=== PATIENT | female | born 1950 | race Caucasian/White ===

== ENCOUNTER 2022-05-01 20:28 | Emergency (ER) | payer MEDICARE, OTHER, SELFPAY ==
[2022-05-01] VITALS (7 sets, daily range): BP systolic 86–117; BP diastolic 49–76; PULSE 66; RESP 16; TEMP 37.1; O2SAT 94–99; BMI 21.2
--- NOTE | 2022-05-01 20:36 | PC.NURSE ---
Contact Kaleigh Chery with any needs/issues [phone]
--- NOTE | 2022-05-01 20:41 | XRR_ITS ---
PROCEDURE INFORMATION: Exam: XR Chest Exam date and time: 05/01/2022 9:44 PM Age: 72 years old Clinical indication: Shortness of breath; Additional info: Lethargy, SOB TECHNIQUE: Imaging protocol: Radiologic exam of the chest. Views: 1 view. COMPARISON: No relevant prior studies available. FINDINGS: Lungs: Unremarkable. No consolidation. Pleural spaces: Unremarkable. No pleural effusion. No pneumothorax. Heart/Mediastinum: Unremarkable. No cardiomegaly. Bones/joints: Unremarkable. XR/XR chest 1V portable [id number] IMPRESSION: No acute findings.
--- NOTE | 2022-05-01 20:42 | ED_ITS ---
HPI - Weakness General: Chief complaint: Weakness Stated complaint: COVID Time Seen by Provider: 05/01/22 20:41 History of Present Illness: 72-year-old female comes in today for complaints of increasing weakness. Patient had a positive COVID test 3 weeks ago and then a repeat COVID today showed positive still. Patient had poor oral intake today. Patient is a poor historian. History was collected from medical records from senior care, [facility]. Primary care is Eduardo Diaz. Patient is a full code. Patient takes medications for hypothyroidism, hypertension, depression, pain, and bladder spasms. Diagnosis also includes MS. Patient responds to questioning and states that she feels like she has pneumonia. Associated symptoms: Denies chest pain, nausea or vomiting Review of Systems 2 Const: Reports: fatigue and daytime sleepiness ENMT: Denies: throat pain Card: Denies: chest pain Resp: Reports: non-productive cough and other (States I have pneumonia) GI: Denies: nausea or vomiting : Denies: flank pain Musc: Denies: back pain or extremity pain Skin/Breast: Denies: rash Physical Exam Const: COMMON NORMALS: alert HENMT: COMMON NORMALS: normocephalic, atraumatic and Normal external nose present HEAD & SCALP: normocephalic and atraumatic NOSE: Normal external nose present MOUTH: Normal oral and palatal mucosa present Neck/C-Spine: COMMON NORMALS: full ROM Lymph: LYMPHATIC: no lymphadenopathy noted Resp: COMMON NORMALS: normal respiratory effort AUSCULTATION: diminished lung sounds Cardio: COMMON NORMALS: regular rate and regular rhythm RATE: regular rate RHYTHM: regular rhythm GI: COMMON NORMALS: Soft to palpation and non-tender PALPATION: Yes Soft to palpation Extremity: COMMON NORMALS: no pedal edema Neuro: SENSORIUM/ORIENTATION: Yes alert SPEECH: abnormal speech (Speech is slightly slurred) OTHER: Decreased use of upper extremities bilaterally, worse on left Psych: COMMON NORMALS: cooperative Skin: COMMON NORMALS: turgor normal GENERAL SKIN EXAM: turgor normal Course Vital Signs: Vital signs: Vital Signs Temperature 98.8 F 05/01/22 20:37 Pulse Rate 66 05/01/22 20:37 Respiratory Rate 16 05/01/22 20:37 Blood Pressure 113/76 05/01/22 22:30 Pulse Oximetry 99 05/01/22 23:00 Oxygen Delivery Me thod 02/22/23 20:37 MDM - Weakness Medical Decision Making 72-year-old female that resides at a nursing center was referred to the ER due to increased sleepiness and poor oral intake. Patient appears nontoxic. Patien t states that she thinks she has pneumonia. Patient does have some difficulty of speech at times. Patient has limited use of upper extremities. Patient becomes easily confused when questioned. No reported dementia or other abnormalities was noted in the senior care paperwork. Review of medications no medications for hypothyroidism and hypertension. Patient did have a recent positive COVID-19 test, 3 weeks ago and then a repeat test today was also positive. Differential diagnosis includes pneumonia, urinary tract infection, ACS, stroke, dehydration. Chest x-ray noted no pneumonia. CBC was unremarkable. Urinalysis was unremarkable. CMP showed no electrolyte abnormality, renal dysfunction, or liver abnormalities. Troponin was 60 on first draw was repeated at 2 hours was 58 with declining delta. Believe patient probably has post covid viral syndrome. Encourage plenty of fluids and activity. Recommend follow-up with primary care return to the ED for new concerns. Lab Data 05/01/22 21:14 05/01/22 21:14 Radiology Impressions Chest X-Ray 05/01/22 20:41 IMPRESSION: No acute findings. Head CT 05/01/22 21:05 IMPRESSION: Negative for intracranial hemorrhage or mass effect. Laboratory Results WBC 4.6 10^3/uL (4.0-10.0) 05/01/22 21:14 RBC 3.70 10^6/uL (4.1-5.3) L 05/01/22 21:14 Hgb 11.2 g/dL (11.5-15.3) L 05/01/22 21:14 Hct 36.6 % (37.0-47.0) L 05/01/22 21:14 MCV 98.9 fl (81-99) 05/01/22 21:14 MCH 30.3 pg (28.0-34.0) 05/01/22 21:14 MCHC 30.6 g/dL (30.0-36.0) 05/01/22 21:14 RDW 14.2 % (12.1-15.1) 05/01/22 21:14 Plt Count 153 10^3/cmm (130-400) 05/01/22 21:14 MPV 11.8 fL (7.4-10.4) H 05/01/22 21:14 Neut % (Auto) 69.4 % 05/01/22 21:14 Lymph % (Auto) 19.3 % 05/01/22 21:14 [place] % (Auto) 7.4 % 05/01/22 21:14 Eos % (Auto) 3.5 % 05/01/22 21:14 Baso % (Auto) 0.2 % 05/01/22 21:14 Neut # (Auto) 3.21 10^3/uL (1.8-7.7) 05/01/22 21:14 Lymph # (Auto) 0.9 10^3/uL (0.8-4.8) 05/01/22 21:14 [place] # (Auto) 0.3 10^3/uL (0.2-0.9) 05/01/22 21:14 Eos # (Auto) 0.2 10^3/uL (0.0-0.8) 05/01/22 21:14 Baso # (Auto) 0.0 10^3/uL (0.0-0.1) 05/01/22 21:14 Nucleated RBC % (auto) 0 % 05/01/22 21:14 Nucleated RBCs # 0.0 /100WBC 05/01/22 21:14 Sodium 142 mmol/L (136-145) 05/01/22 21:14 Potassium 4.1 mmol/L (3.5-5.1) 05/01/22 21:14 Chloride 102 mmol/L (98-107) 05/01/22 21:14 Carbon Dioxide 30 mmol/L (22-29) H 05/01/22 21:14 Anion Gap 14.1 (5-19) 05/01/22 21:14 BUN 22 mg/dL (8-23) 05/01/22 21:14 Creatinine 0.9 mg/dL (0.5-0.9) 05/01/22 21:14 GFR Calculation 61.9 mL/min (90-130) L 05/01/22 21:14 Glucose 90 mg/dL (65-115) 05/01/22 21:14 Calculated Osmolality 297 mOsm/kg (285-295) H 05/01/22 21:14 Calcium 9.6 mg/dL (8.5-10.5) 05/01/22 21:14 Total Bilirubin 0.2 mg/dL (0.15-1.2) 05/01/22 21:14 AST 25 U/L (0-32) 05/01/22 21:14 ALT 16 U/L (0-33) 05/01/22 21:14 Alkaline Phosphatase 126 U/L (35-105) H 05/01/22 21:14 Troponin T Baseline 61 ng/L (0-10) H 05/01/22 21:14 Troponin T 120 Minute 54.64 ng/L (0-10) H 05/02/22 00:32 Delta Troponin T -6.36 ABS# (0-10) L 05/02/22 00:32 Total Protein 5.2 g/dL (6.6-8.7) L 05/01/22 21:14 Albumin 3.3 g/dL (3.5-5.2) L 05/01/22 21:14 Globulin 1.9 g/dL (1.3-4.6) 05/01/22 21:14 TSH 0.52 uIU/mL (0.27-4.20) 05/01/22 21:14 Urine Color Yellow (Yellow) 05/01/22 22:58 Urine Appearance Clear (CLEAR) 05/01/22 22:58 Urine pH 5 (5-7) 05/01/22 22:58 Ur Specific [place] 1.020 (1.005-1.030) 05/01/22 22:58 Urine Protein Neg (Negative) 05/01/22 22:58 Urine Glucose (UA) Norm (Normal) 05/01/22 22:58 Urine Ketones 1+ (Negative) H 05/01/22 22:58 Urine Blood Neg (Negative) 05/01/22 22:58 Urine Nitrate Negative (Negative) 05/01/22 22:58 Urine Bilirubin Neg (Negative) 05/01/22 22:58 Urine Urobilinogen Norm mg/dL (Negative) 05/01/22 22:58 Ur Leukocyte Esterase Negative (Negative) 05/01/22 22:58 EKG Data EKG 1: EKG interpretation date: 05/01/22 EKG interpretation time: 21:43 Prior EKG tracings: not available for review Interpretation: EKG shows a sinus rhythm with a regular rate at [address] elevation or ectopy is noted. No prior exam was available for comparison. Discharge Plan Discharge Patient Disposition: Home Clinical Impression: Post viral syndrome Condition: Stable Prescriptions: No Action gabapentin 600 mg Tablet 600 mg PO DAILY lisinopril 20 mg Tablet 20 mg PO DAILY nitrofurantoin 100 mg Capsule 100 mg PO DAILY Rx Instructions: must administer with a meal/food levothyroxine 112 mcg Tablet 112 mcg PO DAILY tizanidine 4 mg Tablet 8 mg PO DAILY acetaminophen 500 mg Tablet 500 mg PO Q6H PRN (Reason: Pain) baclofen 20 mg Tablet 20 mg PRN (Reason: as needed) nortriptyline 25 mg Capsule 30 mg PO DAILY oxybutynin chloride 5 mg Tablet 5 mg PO BID Discharge Orders: Discharge ED (Routine); Ordered 05/02/22 Ordered By: Mika Hinojosa Discharge Diet: Usual diet Discharge Activity: Increase activity as tolerated Patient Instructions: Viral Syndrome (ED) Activity Restrictions/Additional Instructions: Encourage plenty of fluids. Healthy diet and exercise. Follow-up with primary care as needed. Return to ER for new concerns or worsening symptoms. Coding Level of Care Code ED Sql Database Programmer for Augie eWeks
--- NOTE | 2022-05-01 20:51 | ECG_ITS ---
[facility] Test Date: 2022-05-01 Pat Name: Valery Triana Department: Room: Gender: Female Clinical Psychologist Licensed: : 1950 Requested By: Mika Singh Order Number: [id number] Selina MD: Rush Maciel M.D. Measurements Intervals [place] Rate: 62 P: 57 HI: 166 QRS: 49 QRSD: 103 T: 44 QT: 433 QTc: 443 Interpretive Statements SINUS RHYTHM LOW QRS VOLTAGE IN PRECORDIAL LEADS [QRS DEFLECTION < 1.0 mV IN CHEST LEADS] NONSPECIFIC T-WAVE ABNORMALITY No previous ECG available for comparison Electronically Signed On 05-01-2022 22:50:15 TITLE ATTORNEY by Rush Maciel M.D. [id number]
--- NOTE | 2022-05-01 21:05 | CTR_ITS ---
PROCEDURE INFORMATION: Exam: CT Head Without Contrast Exam date and time: 05/01/2022 10:20 PM Age: 72 years old Clinical indication: Altered mental status/memory loss; Additional info: Lethargy, patient with HX of ms and covid 3 weeks ago TECHNIQUE: Imaging protocol: Computed tomography of the head without contrast. Radiation optimization: All CT scans at this facility use at least one of these dose optimization techniques: automated exposure control; mA and/or kV adjustment per patient size (includes targeted exams where dose is matched to clinical indication); or iterative reconstruction. REPORTING DATA: Count of CT and Cardiac NM exams in prior 12 months: This patient has received 0 known CTs and 0 known cardiac nuclear medicine studies in the 12 months prior to the current study. COMPARISON: No relevant prior studies available. RADIATION DOSE METRICS: Total DLP (mGy-cm): 1139.08 FINDINGS: Brain: Moderate diffuse white matter disease likely reflecting chronic microvascular ischemic changes. Cerebral ventricles: No ventriculomegaly. Paranasal sinuses: Visualized sinuses are unremarkable. No fluid levels. Mastoid air cells: Visualized mastoid air cells are well aerated. Bones/joints: Unremarkable. No acute fracture. Soft tissues: Unremarkable. CT/CT head wo con* [id number] IMPRESSION: Negative for intracranial hemorrhage or mass effect.
[2022-05-01] MEDS: sodium chloride 0.9% 500 ML 999 ML IV (21:18)
[2022-05-01 21:22] LABS: Basophils % 0.2 %; Eosinophils # 0.2 10^3/uL (0.0-0.8); Eosinophils % 3.5 %; Hematocrit 36.6 % (37.0-47.0); Hemoglobin 11.2 g/dL (11.5-15.3); Lymphocytes # 0.9 10^3/uL (0.8-4.8); Lymphocytes % 19.3 %; Mean Corpuscular HGB Conc 30.6 g/dL (30.0-36.0); Mean Corpuscular Hemoglobin 30.3 pg (28.0-34.0); Mean Corpuscular Volume 98.9 fl (81-99); Mean Platelet Volume 11.8 fL (7.4-10.4); Monocytes # 0.3 10^3/uL (0.2-0.9); Monocytes % 7.4 %; Neutrophils # 3.21 10^3/uL (1.8-7.7); Neutrophils % 69.4 %; Nucleated Red Blood Cells % 0 %; Platelet Count 153 10^3/cmm (130-400); Red Cell Distribution Width 14.2 % (12.1-15.1); White Blood Count 4.6 10^3/uL (4.0-10.0)
[2022-05-01 21:45] LABS: Troponin(5th) Baseline 61 ng/L (0-10)
[2022-05-01 21:53] LABS: Alanine Aminotransferase 16 U/L (0-33); Albumin Level 3.3 g/dL (3.5-5.2); Alkaline Phosphatase 126 U/L (35-105); Anion Gap 14.1 (5-19); Aspartate Amino Transferase 25 U/L (0-32); Blood Urea Nitrogen 22 mg/dL (8-23); Calcium 9.6 mg/dL (8.5-10.5); Carbon Dioxide 30 mmol/L (22-29); Chloride 102 mmol/L (98-107); Globulin 1.9 g/dL (1.3-4.6); Glomerular Filtration Rate 61.9 mL/min (90-130); Glucose 90 mg/dL (65-115); Osmolality Calculated 297 mOsm/kg (285-295); Potassium 4.1 mmol/L (3.5-5.1); Sodium 142 mmol/L (136-145); Thyroid Stimulating Hormone 0.52 uIU/mL (0.27-4.20); Total Bilirubin 0.2 mg/dL (0.15-1.2); Total Protein 5.2 g/dL (6.6-8.7)
[2022-05-01 23:03] LABS: Add Urine Microscopic? NO; Charge for UA Resulting for Rev
[2022-05-01 23:07] LABS: Bilirubin Urine Neg (Negative); Blood Urine Neg (Negative); Glucose Urine UA Norm (Normal); Ketones Urine 1+ (Negative); Leukocyte Esterase Urine Negative (Negative); Nitrate Urine Negative (Negative); Protein Urine Neg (Negative); Urine Appearance Clear (CLEAR); Urine Color Yellow (Yellow); Urobilinogen Urine Norm (Negative); pH Urine 5 (5-7)
[2022-05-02 00:54] LABS: Troponin 5 2HR 54.64 ng/L (0-10)
[2022-05-02 01:18] LABS: Troponin 5 2HR Delta -6.36 ABS# (0-10)
== END 2022-05-02 03:15 | disposition home or self-care (01) ==
PROVIDERS: Emergency Provider Nurse Practitioner Family
DX: G93.31 Postviral fatigue syndrome (principal)
CPT/HCPCS: 36415; 70450; 71045; 80053; 81003; 84443; 84484; 85025; 93005; 96360; 99285; J7040

== ENCOUNTER → 2022-06-19 09:16 | Outpatient (BNVA) | payer MEDICARE, OTHER, SELFPAY | PROVIDERS: PCP Nurse Practitioner; Visit Provider Nurse Practitioner | DX: N39.0 Urinary tract infection, site not specified (principal) | CPT/HCPCS: 81000 ==

== ENCOUNTER 2022-06-24 16:21 | Emergency (ER) | payer MEDICARE, OTHER, SELFPAY ==
[2022-06-24] VITALS (8 sets, daily range): BP systolic 139–164; BP diastolic 61–87; PULSE 55–90; RESP 14–18; O2SAT 99–100; BMI 30.1
--- NOTE | 2022-06-24 16:41 | ED_ITS ---
HPI - SOB/Dyspnea General: Chief Complaint: Shortness of Breath/Dyspnea Stated Complaint: WEAKNESS/ SOB Time Seen by Provider: 06/24/22 16:40 Limitations: altered mental status History of Present Illness: HPI Narrative: Ms. Triana is a 72-year-old lady with per chart review MS, debility, chronic UTI, hypertension presenting to the emergency department for somewhat unclear reasons. Apparently she resides at [facility] and they noted possible change in mental status and shortness of breath. I am unsure of the patient's baseline. She is unsure of why she is here. She denies any other specific complaints or says I do not know. History otherwise limited by mental status. Review of Systems General: Reports: ROS unobtainable due to mental status PFSH ED PFSH: Medical History (Updated 06/24/22 @ 21:09 by Jesse Posey MD) Chronic UTI (urinary tract infection) Essential hypertension Hypothyroid Lives in assisted living facility Multiple sclerosis Dr. Jc Metz in [place], [place] Neuropathic pain Wears dentures Wheelchair dependent Surgical History History of bilateral tubal ligation History of cholecystectomy History of hysterectomy History of lumbar fusion Family History Mother Cancer Bladder Diabetes Sister Hypertension Congestive heart failure Social History Smoking and tobacco status: never smoked Second hand smoke exposure: No Smoking risk assessment/counseling performed?: No Desire information about alcohol rehabilitation?: No Counseling given: No Desire information about substance/drug rehabilitation?: No Counseling given: No Caregiver/support person: Yes Lives independently: No (SV) Household members: other Housing: Assisted Living Facility Current occupational status: retired and disabled Current occupational exposures/hazards: No Pets and animals: No Current gender identity: Female Physical Exam Const: COMMON NORMALS: alert GENERAL APPEARANCE: cooperative and well developed HENMT: COMMON NORMALS: normocephalic and atraumatic HEAD & SCALP: normocephalic and atraumatic THROAT: posterior oropharynx normal Eye: COMMON NORMALS: conjunctivae normal CONJUNCTIVA: Yes conjunctivae normal SCLERA: sclerae normal Neck/C-Spine: COMMON NORMALS: supple GENERAL: Yes trachea midline Resp: COMMON NORMALS: clear to auscultation bilaterally EFFORT & INSPECTION: Yes able to speak in complete sentences AUSCULTATION: clear to auscultation bilaterally Cardio: COMMON NORMALS: regular rate and regular rhythm RATE: regular rate RHYTHM: regular rhythm GI: COMMON NORMALS: Soft to palpation PALPATION: Yes Soft to palpation and No Tenderness to palpation present (GI) Extremity: GENERAL: Yes normal exam except as noted and No edema Neuro: COMMON NORMALS: moves all extremities SENSORIUM/ORIENTATION: Yes alert and No Orientation impaired Psych: MEMORY/COGNITION: Yes memory grossly impaired Course Vital Signs: Vital signs: Vital Signs Pulse Rate 74 06/24/22 21:26 Respiratory Rate 16 06/24/22 21:26 Blood Pressure 156/82 06/24/22 21:26 Pulse Oximetry 100 06/24/22 21:00 Oxygen Delivery Me thod Room Air 06/24/22 20:30 MDM - SOB/Dyspnea Medical Decision Making 72-year-old lady presenting with unclear concerns possibly mental status change and shortness of breath. No focal neurologic deficits, patient is nontoxic. EKG noted sinus rhythm with bradycardia, normal axis and intervals otherwise, no STEMI. Labs with no significant hematologic abnormality. Metabolic panel with mild h ypokalemia of uncertain etiology, minimal transaminitis the patient does not have tenderness in the right upper quadrant. Negative range 2-hour delta troponin. Low TSH with elevated free T4. Urinary tract infection present. Head CT negative for acute pathology, chest x-ray with no lobar consolidation or pneumothorax. Patient treated with IV fluids which should help with laboratory abnormalities as well as antibiotics. She is able to tolerate p.o. intake and does not show evidence of sepsis. The results of ED evaluation were discussed with the patient including prescriptions and/or symptomatic cares (if applicable) including appropriate and responsible use, followup plan, and return precautions. The patient verbalized understanding and felt safe for discharge. Medical Records I reviewed the patient's medical records. Lab Data I reviewed the patient's lab results. 06/24/22 17:09 06/24/22 17:09 Labs/Radiology: Radiology Impressions Chest X-Ray 06/24/22 16:52 IMPRESSION: 1. No acute cardiopulmonary process. 2. Incidental/nonacute findings are listed in the report. Head CT 06/24/22 16:53 IMPRESSION: 1. No acute abnormality of the brain. 2. Stable moderate chronic white matter microangiopathic change. 3. Stable small amount of fluid in the right and left mastoid air cells. Laboratory Results WBC 5.4 10^3/uL (4.0-10.0) 06/24/22 17:09 RBC 4.18 10^6/uL (4.1-5.3) 06/24/22 17:09 Hgb 12.6 g/dL (11.5-15.3) 06/24/22 17:09 Hct 41.1 % (37.0-47.0) 06/24/22 17: MCV 98.3 fl (81-99) 06/24/22 17:09 MCH 30.1 pg (28.0-34.0) 06/24/22 17: MCHC 30.7 g/dL (30.0-36.0) 06/24/22 17: RDW 15.0 % (12.1-15.1) 06/24/22 17: Plt Count 346 10^3/cmm (130-400) 06/24/22 17:09 MPV 10.8 fL (7.4-10.4) H 06/24/22 17:09 Neut % (Auto) 67.0 % 06/24/22 17:09 Lymph % (Auto) 22.8 % 06/24/22 17:09 [place] % (Auto) 7.4 % 06/24/22 17:09 Eos % (Auto) 2.0 % 06/24/22 17:09 Baso % (Auto) 0.4 % 06/24/22 17:09 Neut # (Auto) 3.61 10^3/uL (1.8-7.7) 06/24/22 17:09 Lymph # (Auto) 1.2 10^3/uL (0.8-4.8) 06/24/22 17:09 [place] # (Auto) 0.4 10^3/uL (0.2-0.9) 06/24/22 17:09 Eos # (Auto) 0.1 10^3/uL (0.0-0.8) 06/24/22 17:09 Baso # (Auto) 0.0 10^3/uL (0.0-0.1) 06/24/22 17:09 Nucleated RBC % (auto) 0 % 06/24/22 17:09 Nucleated RBCs # 0.0 /100WBC 06/24/22 17:09 Sodium 138 mmol/L (136-145) 06/24/22 17:09 Potassium 5.6 mmol/L (3.5-5.1) H 06/24/22 17:09 Chloride 100 mmol/L (98-107) 06/24/22 17:09 Carbon Dioxide 30 mmol/L (22-29) H 06/24/22 17:09 Anion Gap 13.6 (5-19) 06/24/22 17:09 BUN 38 mg/dL (8-23) H 06/24/22 17:09 Creatinine 0.6 mg/dL (0.5-0.9) 06/24/22 17:09 GFR Calculation 98.8 mL/min (90-130) 06/24/22 17:09 Glucose 75 mg/dL (65-115) 06/24/22 17:09 Calculated Osmolality 294 mOsm/kg (285-295) 06/24/22 17:09 Calcium 9.7 mg/dL (8.5-10.5) 06/24/22 17:09 Total Bilirubin 0.2 mg/dL (0.15-1.2) 06/24/22 17:09 AST 45 U/L (0-32) H 06/24/22 17:09 ALT 54 U/L (0-33) H 06/24/22 17:09 Alkaline Phosphatase 122 U/L (35-105) H 06/24/22 17:09 Troponin T Baseline 42 ng/L (0-10) H 06/24/22 17:09 Troponin T 120 Minute 31.15 ng/L (0-10) H 06/24/22 19:53 Delta Troponin T -10.85 ABS# (0-10) L 06/24/22 19:53 C-Reactive Protein 10.5 mg/L (0.0-4.9) H 06/24/22 17:09 NT-Pro-B Natriuret Pep 36 pg/mL (0-125) 06/24/22 17:09 Total Protein 7.0 g/dL (6.6-8.7) 06/24/22 17:09 Albumin 4.6 g/dL (3.5-5.2) 06/24/22 17:09 Globulin 2.4 g/dL (1.3-4.6) 06/24/22 17:09 Procalcitonin 0.10 ng/mL (0-0.5) 06/24/22 17:09 TSH 0.19 uIU/mL (0.27-4.20) L 06/24/22 17:09 Free T4 1.88 ng/dL (0.82-1.77) H 06/24/22 16:53 Urine Color Yellow (Yellow) 06/24/22 20:29 Urine Appearance Hazy (CLEAR) A 06/24/22 20:29 Urine pH 5 (5-7) 06/24/22 20:29 Ur Specific [place] 1.015 (1.005-1.030) 06/24/22 20:29 Urine Protein Neg (Negative) 06/24/22 20:29 Urine Glucose (UA) Norm (Normal) 06/24/22 20:29 Urine Ketones 1+ (Negative) H 06/24/22 20:29 Urine Blood Neg (Negative) 06/24/22 20:29 Urine Nitrate Negative (Negative) 06/24/22 20:29 Urine Bilirubin Neg (Negative) 06/24/22 20:29 Urine Urobilinogen Norm mg/dL (Negative) 06/24/22 20:29 Ur Leukocyte Esterase 2+ (Negative) H 06/24/22 20:29 Urine RBC 0-4 /hpf (0-2) H 06/24/22 20:29 Urine WBC >100 /hpf (0-5) H 06/24/22 20:29 Ur Squamous Epith Cells 5-10 /hpf (0-5) H 06/24/22 20:29 Amorphous Sediment Not Reportable 06/24/22 20: Urine Bacteria 3+ /hpf (NONE) H 06/24/22 20:29 Discharge Plan Discharge Patient Disposition: Home Clinical Impression: Acute UTI, Dehydration Condition: Stable Prescriptions: No Action baclofen 20 mg tablet 20 mg PO .COMPLEX Qty: 30 5RF Rx Instructions: 20 mg orally at 10AM; tizanidine 4 mg tablet 8 mg PO .in evening Qty: 60 0RF Rx Instructions: neurology writing oxybutynin chloride 5 mg tablet 5 mg PO BID Qty: 60 0RF Rx Instructions: neurology writing nortriptyline 25 mg capsule 30 mg PO .in evening Qty: 90 0RF Rx Instructions: Neurology writing gabapentin 600 mg tablet 600 mg PO .in evening Qty: 30 0RF Rx Instructions: Neurology writing tramadol 50 mg tablet 100 mg PO .COMPLEX Qty: 120 5RF Rx Instructions: 100 mg orally 10AM & 5PM; Natures Bounty C 250,D 500, Zinc 7.5 See Rx Instructions .ROUTE .COMPLEX Qty: 60 0RF Rx Instructions: 2 chew by mouth daily; please put on EMR tetracycline 500 mg capsule 500 mg PO Q6H Qty: 30 0RF lisinopril 20 mg Tablet 20 mg PO DAILY nitrofurantoin 100 mg Capsule 100 mg PO DAILY Rx Instructions: must administer with a meal/food levothyroxine 112 mcg Tablet 112 mcg PO DAILY acetaminophen 500 mg Tablet 500 mg PO Q6H PRN (Reason: Pain) Discharge Orders: Discharge ED (Routine); Ordered 06/24/22 Ordered By: Jesse Posey Referrals: Makayla Galvez, MOTHER REPAIRER-C [Primary Care Provider] - Discharge Diet: Usual diet Discharge Activity: Increase activity as tolerated Patient Instructions: Dehydration (ED), Urinary Tract Infection in Older Adults (ED) Activity Restrictions/Additional Instructions: Thank you for visiting the emergency department. You were seen and evaluated in the emergency department. The exact cause your symptoms is unclear though may be related to urinary tract infection and mild dehydration. Your potassium was elevated, I recommend repeat lab work within 1 week to reevaluate. I will prescribe antibiotics. Please follow-up with a primary care provider. Return to the emergency department for anything that you are concerned about and feel needs emergency department evaluation. Coding Level of Care Code ED Associate Dean Of Women for Augie Weeks
--- NOTE | 2022-06-24 16:52 | XRR_ITS ---
PROCEDURE INFORMATION: Exam: XR Chest Exam date and time: 06/24/2022 5:30 PM Age: 72 years old Clinical indication: Shortness of breath; Additional info: SOB TECHNIQUE: Imaging protocol: Radiologic exam of the chest. Views: 1 view. COMPARISON: CR XR chest 1V portable [id number] 05/01/2022 9:44 PM FINDINGS: Lungs: Lungs are clear bilaterally. Pleural spaces: No pleural effusion. No pneumothorax. Heart/Mediastinum: Stable mild enlargement of the cardiac silhouette. Mediastinal contours are unremarkable. Vasculature: Stable vascular calcifications in the aorta. Bones/joints: Unremarkable for age. XR/XR chest 1V portable [id number] IMPRESSION: 1. No acute cardiopulmonary process. 2. Incidental/nonacute findings are listed in the report.
--- NOTE | 2022-06-24 16:53 | CTR_ITS ---
PROCEDURE INFORMATION: Exam: CT Head Without Contrast Exam date and time: 06/24/2022 5:39 PM Age: 72 years old Clinical indication: Altered mental status/memory loss; Additional info: AMS TECHNIQUE: Imaging protocol: Computed tomography of the head without contrast. Sagittal and coronal reformatted images were created and reviewed. Radiation optimization: All CT scans at this facility use at least one of these dose optimization techniques: automated exposure control; mA and/or kV adjustment per patient size (includes targeted exams where dose is matched to clinical indication); or iterative reconstruction. REPORTING DATA: Count of CT and Cardiac NM exams in prior 12 months: This patient has received [address] and 0 known cardiac nuclear medicine studies in the 12 months prior to the current study. COMPARISON: CT head wo con* [id number] 05/01/2022 10:20 PM RADIATION DOSE METRICS: Total DLP (mGy-cm): 1130.98 FINDINGS: Brain: No acute intracranial hemorrhage. No acute infarct. No intra-axial or extra-axial masses. Koenig-white matter differentiation is preserved. No cerebral edema. No extra-axial fluid collections. No midline shift. No evidence for Chiari 1 malformation. Stable moderately decreased attenuation in the deep white matter, consistent with moderate chronic microangiopathic change. Cerebral ventricles: No hydrocephalus. Paranasal sinuses: Visualized paranasal sinuses are clear. Mastoid air cells: Stable small amount of fluid in the right and left mastoid air cells. Orbital cavities: Globes and lenses, extraocular muscles, and optic nerves are intact bilaterally. No acute intraorbital abnormality. Nasal cavity: Mild right nasal septal deviation. Bones/joints: No acute fracture. Soft tissues: No acute abnormality of the extracranial soft tissues. Vasculature: Atherosclerotic changes in the visualized arteries. CT/CT head wo con* [id number] IMPRESSION: 1. No acute abnormality of the brain. 2. Stable moderate chronic white matter microangiopathic change. 3. Stable small amount of fluid in the right and left mastoid air cells.
--- NOTE | 2022-06-24 16:53 | ECG_ITS ---
[facility] Test Date: 2022-06-24 Pat Name: Valery Triana Department: Room: Gender: Female [place] Operator: : 1950 Requested By: Jesse Posey Order Number: [id number] Selina MD: Rush Maciel M.D. Measurements Intervals [place] Rate: 56 P: 42 [place]: 200 QRS: 50 QRSD: 101 T: 61 QT: 451 QTc: 438 Interpretive Statements SINUS BRADYCARDIA Compared to ECG 05/01/2022 21:03:43 Sinus rhythm no longer present T-wave abnormality no longer present Electronically Signed On 06-25-2022 15:04:06 CDT by Rush Maciel M.D. [id number]
[2022-06-24 17:27] LABS: Basophils % 0.4 %; Eosinophils # 0.1 10^3/uL (0.0-0.8); Hematocrit 41.1 % (37.0-47.0); Hemoglobin 12.6 g/dL (11.5-15.3); Lymphocytes # 1.2 10^3/uL (0.8-4.8); Lymphocytes % 22.8 %; Mean Corpuscular HGB Conc 30.7 g/dL (30.0-36.0); Mean Corpuscular Hemoglobin 30.1 pg (28.0-34.0); Mean Corpuscular Volume 98.3 fl (81-99); Mean Platelet Volume 10.8 fL (7.4-10.4); Monocytes # 0.4 10^3/uL (0.2-0.9); Monocytes % 7.4 %; Neutrophils # 3.61 10^3/uL (1.8-7.7); Nucleated Red Blood Cells % 0 %; Platelet Count 346 10^3/cmm (130-400); Red Blood Count 4.18 10^6/uL (4.1-5.3); White Blood Count 5.4 10^3/uL (4.0-10.0)
[2022-06-24 17:51] LABS: Troponin(5th) Baseline 42 ng/L (0-10)
[2022-06-24 18:00] LABS: NT Pro B Type Natriuretic Pept 36 pg/mL (0-125); Thyroid Stimulating Hormone 0.19 uIU/mL (0.27-4.20)
[2022-06-24 18:22] LABS: Alanine Aminotransferase 54 U/L (0-33); Albumin Level 4.6 g/dL (3.5-5.2); Alkaline Phosphatase 122 U/L (35-105); Anion Gap 13.6 (5-19); Aspartate Amino Transferase 45 U/L (0-32); Blood Urea Nitrogen 38 mg/dL (8-23); C Reactive Protein 10.5 mg/L (0.0-4.9); Calcium 9.7 mg/dL (8.5-10.5); Carbon Dioxide 30 mmol/L (22-29); Chloride 100 mmol/L (98-107); Globulin 2.4 g/dL (1.3-4.6); Glomerular Filtration Rate 98.8 mL/min (90-130); Glucose 75 mg/dL (65-115); Osmolality Calculated 294 mOsm/kg (285-295); Potassium 5.6 mmol/L (3.5-5.1); Sodium 138 mmol/L (136-145); Total Bilirubin 0.2 mg/dL (0.15-1.2)
[2022-06-24] MEDS: sodium chloride 0.9% 1,000 ML 999 ML IV (19:54)
[2022-06-24 20:50] LABS: Troponin 5 2HR 31.15 ng/L (0-10)
[2022-06-24 20:51] LABS: Troponin 5 2HR Delta -10.85 ABS# (0-10)
[2022-06-24 20:59] LABS: Bilirubin Urine Neg (Negative); Blood Urine Neg (Negative); Glucose Urine UA Norm (Normal); Ketones Urine 1+ (Negative); Nitrate Urine Negative (Negative); Protein Urine Neg (Negative); Specific Gravity, Urine 1.015 (1.005-1.030); Urine Appearance Hazy (CLEAR); Urine Color Yellow (Yellow); Urobilinogen Urine Norm (Negative); pH Urine 5 (5-7)
[2022-06-24 21:00] LABS: Add Urine Culture? Yes; Add Urine Microscopic? YES; Bacteria Urine 3+ /hpf; Leukocyte Esterase Urine 2+ (Negative); RBC Urine 0-4 /hpf (0-2); WBC Urine >100 /hpf (0-5)
[2022-06-24 21:12] LABS: Free T4 Free Thyroxine 1.88 ng/dL (0.82-1.77)
[2022-06-24] MEDS: cefTRIAXone 1,000 MG in sodium chloride 0.9% (plus) 50 ML 100 MG IV (21:22)
== END 2022-06-24 22:56 | disposition home or self-care (01) ==
PROVIDERS: Emergency Provider Emergency Medicine; PCP Nurse Practitioner
DX: N39.0 Urinary tract infection, site not specified (principal); E86.0 Dehydration; I10 Essential (primary) hypertension; Z87.440 Personal history of urinary (tract) infections; G35 Multiple sclerosis
CPT/HCPCS: 36415; 70450; 71045; 80053; 81001; 83880; 84145; 84439; 84443; 84484; 85025; 86140; 87077; 87086; 87186; 93005; 96365; 99285; J0696; J7030

== ENCOUNTER 2022-07-03 09:02 | Inpatient (IN) | payer OTHER, MEDICARE, SELFPAY ==
[2022-07-03] VITALS (102 sets, daily range): BP systolic 84–140; BP diastolic 32–78; PULSE 44–105; RESP 1–29; TEMP 33.1–37.1; O2SAT 93–100; BMI 30.1
--- NOTE | 2022-07-03 09:14 | XR_ITS ---
WS: [id number] Exam: XR chest 1V portable [id number] Date/Time of Exam: 07/03/2022 9:19 AM Reason For Exam: hypotension Comparison 06/24/2022. The lungs are clear and fully expanded. Normal cardiomediastinal silhouette. Bony structures are inta ct. Spondylosis of the T-spine. No change. XR/XR chest 1V portable [id number] IMPRESSION: 1. No acute cardiopulmonary process.
--- NOTE | 2022-07-03 09:16 | ECG_ITS ---
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 Measurements Intervals [place] Rate: 48 P: 49 [place]: 208 QRS: 40 QRSD: 116 T: 58 QT: 526 QTc: 470 Interpretive Statements SINUS BRADYCARDIA LOW QRS VOLTAGE IN PRECORDIAL LEADS [QRS DEFLECTION < 1.0 mV IN CHEST LEADS] MODERATE INTRAVENTRICULAR CONDUCTION DELAY [110+ ms QRS DURATION] ST ELEVATION, CONSIDER INFERIOR INJURY [MARKED ST ELEVATION W/O NORMALLY INFLECTED T-WAVE IN II/aVF] ACUTE IL Compared to ECG 06/24/2022 17:20:02 Low QRS voltage now present Intraventricular conduction delay now present ST (T wave) deviation now present Myocardial infarct finding now present Electronically Signed On 07-03-2022 10:58:17 CDT by Rush Maciel M.D. [id number]
--- NOTE | 2022-07-03 09:19 | ED_ITS ---
HPI - General Adult General: Chief complaint: General Medical Stated complaint: SEPSIS/ FOUND ALMOST UNRESPONSIVE Time Seen by Provider: 07/03/22 09:09 History of Present Illness: Patient arrived to the ER by EMS from an assisted living facility patient was found cold with a temperature of 91.3 orally and responsive to sternal rub only. Patient has a history of EMS and also urosepsis. EMS administered 700 mils of normal saline. MD complaint: Altered mental status, urosepsis probable Onset (ago): unknown (Found this morning this way) Relieving factors: other (Patient is now alert oriented and answering questions.) Exacerbating factors: none Associated symptoms: Reports other; Deny chest pain, dyspnea, nausea, rash, palpitations or vomiting Treatments prior to arrival: other (700 mils NS IV by EMS) Review of Systems General: Reports: 10 or more systems reviewed and unremarkable except in HPI and below Const: Reports: chills; Denies: fever(s) Eyes: Denies: change in vision or photophobia ENMT: Denies: throat pain or odynophagia Card: Denies: chest pain, palpitations or irregular heart rhythm Resp: Denies: dyspnea, productive cough or non-productive cough GI: Denies: abdominal pain, nausea, vomiting or diarrhea : Denies: flank pain, difficulty voiding or dysuria Musc: Denies: neck pain, back pain or extremity pain Skin/Breast: Denies: rash or pruritus PFSH ED PFSH: Medical History (Updated 07/03/22 @ 13:16 by Thien Durand DO) Chronic UTI (urinary tract infection) Essential hypertension Hypothyroid Lives in assisted living facility Multiple sclerosis Dr. Jc Metz in [place], [place] Neuropathic pain Spinal stenosis Wears dentures Wheelchair dependent Surgical History History of bilateral tubal ligation History of cholecystectomy History of hysterectomy History of lumbar fusion Family History Mother Cancer Bladder Diabetes Sister Hypertension Congestive heart failure Social History (Updated 07/03/22 @ 13:10 by Corky Lopez MD) Smoking and tobacco status: former smoker Second hand smoke exposure: No Smoking risk assessment/counseling performed?: No Desire information about alcohol rehabilitation?: No Counseling given: No Desire information about substance/drug rehabilitation?: No Counseling given: No Caregiver/support person: Yes Lives independently: No (SV) Household members: other Housing: Assisted Living Facility Current occupational status: retired and disabled Current occupational exposures/hazards: No Pets and animals: No Do you think of yourself as: Straight/Heterosexual Current gender identity: Female Physical Exam Const: COMMON NORMALS: no acute distress, average body habitus, patient oriented x3, no limitations, healthy appearing, alert and well nourished HENMT: COMMON NORMALS: normocephalic, atraumatic, hearing grossly normal bilaterally, external ears normal, Normal external nose present and moist oral mucous membranes HEAD & SCALP: normocephalic and atraumatic NOSE: Normal external nose present EXTERNAL EAR: Yes external ears normal Eye: COMMON NORMALS: Equal, round and reactive pupils present, EOMs intact bilaterally, conjunctivae normal and no scleral icterus CONJUNCTIVA: Yes conjunctivae normal PUPIL: Yes Equal, round and reactive pupils present Neck/C-Spine: COMMON NORMALS: full ROM, no lymphadenopathy, supple, no meningeal signs, no JVD and Thyroid normal THYROID: Thyroid normal Lymph: LYMPHATIC: no lymphadenopathy noted Chest: COMMONS NORMALS: normal inspection of the chest and normal palpation of entire chest wall Resp: COMMON NORMALS: normal respiratory effort, No retractions, No use of accessory muscles and clear to auscultation bilaterally AUSCULTATION: clear to auscultation bilaterally Cardio: COMMON NORMALS: no JVD, regular rate, regular rhythm, S1 normal heart sound present and S2 normal heart sound present RATE: regular rate RHYTHM: regular rhythm HEART SOUNDS: S1 normal heart sound present and S2 normal heart sound present GI: COMMON NORMALS: Normal to inspection, nondistended, normoactive bowel sounds present, Soft to palpation, non-tender, No hepatosplenomegaly present and no masses PALPATION: Yes Soft to palpation and Yes No hepatosplenomegaly present : COMMON NORMALS: Yes no CVA tenderness BLADDER/KIDNEY EXAM: Yes no CVA tenderness Back/Pelvis: COMMON NORMALS: no CVA tenderness Neuro: COMMON NORMALS: patient oriented x3 SENSORIUM/ORIENTATION: Yes alert MENINGEAL SIGNS: Yes no meningeal signs Course Vital Signs: Vital signs: Vital Signs Temperature 97.5 F L 07/03/22 12:15 Pulse Rate 79 07/03/22 13:04 Respiratory Rate 1 L 07/03/22 12:35 Blood Pressure 131/49 07/03/22 13:04 Pulse Oximetry 98 07/03/22 13:04 Oxygen Delivery Me thod Room Air 07/03/22 10:42 Oxygen Flow Rate 3 07/03/22 09:03 MDM - General Adult Medical Decision Making Patient presents to the ER after being found unresponsive with an oral temperature 91.3 and was only responsive to sternal rub. EMS administered 700 mils of fluid normal saline patient started coming around patient is alert and oriented at the time of arrival however patient was bradycardic with her rate in the 40s and hypotensive with her pressure in the 80s. Patient was given another liter of fluid and her pressure did not respond nor did her heart rate patient was started on Levophed. Lab work was obtained which showed a hemoglobin of 10.2 hematocrit of 32.6, BUN/creatinine of 53 and 1.1, an ABG urinalysis and urine drug screen was essentially benign. Other than having trace leukocyte Estrace. Dr. Galindo was consulted he reviewed her previous records and found she is ESBL positive and did not receive the appropriate treatment for her last ER stay. Patient will be placed on vancomycin and meropenem and admitted to the ICU. Differential Diagnosis Urosepsis, altered mental status, bradycardia, hypothermia Medical Records I reviewed the patient's medical records. Lab Data I reviewed the patient's lab results. 07/03/22 09:52 07/03/22 09:52 Radiology Impressions Chest X-Ray 07/03/22 09:14 IMPRESSION: 1. No acute cardiopulmonary process. Laboratory Results WBC 5.9 10^3/uL (4.0-10.0) 07/03/22 09:52 RBC 3.33 10^6/uL (4.1-5.3) L 07/03/22 09:52 Hgb 10.2 g/dL (11.5-15.3) L 07/03/22 09:52 Hct 32.6 % (37.0-47.0) L 07/03/22 09:52 MCV 97.9 fl (81-99) 07/03/22 09:52 MCH 30.6 pg (28.0-34.0) 07/03/22 09:52 MCHC 31.3 g/dL (30.0-36.0) 07/03/22 09:52 RDW 15.3 % (12.1-15.1) H 07/03/22 09:52 Plt Count 210 10^3/cmm (130-400) 07/03/22 09:52 MPV 10.8 fL (7.4-10.4) H 07/03/22 09:52 Neut % (Auto) 62.5 % 07/03/22 09:52 Lymph % (Auto) 24.4 % 07/03/22 09:52 [place] % (Auto) 11.6 % 07/03/22 09:52 Eos % (Auto) 1.0 % 07/03/22 09:52 Baso % (Auto) 0.3 % 07/03/22 09:52 Neut # (Auto) 3.66 10^3/uL (1.8-7.7) 07/03/22 09:52 Lymph # (Auto) 1.4 10^3/uL (0.8-4.8) 07/03/22 09:52 [place] # (Auto) 0.7 10^3/uL (0.2-0.9) 07/03/22 09:52 Eos # (Auto) 0.1 10^3/uL (0.0-0.8) 07/03/22 09:52 Baso # (Auto) 0.0 10^3/uL (0.0-0.1) 07/03/22 09:52 Nucleated RBC % (auto) 0 % 07/03/22 09:52 Nucleated RBCs # 0.0 /100WBC 07/03/22 09:52 Specimen Type Arterial 07/03/22 09:37 Sample Site Radial, right 07/03/22 09:37 ABG pH 7.30 (7.35-7.45) L 07/03/22 09:37 ABG pCO2 53.6 mmHg (35-45) H 07/03/22 09:37 ABG pO2 177.0 mmHg (80.0-100.0) H 07/03/22 09:37 ABG HCO3 26.4 mmol/L (22-26) H 07/03/22 09:37 ABG Base Excess -0.5 mmol/L (-2.0-2.0) 07/03/22 09:37 Rudy Test Pos 07/03/22 09:37 Hematocrit 32.1 % (37-47) L 07/03/22 09:37 Hgb O2 Saturation 98.4 % (95-100) 07/03/22 09:37 Carboxyhemoglobin 1.0 %THgb (0.4-20.1) 07/03/22 09:37 Methemoglobin 0.4 % (0.4-1.5) 07/03/22 09:37 Total Hemoglobin 10.5 g/dL (12-16) L 07/03/22 09:37 O2 Delivery Device Nc 07/03/22 09:37 O2 Liters/Min 3.5 % 07/03/22 09:37 Machining Department Supervisor ID [email or web address] 07/03/22 09:37 Sodium 135 mmol/L (136-145) L 07/03/22 09:52 Potassium 4.8 mmol/L (3.5-5.1) 07/03/22 09:52 Chloride 99 mmol/L (98-107) 07/03/22 09:52 Carbon Dioxide 25 mmol/L (22-29) 07/03/22 09:52 Anion Gap 15.8 (5-19) 07/03/22 09:52 BUN 53 mg/dL (8-23) H 07/03/22 09:52 Creatinine 1.1 mg/dL (0.5-0.9) H 07/03/22 09:52 GFR Calculation 49.1 mL/min (90-130) L 07/03/22 09:52 Glucose 82 mg/dL (65-115) 07/03/22 09:52 Calculated Osmolality 293 mOsm/kg (285-295) 07/03/22 09:52 Lactate 0.8 mmol/L (0.5-2.2) 07/03/22 09:52 Calcium 9.0 mg/dL (8.5-10.5) 07/03/22 09:52 Phosphorus 5.8 mg/dL (2.5-4.5) H 07/03/22 09:52 Magnesium 2.3 mg/dL (1.7-2.3) 07/03/22 09:52 Total Bilirubin 0.3 mg/dL (0.15-1.2) 07/03/22 09:52 AST 24 U/L (0-32) 07/03/22 09:52 ALT 24 U/L (0-33) 07/03/22 09:52 Alkaline Phosphatase 107 U/L (35-105) H 07/03/22 09:52 Troponin T Gen 5 ng/L 75 ng/L (0-10) H 07/03/22 09:52 C-Reactive Protein 53.0 mg/L (0.0-4.9) H 07/03/22 09:52 NT-Pro-B Natriuret Pep 49 pg/mL (0-125) 07/03/22 09:52 Total Protein 5.2 g/dL (6.6-8.7) L 07/03/22 09:52 Albumin 3.0 g/dL (3.5-5.2) L 07/03/22 09:52 Globulin 2.2 g/dL (1.3-4.6) 07/03/22 09:52 Procalcitonin 0.28 ng/mL (0-0.5) 07/03/22 09:52 TSH 0.66 uIU/mL (0.27-4.20) 07/03/22 09:52 Urine Color Yellow (Yellow) 07/03/22 10:32 Urine Appearance Clear (CLEAR) 07/03/22 10:32 Urine pH 5 (5-7) 07/03/22 10:32 Ur Specific [place] 1.015 (1.005-1.030) 07/03/22 10:32 Urine Protein Neg (Negative) 07/03/22 10:32 Urine Glucose (UA) Norm (Normal) 07/03/22 10:32 Urine Ketones Negative (Negative) 07/03/22 10:32 Urine Blood Neg (Negative) 07/03/22 10:32 Urine Nitrate Negative (Negative) 07/03/22 10:32 Urine Bilirubin Neg (Negative) 07/03/22 10:32 Urine Urobilinogen Neg mg/dL (Negative) 07/03/22 10:32 Ur Leukocyte Esterase Trace (Negative) H 07/03/22 10:32 Urine RBC None /hpf (0-2) 07/03/22 10:32 Urine WBC Rare /hpf (0-5) 07/03/22 10:32 Ur Squamous Epith Cells Rare /hpf (0-5) 07/03/22 10:32 Amorphous Sediment Not Reportable 07/03/22 10:32 Urine Bacteria None /hpf (NONE) 07/03/22 10:32 Salicylates < 0.3 mg/dL (3-10) L 07/03/22 09:52 Urine Opiates Screen Negative ng/mL (Negative) 07/03/22 10:32 Acetaminophen 9.3 ug/mL (10-30) L 07/03/22 09:52 Ur Barbiturates Screen Negative ng/mL (Negative) 07/03/22 10:32 Ur Phencyclidine Scrn Negative ng/mL (Negative) 07/03/22 10:32 Ur Amphetamines Screen Negative ng/mL (Negative) 07/03/22 10:32 U Benzodiazepines Scrn Negative ng/mL (Negative) 07/03/22 10:32 Urine Cocaine Screen Negative ng/mL (Negative) 07/03/22 10:32 U Marijuana (THC) Screen Negative ng/mL (Negative) 07/03/22 10:32 Ethyl Alcohol < 10 mg/dL (0-10) 07/03/22 09:52 EKG Data EKG 1: I personally reviewed and interpreted this EKG as follows: EKG interpretation date: 07/03/22 EKG interpretation time: 09:19 Prior EKG tracings: not available for review Interpretation: EKG showed sinus bradycardia with a ventricular rate of 40 bpm, MI interval 208, QRS duration 116, QTc of 491, computer read off as ST elevation consider inferior injury with marked ST elevation without normally inflected T waves in 2 and aVF, acute AL, disagree with this EKG was sent to Dr. Maldonado who reviewed and disagrees with this interpretation also. Computer generated interpretation: Chest X-Ray 07/03/22 09:14 IMPRESSION: 1. No acute cardiopulmonary process. Discharge Plan Discharge Patient Disposition: Admitted As Inpatient Admit Provider: Corky Lopez Clinical Impression: Acute hypotension, Bradycardia, Hypothermia Condition: Stable Coding Level of Care Code ED Communications Professor for Chg Micky
[2022-07-03 09:49] LABS: ABG PCO2 53.6 mmHg (35-45); Arterial Blood Gas Hematocrit 32.1 % (37-47); Base Excess ABG -0.5 mmol/L (-2.0-2.0); Blood Gas Allen Test Pos; Blood Gas LPM 3.5 %; Blood Gas Sample Site Radial, right; Blood Gas Sample Type Arterial; HCO3 ABG 26.4 mmol/L (22-26); HGB O2 Sat 98.4 % (95-100); Methemoglobin 0.4 % (0.4-1.5); Oxygen Device NC; Total Hemoglobin 10.5 g/dL (12-16)
[2022-07-03 10:07] LABS: Basophils % 0.3 %; Eosinophils # 0.1 10^3/uL (0.0-0.8); Hematocrit 32.6 % (37.0-47.0); Hemoglobin 10.2 g/dL (11.5-15.3); Lymphocytes # 1.4 10^3/uL (0.8-4.8); Lymphocytes % 24.4 %; Mean Corpuscular HGB Conc 31.3 g/dL (30.0-36.0); Mean Corpuscular Hemoglobin 30.6 pg (28.0-34.0); Mean Corpuscular Volume 97.9 fl (81-99); Mean Platelet Volume 10.8 fL (7.4-10.4); Monocytes # 0.7 10^3/uL (0.2-0.9); Monocytes % 11.6 %; Neutrophils # 3.66 10^3/uL (1.8-7.7); Neutrophils % 62.5 %; Nucleated Red Blood Cells % 0 %; Platelet Count 210 10^3/cmm (130-400); Red Blood Count 3.33 10^6/uL (4.1-5.3); Red Cell Distribution Width 15.3 % (12.1-15.1); White Blood Count 5.9 10^3/uL (4.0-10.0)
[2022-07-03 10:22] LABS: Lactate (Lactic Acid level) 0.8 mmol/L (0.5-2.2)
[2022-07-03 10:34] LABS: NT Pro B Type Natriuretic Pept 49 pg/mL (0-125); Procalcitonin 0.28 ng/mL (0-0.5); Thyroid Stimulating Hormone 0.66 uIU/mL (0.27-4.20)
[2022-07-03 10:45] LABS: Alanine Aminotransferase 24 U/L (0-33); Alkaline Phosphatase 107 U/L (35-105); Anion Gap 15.8 (5-19); Aspartate Amino Transferase 24 U/L (0-32); Blood Urea Nitrogen 53 mg/dL (8-23); Carbon Dioxide 25 mmol/L (22-29); Chloride 99 mmol/L (98-107); Globulin 2.2 g/dL (1.3-4.6); Glomerular Filtration Rate 49.1 mL/min (90-130); Glucose 82 mg/dL (65-115); Magnesium 2.3 mg/dL (1.7-2.3); Osmolality Calculated 293 mOsm/kg (285-295); Phosphorus 5.8 mg/dL (2.5-4.5); Potassium 4.8 mmol/L (3.5-5.1); Sodium 135 mmol/L (136-145); Total Bilirubin 0.3 mg/dL (0.15-1.2); Total Protein 5.2 g/dL (6.6-8.7)
[2022-07-03 11:11] LABS: Troponin T (5th) Once 75 ng/L (0-10)
[2022-07-03 11:13] LABS: Add Urine Culture? No; Add Urine Microscopic? YES; Bilirubin Urine Neg (Negative); Blood Urine Neg (Negative); Glucose Urine UA Norm (Normal); Ketones Urine Negative (Negative); Leukocyte Esterase Urine Trace (Negative); Nitrate Urine Negative (Negative); Protein Urine Neg (Negative); Specific Gravity, Urine 1.015 (1.005-1.030); Squamous Epithelial Cell Urine RARE /hpf (0-5); Urine Appearance Clear (CLEAR); Urine Color Yellow (Yellow); Urobilinogen Urine Neg (Negative); WBC Urine RARE /hpf (0-5); pH Urine 5 (5-7)
[2022-07-03 11:14] LABS: Amphetamines Screen Urine Negative (Negative); Barbiturates Screen Urine Negative (Negative); Benzodiazepines Screen Urine Negative (Negative); Cocaine Screen Urine Negative (Negative); Opiate Screen Urine Negative (Negative); PCP Screen Urine Negative (Negative); THC Screen Urine Negative (Negative)
[2022-07-03] MEDS: sodium chloride 0.9% 1,000 ML 999 ML IV ×2 (11:17→12:13)
--- NOTE | 2022-07-03 11:49 | CT_ITS ---
WS: [id number] CT ABDOMEN PELVIS TECHNIQUE: Noncontrast CT of the abdomen and pelvis with coronal and sagittal reformatted images. CLINICAL INFORMATION: sepsis, recent UTI, MS COMPARISON: None. DLP: 953.[address] scans at [facility] use at least one of these dose optimization techniques: automated e xposure control; mA and/or kV adjustment per patient size (includes targeted exams where dose is matc hed to clinical indication); or iterative reconstruction. FINDINGS: Prior cholecystectomy. Normal GE junction. Splenic granulomas. Slight bibasilar atelectasis. Trace pl eural fluid. No hydronephrosis in either kidney. Adrenal glands are normal. Inflammatory stranding and edema about the pancreas suspicious for acute p ancreatitis. No drainable fluid collections. Mckeon catheter. Mild diffuse bladder wall thickening. Tortuous sigmoid colon. Mild sigmoid constipati on. Normal appendix in the RIGHT lower quadrant. Tiny fat-containing umbilical hernia. Pedicle screw fixation L4-L5. Disc osteophyte complex at L2-L3 with moderate central canal stenosis. CT/CT kidney stone [id number] IMPRESSION: 1. Inflammatory stranding and edema involving the pancreas more prominent at t he pancreatic tail suspicious for acute pancreatitis. No drainable fluid collec tions. Recommend correlation with pancreatic enzymes 2. Prior cholecystectomy. 3. Bibasilar atelectasis with trace pleural fluid. 4. Mild sigmoid constipation. 5. Mckeon catheter. 6. Normal appendix in the RIGHT lower quadrant. 7. No hydronephrosis in either kidney. Notified Corky Lopez MD at 07/03/2022 2:24 PM.
[2022-07-03 11:57] LABS: Acetaminophen 9.3 ug/mL (10-30); Alcohol Level < 10 mg/dL (0-10); Salicylate < 0.3 mg/dL (3-10)
[2022-07-03] MEDS: meropenem 1,000 MG in sodium chloride 0.9% (plus) 50 ML 100 MG IV ×2 (12:10→19:20)
--- NOTE | 2022-07-03 12:16 | PM.HP ---
Providers/Chief Complaint Admitting Physician: Corky Duke MD Primary Care Provider: APOORVA Jimenez-Estephania Chief Complaint: SEPSIS/ FOUND ALMOST UNRESPONSIVE History of Present Illness Valery Triana is a 72 year old female resident of [facility] who presented to the hospital with history of decreased responsiveness, low oxygen, low blood pressure, and feeling short of breath. From discussion with the patient, as well as correlating history with nurses at [place] [facility], she was feeling somewhat poorly last night, which escalated into today. She has not had a fever, in fact being hypothermic. She was recently in the emergency department on 24 June, where she was diagnosed with UTI. She received a shot of Rocephin, is on Macrobid chronically, and was undergoing treatment with tetracycline p.o. at the nursing facility. Urine culture from our facility did show ESBL, resistant to many antibiotics. Sensitivity was noted to tetracycline. She reports she has had some abdominal/back pain on the right. She denies any nausea or vomiting. She denies any chest discomfort or shortness of breath to me currently. She was recently evaluated in [place] for her MS and had an MRI of her brain, she is awaiting the report. She reports this was done rather routinely to see if her MS was active. Review of Systems General: Reports: 10 or more systems reviewed and unremarkable except in HPI and below Const: Reports: fatigue and malaise; Denies: fever(s) or chills Card: Denies: chest pain Resp: Reports: dyspnea; Denies: productive cough or non-productive cough GI: Reports: abdominal pain; Denies: nausea, vomiting, hematochezia or melena Neuro: Reports: weakness in extremities (Wheelchair-bound) and lack of coordination Medications/Allergies Home Medications Medication Instructions Recorded Confirmed Last Taken Type acetaminophen 500 mg tablet 500 - 1,000 mg PO Q6H PRN Pain 05/01/22 07/03/22 Unknown History levothyroxine 112 mcg tablet 112 mcg PO DAILY 05/01/22 07/03/22 Unknown History lisinopril 20 mg tablet 20 mg PO DAILY 05/01/22 07/03/22 Unknown History nitrofurantoin 100 mg capsule 100 mg PO DAILY 05/01/22 07/03/22 Unknown History oxybutynin chloride 5 mg tablet 5 mg PO BID #60 tabs 05/30/22 07/03/22 Unknown Rx tetracycline 500 mg capsule 500 mg PO Q6H #30 caps 06/27/22 07/03/22 Unknown Rx baclofen 20 mg tablet 20 mg PO BID PRN Pain 07/03/22 07/03/22 Unknown History gabapentin 600 mg tablet 600 mg PO QPM 07/03/22 07/03/22 Unknown History nortriptyline 10 mg capsule 30 mg PO QPM 07/03/22 07/03/22 Unknown History nystatin 100,000 unit/gram topical 1 applic topical BID 07/03/22 07/03/22 Unknown History powder (Nyamyc) tizanidine 4 mg tablet 8 mg PO QPM 07/03/22 07/03/22 Unknown History tramadol 50 mg tablet 100 mg PO BID 07/03/22 07/03/22 Unknown History Allergies Allergy/AdvReac Type Severity Reaction Status Date / Time naproxen [From Aleve] AdvReac Severe Kidney Verified 07/03/22 09:14 PFSH Acute PFSH: Medical History (Updated 07/03/22 @ 13:37 by Corky Lopez MD) Chronic UTI (urinary tract infection) Essential hypertension Hypothyroid Lives in assisted living facility Multiple sclerosis Dr. Jc Metz in [place], [place] Neuropathic pain Spinal stenosis Wears dentures Wheelchair dependent Surgical History History of bilateral tubal ligation History of cholecystectomy History of hysterectomy History of lumbar fusion Family History Mother Cancer Bladder Diabetes Sister Hypertension Congestive heart failure Social History (Updated 07/03/22 @ 13:10 by Corky Lopez MD) Smoking and tobacco status: former smoker Second hand smoke exposure: No Smoking risk assessment/counseling performed?: No Desire information about alcohol rehabilitation?: No Counseling given: No Desire information about substance/drug rehabilitation?: No Counseling given: No Caregiver/support person: Yes Lives independently: No (SV) Household members: other Housing: Assisted Living Facility Current occupational status: retired and disabled Current occupational exposures/hazards: No Pets and animals: No Do you think of yourself as: Straight/Heterosexual Current gender identity: Female Vitals/I&O/Wt Last Vital Signs Temp 97.5 F L 07/03/22 12:15 Pulse 64 07/03/22 12:10 Resp 11 L 07/03/22 12:10 BP 120/55 07/03/22 12:10 Pulse Ox 95 07/03/22 12:10 O2 Del Method Room Air 07/03/22 10:42 O2 Flow Rate 3 07/03/22 09:03 07/02/22 07/03/22 07/03/22 22:59 06:59 14:59 Intake Total 1001.27 / 1001.27 Balance 1001.27 / 1001.27 Weight last 48 hrs Weight 89.811 kg Physical Exam Narrative: General exam is a white female, conversive. Vital signs initially very abnormal with bradycardia in the 40s and temperature of 91.6 have improved with warming as well as norepinephrine. She had already received 2 L of IV fluids by the time I saw her. Secondary to her persistent need for pressors I have written for 1 more liter bolus. HEENT: Atraumatic and normocephalic. Conversive but sleepy. Oropharynx clear. A dentulous. Neck is supple no lymphadenopathy thyromegaly Cardiovascular regular rate and rhythm, no murmur Lungs clear but with diminished breath sounds bilaterally. No wheezes or crackles Abdomen is soft. Slight tenderness is noted on the right. No obvious organomegaly. Back demonstrates small decubitus, approximately 2.5 cm in diameter, stage II, right buttocks without any evidence of surrounding cellulitis or drainage Skin see findings above Extremities no cyanosis clubbing. Trace edema bilaterally. Cap refill slow around 2 seconds Neuro no obvious focal deficits with the exception of weakness in the extremities, mainly lower, she attributes to her MS. Sepsis: Focused sepsis exam performed: Yes Date exam was performed: 07/03/22 Time exam was performed: 11:32 Data 07/03/22 09:52 07/03/22 09:52 Other Labs: ABG demonstrates a pH of 7.3, PCO2 of 54, PO2 of 177 on 3.5 L LFTs are within normal limits with the exception of alk phos of 107. Lactate is 0.8. Calcium is 9.0 A troponin was 75. It does not appear another was drawn. CRP is 53 Albumin 3.0 TSH 0.66 Procalcitonin 0.28 Urinalysis negative, although the one done on the just 9 days ago demonstrated greater than 100 reds Acetaminophen level 9.3, salicylate level undetectable, UDS negative, alcohol level less than [address] June 24 which I reviewed no acute findings Chest x-ray done today which I reviewed demonstrates some arthritic disease but no obvious pneumonia Blood cultures have been drawn, I have ordered a repeat urine culture. I have ordered a CT renal protocol EKG demonstrates sinus bradycardia with a rate of 48, normal axis, intraventricular conduction delay. No significant ST elevation is noted. I do not see evidence for ST elevation. Patient at time of EKG was not having any chest discomfort. Micro: Microbiology 07/03/22 10:48 Blood Culture - Preliminary Blood SPECIMEN COLLECTED 07/03/22 10:36 Blood Culture - Preliminary Blood SPECIMEN COLLECTED A&P Assessment and plan (1) Sepsis: Patient has sepsis. She recently had an ESBL UTI, that I believe may be partially treated. She has evidence of encephalopathy, acute kidney injury, hypothermia. She was significantly hypotensive. She received 2 L, 1 L by ambulance and 1 L in the ER. I have ordered another liter as I believe this would achieve over 30 mils per kilo, and had been improving her blood pressure. She will also be warmed which will help her blood pressure as well as heart rate. She is not tachycardic, and is not on any rate limiting medicines, but I believe her bradycardia may be secondary to her hypothermia. Blood cultures have been obtained Repeat urine cultures have been obtained Secondary to abdominal pain, and reported back pain will obtain CT renal protocol. I feel uncomfortable giving her radiological dye given acute kidney injury with creatinine nearly doubling from previous ER visit. This is likely falsely low as she does not have significant muscle mass. IV antibiotics consisting of meropenem to cover for ESBL as well as vancomycin (2) Acute hypotension: Currently on norepinephrine. Was on as high as 4 mics. We will taper off as tolerated. Check cortisol level TSH was checked and normal (3) Hypothermia: Warm. Hopefully this will improve blood pressure and heart rate as well. Avoid any rate limiting medications. Qualifiers: Encounter type: initial encounter Qualified Code(s): T68.XXXA - Hypothermia, initial encounter (4) Bradycardia: Appears to be secondary to hypothermia. Troponin was elevated. Likely a type II elevation. We will repeat troponin now. No serial enzymes or EKGs were ordered on admission. Repeat EKG as well. Check echocardiogram (5) Multiple sclerosis: Patient with background history of lower extremity weakness, MS (6) Hypothyroid: Continue patient's home thyroid hormone dose (7) Encephalopathy acute: According to nursing facility patient is usually alert, oriented, and quick to respond. She awakens easily, can answer a few questions, then quickly goes back to sleep. Some of her responses are slower. I believe she has acute encephalopathy currently. I expected this to resolve with above treatment. (8) Acute kidney injury: Hydration provided. Reassess frequently to determine if continuous IV fluids are warranted. Plan Decub right buttocks, no evidence of infection. Keep pressure off area. Multiple other medical problems as outlined in past medical history Full code Lovenox for DVT prophylaxis Attestations Medical Necessity Statement*: Will need greater than 2 midnight stay for treatment of sepsis with IV antibiotics, treatment of hypotension and hypothermia. Critical Care Time: The high probability of a clinically significant, sudden or life threatening deterioration of the patient's [neurologic, renal, cardiovascular] system(s) required my full and direct attention, intervention and personal management. The critical care time is as shown. This time is in addition to time spent performing any reported procedures but includes the following: [x] Data and vital sign review and interpretation [x] Patient assessment, examination and intervention [x] Documentation [x] Medication orders and management Critical Care Time (min): 67 Coding Level of Care Code Critical Care >/= 30 minutes Critical care time (in minutes): 67 The high probability of a clinically significant, sudden or life threatening deterioration, as referenced in this documentation, required my full and direct attention, intervention and personal management. The critical care time shown is in addition to time spent performing any reported separately billable procedures and includes the following: [x] Data and vital sign review and interpretation [x] Patient assessment, examination and intervention [x] Medication orders and management [x] Patient/Family updates as able [x] Care Coordination and Documentation. Diagnoses Sepsis A41.9 Acute hypotension I95.9 Hypothermia T68.XXXA Encounter type: initial encounter Bradycardia R00.1 Multiple sclerosis G35 Hypothyroid E03.9 Encephalopathy acute G93.40 Acute kidney injury N17.9 Time Spent (min) 67
--- NOTE | 2022-07-03 13:17 | USCV_ITS ---
Valery Triana Age: 72 Gender: F : 1950 Exam Date: 07/03/2022 15:01 Ordering Phys: Corky Lopez MD Technologist: Carlos Bansal Exam Location: [facility] Indication: hypotension BP: 94 / 64 HR: 67 Rhythm: Sinus Technical Quality: Poor MEASUREMENTS (Male / Female) Normal Values 2D ECHO LV Diastolic Diameter PLAX 3.2 cm 4.2 - 5.9 / 3.9 - 5.3 cm LV Systolic Diameter PLAX 2.4 cm IVS Diastolic Thickness 1.2 cm 0.6 - 1.0 / 0.6 - 0.9 cm IVS Systolic Thickness 1.0 cm LVPW Diastolic Thickness 1.1 cm 0.6 - 1.0 / 0.6 - 0.9 cm LVPW Systolic Thickness 1.2 cm LVOT Diameter 2.1 cm LV Ejection Fraction 2D Teich 51.3 % LV Ejection Fraction MOD 2C 71.1 % LV Ejection Fraction 2C AL 71.6 % LA Diameter 3.4 cm Aorta at Sinotubular Diameter 3.4 cm M-MODE Aortic Annulus Diameter 3.7 cm LA Ao Ratio MM 0.9 MV E Point Septal Separation 0.7 cm DOPPLER AV Peak Velocity 142.0 cm/s LVOT Peak Velocity 91.0 cm/s AV Area Cont Eq vti 2.5 cm squared AV Area Cont Eq pk 2.1 cm squared MV Area PHT 5.0 cm squared Mitral E to A Ratio 1.3 MV E' Velocity 60.0 cm/s Mitral E to MV E' Ratio 7.7 Mitral E to LV E' Lateral Ratio 7.7 Mitral E to LV E' Septal Ratio 7.8 TR Peak Velocity 239.5 cm/s TR Peak Gradient 22.9 mmHg TV Peak E Velocity 73.0 cm/s Right Atrial Pressure 3.0 mmHg Pulmonary Artery Systolic Pressu 25.9 mmHg PV Peak Velocity 87.0 cm/s RV Acceleration Time 0.1 s FINDINGS Left Ventricle Left ventricular cavity not well visualized. Normal left ventricular size, systolic function and wall thickness, with no regional wall motion abnormalities. Left ventricular ejection fraction is estimated at 55 %. Grade I/IV diastolic dysfunction (abnormal relaxation filling pattern), normal to mildly elevated filling pressures. Right Ventricle Normal right ventricular size and systolic function. Normal right ventricular systolic pressure. Right Atrium The right atrium is normal in size. Left Atrium The left atrium is normal in size. Mitral Valve Mitral valve not well visualized. Trace mitral valve regurgitation. Aortic Valve Aortic valve not well visualized. Tricuspid Valve Tricuspid valve not well visualized. Pulmonic Valve Pulmonic valve not well visualized. Pericardium Normal pericardium without effusion. Aorta Normal ascending aorta dimension. IVC Inferior vena cava not visualized. CONCLUSIONS Left ventricular cavity not well visualized. Normal left ventricular size, systolic function and wall thickness, with no regional wall motion abnormalities. Left ventricular ejection fraction is estimated at 55 %. Grade I/IV diastolic dysfunction (abnormal relaxation filling pattern), normal to mildly elevated filling pressures. Mitral valve not well visualized. Trace mitral valve regurgitation. There are no prior echocardiogram studies to compare. Dr. Ludin Maldonado MD (Electronically Signed) Final Date: 04 July 2022 06:02 S
--- NOTE | 2022-07-03 13:34 | PC.PHAR ---
PHARMACY TO DOSE CONSULT - VANCOMYCIN With the patient's current vitals and lab results, her dose was calculated at 1250mg every 18 hours with a predicted peak of 32.2 mcg/ml and trough of 13.53 mcg/ml. Pharmacy will place the trough order prior to the 4th dose and continue to monitor the patient's renal function, making adjustments as necessary. Please let us know if there is anything else that we can help with. Thanks, Luca Todd, Pharm.D
--- NOTE | 2022-07-03 13:54 | ECG_ITS ---
[facility] Test Date: 2022-07-03 Pat Name: Valery Triana Department: Room: ICU11 Gender: Female [employer]: : [id number] Requested By: Corky Best Order Number: [id number] Selina MD: Rush Maciel M.D. Measurements Intervals [place] Rate: 66 P: 71 NH: 200 QRS: 63 QRSD: 117 T: 71 QT: 414 QTc: 436 Interpretive Statements SINUS RHYTHM WITH SINUS ARRHYTHMIA MODERATE INTRAVENTRICULAR CONDUCTION DELAY [110+ ms QRS DURATION] NONSPECIFIC T-WAVE ABNORMALITY Compared to ECG 07/03/2022 09:19:07 T-wave abnormality now present Sinus bradycardia no longer present ST (T wave) deviation no longer present Myocardial infarct finding no longer present Electronically Signed On 07-03-2022 16:27:47 CDT by Rush Maciel M.D. [id number]
[2022-07-03 14:00] LABS: Troponin T (5th) Once 53 ng/L (0-10)
[2022-07-03 14:30] LABS: Cortisol Random 4.94 ug/dL (2.47-19.5)
--- NOTE | 2022-07-03 14:59 | PC.NURSE ---
To Unit Pt brought to unit by ER staff via [facility]. Pt moved to ICU bed. Pt is on Levo at 4 with MAP in the 80's. Pt has IV to right FA and Left wrist. Pt's temp is 94.0 oral. Pt placed on bear hugger with rectal temp probe reading 93.9. Pt has redness to sacrum and barrier cream applied. Pt has redness to lower extremities and T'zone on face. Pt has jones draining to gravity. Pt is alert and oriented X 4.
[2022-07-03] MEDS: vancomycin 1,250 MG/250 ML PIGGYBACK 250 MG IV (15:51)
[2022-07-03] MEDS: enoxaparin 40 mg/0.4 mL Syringe SUBCUT (15:51)
[2022-07-03 16:03] LABS: Lipase 521 U/L (13-60)
[2022-07-03 17:12] LABS: Triglycerides 72 mg/dL (0-150)
[2022-07-03] MEDS: sennosides-docusate Tablet 2 TAB PO (19:11)
[2022-07-03] MEDS: morphine 4 mg/mL SDV 1 mL 1 MG IVP (20:32)
[2022-07-04] VITALS (34 sets, daily range): BP systolic 96–151; BP diastolic 54–94; PULSE 77–100; RESP 12–35; TEMP 36.7–37; O2SAT 92–99
[2022-07-04] MEDS: baclofen 10 mg Tablet 20 MG PO ×2 (00:03→18:23)
[2022-07-04] MEDS: tizanidine 4 mg Tablet 2 MG PO (00:28)
[2022-07-04] MEDS: morphine 4 mg/mL SDV 1 mL 1 MG IVP (02:50)
[2022-07-04] MEDS: meropenem 1,000 MG in sodium chloride 0.9% (plus) 50 ML 100 MG IV ×3 (03:44→20:02)
[2022-07-04 03:47] LABS: Basophils % 0.1 %; Eosinophils % 0.3 %; Hematocrit 35.2 % (37.0-47.0); Hemoglobin 11.2 g/dL (11.5-15.3); Lymphocytes # 1.1 10^3/uL (0.8-4.8); Lymphocytes % 13.7 %; Mean Corpuscular HGB Conc 31.8 g/dL (30.0-36.0); Mean Corpuscular Hemoglobin 30.8 pg (28.0-34.0); Mean Corpuscular Volume 96.7 fl (81-99); Monocytes # 0.8 10^3/uL (0.2-0.9); Monocytes % 10.5 %; Neutrophils # 5.92 10^3/uL (1.8-7.7); Neutrophils % 75.1 %; Nucleated Red Blood Cells % 0 %; Platelet Count 230 10^3/cmm (130-400); Red Blood Count 3.64 10^6/uL (4.1-5.3); Red Cell Distribution Width 15.5 % (12.1-15.1); White Blood Count 7.9 10^3/uL (4.0-10.0)
[2022-07-04 04:06] LABS: Alanine Aminotransferase 33 U/L (0-33); Albumin Level 2.8 g/dL (3.5-5.2); Alkaline Phosphatase 106 U/L (35-105); Blood Urea Nitrogen 47 mg/dL (8-23); Calcium 9.3 mg/dL (8.5-10.5); Carbon Dioxide 21 mmol/L (22-29); Chloride 103 mmol/L (98-107); Globulin 2.3 g/dL (1.3-4.6); Glomerular Filtration Rate 98.8 mL/min (90-130); Glucose 62 mg/dL (65-115); Magnesium 2.2 mg/dL (1.7-2.3); Osmolality Calculated 290 mOsm/kg (285-295); Sodium 135 mmol/L (136-145); Total Bilirubin 0.4 mg/dL (0.15-1.2); Total Protein 5.1 g/dL (6.6-8.7)
[2022-07-04 04:07] LABS: Anion Gap 15.9 (5-19); Aspartate Amino Transferase 37 U/L (0-32); Potassium 4.9 mmol/L (3.5-5.1)
[2022-07-04] MEDS: dextrose 5%-sod chloride 0.9% 1,000 ML 75 ML IV ×2 (04:32→18:26)
[2022-07-04 04:37] LABS: Glucose Point of Care 60 mg/dL (70-110)
--- NOTE | 2022-07-04 05:24 | PC.NURSE ---
07/03/[address] Baldwin notified of patient's c/o pain in her arms. Patient was repositioned for comfort. Morphine was ordered and administered. Patient rested comfortably. [address] Baldwin to report patient's muscle spasms in her extremities. Home medications were reviewed and baclofen was ordered and administered. Patient was repositioned for comfort. 07/04/[address] Baldwin on unit to round on patients and it was reported to her at this time that Ms. Triana's pain and muscle spasms had not resolved. Tizanidine was ordered and administered. 104 Dr. Baldwin was notified of patient's continued pain. Patient was repositioned for comfort. Morphine was ordered and administered. Patient rested comfortably. 0420 Dr. Lopez was notified of patient's low blood sugar. D5NS was ordered and administered.
--- NOTE | 2022-07-04 07:07 | PM.PN ---
Subjective Subjective: Patient alert and oriented this morning. Reports she does have abdominal pain. She denies any nausea. No hunger. Denies having pancreatitis before. Reports she has some spasms in her arms and needs her muscle relaxant back. Medications: Reviewed: Yes Vitals/I&O/Wt Last Vital Signs Temp 98.4 F 07/04/22 04:00 Pulse 90 07/04/22 06:00 Resp 20 H 07/04/22 06:00 BP 111/56 07/04/22 06:00 Pulse Ox 98 07/04/22 06:00 O2 Del Method Room Air 07/03/22 23:19 O2 Flow Rate 3 07/03/22 09:03 07/03/22 07/04/22 07/04/22 22:59 06:59 14:59 Intake Total 1450 / 2451.27 50 / 2501.27 Output Total 975 / 975 650 / 1625 Balance 475 / 1476.27 -600 / 876.27 Weight last 48 hrs Weight 86.863 kg Weight 89.811 kg Weight 89.811 kg Physical Exam Narrative: General exam no distress, conversant, temperature improved. No significant bradycardia currently. Off pressors. Neck is supple no lymphadenopathy thyromegaly Cardiovascular regular rate and rhythm, no murmur Lungs clear but with diminished breath sounds bilaterally. No wheezes or crackles Abdomen is soft. Some mild global tenderness Extremities no cyanosis clubbing. Trace edema bilaterally. Cap refill less than 2 seconds Urinary Catheter Management: Mckeon: Cath Placed During This Visit: no Reason for Continuing Indwelling Catheter: Accurate Measurement of Urinary Output in Critically Ill Patients Data 07/04/22 03:33 07/04/22 03:33 Other Labs: Echocardiogram demonstrates preserved ejection fraction 1/4 blood cultures gram-positive cocci Triglyceride level was normal Micro: Microbiology 07/03/22 10:36 Blood Culture - Preliminary Blood 07/03/22 10:48 Blood Culture - Preliminary Blood SPECIMEN COLLECTED A&P Assessment and plan (1) Sepsis: Patient has sepsis. She recently had an ESBL UTI, that I believe may be partially treated. She has evidence of encephalopathy, acute kidney injury, hypothermia. She was significantly hypotensive. She received 30 mils per kilo She is significantly improved Blood cultures are showing 1/4 gram-positive cocci. Currently on vancomycin and meropenem. Repeat cultures have been ordered. Await urine cultures Will require PICC line for treatment of ESBL, which I believe is likely partially treated (2) Acute hypotension: Has now weaned off norepinephrine Cortisol level, TSH all checked and normal (3) Hypothermia: Resolved with treatment of underlying condition Qualifiers: Encounter type: initial encounter Qualified Code(s): T68.XXXA - Hypothermia, initial encounter (4) Bradycardia: Appears to be secondary to hypothermia. Troponin was elevated. Likely a type II elevation. No significant delta. Bradycardia has resolved. Echocardiogram grossly normal (5) Multiple sclerosis: Patient with background history of lower extremity weakness, MS Restart her medications for spasm (6) Hypothyroid: Continue patient's home thyroid hormone dose (7) Encephalopathy acute: According to nursing facility patient is usually alert, oriented, and quick to respond. She awakens easily, can answer a few questions, then quickly goes back to sleep. Some of her responses are slower. I believe she has acute encephalopathy . This has now resolved (8) Acute kidney injury: Hydration provided. Reassess frequently to determine if continuous IV fluids are warranted. (9) Acute pancreatitis: Continue IV fluids Triglyceride level has been checked and normal Clear liquids as tolerated Morphine for breakthrough pain May transfer out of ICU Plan Decub right buttocks, no evidence of infection. Keep pressure off area. Constipation. Bowel regimen initiated. Multiple other medical problems as outlined in past medical history Full code Lovenox for DVT prophylaxis May transfer out of ICU Attestations Medical Necessity Statement*: Needs continued hospitalization for IV antibiotics for partially treated ESBL, pancreatitis Coding Level of Care Code Acute Code for [facility] Fwd Diagnoses Sepsis A41.9 Acute hypotension I95.9 Hypothermia T68.XXXA Encounter type: initial encounter Bradycardia R00.1 Multiple sclerosis G35 Hypothyroid E03.9 Encephalopathy acute G93.40 Acute kidney injury N17.9 Acute pancreatitis K85.90
[2022-07-04 07:10] LABS: Glucose Point of Care 71 mg/dL (70-110)
[2022-07-04] MEDS: glycerin adult supp 1 EACH PR (08:43)
[2022-07-04] MEDS: vancomycin 1,250 MG/250 ML PIGGYBACK 250 MG IV ×2 (08:43→20:43)
[2022-07-04 09:57] LABS: Glucose Point of Care 88 mg/dL (70-110)
--- NOTE | 2022-07-04 10:00 | PC.NURSE ---
Midline to right brachial vein placed with minimal difficulty. Pt with history of MS. Pt states she is unable to extend left arm and has limited ability to extend right arm. Pt states she is unable to sign consent due to pain at this time. Verbal consent obtained after explaining risks and benefits of midline catheter. Debra RN, witness. Mid-arm circumference measured 10 cm from right AC and noted at 30 cm. Trimmed cath length 10 cm with 0 cm external length noted. Midline flushes and aspirates blood well. Less than 5 mL EBL. Dressing due to be changed tomorrow, 07/05/22. Report given to bedside nurseOsiris.
[2022-07-04] MEDS: morphine 4 mg/mL SDV 1 mL 2 MG IVP ×3 (10:30→20:33)
[2022-07-04] MEDS: enoxaparin 40 mg/0.4 mL Syringe SUBCUT (13:34)
--- NOTE | 2022-07-04 15:00 | PC.NURSE ---
Patient refused swallow study and stated that she could not sit up in a chair. Dr. Lopez made aware.
[2022-07-04] MEDS: sennosides-docusate Tablet 2 TAB PO (17:14)
[2022-07-04] MEDS: TRAMadol 50 mg Tablet PO (17:14)
--- NOTE | 2022-07-04 17:36 | PC.NURSE ---
Pt was taken to [facility] via bed at 1730 on room air. All belongings taken and placed at bedside including clothing, phone, top dentures, ring, and handbag.
[2022-07-04] MEDS: gabapentin 300 mg Capsule PO (20:42)
[2022-07-05] VITALS (11 sets, daily range): BP systolic 126–149; BP diastolic 68–79; PULSE 77–94; RESP 16–18; TEMP 36.6–37.2; O2SAT 94–96
[2022-07-05] MEDS: morphine 4 mg/mL SDV 1 mL 2 MG IVP (04:11)
[2022-07-05] MEDS: meropenem 1,000 MG in sodium chloride 0.9% (plus) 50 ML 100 MG IV ×3 (04:17→20:55)
[2022-07-05 05:41] LABS: Basophils % 0.1 %; Eosinophils # 0.1 10^3/uL (0.0-0.8); Eosinophils % 0.8 %; Hematocrit 32.6 % (37.0-47.0); Hemoglobin 10.3 g/dL (11.5-15.3); Lymphocytes # 1.3 10^3/uL (0.8-4.8); Lymphocytes % 14.2 %; Mean Corpuscular HGB Conc 31.6 g/dL (30.0-36.0); Mean Platelet Volume 10.8 fL (7.4-10.4); Monocytes # 1.2 10^3/uL (0.2-0.9); Monocytes % 12.8 %; Neutrophils % 71.8 %; Nucleated Red Blood Cells % 0 %; Platelet Count 219 10^3/cmm (130-400); Red Blood Count 3.43 10^6/uL (4.1-5.3); Red Cell Distribution Width 15.3 % (12.1-15.1); White Blood Count 9.2 10^3/uL (4.0-10.0)
[2022-07-05 05:57] LABS: Alanine Aminotransferase 45 U/L (0-33); Albumin Level 2.7 g/dL (3.5-5.2); Alkaline Phosphatase 114 U/L (35-105); Aspartate Amino Transferase 50 U/L (0-32); Blood Urea Nitrogen 26 mg/dL (8-23); Calcium 8.8 mg/dL (8.5-10.5); Carbon Dioxide 23 mmol/L (22-29); Chloride 110 mmol/L (98-107); Globulin 2.2 g/dL (1.3-4.6); Glomerular Filtration Rate 219.9 mL/min (90-130); Glucose 63 mg/dL (65-115); Magnesium 1.8 mg/dL (1.7-2.3); Osmolality Calculated 295 mOsm/kg (285-295); Sodium 141 mmol/L (136-145); Total Bilirubin 0.5 mg/dL (0.15-1.2); Total Protein 4.9 g/dL (6.6-8.7)
[2022-07-05 06:11] LABS: Lipase 1112 U/L (13-60)
--- NOTE | 2022-07-05 08:32 | P.PN_ITS ---
Subjective Subjective: Awakens easily. More interactive. Tries to tell me she was faking pain yesterday. Reports that a nurse is going to tell me this and that I will be mad at her. Despite my reassurance that I will not, she seems focused on this. Medications: Reviewed: Yes Vitals/I&O/Wt Last Vital Signs Temp 98.0 F 07/05/22 04:00 Pulse 86 07/05/22 07:29 Resp 16 07/05/22 04:11 BP 126/68 07/05/22 04:00 Pulse Ox 94 07/05/22 07:29 O2 Del Method Room Air 07/05/22 07:29 O2 Flow Rate 3 07/03/22 09:03 07/04/22 07/05/22 07/05/22 22:59 06:59 14:59 Intake Total 1662.73 / 1662.73 300 / 1962.73 Output Total 1000 / 1000 Balance 1662.73 / 1662.73 -700 / 962.73 Weight last 48 hrs Weight 88.252 kg Weight 86.863 kg Weight 89.811 kg Weight 89.811 kg Physical Exam Narrative: General exam more conversant, but still somewhat confused. Neck is supple no lymphadenopathy thyromegaly Cardiovascular regular rate and rhythm, no murmur Lungs clear but with diminished breath sounds bilaterally. No wheezes or crackles Abdomen is soft. I cannot elicit any tenderness currently. Positive bowel sounds. Had bowel movement yesterday. Extremities no cyanosis clubbing. Trace edema bilaterally. Cap refill less than 2 seconds Urinary Catheter Management: Mckeon: Cath Placed During This Visit: no Reason for Continuing Indwelling Catheter: Assist Healing of Perineal & Sacral Wounds- Incontinent Patients Data 07/05/22 05:22 07/05/22 05:22 Micro: Microbiology 07/04/22 08:00 Blood Culture - Preliminary Blood NEGATIVE TO DATE 07/03/22 10:32 Urine Culture - Preliminary Urine Catheterized 07/03/22 10:48 Blood Culture - Preliminary Blood NEGATIVE TO DATE 07/04/22 10:13 Blood Culture - Preliminary Blood SPECIMEN COLLECTED 07/03/22 10:36 Blood Culture - Preliminary Blood A&P Assessment and plan (1) Sepsis: Patient had sepsis. She recently had an ESBL UTI, that I believe may be partially treated. She has evidence of encephalopathy, acute kidney injury, hypothermia. She was significantly hypotensive. She received 30 mils per kilo of isotonic saline Sepsis appears to be resolved Blood cultures are showing 1/4 gram-positive cocci. Currently on vancomycin and meropenem. Repeat cultures have been ordered and negative to date. If this grows out likely contaminant can stop vancomycin. Urine culture negative but very recent ESBL UTI which may not have been effectively treated with tetracycline. I believe she has a partially treated UTI and have placed her on meropenem with the plan to discharge her to long term facility on ertapenem. Midline placed yesterday to facilitate this (2) Acute hypotension: Now off norepinephrine Cortisol level, TSH all checked and normal (3) Hypothermia: Resolved with treatment of underlying condition Qualifiers: Encounter type: initial encounter Qualified Code(s): T68.XXXA - Hypothermia, initial encounter (4) Bradycardia: Appears to be secondary to hypothermia. Troponin was elevated. Likely a type II elevation. No significant delta. Bradycardia has resolved. Echocardiogram grossly normal (5) Multiple sclerosis: Patient with background history of lower extremity weakness, MS Her chronic medications have been restarted (6) Hypothyroid: Continue patient's home thyroid hormone dose (7) Encephalopathy acute: She is improving but still slightly confused. Reevaluate tomorrow (8) Acute kidney injury: Hydration provided. Now resolved. Reduce IV fluids (9) Acute pancreatitis: Abdominal pain is resolving and the lipase is higher Advance to full liquids Reduce fluids Triglyceride level has been checked and normal Morphine for breakthrough pain Plan Decub right buttocks, no evidence of infection. Keep pressure off area. Constipation. Bowel regimen initiated. She has had a bowel movement Dysphagia. Involve speech therapy. She had previously indicated food sticking in the middle of her chest. She now states this is not true and is refusing care and swallow. Multiple other medical problems as outlined in past medical history Full code Lovenox for DVT prophylaxis If she continues to improve as far as being able to tolerate a diet, and improvement in her mental status she could possibly transition to skilled care as early as tomorrow. Attestations Medical Necessity Statement*: Needs continued hospital stay for IV antibiotics related to partially treated ESBL UTI, encephalopathy Diagnoses Sepsis A41.9 Acute hypotension I95.9 Hypothermia T68.XXXA Encounter type: initial encounter Bradycardia R00.1 Multiple sclerosis G35 Hypothyroid E03.9 Encephalopathy acute G93.40 Acute kidney injury N17.9 Acute pancreatitis K85.90 Time Spent (min) 29
[2022-07-05] MEDS: sennosides-docusate Tablet 2 TAB PO ×2 (09:37→17:19)
[2022-07-05] MEDS: TRAMadol 50 mg Tablet PO ×2 (09:37→17:20)
[2022-07-05] MEDS: levothyroxine 112 mcg Tablet PO (09:37)
[2022-07-05] MEDS: pantoprazole DR 40 mg Tablet PO (09:37)
[2022-07-05] MEDS: vancomycin 1,250 MG/250 ML PIGGYBACK 250 MG IV ×2 (09:37→22:09)
[2022-07-05] MEDS: dextrose 5%-sod chloride 0.9% 1,000 ML 50 ML IV (12:25)
[2022-07-05] MEDS: enoxaparin 40 mg/0.4 mL Syringe SUBCUT (14:52)
[2022-07-05] MEDS: gabapentin 300 mg Capsule PO (20:55)
--- NOTE | 2022-07-05 21:47 | PC.NURSE ---
1999 Vancomycin will be administered late due to vancomycin through still pending.
[2022-07-05 21:52] LABS: Vancomycin Trough 19.2 ug/mL (10-15)
[2022-07-06] VITALS (11 sets, daily range): BP systolic 132–153; BP diastolic 72–85; PULSE 74–98; RESP 17–19; TEMP 36.4–36.8; O2SAT 94–97
[2022-07-06] MEDS: meropenem 1,000 MG in sodium chloride 0.9% (plus) 50 ML 100 MG IV ×3 (03:48→20:00)
[2022-07-06 05:14] LABS: Basophils % 0.4 %; Eosinophils # 0.1 10^3/uL (0.0-0.8); Eosinophils % 0.9 %; Hematocrit 31.7 % (37.0-47.0); Hemoglobin 10.1 g/dL (11.5-15.3); Lymphocytes # 1.4 10^3/uL (0.8-4.8); Lymphocytes % 12.8 %; Mean Corpuscular HGB Conc 31.9 g/dL (30.0-36.0); Mean Corpuscular Volume 94.1 fl (81-99); Mean Platelet Volume 10.7 fL (7.4-10.4); Monocytes # 1.2 10^3/uL (0.2-0.9); Monocytes % 11.1 %; Neutrophils # 8.21 10^3/uL (1.8-7.7); Neutrophils % 74.3 %; Nucleated Red Blood Cells % 0 %; Platelet Count 207 10^3/cmm (130-400); Red Blood Count 3.37 10^6/uL (4.1-5.3); Red Cell Distribution Width 15.1 % (12.1-15.1)
[2022-07-06 05:33] LABS: Alanine Aminotransferase 48 U/L (0-33); Albumin Level 2.8 g/dL (3.5-5.2); Alkaline Phosphatase 126 U/L (35-105); Anion Gap 13.7 (5-19); Aspartate Amino Transferase 46 U/L (0-32); Blood Urea Nitrogen 18 mg/dL (8-23); Calcium 8.7 mg/dL (8.5-10.5); Carbon Dioxide 23 mmol/L (22-29); Chloride 110 mmol/L (98-107); Globulin 2.2 g/dL (1.3-4.6); Glomerular Filtration Rate 219.9 mL/min (90-130); Glucose 68 mg/dL (65-115); Osmolality Calculated 296 mOsm/kg (285-295); Potassium 3.7 mmol/L (3.5-5.1); Sodium 143 mmol/L (136-145); Total Bilirubin 0.5 mg/dL (0.15-1.2)
[2022-07-06] MEDS: vancomycin 1,250 MG/250 ML PIGGYBACK 250 MG IV ×2 (08:46→21:11)
[2022-07-06] MEDS: TRAMadol 50 mg Tablet PO (08:49)
[2022-07-06] MEDS: levothyroxine 112 mcg Tablet PO (08:49)
[2022-07-06] MEDS: pantoprazole DR 40 mg Tablet PO (08:49)
[2022-07-06] MEDS: dextrose 5%-sod chloride 0.9% 1,000 ML 50 ML IV (08:50)
[2022-07-06] MEDS: enoxaparin 40 mg/0.4 mL Syringe SUBCUT (14:00)
--- NOTE | 2022-07-06 14:03 | PC.SOCIAL ---
IMM update IMM updated with patient. Verbalized an understanding. Copy PG 2 provided. Initialled, dated, timed, and placed in chart.
--- NOTE | 2022-07-06 15:01 | PC.NURSE ---
This nurse rounded on patient at 1300 and went to give antibiotic and lovenox injection, however, patient refused. I educated patient on diagnosis and explained to her the importance of both and she still insisted not to have them. Patient was A&O to self and where she was out, however, when asked the reason for her being here and the year, patient stated, It's 1833 and I'm here because I took a trip to the [place] and couldn't find my way back. Patient also went on to say things like My pillows are floating, I think I'll bite your ear off and If those two girls come in here again, I'm going to cut their heads off and feed them to the cows referring to the student and I and she chuckled. Patient also stated, I like records that play backwards. When asked what that meant, patient stated, I don't know. Dr. Jackson notified.
--- NOTE | 2022-07-06 15:11 | PC.NURSE ---
At 0900, patient was found to have right hand edema. This nurse turned off patients IV fluids and elevated arm. Dr. Jackson notified. Care ongoing.
--- NOTE | 2022-07-06 15:36 | P.PN_ITS ---
Subjective Subjective: Denies any problems at this time. Has a friend in the room with her. She denies any problems this morning with dysuria. Nursing reports that she has been having some hallucinations, visual. Reports that her vitals have otherwise been stable. She has remained afebrile. Vitals/I&O/Wt Last Vital Signs Temp 98.3 F 07/06/22 12:00 Pulse 74 07/06/22 12:00 Resp 17 07/06/22 12:00 BP 147/78 07/06/22 12:00 Pulse Ox 94 07/06/22 12:00 O2 Del Method Room Air 07/06/22 12:00 O2 Flow Rate 3 07/06/22 08:00 07/06/22 07/06/22 07/06/22 06:59 14:59 22:59 Intake Total 300 / 2540 1780.833 / 1780.833 Output Total 750 / 1450 Balance -450 / 1090 1780.833 / 1780.833 Weight last 48 hrs Weight 197 lb 8 oz Weight 194 lb 9 oz Physical Exam Narrative: General: Cooperative patient in no apparent distress. Well developed. HEENT: Normocephalic, Atraumatic. External ears normal. Nasal passages patent without drainage. MMM. Heart: RRR. Resp: LCTA. No respiratory distress, no use of accessory muscles. Abd: Soft, non-tender. Non-distended. Extremities: No edema. Skin: No rash or lesions on exposed areas. Urinary Catheter Management: Mckeon: Cath Placed During This Visit: no Reason for Continuing Indwelling Catheter: Assist Healing of Perineal & Sacral Wounds- Incontinent Patients Data 07/06/22 04:55 07/06/22 04:55 A&P Assessment and plan (1) Sepsis: Patient had sepsis. She recently had an ESBL UTI, that I believe may be partially treated. She has evidence of encephalopathy, acute kidney injury, hypothermia. She was significantly hypotensive. She received 30 mils per kilo of isotonic saline Sepsis appears to be resolved Blood cultures are showing 1/4 gram-positive cocci. Currently on vancomycin and meropenem. Repeat cultures have been ordered and negative to date. If this grows out likely contaminant can stop vancomycin. Urine culture negative but very recent ESBL UTI which may not have been effectively treated with tetracycline. I believe she has a partially treated UTI and have placed her on meropenem with the plan to discharge her to halfway facility on ertapenem. Midline placed yesterday to facilitate this (2) Acute hypotension: (3) Hypothermia: Resolved with treatment of underlying condition Qualifiers: Encounter type: initial encounter Qualified Code(s): T68.XXXA - Hypothermia, initial encounter (4) Bradycardia: Appears to be secondary to hypothermia. Troponin was elevated. Likely a type II elevation. No significant delta. Bradycardia has resolved. Echocardiogram grossly normal (5) Multiple sclerosis: (6) Hypothyroid: (7) Encephalopathy acute: (8) Acute kidney injury: (9) Acute pancreatitis: Plan 72-year-old female with a past medical history of multiple sclerosis, admitted for sepsis and UTI. Continue close inpatient monitoring. Urine cultures recently obtained showing ESBL. Blood cultures are showing 1/4 gram-positive cocci with repeat currently neg to date. Currently on vancomycin and meropenem and will continue. Decub right buttocks, no evidence of infection. Keep pressure off area. Constipation. Bowel regimen initiated. She has had a bowel movement Continue speech therapy. Having some visual hallucinations. Vitals are currently stable. May be medication induced. Will monitor this closely for now. Multiple other medical problems as outlined in past medical history. Continue home meds to address these issues. Abdominal pain is resolving. Lipase did increase from discharge. Will recheck in am. Continue morphine for breakthrough pain related to pancreatitis. Recheck am labs. Code Status: Full IVF: D5 NS at 50 DVT PPx: Lovenox GI PPx: Protonix ABx: Vancomycin and meropenem Diet: Soft mechanical Discharge plan: SNF Attestations 2 Medical Necessity Statement*: Needs continued hospital stay for IV antibiotics related to partially treated ESBL UTI, encephalopathy Coding Level of Care Code Acute Code for Chg Fwd Moderate MDM includes number and complexity of problems actively addressed during encounter, amount and/or complexity of data reviewed/ordered and described risk of complication, morbidity or mortality of management as documented Diagnoses Sepsis A41.9 Acute hypotension I95.9 Hypothermia T68.XXXA Encounter type: initial encounter Bradycardia R00.1 Multiple sclerosis G35 Hypothyroid E03.9 Encephalopathy acute G93.40 Acute kidney injury N17.9 Acute pancreatitis K85.90
--- NOTE | 2022-07-06 18:08 | PC.NURSE ---
This nurse rounded on patient at 1800 and attempted to give 1800 meds which included tramadol and senna. Patient stated Get the fuck out of my room you ass licking, juan sucking bitch. This nurse explained to patient that she had a roommate and it was inappropriate for her to be talking this way as I was just trying to provide her care. Patient shouted get out! Patient said, Rom, we need to find a new apartment. There's prostitutes across the [place]. Patient also refused her dinner. This nurse notified Dr. Jackson and charge nurse, Jasen Randolph. This nurse is trying to get patient moved to another room as to not disturb her roommate or their family which is at bedside. Ordering labs per Dr. Jackson and verifying home meds.
[2022-07-06 19:02] LABS: Ammonia 27 umol/L (11-51)
[2022-07-06 19:04] LABS: Alanine Aminotransferase 43 U/L (0-33); Alkaline Phosphatase 149 U/L (35-105); Anion Gap 16.1 (5-19); Aspartate Amino Transferase 41 U/L (0-32); Blood Urea Nitrogen 17 mg/dL (8-23); C Reactive Protein 64.4 mg/L (0.0-4.9); Calcium 8.7 mg/dL (8.5-10.5); Carbon Dioxide 22 mmol/L (22-29); Chloride 109 mmol/L (98-107); Globulin 2.3 g/dL (1.3-4.6); Glomerular Filtration Rate 219.9 mL/min (90-130); Glucose 60 mg/dL (65-115); Osmolality Calculated 295 mOsm/kg (285-295); Potassium 4.1 mmol/L (3.5-5.1); Sodium 143 mmol/L (136-145); Total Bilirubin 0.5 mg/dL (0.15-1.2); Total Protein 5.3 g/dL (6.6-8.7)
[2022-07-06 19:07] LABS: Lactate (Lactic Acid level) 0.8 mmol/L (0.5-2.2)
[2022-07-06 19:08] LABS: Basophils % 0.2 %; Eosinophils # 0.2 10^3/uL (0.0-0.8); Eosinophils % 1.2 %; Hematocrit 32.8 % (37.0-47.0); Hemoglobin 10.7 g/dL (11.5-15.3); Lymphocytes # 1.8 10^3/uL (0.8-4.8); Lymphocytes % 14.1 %; Mean Corpuscular HGB Conc 32.6 g/dL (30.0-36.0); Mean Corpuscular Hemoglobin 30.7 pg (28.0-34.0); Mean Platelet Volume 10.8 fL (7.4-10.4); Monocytes # 1.3 10^3/uL (0.2-0.9); Monocytes % 10.2 %; Neutrophils # 9.46 10^3/uL (1.8-7.7); Nucleated Red Blood Cells % 0 %; Platelet Count 217 10^3/cmm (130-400); Red Blood Count 3.49 10^6/uL (4.1-5.3); Red Cell Distribution Width 15.3 % (12.1-15.1); White Blood Count 12.8 10^3/uL (4.0-10.0)
[2022-07-06 19:27] LABS: Lipase 639 U/L (13-60)
[2022-07-06] MEDS: acetaminophen 325 mg Tablet 650 MG PO (20:10)
[2022-07-06] MEDS: gabapentin 300 mg Capsule PO (21:18)
[2022-07-07] VITALS (9 sets, daily range): BP systolic 127–158; BP diastolic 73–84; PULSE 81–111; RESP 16–19; TEMP 36.4–37; O2SAT 94–98
[2022-07-07] MEDS: meropenem 1,000 MG in sodium chloride 0.9% (plus) 50 ML 100 MG IV ×3 (03:30→19:44)
[2022-07-07 06:32] LABS: Basophils % 0.3 %; Eosinophils # 0.2 10^3/uL (0.0-0.8); Hematocrit 30.9 % (37.0-47.0); Hemoglobin 9.8 g/dL (11.5-15.3); Lymphocytes # 1.5 10^3/uL (0.8-4.8); Mean Corpuscular HGB Conc 31.7 g/dL (30.0-36.0); Mean Corpuscular Hemoglobin 30.3 pg (28.0-34.0); Mean Corpuscular Volume 95.7 fl (81-99); Mean Platelet Volume 10.9 fL (7.4-10.4); Monocytes # 1.1 10^3/uL (0.2-0.9); Monocytes % 9.9 %; Neutrophils # 7.91 10^3/uL (1.8-7.7); Neutrophils % 73.4 %; Nucleated Red Blood Cells % 0 %; Platelet Count 183 10^3/cmm (130-400); Red Blood Count 3.23 10^6/uL (4.1-5.3); Red Cell Distribution Width 15.1 % (12.1-15.1); White Blood Count 10.8 10^3/uL (4.0-10.0)
[2022-07-07 07:08] LABS: Alanine Aminotransferase 37 U/L (0-33); Albumin Level 2.7 g/dL (3.5-5.2); Alkaline Phosphatase 128 U/L (35-105); Anion Gap 17.6 (5-19); Aspartate Amino Transferase 30 U/L (0-32); Blood Urea Nitrogen 17 mg/dL (8-23); C Reactive Protein 77.9 mg/L (0.0-4.9); Carbon Dioxide 19 mmol/L (22-29); Chloride 106 mmol/L (98-107); Globulin 2.4 g/dL (1.3-4.6); Glomerular Filtration Rate 219.9 mL/min (90-130); Glucose 41 mg/dL (65-115); Osmolality Calculated 286 mOsm/kg (285-295); Potassium 3.6 mmol/L (3.5-5.1); Sodium 139 mmol/L (136-145); Total Bilirubin 0.5 mg/dL (0.15-1.2); Total Protein 5.1 g/dL (6.6-8.7)
[2022-07-07 07:17] LABS: Lipase 712 U/L (13-60)
[2022-07-07] MEDS: pantoprazole DR 40 mg Tablet PO (08:05)
[2022-07-07] MEDS: sennosides-docusate Tablet 2 TAB PO ×2 (08:05→16:58)
[2022-07-07] MEDS: levothyroxine 112 mcg Tablet PO (08:05)
[2022-07-07] MEDS: vancomycin 1,250 MG/250 ML PIGGYBACK 250 MG IV ×2 (08:05→20:44)
[2022-07-07] MEDS: TRAMadol 50 mg Tablet PO ×2 (08:05→16:59)
--- NOTE | 2022-07-07 11:29 | P.PN_ITS ---
Subjective Subjective: Patient will be able to go to [facility] tomorrow Tolerating diet No recurrence of nausea or vomiting Disorganized thinking tangential thoughts However she is able to answer my questions She also mentioned that I have seen her in the past when she got sick Vitals/I&O/Wt Last Vital Signs Temp 98.2 F 07/07/22 08:00 Pulse 84 07/07/22 08:00 Resp 17 07/07/22 08:00 BP 146/73 07/07/22 08:00 Pulse Ox 96 07/07/22 08:00 O2 Del Method Room Air 07/07/22 08:00 O2 Flow Rate 3 07/06/22 08:00 07/06/22 07/07/22 07/07/22 22:59 06:59 14:59 Intake Total 170 / 1950.833 420 / 2370.833 490 / 490 Output Total 950 / 950 Balance 170 / 1950.833 -530 / 1420.833 490 / 490 Weight last 48 hrs Weight 86.545 kg Weight 89.584 kg Physical Exam Narrative: Patient is awake and alert Disorganized thinking Tangential thoughts Swelling of lower extremities noted Multiple sclerosis related quadriparesis Abdomen slightly distended Nontender Currently on room air Patient using chin for call light Urinary Catheter Management: Mckeon: Cath Placed During This Visit: no Reason for Continuing Indwelling Catheter: Assist Healing of Perineal & Sacral Wounds- Incontinent Patients Data 07/07/22 05:45 07/07/22 05:45 A&P Assessment and plan (1) Acute pancreatitis: (2) Acute kidney injury: (3) Encephalopathy acute: (4) Chronic UTI (urinary tract infection): (5) Multiple sclerosis: (6) Neuropathic pain: (7) Sepsis: (8) Bradycardia: (9) Hypothermia: Qualifiers: Encounter type: initial encounter Qualified Code(s): T68.XXXA - Hypothermia, initial encounter (10) Lives in assisted living facility: Plan Hepatic encephalopathy related to UTI: Resolving Sepsis: Resolved MAX: Resolved Bradycardia related to hypothermia: Improved ESBL UTI patient will need 14 days of IV antibiotics Decubitus ulcer right buttocks no active signs of infection Patient gets morphine for breakthrough pain Pancreatitis: No recurrence of nausea or vomiting Currently on mechanical soft diet ESBL Klebsiella Blood culture showing gram-positive cocci found from07/03, 07/04 cultures remain negative to date, I will give her 1 more day of IV vancomycin along carbapenem Patient is a Mckeon catheter, she has a chronic decubitus ulcer, continue Mckeon catheter Attestations Medical Necessity Statement*: Discharge tomorrow Diagnoses Acute pancreatitis K85.90 Acute kidney injury N17.9 Encephalopathy acute G93.40 Chronic UTI (urinary tract infection) N39.0 Multiple sclerosis G35 Neuropathic pain M79.2 Sepsis A41.9 Bradycardia R00.1 Hypothermia T68.XXXA Encounter type: initial encounter Lives in assisted living facility Z59.3
[2022-07-07] MEDS: enoxaparin 40 mg/0.4 mL Syringe SUBCUT (12:46)
[2022-07-07] MEDS: gabapentin 300 mg Capsule PO (20:44)
--- NOTE | 2022-07-07 23:37 | PC.NURSE ---
HALLUCINATIONS/HR Pts heart rate noted to be up to 130-140. When checked on her she was hallucinating and seeing big snakelike creatures and stated they were going to get the babies. Looking up to the ceiling and asked nurse to look up to see them. Then proceeded to talk about there being a lemur and 3 monkeys. Calmed some with talking to her and reassurance. HR did come down to 116
[2022-07-08] VITALS (11 sets, daily range): BP systolic 135–168; BP diastolic 67–91; PULSE 96–116; RESP 16–18; TEMP 37–38.1; O2SAT 93–95
[2022-07-08] MEDS: meropenem 1,000 MG in sodium chloride 0.9% (plus) 50 ML 100 MG IV ×3 (03:54→19:35)
[2022-07-08 04:36] LABS: SARS Covid-2 Antigen negative (Negative)
[2022-07-08 07:16] LABS: Vancomycin Trough 21.5 ug/mL (10-15)
--- NOTE | 2022-07-08 07:24 | PC.PHAR ---
TROUGH OF 21.5 SLIGHTLY HIGH. TROUGH SCHEDULED FOR PREVIOUS DOSE MISSED BY LAB HOLDING DOSE FOR 4 HOURS, REDUCING FROM 1250 MG Q12H TO 1000 MG Q12H NEXT TROUGH PRIOR TO 4TH DOSE OF NEW REGIMEN
--- NOTE | 2022-07-08 10:29 | PM.DCS ---
Discharge Providers Date of Admission: 07/03/22 13:17 Date of Discharge: July 08, 2022 Attending Provider at Admission: Corky Lopez MD Attending Provider at Discharge: Alfonso Rg MD Primary Care Provider: CAMMY Jimenez Diagnoses at Discharge Discharge Diagnosis (1) Acute pancreatitis: Status: Acute (2) Acute kidney injury: Status: Acute (3) Encephalopathy acute: Status: Acute (4) Chronic UTI (urinary tract infection): Status: Chronic (5) Multiple sclerosis: Status: Chronic Permanent problem details: Dr. 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, came from senior living with partially treated ESBL UTI, she was diagnosed with sepsis related to UTI, she required norepinephrine for about a day in ICU which was gradually weaned off, she was bradycardic related to hypothermia which improved as well, her metabolic encephalopathy related to UTI improved as well, at baseline she is able to communicate with the nurses at the facility however here she has been experiencing hallucination on and off, she has remained afebrile White count 10.8, urine culture showing Klebsiella ESBL, blood culture most likely contaminant, she received broad-spectrum antibiotics including carbapenem and vancomycin during hospitalization, blood culture showing 1 out of 4 positive for gram-positive cocci which is Staphylococcus hemolyticus(skin microbiome) my concern is related to contamination, she does have right decubitus ulcer which does not seem infected, Her mentation is fluctuant I do believe she will get better with better p.o. intake and continuation of her antibiotics. Patient is not experiencing any recurrent nausea or vomiting, there was concern for pancreatitis, she is tolerating her diet she is on soft mechanical, she does have sigmoid constipation which may require enema treatment Patient will continue indwelling Mckeon catheter because of right buttocks ulcer Her midline was leaking on 07/10, and new midline has been requested, patient will be discharged on ertapenem 1 week course because she has received 7 to 8 days of antibiotics in the hospital Potassium repleted before discharge Physical Exam Narrative: Patient is awake and alert Tangential thoughts Swelling of lower extremities noted, 1+ Multiple sclerosis related quadriparesis Abdomen slightly distended, tolerating diet Nontender Currently on room air Patient using chin for call light Answers my questions appropriately Urinary Catheter Management: Mckeon: Cath Placed During This Visit: no Reason for Continuing Indwelling Catheter: Chronic Indwelling Urinary Catheter on Admission Discharge Data Studies Completed and Pending Completed Studies During Hospitalization Category Date Time Status CT abdomen renal stone [CT kidney stone [id number]] Stat Cat Scan 07/03/22 11:49 Completed XR chest 1V portable [id number] Stat Exams 07/03/22 09:14 Completed CV. echo complete* [id number] Routine Ultrasound 07/03/22 13:17 Completed Pending at discharge Category Date Time Status Blood Culture Stat Lab 07/03/22 10:36 Results Blood Culture Stat Lab 07/04/22 10:13 Results Vancomycin Trough Timed Lab 07/09/22 23:00 Ordered Radiology Impressions Chest X-Ray 07/03/22 09:14 IMPRESSION: 1. No acute cardiopulmonary process. Abdomen/Pelvis CT 07/03/22 11:49 IMPRESSION: 1. Inflammatory stranding and edema involving the pancreas more prominent at the pancreatic tail suspicious for acute pancreatitis. No drainable fluid collections. Recommend correlation with pancreatic enzymes 2. Prior cholecystectomy. 3. Bibasilar atelectasis with trace pleural fluid. 4. Mild sigmoid constipation. 5. Mckeon catheter. 6. Normal appendix in the RIGHT lower quadrant. 7. No hydronephrosis in either kidney. Notified Corky Lopez MD at 07/03/2022 2:24 PM. Laboratory Results WBC 10.8 10^3/uL (4.0-10.0) H 07/07/22 05:45 RBC 3.23 10^6/uL (4.1-5.3) L 07/07/22 05:45 Hgb 9.8 g/dL (11.5-15.3) L 07/07/22 05:45 Hct 30.9 % (37.0-47.0) L 07/07/22 05:45 MCV 95.7 fl (81-99) 07/07/22 05:45 MCH 30.3 pg (28.0-34.0) 07/07/22 05:45 MCHC 31.7 g/dL (30.0-36.0) 07/07/22 05:45 RDW 15.1 % (12.1-15.1) 07/07/22 05:45 Plt Count 183 10^3/cmm (130-400) 07/07/22 05:45 MPV 10.9 fL (7.4-10.4) H 07/07/22 05:45 Neut % (Auto) 73.4 % 07/07/22 05:45 Lymph % (Auto) 14.0 % 07/07/22 05:45 [place] % (Auto) 9.9 % 07/07/22 05:45 Eos % (Auto) 2.0 % 07/07/22 05:45 Baso % (Auto) 0.3 % 07/07/22 05:45 Neut # (Auto) 7.91 10^3/uL (1.8-7.7) H 07/07/22 05:45 Lymph # (Auto) 1.5 10^3/uL (0.8-4.8) 07/07/22 05:45 [place] # (Auto) 1.1 10^3/uL (0.2-0.9) H 07/07/22 05:45 Eos # (Auto) 0.2 10^3/uL (0.0-0.8) 07/07/22 05:45 Baso # (Auto) 0.0 10^3/uL (0.0-0.1) 07/07/22 05:45 Nucleated RBC % (auto) 0 % 07/07/22 05:45 Nucleated RBCs # 0.0 /100WBC 07/07/22 05:45 Specimen Type Arterial 07/03/22 09:37 Sample Site Radial, right 07/03/22 09:37 ABG pH 7.30 (7.35-7.45) L 07/03/22 09:37 ABG pCO2 53.6 mmHg (35-45) H 07/03/22 09:37 ABG pO2 177.0 mmHg (80.0-100.0) H 07/03/22 09:37 ABG HCO3 26.4 mmol/L (22-26) H 07/03/22 09:37 ABG Base Excess -0.5 mmol/L (-2.0-2.0) 07/03/22 09:37 Rudy Test Pos 07/03/22 09:37 Hematocrit 32.1 % (37-47) L 07/03/22 09:37 Hgb O2 Saturation 98.4 % (95-100) 07/03/22 09:37 Carboxyhemoglobin 1.0 %THgb (0.4-20.1) 07/03/22 09:37 Methemoglobin 0.4 % (0.4-1.5) 07/03/22 09:37 Total Hemoglobin 10.5 g/dL (12-16) L 07/03/22 09:37 O2 Delivery Device Nc 07/03/22 09:37 O2 Liters/Min 3.5 % 07/03/22 09:37 Senior Software Tester ID [email or web address] 07/03/22 09:37 Sodium 139 mmol/L (136-145) 07/07/22 05:45 Potassium 3.6 mmol/L (3.5-5.1) 07/07/22 05:45 Chloride 106 mmol/L (98-107) 07/07/22 05:45 Carbon Dioxide 19 mmol/L (22-29) L 07/07/22 05:45 Anion Gap 17.6 (5-19) 07/07/22 05:45 BUN 17 mg/dL (8-23) 07/07/22 05:45 Creatinine 0.3 mg/dL (0.5-0.9) L 07/07/22 05:45 GFR Calculation 219.9 mL/min (90-130) H 07/07/22 05:45 Glucose 41 mg/dL (65-115) L 07/07/22 05:45 POC Glucose 71 mg/dL (70-110) 07/04/22 07:06 Calculated Osmolality 286 mOsm/kg (285-295) 07/07/22 05:45 Lactate 0.8 mmol/L (0.5-2.2) 07/06/22 18:35 Calcium 9.0 mg/dL (8.5-10.5) 07/07/22 05:45 Phosphorus 5.8 mg/dL (2.5-4.5) H 07/03/22 09:52 Magnesium 1.8 mg/dL (1.7-2.3) 07/05/22 05:22 Total Bilirubin 0.5 mg/dL (0.15-1.2) 07/07/22 05:45 AST 30 U/L (0-32) 07/07/22 05:45 ALT 37 U/L (0-33) H 07/07/22 05:45 Alkaline Phosphatase 128 U/L (35-105) H 07/07/22 05:45 Ammonia 27 umol/L (11-51) 07/06/22 18:35 Troponin T Gen 5 ng/L 53 ng/L (0-10) H 07/03/22 13:30 C-Reactive Protein 77.9 mg/L (0.0-4.9) H 07/07/22 05:45 NT-Pro-B Natriuret Pep 49 pg/mL (0-125) 07/03/22 09:52 Total Protein 5.1 g/dL (6.6-8.7) L 07/07/22 05:45 Albumin 2.7 g/dL (3.5-5.2) L 07/07/22 05:45 Globulin 2.4 g/dL (1.3-4.6) 07/07/22 05:45 Triglycerides 72 mg/dL (0-150) 07/03/22 09:52 Lipase 712 U/L (13-60) H 07/07/22 05:45 Procalcitonin 0.28 ng/mL (0-0.5) 07/03/22 09:52 TSH 0.66 uIU/mL (0.27-4.20) 07/03/22 09:52 Random Cortisol 4.94 ug/dL (2.47-19.5) 07/03/22 13:30 Urine Color Yellow (Yellow) 07/03/22 10:32 Urine Appearance Clear (CLEAR) 07/03/22 10:32 Urine pH 5 (5-7) 07/03/22 10:32 Ur Specific [place] 1.015 (1.005-1.030) 07/03/22 10:32 Urine Protein Neg (Negative) 07/03/22 10:32 Urine Glucose (UA) Norm (Normal) 07/03/22 10:32 Urine Ketones Negative (Negative) 07/03/22 10:32 Urine Blood Neg (Negative) 07/03/22 10:32 Urine Nitrate Negative (Negative) 07/03/22 10:32 Urine Bilirubin Neg (Negative) 07/03/22 10:32 Urine Urobilinogen Neg mg/dL (Negative) 07/03/22 10:32 Ur Leukocyte Esterase Trace (Negative) H 07/03/22 10:32 Urine RBC None /hpf (0-2) 07/03/22 10:32 Urine WBC Rare /hpf (0-5) 07/03/22 10:32 Ur Squamous Epith Cells Rare /hpf (0-5) 07/03/22 10:32 Amorphous Sediment Not Reportable 07/03/22 10:32 Urine Bacteria None /hpf (NONE) 07/03/22 10:32 Vancomycin Trough 21.5 ug/mL (10-15) H 07/08/22 06:43 Salicylates < 0.3 mg/dL (3-10) L 07/03/22 09:52 Urine Opiates Screen Negative ng/mL (Negative) 07/03/22 10:32 Acetaminophen 9.3 ug/mL (10-30) L 07/03/22 09:52 Ur Barbiturates Screen Negative ng/mL (Negative) 07/03/22 10:32 Ur Phencyclidine Scrn Negative ng/mL (Negative) 07/03/22 10:32 Ur Amphetamines Screen Negative ng/mL (Negative) 07/03/22 10:32 U Benzodiazepines Scrn Negative ng/mL (Negative) 07/03/22 10:32 Urine Cocaine Screen Negative ng/mL (Negative) 07/03/22 10:32 U Marijuana (THC) Screen Negative ng/mL (Negative) 07/03/22 10:32 Ethyl Alcohol < 10 mg/dL (0-10) 07/03/22 09:52 SARS-CoV-2 Ag (Rapid) negative (Negative) 07/08/22 04:00 Vitals Last Vital Signs Temp 99.4 F 07/08/22 07:42 Pulse 110 H 07/08/22 07:42 Resp 16 07/08/22 07:42 BP 140/67 07/08/22 07:42 Pulse Ox 94 07/08/22 07:42 O2 Del Method Room Air 07/07/22 16:00 O2 Flow Rate 3 07/06/22 08:00 Discharge Plan Discharge Patient Disposition: Xfer SNF Condition: Stable Prescriptions: New ertapenem 1 gram recon soln 1 g IM Q24H 7 Days Qty: 10 0RF Continued oxybutynin chloride 5 mg tablet 5 mg PO BID Qty: 60 0RF Rx Instructions: neurology writing tetracycline 500 mg capsule 500 mg PO Q6H Qty: 30 0RF lisinopril 20 mg Tablet 20 mg PO DAILY nitrofurantoin 100 mg Capsule 100 mg PO DAILY Rx Instructions: must administer with a meal/food levothyroxine 112 mcg Tablet 112 mcg PO DAILY acetaminophen 500 mg Tablet 500 - 1,000 mg PO Q6H PRN (Reason: Pain) nortriptyline 10 mg Capsule 30 mg PO QPM Nyamyc 100,000 unit/gram Powder 1 applic TOPICAL BID gabapentin 600 mg tablet 600 mg PO QPM Rx Instructions: Neurology writing tizanidine 4 mg tablet 8 mg PO QPM Rx Instructions: neurology writing tramadol 50 mg tablet 100 mg PO BID baclofen 20 mg tablet 20 mg PO BID PRN (Reason: Pain) Discharge Orders: Discharge Order (Routine); Ordered 07/11/22 Ordered By: Alfonso Rg Referrals: [facility] [Outside] Makayla Galvez, OCCUPATIONAL THERAPY PROGRAM DIRECTOREva[employer] [Primary Care Provider] - Patient Instructions: Opioid Safety Discharge Attestations Time Spent in Discharge Care*: greater than 30 min Quality Metrics Clinical Quality Measures [ No reported AMI, CVA or VTE this stay] Coding Level of Care Code Acute Code for g Fwd Diagnoses Acute pancreatitis K85.90 Acute kidney injury N17.9 Encephalopathy acute G93.40 Chronic UTI (urinary tract infection) N39.0 Multiple sclerosis G35 Neuropathic pain M79.2 Sepsis A41.9 Bradycardia R00.1 Hypothermia T68.XXXA Encounter type: initial encounter Lives in assisted living facility Z59.3
--- NOTE | 2022-07-08 10:40 | PM.PN ---
Subjective Subjective: Currently patient is very lethargic and fatigued, not opening her eyes to take her meds She asked me to leave the room When I rechecked on her around 10, she was still very lethargic I requested stat ABG and BMP We will cancel my discharge planning for today Vitals/I&O/Wt Last Vital Signs Temp 99.4 F 07/08/22 07:42 Pulse 110 H 07/08/22 07:42 Resp 16 07/08/22 07:42 BP 140/67 07/08/22 07:42 Pulse Ox 94 07/08/22 07:42 O2 Del Method Room Air 07/07/22 16:00 O2 Flow Rate 3 07/06/22 08:00 07/07/22 07/08/22 07/08/22 22:59 06:59 14:59 Intake Total 660 / 1440 170 / 1610 Output Total 450 / 450 400 / 850 Balance 210 / 990 -230 / 760 Weight last 48 hrs Weight 89.176 kg Weight 86.545 kg Physical Exam Narrative: Patient very lethargic obtunded Midline right arm Patient asked me to leave the room Answer few questions and goes back to sleep Abdomen soft, lower extremity swelling noted Dry mucous membranes S1, S2 tachycardia Currently on room air Urinary Catheter Management: Mckeon: Cath Placed During This Visit: no Reason for Continuing Indwelling Catheter: Chronic Indwelling Urinary Catheter on Admission Data 07/07/22 05:45 07/07/22 05:45 Micro: Microbiology 07/03/22 10:36 Blood Culture - Final Blood Staphylococcus haemolyticus A&P Assessment and plan (1) Acute pancreatitis: (2) Acute kidney injury: (3) Encephalopathy acute: (4) Sepsis: (5) Acute hypotension: (6) Bradycardia: (7) Hypothermia: Qualifiers: Encounter type: initial encounter Qualified Code(s): T68.XXXA - Hypothermia, initial encounter (8) Lives in assisted living facility: (9) Chronic UTI (urinary tract infection): (10) Multiple sclerosis: Plan Metabolic encephalopathy related to UTI: Change in mentation today as compared to yesterday, she is more fatigued lethargic along her hallucinations, Continue meropenem I will discontinue vancomycin Skin contamination noted on blood culture Patient is very lethargic and fatigued We will request ABG stat along BMP counseled discharge plan for today we will update rehabilitation caseworker ESBL UTI with Klebsiella 14-day of ertapenem 1 g daily Midline has been placed Pancreatitis: Resolved No active emesis tolerating mechanical soft diet Chronic indwelling catheter right buttocks decubitus ulcer Afebrile no leukocytosis worsening noted Multiple sclerosis with quadriparesis Full code We will give her 1 more day, patient has been experiencing hallucination on and off Updated rehabilitation caseworker and patient's nurse Attestations Medical Necessity Statement*: Most likely patient will be able to go to her facility within 24 to 48 hours Diagnoses Acute pancreatitis K85.90 Acute kidney injury N17.9 Encephalopathy acute G93.40 Sepsis A41.9 Acute hypotension I95.9 Bradycardia R00.1 Hypothermia T68.XXXA Encounter type: initial encounter Lives in assisted living facility Z59.3 Chronic UTI (urinary tract infection) N39.0 Multiple sclerosis G35
[2022-07-08 10:59] LABS: ABG PH Result 7.49 (7.35-7.45); Arterial Blood Gas Hematocrit 31.4 % (37-47); Base Excess ABG -1.3 mmol/L (-2.0-2.0); Blood Gas Allen Test Pos; Blood Gas Sample Type Arterial; HCO3 ABG 21.3 mmol/L (22-26); PO2 ABG 93.2 mmHg (80.0-100.0)
[2022-07-08 11:00] LABS: Blood Gas Operator Identificat glc; Blood Gas Sample Site Radial, right; Oxygen Device ROOM AIR
[2022-07-08 11:01] LABS: Blood Gas CCRB Time 1100
[2022-07-08 11:08] LABS: Blood Urea Nitrogen 16 mg/dL (8-23); Calcium 9.4 mg/dL (8.5-10.5); Carbon Dioxide 18 mmol/L (22-29); Chloride 106 mmol/L (98-107); Glomerular Filtration Rate 219.9 mL/min (90-130); Glucose 42 mg/dL (65-115); Osmolality Calculated 286 mOsm/kg (285-295); Sodium 139 mmol/L (136-145)
[2022-07-08 11:09] LABS: Anion Gap 18.8 (5-19); Creatinine Clr Calc Pharmacy 76.4517; Potassium 3.8 mmol/L (3.5-5.1)
[2022-07-08 12:09] LABS: Glucose Point of Care 52 mg/dL (70-110)
--- NOTE | 2022-07-08 12:13 | XRR_ITS ---
PROCEDURE INFORMATION: Exam: XR Chest Exam date and time: 07/08/2022 11:40 AM Age: 72 years old Clinical indication: Fever TECHNIQUE: Imaging protocol: Radiologic exam of the chest. Views: 1 view. COMPARISON: CR XR chest 1V portable [id number] 07/03/2022 9:23 AM FINDINGS: Limitations: Evaluation is limited due to patient rotation. Lungs: Patchy left lower lobe infiltrate not evident previously suspicious for pneumonia. Remaining lung vences are clear. Pleural spaces: Unremarkable. No pleural effusion. No pneumothorax. Heart/Mediastinum: Unremarkable. No cardiomegaly. Bones/joints: Unremarkable for age. XR/XR chest 1V portable [id number] IMPRESSION: Left lower lobe pneumonia.
[2022-07-08 12:44] LABS: Glucose Point of Care 94 mg/dL (70-110)
[2022-07-08] MEDS: dextrose 10% 1,000 ML 30 ML IV (12:56)
[2022-07-08] MEDS: enoxaparin 40 mg/0.4 mL Syringe SUBCUT (12:57)
[2022-07-08] MEDS: ketorolac 30 mg/mL INJ 15 MG IVP (13:13)
[2022-07-08 15:46] LABS: Glucose Point of Care 70 mg/dL (70-110)
[2022-07-08 16:49] LABS: Glucose Point of Care 90 mg/dL (70-110)
--- NOTE | 2022-07-08 17:14 | PC.NURSE ---
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 When rounding on patient at 900, patient would not verbally respond to me to take her medications, she was whimpering/groaning and biting bottom lip. I could not arouse patient to take oral meds. Labs were drawn and blood glucose was 52. Dr. Rg notified. Jeanette VERDIN was able to get patient to take 2 sips of orange juice, however, she pressed her lips together and refused anymore. Patient had a temp of 100.3, HR of 115 and BP of 156/68. Dr. Rg notifed. D70 AMP, Administered by CHRISTINA Haynes and D10 at 30 mL/hr was ordered per Dr. Rg as well as Ketorolac IVP for pain. 10 mins after administration of D70 BG was up to 94.
--- NOTE | 2022-07-08 17:28 | PC.NURSE ---
This nurse obtained another BG on patient at 1530 and it had dropped to 70. Patient had tears running down her face and whimpering/groaning more at this time. D10 was changed from 30 mL/hr to 100 mL/hr and an order for Solu Cortef and Dilaudid IVP was put in by Dr. Rg. 30mins after patient being on D10 at 100 mL/hr, her BG was up to 90.
[2022-07-08] MEDS: HYDROmorphone 1 mg/mL INJ 1 mL 0.2 MG IVP ×2 (17:36→22:38)
[2022-07-08] MEDS: hydrocortisone 100 mg/2 mL SDV IVP (17:37)
--- NOTE | 2022-07-08 18:36 | CTR_ITS ---
PROCEDURE INFORMATION: Exam: CT Head Without Contrast Exam date and time: 07/08/2022 6:57 PM Age: 72 years old Clinical indication: Altered mental status/memory loss; Additional info: Change in loc TECHNIQUE: Imaging protocol: Computed tomography of the head without contrast. Radiation optimization: All CT scans at this facility use at least one of these dose optimization techniques: automated exposure control; mA and/or kV adjustment per patient size (includes targeted exams where dose is matched to clinical indication); or iterative reconstruction. REPORTING DATA: Count of CT and Cardiac NM exams in prior 12 months: This patient has received 3 known CTs and 0 known cardiac nuclear medicine studies in the 12 months prior to the current study. COMPARISON: CT head wo con* [id number] 06/24/2022 5:39 PM RADIATION DOSE METRICS: Total DLP (mGy-cm): 1143.18 FINDINGS: Brain: There are ill-defined hypodensities within the left caudate nucleus, left lentiform nucleus and right periventricular white matter relatively unchanged. Findings are relatively stable in and nonspecific. Although they may be due to chronic microvascular changes and old lacunar infarcts the findings should be confirmed by means of MRI examination to exclude underlying mass. No evidence of intracerebral hemorrhage. Cortical sulci are unremarkable for patient's age. Cerebral ventricles: Unremarkable for age. Paranasal sinuses: Visualized sinuses are unremarkable. No fluid levels. Mastoid air cells: Visualized mastoid air cells are well aerated. Bones/joints: Unremarkable. No acute fracture. Soft tissues: Unremarkable. CT/CT head wo con* [id number] IMPRESSION: Stable ill-defined hypodensities involving the periventricular white matter and basal ganglia, nonspecific as discussed above. Recommend follow-up MRI of the brain with contrast for further assessment.
[2022-07-08] MEDS: LORazepam 2 mg/mL INJ 1 mL 0.5 MG IVP (20:54)
[2022-07-08 22:47] LABS: Glucose Point of Care 189 mg/dL (70-110)
[2022-07-08 23:51] LABS: Glucose Point of Care 142 mg/dL (70-110)
[2022-07-09] VITALS (8 sets, daily range): BP systolic 132–163; BP diastolic 75–83; PULSE 78–95; RESP 16–17; TEMP 36.5–37.1; O2SAT 93–96
[2022-07-09 01:58] LABS: Glucose Point of Care 132 mg/dL (70-110)
[2022-07-09] MEDS: meropenem 1,000 MG in sodium chloride 0.9% (plus) 50 ML 100 MG IV ×3 (03:35→19:39)
[2022-07-09] MEDS: hydrocortisone 100 mg/2 mL SDV IVP (04:27)
[2022-07-09 04:32] LABS: Glucose Point of Care 112 mg/dL (70-110)
[2022-07-09 05:56] LABS: Glucose Point of Care 116 mg/dL (70-110)
[2022-07-09 06:01] LABS: Basophils % 0.2 %; Eosinophils # 0.1 10^3/uL (0.0-0.8); Eosinophils % 0.6 %; Hematocrit 27.4 % (37.0-47.0); Hemoglobin 8.9 g/dL (11.5-15.3); Lymphocytes # 1.1 10^3/uL (0.8-4.8); Lymphocytes % 11.4 %; Mean Corpuscular HGB Conc 32.5 g/dL (30.0-36.0); Mean Corpuscular Hemoglobin 30.3 pg (28.0-34.0); Mean Corpuscular Volume 93.2 fl (81-99); Mean Platelet Volume 10.3 fL (7.4-10.4); Monocytes # 1.3 10^3/uL (0.2-0.9); Monocytes % 13.5 %; Neutrophils # 7.22 10^3/uL (1.8-7.7); Neutrophils % 73.7 %; Nucleated Red Blood Cells % 0 %; Platelet Count 223 10^3/cmm (130-400); Red Blood Count 2.94 10^6/uL (4.1-5.3); Red Cell Distribution Width 15.2 % (12.1-15.1); White Blood Count 9.8 10^3/uL (4.0-10.0)
[2022-07-09 06:22] LABS: Blood Urea Nitrogen 14 mg/dL (8-23); Calcium 8.5 mg/dL (8.5-10.5); Carbon Dioxide 22 mmol/L (22-29); Chloride 106 mmol/L (98-107); Glomerular Filtration Rate 219.9 mL/min (90-130); Glucose 109 mg/dL (65-115); Osmolality Calculated 291 mOsm/kg (285-295); Sodium 140 mmol/L (136-145)
[2022-07-09 06:28] LABS: Anion Gap 15.6 (5-19); Creatinine Clr Calc Pharmacy 75.8894; Potassium 3.6 mmol/L (3.5-5.1)
[2022-07-09 08:26] LABS: Glucose Point of Care 142 mg/dL (70-110)
[2022-07-09] MEDS: pantoprazole DR 40 mg Tablet PO (10:58)
[2022-07-09] MEDS: levothyroxine 112 mcg Tablet PO (10:59)
[2022-07-09] MEDS: sennosides-docusate Tablet 2 TAB PO ×2 (11:00→17:53)
[2022-07-09 11:26] LABS: Glucose Point of Care 135 mg/dL (70-110)
--- NOTE | 2022-07-09 12:09 | PM.PN ---
Subjective Subjective: Patient is hallucinating She is experiencing hallucination/visual seeing Lion wooden creatures Patient asked me to leave the room and stated: Dr. Monreal don't want to be rude but there is a lion coming& you need to get out of the room Spoke with her son who is expecting her to return to [place] soon instead of [facility] he is stating that he was willing to pay an RN for administration of IV antibiotics Vitals/I&O/Wt Last Vital Signs Temp 98.2 F 07/09/22 11:34 Pulse 90 07/09/22 11:34 Resp 16 07/09/22 07:54 BP 146/78 07/09/22 11:34 Pulse Ox 93 07/09/22 11:34 O2 Del Method Room Air 07/07/22 16:00 O2 Flow Rate 3 07/08/22 08:00 07/08/22 07/09/22 07/09/22 22:59 06:59 14:59 Intake Total 50 / 205 50 / 255 1000 / 1000 Output Total 700 / 700 Balance 50 / 205 -650 / -445 1000 / 1000 Weight last 48 hrs Weight 87.815 kg Weight 89.176 kg Physical Exam Narrative: Patient experiencing visual hallucination She is able to talk today Some improvement as compared to yesterday Catatonic state improved Currently on room air Hemodynamically stable Abdomen soft No active emesis Breakfast tray at the bedside Quadriparesis Urinary Catheter Management: Mckeon: Cath Placed During This Visit: no Reason for Continuing Indwelling Catheter: Chronic Indwelling Urinary Catheter on Admission Data 07/09/22 05:50 07/09/22 05:50 Micro: Microbiology 07/04/22 10:13 Blood Culture - Final Blood NO GROWTH AFTER 5 DAYS 07/04/22 08:00 Blood Culture - Final Blood NO GROWTH AFTER 5 DAYS 07/03/22 10:48 Blood Culture - Final Blood NO GROWTH AFTER 5 DAYS A&P Assessment and plan (1) Acute pancreatitis: (2) Acute kidney injury: (3) Encephalopathy acute: (4) Sepsis: (5) Acute hypotension: (6) Bradycardia: (7) Hypothermia: Qualifiers: Encounter type: initial encounter Qualified Code(s): T68.XXXA - Hypothermia, initial encounter (8) Lives in assisted living facility: (9) Chronic UTI (urinary tract infection): (10) Multiple sclerosis: Plan Multiple sclerosis with remitting relapsing pattern Visual hallucination could be part of multiple sclerosis CT head unremarkable ABG did not show acute events Patient is doing well on room air Hypoglycemia improved: Discontinue dextrose IV fluids Continue carbapenem for her ESBL Spoke with her son today He is expecting her to return to [place] instead of [facility] because they do not feel comfortable with other places he is willing to pay extra for an RN for administration of IV antibiotics We will like to monitor her 1 more day For catatonia she improved with Ativan which supports a diagnosis of catatonia Leukocytosis improved Afebrile I do not see any other reversible cause of hallucination most likely this is due to underlying multiple sclerosis Full code Soft mechanical diet No active emesis Pancreatitis: Resolved Attestations Medical Necessity Statement*: Discharge in next 24 to 48 hours Diagnoses Acute pancreatitis K85.90 Acute kidney injury N17.9 Encephalopathy acute G93.40 Sepsis A41.9 Acute hypotension I95.9 Bradycardia R00.1 Hypothermia T68.XXXA Encounter type: initial encounter Lives in assisted living facility Z59.3 Chronic UTI (urinary tract infection) N39.0 Multiple sclerosis G35
[2022-07-09] MEDS: enoxaparin 40 mg/0.4 mL Syringe SUBCUT (14:23)
[2022-07-09 17:07] LABS: Glucose Point of Care 116 mg/dL (70-110)
[2022-07-09] MEDS: gabapentin 300 mg Capsule PO (19:38)
[2022-07-09 20:57] LABS: Glucose Point of Care 102 mg/dL (70-110)
[2022-07-10] VITALS (9 sets, daily range): BP systolic 118–159; BP diastolic 62–94; PULSE 58–79; RESP 12–16; TEMP 36.6–37.1; O2SAT 94–96
[2022-07-10] MEDS: meropenem 1,000 MG in sodium chloride 0.9% (plus) 50 ML 100 MG IV ×3 (03:57→19:32)
[2022-07-10 05:56] LABS: Anion Gap 14.1 (5-19); Blood Urea Nitrogen 17 mg/dL (8-23); Calcium 8.7 mg/dL (8.5-10.5); Carbon Dioxide 22 mmol/L (22-29); Chloride 108 mmol/L (98-107); Glomerular Filtration Rate 351.2 mL/min (90-130); Glucose 84 mg/dL (65-115); Osmolality Calculated 293 mOsm/kg (285-295); Potassium 3.1 mmol/L (3.5-5.1); Sodium 141 mmol/L (136-145)
[2022-07-10 08:57] LABS: Glucose Point of Care 80 mg/dL (70-110)
[2022-07-10] MEDS: pantoprazole DR 40 mg Tablet PO (10:20)
[2022-07-10] MEDS: levothyroxine 112 mcg Tablet PO (10:20)
[2022-07-10] MEDS: sennosides-docusate Tablet 2 TAB PO ×2 (10:20→17:23)
[2022-07-10 12:28] LABS: Glucose Point of Care 94 mg/dL (70-110)
[2022-07-10 12:28] LABS: Glucose Point of Care 108 mg/dL (70-110)
[2022-07-10 12:28] LABS: Glucose Point of Care 81 mg/dL (70-110)
[2022-07-10] MEDS: enoxaparin 40 mg/0.4 mL Syringe SUBCUT (13:23)
--- NOTE | 2022-07-10 13:38 | PM.PN ---
Subjective Subjective: Potassium repleted Patient is able to communicate Patient keeps sitting at the wall while answering my questions appropriately When asked her if she is excited to return to her facility she said we need to figure out a few things, She is talkative today, she told me the name of her son Vitals/I&O/Wt Last Vital Signs Temp 98.2 F 07/10/22 12:35 Pulse 69 07/10/22 12:35 Resp 12 07/10/22 12:35 BP 148/77 07/10/22 12:35 Pulse Ox 96 07/10/22 12:35 O2 Del Method Room Air 07/10/22 12:35 O2 Flow Rate 3 07/08/22 08:00 07/09/22 07/10/22 07/10/22 22:59 06:59 14:59 Intake Total 170 / 1440 50 / 1490 120 / 120 Output Total 200 / 200 200 / 400 100 / 100 Balance -30 / 1240 -150 / 1090 20 / 20 Weight last 48 hrs Weight 86.324 kg Weight 87.815 kg Physical Exam Narrative: Patient is answer my question appropriately Quadriparesis Mckeon catheter in place Abdomen soft No new focal deficit Patient keeps biting her lips Urinary Catheter Management: Mckeon: Cath Placed During This Visit: no Reason for Continuing Indwelling Catheter: Chronic Indwelling Urinary Catheter on Admission Data 07/09/22 05:50 07/10/22 05:20 Micro: Microbiology 07/04/22 10:13 Blood Culture - Final Blood NO GROWTH AFTER 5 DAYS A&P Assessment and plan (1) Acute pancreatitis: (2) Acute kidney injury: (3) Encephalopathy acute: (4) Sepsis: (5) Acute hypotension: (6) Bradycardia: (7) Hypothermia: Qualifiers: Encounter type: initial encounter Qualified Code(s): T68.XXXA - Hypothermia, initial encounter (8) Lives in assisted living facility: (9) Chronic UTI (urinary tract infection): Plan Metabolic encephalopathy related to UTI: Improving: Delirium with hallucination: Gradually resolving Plan to discharge her tomorrow She will need 1 more week of IV antibiotics manager medicare marketing is aware Son was updated yesterday This morning patient was able to answer few questions appropriately Hallucination still present however she is able to answer my questions Hypokalemia: Repleted Continue with thyroxine Attestations Medical Necessity Statement*: Plan to discharge tomorrow She will consider high risk for readmission Diagnoses Acute pancreatitis K85.90 Acute kidney injury N17.9 Encephalopathy acute G93.40 Sepsis A41.9 Acute hypotension I95.9 Bradycardia R00.1 Hypothermia T68.XXXA Encounter type: initial encounter Lives in assisted living facility Z59.3 Chronic UTI (urinary tract infection) N39.0
[2022-07-10] MEDS: lidocaine 1% 5 ML in potassium chloride premix 100 ML 25 ML IV (13:59)
[2022-07-10] MEDS: gabapentin 300 mg Capsule PO (19:32)
[2022-07-10] MEDS: baclofen 10 mg Tablet 20 MG PO (19:32)
[2022-07-10 20:58] LABS: Glucose Point of Care 95 mg/dL (70-110)
[2022-07-11] MEDS: meropenem 1,000 MG in sodium chloride 0.9% (plus) 50 ML 100 MG IV (03:10)
[2022-07-11 03:36] VITALS: BP 128/75; PULSE 69; RESP 16; TEMP 36.6; O2SAT 95
--- NOTE | 2022-07-11 04:03 | PC.NURSE ---
Patient's midline appears to be leaking. Will attempt IV access.
[2022-07-11 05:59] VITALS: PULSE 75
[2022-07-11 06:05] LABS: Anion Gap 14.6 (5-19); Blood Urea Nitrogen 13 mg/dL (8-23); Calcium 8.7 mg/dL (8.5-10.5); Carbon Dioxide 23 mmol/L (22-29); Chloride 108 mmol/L (98-107); Glomerular Filtration Rate 219.9 mL/min (90-130); Glucose 67 mg/dL (65-115); Osmolality Calculated 292 mOsm/kg (285-295); Potassium 3.6 mmol/L (3.5-5.1); Sodium 142 mmol/L (136-145)
[2022-07-11 08:00] VITALS: BP 162/78; PULSE 76; RESP 16; TEMP 36.8; O2SAT 96
--- NOTE | 2022-07-11 08:58 | PM.MISC ---
Miscellaneous Note Note: 07/11 discharge summary has been signed and added
[2022-07-11] MEDS: pantoprazole DR 40 mg Tablet PO (09:56)
[2022-07-11] MEDS: levothyroxine 112 mcg Tablet PO (09:56)
[2022-07-11] MEDS: sennosides-docusate Tablet 2 TAB PO (09:57)
[2022-07-11] MEDS: potassium chloride oral liq 20 mEq/15 mL UDC 40 MEQ PO (09:57)
[2022-07-11 12:00] VITALS: BP 153/74; PULSE 73; RESP 16; TEMP 36.8; O2SAT 94
--- NOTE | 2022-07-11 12:30 | PC.NURSE ---
Midline placed to left brachial vein with difficulty. Pt with limited mobility to left upper arm. Very difficult to place line. Three attempts made. Upon initial placement, blood return noted. Following securement of device, no blood return noted. Catheter flushes without difficulty. No swelling or pain noted. Trimmed length 8 cm with 1 cm external length. Mid-arm circumference of left arm measured 10 cm from AC and noted at 31 cm. EBL less than 5 mL. Report given to charge nurseFang.
[2022-07-11 14:00] VITALS: PULSE 75
[2022-07-11] MEDS: enoxaparin 40 mg/0.4 mL Syringe SUBCUT (14:06)
[2022-07-11] MEDS: ertapenem 1,000 MG in sodium chloride 0.9% (plus) 100 ML 200 MG IV (14:07)
[2022-07-11 16:31] VITALS: PULSE 75
== END 2022-07-11 16:33 | disposition home health service (06) | DRG 871 ==
LOC: ER 10:06 → ICU 12:35 → MEDSURG 07-04 17:23
PROVIDERS: Family Medicine; Admitting Provider Internal Medicine; Emergency Provider Emergency Medicine; PCP Nurse Practitioner; Visit Provider Internal Medicine
DX: A41.9 Sepsis, unspecified organism (principal); G82.50 Quadriplegia, unspecified; G93.41 Metabolic encephalopathy; K85.90 Acute pancreatitis without necrosis or infection, unspecified; N17.9 Acute kidney failure, unspecified; N39.0 Urinary tract infection, site not specified; Z16.30 Resistance to unspecified antimicrobial drugs; Z16.12 Extended spectrum beta lactamase (ESBL) resistance; I95.9 Hypotension, unspecified; R68.0 Hypothermia, not associated with low environmental temperature; E87.6 Hypokalemia; G35 Multiple sclerosis; E16.2 Hypoglycemia, unspecified; B96.1 Klebsiella pneumoniae [K. pneumoniae] as the cause of diseases classified elsewhere; Z99.3 Dependence on wheelchair; E03.9 Hypothyroidism, unspecified; G62.9 Polyneuropathy, unspecified; M48.00 Spinal stenosis, site unspecified; Z98.1 Arthrodesis status; F06.1 Catatonic disorder due to known physiological condition; Z79.891 Long term (current) use of opiate analgesic; R13.10 Dysphagia, unspecified; Z87.891 Personal history of nicotine dependence; L89.159 Pressure ulcer of sacral region, unspecified stage; L89.152 Pressure ulcer of sacral region, stage 2
CPT/HCPCS: 36415; 36416; 36569; 36600; 70450; 71045; 74176; 80048; 80053; 80202; 80306; 80307; 81001; 82140; 82533; 82803; 82805; 82962; 83605; 83690; 83735; 83880; 84100; 84145; 84443; 84478; 84484; 85025; 86140; 87040; 87077; 87086; 87186; 87205; 87426; 92523; 92610; 93005; 93306; 96365; 96366; 96367; 96372; 96376; 99285; C1751; J1170; J1335; J1650; J1720; J1885; J2060; J2185; J2270; J3370; J3480; J7030; J7042; J7060; Q3014

== ENCOUNTER 2022-07-15 14:49 | Outpatient (CLI) | payer OTHER, MEDICARE, SELFPAY ==
[2022-07-15 15:18] LABS: Basophils % 0.4 %; Eosinophils # 0.2 10^3/uL (0.0-0.8); Eosinophils % 3.4 %; Hematocrit 30.1 % (37.0-47.0); Hemoglobin 9.2 g/dL (11.5-15.3); Lymphocytes # 1.4 10^3/uL (0.8-4.8); Lymphocytes % 19.4 %; Mean Corpuscular HGB Conc 30.6 g/dL (30.0-36.0); Mean Corpuscular Hemoglobin 30.1 pg (28.0-34.0); Mean Corpuscular Volume 98.4 fl (81-99); Mean Platelet Volume 10.2 fL (7.4-10.4); Monocytes # 0.7 10^3/uL (0.2-0.9); Monocytes % 10.4 %; Neutrophils # 4.69 10^3/uL (1.8-7.7); Neutrophils % 66.1 %; Nucleated Red Blood Cells % 0 %; Platelet Count 589 10^3/cmm (130-400); Red Blood Count 3.06 10^6/uL (4.1-5.3); Red Cell Distribution Width 15.4 % (12.1-15.1); White Blood Count 7.1 10^3/uL (4.0-10.0)
[2022-07-15 15:38] LABS: Alanine Aminotransferase 18 U/L (0-33); Alkaline Phosphatase 132 U/L (35-105); Aspartate Amino Transferase 19 U/L (0-32); Globulin 2.3 g/dL (1.3-4.6); Glomerular Filtration Rate 157.8 mL/min (90-130); Total Bilirubin 0.2 mg/dL (0.15-1.2); Total Protein 5.3 g/dL (6.6-8.7)
== END 2022-07-15 14:50 | disposition home or self-care (01) ==
PROVIDERS: PCP Nurse Practitioner; Visit Provider Family Medicine
DX: A41.9 Sepsis, unspecified organism (principal)
CPT/HCPCS: 80076; 82565; 85025

== ENCOUNTER → 2022-10-25 11:15 | Outpatient (BNVA) | payer MEDICARE, SELFPAY | PROVIDERS: PCP Nurse Practitioner; Visit Provider Nurse Practitioner | DX: N39.0 Urinary tract infection, site not specified (principal) | CPT/HCPCS: 81000; 87077; 87086; 87184 ==

== ENCOUNTER → 2022-12-13 08:47 | Outpatient (BNVA) | payer MEDICARE, SELFPAY | PROVIDERS: PCP Nurse Practitioner; Visit Provider Nurse Practitioner | DX: E03.9 Hypothyroidism, unspecified (principal); E55.9 Vitamin D deficiency, unspecified; I10 Essential (primary) hypertension; Z23 Encounter for immunization | CPT/HCPCS: 80053; 80061; 82306; 82607; 84443 ==

== ENCOUNTER 2023-02-28 16:04 | Emergency (ER) | payer MEDICARE, OTHER, SELFPAY ==
[2023-02-28 16:22] VITALS: BP 116/76; PULSE 65; RESP 18; O2SAT 98
--- NOTE | 2023-02-28 16:22 | W.ED.FEMALGU ---
Documented by User: KELSEA Mg 02/28/23 16:48 HPI - Female Genitourinary General: Chief complaint: Urogenital-Female Stated complaint: possible uti Time Seen by Provider: 02/28/23 16:05 Source: patient Mode of arrival: EMS Limitations: no limitations History of Present Illness: Patient is a 72-year-old female who presents to the ED today from [facility] after she was instructed to come to the emergency department for IV antibiotics for UTI. Patient states last week she began having some burning with urination. She states the [facility] collected a urine analysis sample. She states culture and sensitivity report came back recently and she was instructed to come to the ED as it indicated she required IV antibiotics for treatment. She does arrive with her culture and sensitivity report. Patient complains of some very mild suprapubic discomfort. She is not having any flank pain. No vomiting. No fevers. She reports chronic back pain. MD elicited complaint: dysuria Onset (ago): day(s) Severity: mild Vaginal discharge: none Vaginal bleeding: none Urinary symptoms: Dysuria and Urgency Exacerbating factors: urination Relieving factors: none Associated symptoms: Deny headache(s) Treatment prior to arrival: none Sexual activity: No Patient : No Review of Systems Card: Denies: chest pain Resp: Denies: dyspnea : Reports: dysuria and urinary urgency; Denies: flank pain, hematuria or pelvic pain Musc: Reports: back pain (chronic) Neuro: Denies: headache(s) PFS ED PFSH: Medical History Acute pancreatitis Acute kidney injury Encephalopathy acute Sepsis Hypothermia Bradycardia Acute hypotension Spinal stenosis Lives in assisted living facility Chronic UTI (urinary tract infection) Hypothyroid Essential hypertension Neuropathic pain Multiple sclerosis Dr. Jc Metz in [place], [place] Wheelchair dependent Wears dentures Surgical History History of lumbar fusion History of bilateral tubal ligation History of hysterectomy History of cholecystectomy Family History Mother Cancer Bladder Diabetes Sister Hypertension Congestive heart failure Social History Smoking and tobacco/nicotine status: former use of tobacco/nicotine Second hand smoke exposure: No Caregiver/support person: Yes Lives independently: No (SV) Household members: other Housing: Assisted Living Facility Current occupational status: retired and disabled Current occupational exposures/hazards: No Pets and animals: No Do you think of yourself as: Straight/Heterosexual Current gender identity: Female Physical Exam Const: COMMON NORMALS: no acute distress, patient oriented x3, no limitations, alert and well nourished GENERAL APPEARANCE: cooperative ORIENTATION/CONSCIOUSNESS: Yes awake, Yes oriented to person, Yes oriented to place and Yes oriented to time Resp: COMMON NORMALS: normal respiratory effort Cardio: COMMON NORMALS: regular rate and regular rhythm RATE: regular rate RHYTHM: regular rhythm GI: COMMON NORMALS: Normal to inspection, nondistended, normoactive bowel sounds present, Soft to palpation, No hepatosplenomegaly present and no masses INSPECTION: Yes normal to inspection PALPATION: Yes Soft to palpation, Yes Tenderness to palpation present (GI) (very mild suprapubic discomfort), No Guarding due to palpation present (GI), No Rigid due to palpation and Yes No hepatosplenomegaly present : COMMON NORMALS: Yes no CVA tenderness BLADDER/KIDNEY EXAM: Yes no CVA tenderness Back/Pelvis: COMMON NORMALS: no CVA tenderness Neuro: COMMON NORMALS: patient oriented x3 SENSORIUM/ORIENTATION: Yes alert, Yes oriented to person, Yes oriented to place and Yes oriented to time Course Vital Signs: Vital signs: Vital Signs Pulse Rate 65 02/28/23 16:22 Respiratory Rate 18 02/28/23 16:22 Blood Pressure 116/76 02/28/23 16:22 Pulse Oximetry 98 02/28/23 16:22 Oxygen Delivery Me thod Room Air 02/28/23 16:22 MDM - Female Lab Data 02/28/23 16:38 02/28/23 16:38 Laboratory Results WBC 7.00 10^3/uL (3.29-11.43) 02/28/23 16:38 RBC 3.71 10^6/uL (3.85-5.65) L 02/28/23 16:38 Hgb 11.40 g/dL (11.27-16.99) 02/28/23 16:38 Hct 36.5 % (36-47) 02/28/23 16:38 MCV 98.4 fl (85-98) H 02/28/23 16:38 MCH 30.7 pg (27-33) 02/28/23 16:38 MCHC 31.2 g/dL (30-55) 02/28/23 16:38 RDW 13.0 % (12.1-15.1) 02/28/23 16:38 Plt Count 262 10^3/cmm (157-399) 02/28/23 16:38 MPV 10.3 fL (7.4-10.4) 02/28/23 16:38 Neut % (Auto) 54.7 % 02/28/23 16:38 Lymph % (Auto) 29.6 % 02/28/23 16:38 Boundary % (Auto) 13.0 % 02/28/23 16:38 Eos % (Auto) 2.1 % 02/28/23 16:38 Baso % (Auto) 0.3 % 02/28/23 16:38 Neut # (Auto) 3.83 10^3/uL (1.8-7.7) 02/28/23 16:38 Lymph # (Auto) 2.1 10^3/uL (0.8-4.8) 02/28/23 16:38 Boundary # (Auto) 0.9 10^3/uL (0.2-0.9) 02/28/23 16:38 Eos # (Auto) 0.2 10^3/uL (0.0-0.8) 02/28/23 16:38 Baso # (Auto) 0.0 10^3/uL (0.0-0.1) 02/28/23 16:38 Nucleated RBC % (auto) 0 % 02/28/23 16:38 Nucleated RBCs # 0.0 /100WBC 02/28/23 16:38 Sodium 141 mmol/L (136-145) 02/28/23 16:38 Potassium 3.8 mmol/L (3.5-5.1) 02/28/23 16:38 Chloride 102 mmol/L (98-107) 02/28/23 16:38 Carbon Dioxide 30 mmol/L (22-29) H 02/28/23 16:38 Anion Gap 12.8 (5-19) 02/28/23 16:38 BUN 18 mg/dL (8-23) 02/28/23 16:38 Creatinine 0.5 mg/dL (0.5-0.9) 02/28/23 16:38 GFR Calculation 122.0 mL/min (90-130) 02/28/23 16:38 Glucose 79 mg/dL (65-115) 02/28/23 16:38 Calculated Osmolality 293 mOsm/kg (285-295) 02/28/23 16:38 Calcium 9.7 mg/dL (8.5-10.5) 02/28/23 16:38 Total Bilirubin 0.2 mg/dL (0.15-1.2) 02/28/23 16:38 AST 17 U/L (0-32) 02/28/23 16:38 ALT 16 U/L (0-33) 02/28/23 16:38 Alkaline Phosphatase 139 U/L (35-105) H 02/28/23 16:38 Total Protein 7.0 g/dL (6.6-8.7) 02/28/23 16:38 Albumin 4.1 g/dL (3.5-5.2) 02/28/23 16:38 Globulin 2.9 g/dL (1.3-4.6) 02/28/23 16:38 Urine Color Yellow (Yellow) 02/28/23 18:32 Urine Appearance Clear (CLEAR) 02/28/23 18:32 Urine pH 6 (5-7) 02/28/23 18:32 Ur Specific Capulin 1.015 (1.005-1.030) 02/28/23 18:32 Urine Protein Neg (Negative) 02/28/23 18:32 Urine Glucose (UA) Norm (Normal) 02/28/23 18:32 Urine Ketones Negative (Negative) 02/28/23 18:32 Urine Blood Trace (Negative) H 02/28/23 18:32 Urine Nitrate Negative (Negative) 02/28/23 18:32 Urine Bilirubin Neg (Negative) 02/28/23 18:32 Urine Urobilinogen Norm mg/dL (Negative) 02/28/23 18:32 Ur Leukocyte Esterase 2+ (Negative) H 02/28/23 18:32 Urine RBC 0-4 /hpf (0-2) H 02/28/23 18:32 Urine WBC >100 /hpf (0-5) H 02/28/23 18:32 Ur Squamous Epith Cells 0-4 /hpf (0-5) H 02/28/23 18:32 Amorphous Sediment Not Reportable 02/28/23 18:32 Urine Bacteria 1+ /hpf (NONE) H 02/28/23 18:32 Discharge Plan Discharge Patient Disposition: Home Clinical Impression: Urinary tract infection Qualifiers: Urinary tract infection type: acute cystitis Hematuria presence: with hematuria Qualified Code(s): N30.01 - Acute cystitis with hematuria Condition: Stable Prescriptions: New cefpodoxime 100 mg tablet 100 mg PO BID 7 Days Qty: 14 0RF Rx Instructions: must administer with a meal/food No Action MediHoney (honey) 100 % paste 1 applic topical DAILY Qty: 103 0RF zinc oxide 5 % cream 1 applic topical .2 times day Qty: 177.4 0RF (DME) [id number] is a patient lift, electric, with seat or sling. See Rx Instructions .Route .MEDSUPPLY Qty: 1 0RF Rx Instructions: As directed silver 200 mcg/gram gel 1 applic topical DAILY Qty: 90 0RF oxybutynin chloride 5 mg tablet 5 mg PO BID Qty: 60 0RF Rx Instructions: neurology writing Saccharomyces boulardii [Florastor] 250 mg capsule 250 mg PO BID Qty: 60 0RF methenamine hippurate 1 gram tablet 1 g PO Q12H Qty: 180 1RF Rx Instructions: take with vitamin C ascorbate calcium (vitamin C) 500 mg tablet 500 mg PO BID Qty: 180 1RF Rx Instructions: take with methenamine docusate sodium [Colace] 100 mg capsule 100 mg PO BID Qty: 180 1RF tramadol 50 mg tablet 100 mg PO BID Qty: 360 1RF lisinopril 10 mg tablet 5 mg PO .at 2pm Qty: 1 0RF Rx Instructions: please change on EMR do not send medication Vitamin C 1,500mg, D 5,000IU, Zinc 40mg See Rx Instructions .ROUTE .COMPLEX Qty: 60 0RF Rx Instructions: 2 tab daily; Please put on EMR levothyroxine 100 mcg tablet See Rx Instructions PO .COMPLEX Qty: 1 0RF Rx Instructions: 150mcg 1 day week 100mcg 6 days orally; Please change on EMR no medication needed (DME) hydrocolloid dressing [DuoDERM CGF Border Dressing] 4 X 4 bandage See Rx Instructions .Route Qty: 5 2RF Rx Instructions: apply daily cefepime 1 gram recon soln 1 g IM Q12H Qty: 10 0RF acetaminophen 500 mg Tablet 500 - 1,000 mg PO Q6H PRN (Reason: Pain) nortriptyline 10 mg Capsule 30 mg PO QPM Nyamyc 100,000 unit/gram Powder 1 applic TOPICAL BID gabapentin 600 mg tablet 600 mg PO QPM Rx Instructions: Neurology writing tizanidine 4 mg tablet 8 mg PO QPM Rx Instructions: neurology writing baclofen 20 mg tablet 20 mg PO BID PRN (Reason: Pain) Discharge Orders: Discharge ED (Routine); Ordered 02/28/23 Ordered By: Linsey Bedoya Referrals: Makayla Galvez, [employer] [Primary Care Provider] - Discharge Diet: Advance as tolerated Discharge Activity: Increase activity as tolerated Patient Instructions: Urinary Tract Infection in Older Adults (ED) Activity Restrictions/Additional Instructions: Lab work today is generally unremarkable. Urinalysis does show findings of urinary tract infection but, as you have not started on antibiotic check, this is to be expected. We did receive the culture and sensitivity from your original urine specimen and after reviewing the sensitivities, there are still oral options for treatment of your infection. The advanced practitioner in the emergency department actually spoke to Rubén (APOORVA) regarding the options still available for oral treatment based on the sensitivities and agreed to continue monitoring you after your discharge. You received a first round of antibiotics through your IV here in the emergency department but we have also prescribed continued antibiotic therapy for the next week to treat your infection. Continue to monitor for any new onset fevers or vomiting. Please have your medical provider recheck your urine after the course of antibiotics is complete to assure full resolution of infection. For any change or worsening, please seek reevaluation through the ER. Sign Out Sign Out Data: Patient Sign Out occurred on 02/28/23 at 17:09. Patient's care was discussed, and care was transferred from KELSEA Mg to KELSEA Benitez. 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 Jc Metz in [place], [place] Wheelchair dependent Wears dentures Surgical History History of lumbar fusion History of bilateral tubal ligation History of hysterectomy History of cholecystectomy Family History Mother Cancer Bladder Diabetes Sister Hypertension Congestive heart failure Social History Smoking and tobacco/nicotine status: former use of tobacco/nicotine Second hand smoke exposure: No Caregiver/support person: Yes Lives independently: No (SV) Household members: other Housing: Assisted Living Facility Current occupational status: retired and disabled Current occupational exposures/hazards: No Pets and animals: No Do you think of yourself as: Straight/Heterosexual Current gender identity: Female Course Vital Signs: Vital signs: Vital Signs Pulse Rate 65 02/28/23 16:22 Respiratory Rate 18 02/28/23 16:22 Blood Pressure 116/76 02/28/23 16:22 Pulse Oximetry 98 02/28/23 16:22 Oxygen Delivery Me thod Room Air 02/28/23 16:22 MDM - Female Medical Decision Making Linsey WADEC: Transfer of care from KELSEA Mg at 1700. I was notified of the patient's culture and sensitivity and was able to review these results as they had been sent/faxed over from the nursing facility. Prior to shift change, Leanne was able to speak with Rubén GUERIN who had ordered the culture and sensitivity. During their discussion, it was decided patient would receive cefepime 1 g IV. They also discussed cefpodoxime orally at home for 1 week. There was mutual agreement on this treatment course and patient would be able to discharge back to the facility if lab work was unremarkable. Lab work is generally unremarkable today as she has no signs of an elevated white blood cell count. Patient still has findings of a mild urinary tract infection but, as patient has not really had any treatment, is not unexpected. Discussed the treatment plan as well as the phone conversation with the [employer] with the patient. She seems glad to be able to discharge back and not have to be admitted. She was given return precautions for fever, vomiting, or worsening of symptoms-especially with the holiday coming up. Patient verbalizes understanding and agreement to treatment plan. Differential Diagnosis Unlikely abdominal pain, acute appendicitis, calculus of kidney, constipation, diverticulitis, gastroenteritis, pancreatitis or small bowel obstruction Lab Data 02/28/23 16:38 02/28/23 16:38 Laboratory Results WBC 7.00 10^3/uL (3.29-11.43) 02/28/23 16:38 RBC 3.71 10^6/uL (3.85-5.65) L 02/28/23 16:38 Hgb 11.40 g/dL (11.27-16.99) 02/28/23 16:38 Hct 36.5 % (36-47) 02/28/23 16:38 MCV 98.4 fl (85-98) H 02/28/23 16:38 MCH 30.7 pg (27-33) 02/28/23 16:38 MCHC 31.2 g/dL (30-55) 02/28/23 16:38 RDW 13.0 % (12.1-15.1) 02/28/23 16:38 Plt Count 262 10^3/cmm (157-399) 02/28/23 16:38 MPV 10.3 fL (7.4-10.4) 02/28/23 16:38 Neut % (Auto) 54.7 % 02/28/23 16:38 Lymph % (Auto) 29.6 % 02/28/23 16:38 Boundary % (Auto) 13.0 % 02/28/23 16:38 Eos % (Auto) 2.1 % 02/28/23 16:38 Baso % (Auto) 0.3 % 02/28/23 16:38 Neut # (Auto) 3.83 10^3/uL (1.8-7.7) 02/28/23 16:38 Lymph # (Auto) 2.1 10^3/uL (0.8-4.8) 02/28/23 16:38 Boundary # (Auto) 0.9 10^3/uL (0.2-0.9) 02/28/23 16:38 Eos # (Auto) 0.2 10^3/uL (0.0-0.8) 02/28/23 16:38 Baso # (Auto) 0.0 10^3/uL (0.0-0.1) 02/28/23 16:38 Nucleated RBC % (auto) 0 % 02/28/23 16:38 Nucleated RBCs # 0.0 /100WBC 02/28/23 16:38 Sodium 141 mmol/L (136-145) 02/28/23 16:38 Potassium 3.8 mmol/L (3.5-5.1) 02/28/23 16:38 Chloride 102 mmol/L (98-107) 02/28/23 16:38 Carbon Dioxide 30 mmol/L (22-29) H 02/28/23 16:38 Anion Gap 12.8 (5-19) 02/28/23 16:38 BUN 18 mg/dL (8-23) 02/28/23 16:38 Creatinine 0.5 mg/dL (0.5-0.9) 02/28/23 16:38 GFR Calculation 122.0 mL/min (90-130) 02/28/23 16:38 Glucose 79 mg/dL (65-115) 02/28/23 16:38 Calculated Osmolality 293 mOsm/kg (285-295) 02/28/23 16:38 Calcium 9.7 mg/dL (8.5-10.5) 02/28/23 16:38 Total Bilirubin 0.2 mg/dL (0.15-1.2) 02/28/23 16:38 AST 17 U/L (0-32) 02/28/23 16:38 ALT 16 U/L (0-33) 02/28/23 16:38 Alkaline Phosphatase 139 U/L (35-105) H 02/28/23 16:38 Total Protein 7.0 g/dL (6.6-8.7) 02/28/23 16:38 Albumin 4.1 g/dL (3.5-5.2) 02/28/23 16:38 Globulin 2.9 g/dL (1.3-4.6) 02/28/23 16:38 Urine Color Yellow (Yellow) 02/28/23 18:32 Urine Appearance Clear (CLEAR) 02/28/23 18:32 Urine pH 6 (5-7) 02/28/23 18:32 Ur Specific Capulin 1.015 (1.005-1.030) 02/28/23 18:32 Urine Protein Neg (Negative) 02/28/23 18:32 Urine Glucose (UA) Norm (Normal) 02/28/23 18:32 Urine Ketones Negative (Negative) 02/28/23 18:32 Urine Blood Trace (Negative) H 02/28/23 18:32 Urine Nitrate Negative (Negative) 02/28/23 18:32 Urine Bilirubin Neg (Negative) 02/28/23 18:32 Urine Urobilinogen Norm mg/dL (Negative) 02/28/23 18:32 Ur Leukocyte Esterase 2+ (Negative) H 02/28/23 18:32 Urine RBC 0-4 /hpf (0-2) H 02/28/23 18:32 Urine WBC >100 /hpf (0-5) H 02/28/23 18:32 Ur Squamous Epith Cells 0-4 /hpf (0-5) H 02/28/23 18:32 Amorphous Sediment Not Reportable 02/28/23 18:32 Urine Bacteria 1+ /hpf (NONE) H 02/28/23 18:32 No radiology studies performed this visit Discharge Plan Discharge Patient Disposition: Home Clinical Impression: Urinary tract infection Qualifiers: Urinary tract infection type: acute cystitis Hematuria presence: with hematuria Qualified Code(s): N30.01 - Acute cystitis with hematuria Condition: Stable Prescriptions: New cefpodoxime 100 mg tablet 100 mg PO BID 7 Days Qty: 14 0RF Rx Instructions: must administer with a meal/food No Action MediHoney (honey) 100 % paste 1 applic topical DAILY Qty: 103 0RF zinc oxide 5 % cream 1 applic topical .2 times day Qty: 177.4 0RF (DME) [id number] is a patient lift, electric, with seat or sling. See Rx Instructions .Route .MEDSUPPLY Qty: 1 0RF Rx Instructions: As directed silver 200 mcg/gram gel 1 applic topical DAILY Qty: 90 0RF oxybutynin chloride 5 mg tablet 5 mg PO BID Qty: 60 0RF Rx Instructions: neurology writing Saccharomyces boulardii [Florastor] 250 mg capsule 250 mg PO BID Qty: 60 0RF methenamine hippurate 1 gram tablet 1 g PO Q12H Qty: 180 1RF Rx Instructions: take with vitamin C ascorbate calcium (vitamin C) 500 mg tablet 500 mg PO BID Qty: 180 1RF Rx Instructions: take with methenamine docusate sodium [Colace] 100 mg capsule 100 mg PO BID Qty: 180 1RF tramadol 50 mg tablet 100 mg PO BID Qty: 360 1RF lisinopril 10 mg tablet 5 mg PO .at 2pm Qty: 1 0RF Rx Instructions: please change on EMR do not send medication Vitamin C 1,500mg, D 5,000IU, Zinc 40mg See Rx Instructions .ROUTE .COMPLEX Qty: 60 0RF Rx Instructions: 2 tab daily; Please put on EMR levothyroxine 100 mcg tablet See Rx Instructions PO .COMPLEX Qty: 1 0RF Rx Instructions: 150mcg 1 day week 100mcg 6 days orally; Please change on EMR no medication needed (DME) hydrocolloid dressing [DuoDERM CGF Border Dressing] 4 X 4 bandage See Rx Instructions .Route Qty: 5 2RF Rx Instructions: apply daily cefepime 1 gram recon soln 1 g IM Q12H Qty: 10 0RF acetaminophen 500 mg Tablet 500 - 1,000 mg PO Q6H PRN (Reason: Pain) nortriptyline 10 mg Capsule 30 mg PO QPM Nyamyc 100,000 unit/gram Powder 1 applic TOPICAL BID gabapentin 600 mg tablet 600 mg PO QPM Rx Instructions: Neurology writing tizanidine 4 mg tablet 8 mg PO QPM Rx Instructions: neurology writing baclofen 20 mg tablet 20 mg PO BID PRN (Reason: Pain) Discharge Orders: Discharge ED (Routine); Ordered 02/28/23 Ordered By: Linsey Bedoya Referrals: Makayla Galvez, [employer] [Primary Care Provider] - Discharge Diet: Advance as tolerated Discharge Activity: Increase activity as tolerated Patient Instructions: Urinary Tract Infection in Older Adults (ED) Activity Restrictions/Additional Instructions: Lab work today is generally unremarkable. Urinalysis does show findings of urinary tract infection but, as you have not started on antibiotic check, this is to be expected. We did receive the culture and sensitivity from your original urine specimen and after reviewing the sensitivities, there are still oral options for treatment of your infection. The advanced practitioner in the emergency department actually spoke to Rubén MILLAN) regarding the options still available for oral treatment based on the sensitivities and agreed to continue monitoring you after your discharge. You received a first round of antibiotics through your IV here in the emergency department but we have also prescribed continued antibiotic therapy for the next week to treat your infection. Continue to monitor for any new onset fevers or vomiting. Please have your medical provider recheck your urine after the course of antibiotics is complete to assure full resolution of infection. For any change or worsening, please seek reevaluation through the ER. Sign Out Sign Out Data: Patient Sign Out occurred on 02/28/23 at 17:09. Patient's care was discussed, and care was transferred from KELSEA Mg to KELSEA Benitez. 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
[2023-02-28] MEDS: cefepime 1,000 MG in sodium chloride 0.9% (plus) 50 ML 100 MG IV (16:57)
[2023-02-28 17:15] LABS: Basophils % 0.3 %; Eosinophils # 0.2 10^3/uL (0.0-0.8); Eosinophils % 2.1 %; Hematocrit 36.5 % (36-47); Lymphocytes # 2.1 10^3/uL (0.8-4.8); Lymphocytes % 29.6 %; Mean Corpuscular HGB Conc 31.2 g/dL (30-55); Mean Corpuscular Hemoglobin 30.7 pg (27-33); Mean Corpuscular Volume 98.4 fl (85-98); Mean Platelet Volume 10.3 fL (7.4-10.4); Monocytes # 0.9 10^3/uL (0.2-0.9); Neutrophils # 3.83 10^3/uL (1.8-7.7); Neutrophils % 54.7 %; Nucleated Red Blood Cells % 0 %; Platelet Count 262 10^3/cmm (157-399); Red Blood Count 3.71 10^6/uL (3.85-5.65)
[2023-02-28 17:38] LABS: Alanine Aminotransferase 16 U/L (0-33); Albumin Level 4.1 g/dL (3.5-5.2); Alkaline Phosphatase 139 U/L (35-105); Anion Gap 12.8 (5-19); Aspartate Amino Transferase 17 U/L (0-32); Blood Urea Nitrogen 18 mg/dL (8-23); Calcium 9.7 mg/dL (8.5-10.5); Carbon Dioxide 30 mmol/L (22-29); Chloride 102 mmol/L (98-107); Globulin 2.9 g/dL (1.3-4.6); Glucose 79 mg/dL (65-115); Osmolality Calculated 293 mOsm/kg (285-295); Potassium 3.8 mmol/L (3.5-5.1); Sodium 141 mmol/L (136-145); Total Bilirubin 0.2 mg/dL (0.15-1.2)
[2023-02-28 18:46] LABS: Add Urine Culture? Yes; Add Urine Microscopic? YES; Bacteria Urine 1+ /hpf; Bilirubin Urine Neg (Negative); Blood Urine Trace (Negative); Glucose Urine UA Norm (Normal); Ketones Urine Negative (Negative); Leukocyte Esterase Urine 2+ (Negative); Nitrate Urine Negative (Negative); Protein Urine Neg (Negative); RBC Urine 0-4 /hpf (0-2); Specific Gravity, Urine 1.015 (1.005-1.030); Squamous Epithelial Cell Urine 0-4 /hpf (0-5); Urine Appearance Clear (CLEAR); Urine Color Yellow (Yellow); Urobilinogen Urine Norm (Negative); WBC Urine >100 /hpf (0-5); pH Urine 6 (5-7)
== END 2023-02-28 21:00 | disposition home or self-care (01) ==
PROVIDERS: Physician Assistant; Emergency Provider Physician Assistant; PCP Nurse Practitioner
DX: N30.01 Acute cystitis with hematuria (principal); Z87.891 Personal history of nicotine dependence; I10 Essential (primary) hypertension; G35 Multiple sclerosis
CPT/HCPCS: 36415; 80053; 81001; 85025; 87040; 87077; 87086; 87186; 96374; 99284; J0692

== ENCOUNTER → 2023-08-15 15:30 | Outpatient (BNVA) | payer MEDICARE, OTHER, SELFPAY | PROVIDERS: PCP Nurse Practitioner; Visit Provider Nurse Practitioner | DX: R30.0 Dysuria (principal) | CPT/HCPCS: 81003; 87086 ==

== ENCOUNTER → 2023-08-19 10:50 | Outpatient (BNVA) | payer MEDICARE, OTHER, SELFPAY | PROVIDERS: PCP Nurse Practitioner; Visit Provider Nurse Practitioner | DX: N39.0 Urinary tract infection, site not specified (principal) | CPT/HCPCS: 87086 ==

== ENCOUNTER 2023-11-15 06:08 | Inpatient (IN) | payer MEDICARE, OTHER, SELFPAY ==
[2023-11-15] VITALS (13 sets, daily range): BP systolic 84–163; BP diastolic 52–85; PULSE 58–91; RESP 12–18; TEMP 36.3–37; O2SAT 97–100; BMI 22.8
--- NOTE | 2023-11-15 06:21 | XRR_ITS ---
PROCEDURE INFORMATION: Exam: XR Chest Exam date and time: 11/15/2023 6:26 AM Age: 73 years old Clinical indication: Shortness of breath; Patient HX: [facility]. ; Additional info: Dyspnea/cough TECHNIQUE: Imaging protocol: Radiologic exam of the chest. Views: 1 view. COMPARISON: CR XR chest 1V portable [id number] 07/08/2022 11:40 AM FINDINGS: Lungs: Stable appearance of the bilateral lung spaces. Pleural spaces: Unremarkable. No pleural effusion. No pneumothorax. Heart/Mediastinum: Stable appearance of the cardiomediastinal silhouette. Diaphragm: Slight right diaphragm eventration. Bones/joints: Diffuse degenerative change of the visualized osseous structures. XR/XR chest 1V portable [id number] IMPRESSION: No acute findings.
--- NOTE | 2023-11-15 06:28 | ECG_ITS ---
[facility] Test Date: 2023-11-15 Pat Name: Valery Triana Department: Room: Gender: Female [employer]: : 1950 Requested By: Antonio Smith Order Number: [id number] Reading MD: EMRE VALADEZ Measurements Intervals [place] Rate: 71 P: 71 DE: 153 QRS: 70 QRSD: 120 T: 72 QT: 425 QTc: 462 Interpretive Statements SINUS RHYTHM ANTEROLATERAL MYOCARDIAL INFARCTION , OF INDETERMINATE AGE [40+ ms Q WAVE IN I/aVL/V3-V6] Compared to ECG 07/03/2022 13:54:44 Myocardial infarct finding now present Sinus arrhythmia no longer present Intraventricular conduction delay no longer present T-wave abnormality no longer present Electronically Signed On 11-16-2023 18:52:32 CDT by EMRE VALADEZ [email or web address]
[2023-11-15 06:33] LABS: Basophils % 0.5 %; Eosinophils # 0.2 10^3/uL (0.0-0.8); Eosinophils % 2.5 %; Hematocrit 37.3 % (36-47); Lymphocytes # 1.4 10^3/uL (0.8-4.8); Lymphocytes % 19.1 %; Mean Corpuscular HGB Conc 30.6 g/dL (30-55); Mean Corpuscular Hemoglobin 29.9 pg (27-33); Mean Corpuscular Volume 97.9 fl (85-98); Mean Platelet Volume 9.8 fL (7.4-10.4); Monocytes % 13.1 %; Neutrophils # 4.85 10^3/uL (1.8-7.7); Neutrophils % 64.4 %; Nucleated Red Blood Cells % 0 %; Platelet Count 371 10^3/cmm (157-399); Red Blood Count 3.81 10^6/uL (3.85-5.65); Red Cell Distribution Width 12.8 % (12.1-15.1); White Blood Count 7.54 10^3/uL (3.29-11.43)
[2023-11-15 06:50] LABS: Alanine Aminotransferase 18 U/L (0-33); Albumin Level 3.8 g/dL (3.5-5.2); Alkaline Phosphatase 133 U/L (35-105); Blood Urea Nitrogen 31 mg/dL (8-23); Calcium 9.5 mg/dL (8.5-10.5); Carbon Dioxide 26 mmol/L (22-29); Chloride 99 mmol/L (98-107); Creatinine Clr Calc Pharmacy 66.7506; Globulin 2.3 g/dL (1.3-4.6); Glucose 103 mg/dL (65-115); Osmolality Calculated 299 mOsm/kg (285-295); Sodium 141 mmol/L (136-145); Total Bilirubin 0.2 mg/dL (0.15-1.2); Total Protein 6.1 g/dL (6.6-8.7)
[2023-11-15 06:51] LABS: Aspartate Amino Transferase 24 U/L (0-32); Troponin(5th) Baseline 60 ng/L (0-10)
[2023-11-15 07:00] LABS: Charge for UA Resulting for Rev
[2023-11-15 07:14] LABS: Bilirubin Urine Negative (Negative); Blood Urine Non-haemolysed trace (Negative); Glucose Urine UA Negative (Normal); Ketones Urine 1+ (Negative); Leukocyte Esterase Urine 3+ (Negative); Nitrate Urine Negative (Negative); Protein Urine 2+ (Negative); Specific Gravity, Urine 1.014 (1.005-1.030); Urine Appearance Turbid (CLEAR); Urine Color Yellow (Yellow); Urobilinogen Urine 0.2 mg/dL (Negative); pH Urine 5.5 (5-7)
[2023-11-15 07:42] LABS: Bacteria Urine 2+ /hpf; RBC Urine 15-25 /hpf (0-2); Squamous Epithelial Cell Urine 0-4 /hpf (0-5); UA Manual Slide Review YES; UA Slide Review UA Slide Review Perf; WBC Urine TOO NUMEROUS TO CNT /hpf (0-5)
[2023-11-15 07:43] LABS: Add Urine Culture? Yes
[2023-11-15] MEDS: sodium chloride 0.9% 500 ML 999 ML IV (07:50)
--- NOTE | 2023-11-15 07:52 | ED_ITS ---
HPI - Anxiety 2 General: Chief Complaint: Anxiety Stated Complaint: SOB Time Seen by Provider: 11/15/23 06:16 History of Present Illness: 73-year-old female presents emergency ro om complaining of anxiety. She came in by EMS from longterm. She was given Ativan prior to arrival when I went to see the patient she was significantly sedated moans to noxious stimuli but otherwise has no other reaction. No report of fever nausea or vomiting. There was reported shortness of breath she is on room air satting 98% at this time vital signs are stable. Related Data Home Medications Medication Instructions Recorded Confirmed acetaminophen 500 mg tablet 500 - 1,000 mg PO Q6H PRN Pain 05/01/22 11/16/23 baclofen 20 mg tablet 20 mg PO TID PRN Pain 07/03/22 11/16/23 gabapentin 600 mg tablet 600 mg PO QPM 07/03/22 11/16/23 nortriptyline 10 mg capsule 30 mg PO QPM 07/03/22 11/16/23 nystatin 100,000 unit/gram topical 1 applic topical BID 07/03/22 11/16/23 powder (Nyamyc) tizanidine 4 mg tablet 8 mg PO QPM 07/03/22 11/16/23 docusate sodium 100 mg capsule 100 mg PO DAILY 11/16/23 11/16/23 (Colace) multivitamin 2 tab PO DAILY 11/16/23 11/16/23 Previous Rx's Medication Instructions Recorded oxybutynin chloride 5 mg tablet 5 mg PO BID #60 tabs 05/30/22 honey 100 % topical paste 1 applic topical DAILY #103 mL 07/17/22 (MediHoney (honey)) zinc oxide 5 % topical cream 1 applic topical .2 times day 07/17/22 #177.4 mL [id number] is a patient lift, #1 ea 07/19/22 electric, with seat or sling. Saccharomyces boulardii 250 mg 250 mg PO BID #60 caps 10/27/22 capsule (Florastor) ascorbate calcium (vitamin C) 500 500 mg PO BID #180 tabs 10/27/22 mg tablet Vitamin C 1,500mg, D 5,000IU, Zinc See Rx Instructions .Route 11/27/22 40mg .COMPLEX #60 tabs levothyroxine 100 mcg tablet See Rx Instructions PO .COMPLEX 09/26/23 #100 tabs lisinopril 2.5 mg tablet 2.5 mg PO .at 2pm #90 tabs 09/26/23 methenamine hippurate 1 gram tablet 1 g PO Q12H #180 tabs 09/26/23 tramadol 50 mg tablet 100 mg (2 x 50 mg) PO BID #360 tabs 09/26/23 Allergies Allergy/AdvReac Type Severity Reaction Status Date / Time naproxen [From Aleve] AdvReac Severe Kidney Verified 10/24/23 09:45 Review of Systems 2 General: Reports: ROS unobtainable due to mental status PFSH ED 2 PFSH: Medical History Encephalopathy acute Acute pancreatitis Acute kidney injury Sepsis Hypothermia Bradycardia Acute hypotension Spinal stenosis Lives in assisted living facility Chronic UTI (urinary tract infection) Hypothyroid Essential hypertension Neuropathic pain Multiple sclerosis Dr. Jc Metz in [place], [place] Wheelchair dependent Wears dentures Surgical History History of lumbar fusion History of bilateral tubal ligation History of hysterectomy History of cholecystectomy Family History Mother Cancer Bladder Diabetes Sister Hypertension Congestive heart failure (CHF) Social History Smoking and tobacco/nicotine status: former use of tobacco/nicotine Second hand smoke exposure: No Caregiver/support person: Yes Lives independently: No (SV) Household members: other Housing: Assisted Living Facility Current occupational status: retired and disabled Current occupational exposures/hazards: No Pets and animals: No Do you think of yourself as: Straight/Heterosexual Current gender identity: Female Physical Exam 2 HENMT: COMMON NORMALS: normocephalic, atraumatic and hearing grossly normal bilaterally HEAD & SCALP: normocephalic and atraumatic Resp: COMMON NORMALS: normal respiratory effort, No retractions, No use of accessory muscles and clear to auscultation bilaterally AUSCULTATION: clear to auscultation bilaterally Cardio: COMMON NORMALS: regular rate, regular rhythm and No murmurs present (Cardio) RATE: regular rate RHYTHM: regular rhythm GI: COMMON NORMALS: Soft to palpation and No hepatosplenomegaly present A USCULTATION: Yes normoactive bowel sounds PALPATION: Yes Soft to palpation, No Tenderness to palpation present (GI), No Guarding due to palpation present (GI) and Yes No hepatosplenomegaly present Extremity: COMMON NORMALS: normal to inspection, capillary refill normal, no clubbing, cyanosis or edema, no calf tenderness and no pedal edema Skin: COMMON NORMALS: no rashes or lesions noted GENERAL SKIN EXAM: no rashes or lesions noted Course 2 Vital Signs: Vital signs: Vital Signs Temperature 98.0 F 11/18/23 04:00 Pulse Rate 102 H 11/18/23 04:00 Respiratory Rate 18 11/18/23 04:00 Blood Pressure 155/96 11/18/23 04:00 Pulse Oximetry 100 11/18/23 04:00 Oxygen Delivery Me thod Room Air 11/18/23 04:00 MDM - Anxiety Medical Decision Making Initially patient unresponsive likely due to Ativan she did become more arousable towards the end of ER stay. White count is normal UA shows significant leukocytes. Will start on IV antibiotics treat for cystitis. Vital signs otherwise stable. Suspect encephalopathy is due to combination of UTI as well as benzodiazepines acutely. Discussed with hospitalist. Troponins and EKG reviewed as found in the chart no acute changes no sign of acute coronary syndrome Lab Data 11/18/23 03:59 11/18/23 03:59 Radiology Impressions Chest X-Ray 11/15/23 06:21 IMPRESSION: No acute findings. Laboratory Results WBC 7.54 10^3/uL (3.29-11.43) 11/15/23 06:20 RBC 3.81 10^6/uL (3.85-5.65) L 11/15/23 06:20 Hgb 11.40 g/dL (11.27-16.99) 11/15/23 06:20 Hct 37.3 % (36-47) 11/15/23 06:20 MCV 97.9 fl (85-98) 11/15/23 06:20 MCH 29.9 pg (27-33) 11/15/23 06:20 MCHC 30.6 g/dL (30-55) 11/15/23 06:20 RDW 12.8 % (12.1-15.1) 11/15/23 06:20 Plt Count 371 10^3/cmm (157-399) 11/15/23 06:20 MPV 9.8 fL (7.4-10.4) 11/15/23 06:20 Neut % (Auto) 64.4 % 11/15/23 06:20 Lymph % (Auto) 19.1 % 11/15/23 06:20 [place] % (Auto) 13.1 % 11/15/23 06:20 Eos % (Auto) 2.5 % 11/15/23 06:20 Baso % (Auto) 0.5 % 11/15/23 06:20 Neut # (Auto) 4.85 10^3/uL (1.8-7.7) 11/15/23 06:20 Lymph # (Auto) 1.4 10^3/uL (0.8-4.8) 11/15/23 06:20 [place] # (Auto) 1.0 10^3/uL (0.2-0.9) H 11/15/23 06:20 Eos # (Auto) 0.2 10^3/uL (0.0-0.8) 11/15/23 06:20 Baso # (Auto) 0.0 10^3/uL (0.0-0.1) 11/15/23 06:20 Nucleated RBC % (auto) 0 % 11/15/23 06:20 Nucleated RBCs # 0.0 /100WBC 11/15/23 06:20 Sodium 141 mmol/L (136-145) 11/15/23 06:20 Potassium 4.0 mmol/L (3.5-5.1) 11/15/23 06:20 Chloride 99 mmol/L (98-107) 11/15/23 06:20 Carbon Dioxide 26 mmol/L (22-29) 11/15/23 06:20 Anion Gap 20.0 (5-19) H 11/15/23 06:20 BUN 31 mg/dL (8-23) H 11/15/23 06:20 Creatinine 0.5 mg/dL (0.5-0.9) 11/15/23 06:20 GFR Calculation Not Reportable 11/15/23 06:20 Glucose 103 mg/dL (65-115) 11/15/23 06:20 Calculated Osmolality 299 mOsm/kg (285-295) H 11/15/23 06:20 Lactic Acid 1.0 mmol/L (0.5-2.2) 11/15/23 09:25 Calcium 9.5 mg/dL (8.5-10.5) 11/15/23 06:20 Total Bilirubin 0.2 mg/dL (0.15-1.2) 11/15/23 06:20 AST 24 U/L (0-32) 11/15/23 06:20 ALT 18 U/L (0-33) 11/15/23 06:20 Alkaline Phosphatase 133 U/L (35-105) H 11/15/23 06:20 Troponin T Baseline 60 ng/L (0-10) H 11/15/23 06:20 Troponin T 120 Minute 59.29 ng/L (0-10) H 11/15/23 08:23 Delta Troponin T -0.71 ABS# (0-10) L 11/15/23 08:23 Troponin T Hi Sens 6Hr 52.01 ng/L (0-10) H 11/15/23 12:55 Troponin T Hi Sens 6Hr Delta -7.99 ng/L (0-12) L 11/15/23 12:55 Total Protein 6.1 g/dL (6.6-8.7) L 11/15/23 06:20 Albumin 3.8 g/dL (3.5-5.2) 11/15/23 06:20 Globulin 2.3 g/dL (1.3-4.6) 11/15/23 06:20 Urine Color Yellow (Yellow) 11/15/23 06:35 Urine Appearance Turbid (CLEAR) A 11/15/23 06:35 Urine pH 5.5 (5-7) 11/15/23 06:35 Ur Specific [place] 1.014 (1.005-1.030) 11/15/23 06:35 Urine Protein 2+ (Negative) A 11/15/23 06:35 Urine Glucose (UA) Negative (Normal) 11/15/23 06:35 Urine Ketones 1+ (Negative) H 11/15/23 06:35 Urine Blood Non-haemolysed trace (Negative) 11/15/23 06:35 Urine Nitrate Negative (Negative) 11/15/23 06:35 Urine Bilirubin Negative (Negative) 11/15/23 06:35 Urine Urobilinogen 0.2 mg/dL (Negative) 11/15/23 06:35 Ur Leukocyte Esterase 3+ (Negative) A 11/15/23 06:35 Urine RBC 15-25 /hpf (0-2) H 11/15/23 06:35 Urine WBC Too numerous to cnt /hpf (0-5) H 11/15/23 06:35 Ur Squamous Epith Cells 0-4 /hpf (0-5) H 11/15/23 06:35 Amorphous Sediment Not Reportable 11/15/23 06:35 Urine Bacteria 2+ /hpf (NONE) H 11/15/23 06:35 Urine Yeast 1+ /hpf H 11/15/23 06:35 All radiology interpretation(s) finalized by discharge Discharge Plan Discharge Patient Disposition: Placed in Observation Admit Provider: Papito Castillo Clinical Impression: Encephalopathy acute, Urinary tract infection, Medication side effect Coding Level of Care Code ED [employer] for Augie Weeks
[2023-11-15 08:49] LABS: Troponin 5 2HR 59.29 ng/L (0-10)
[2023-11-15 09:03] LABS: Troponin 5 2HR Delta -0.71 ABS# (0-10)
[2023-11-15 09:13] LABS: Lactic Sepsis W/Reflex 0.9 mmol/L (0.5-2.2)
[2023-11-15] MEDS: piperacillin-tazobactam 3.375 GM in sodium chloride 0.9% (plus) 50 ML IV ×2 (09:43→16:55)
[2023-11-15] MEDS: sodium chloride 0.9% 1,000 ML 999 ML IV (09:43)
--- NOTE | 2023-11-15 09:52 | PC.NURSE ---
pt has redness, warmth noted to L foot with capillary refill of <3 seconds; pt has pallor/cyanotic in color noted to R foot with capillary refill of >5 seconds. bilateral dorsalis pedis pulses noted. Dr. Curry notified and at bedside.
--- NOTE | 2023-11-15 10:49 | P.HP_ITS ---
Providers/Chief Complaint 2 Primary Care Provider: CAMMY Jimenez Chief Complaint: SOB History of Present Illness Valery Triana is a 73 year old female with a past medical history significant for recurrent urinary tract infections, hypothyroidism, and multiple other comorbidities who presented with anxiety and shortness of breath. She was reportedly given Ativan prior to her presentation to the ER by EMS. She was found to be significantly altered upon presentation. She was treated with IV fluids. Further workup revealed a urinary tract infection. Patient seen and evaluated on medical floor. She is now awake and alert. She reports some shortness of breath and anxiety earlier this morning at the nursing facility. Reports some mild abdominal discomfort. Exertion worsens symptoms. Rest improves. Review of Systems 2 Narrative: A complete review of systems was obtained and is negative except as stated in HPI. Medications/Allergies Home Medications Medication Instructions Recorded Confirmed Last Taken Type acetaminophen 500 mg tablet 500 - 1,000 mg PO Q6H PRN Pain 05/01/22 10/24/23 Unknown History oxybutynin chloride 5 mg tablet 5 mg PO BID #60 tabs 05/30/22 10/24/23 Unknown Rx baclofen 20 mg tablet 20 mg PO BID PRN Pain 07/03/22 10/24/23 Unknown History gabapentin 600 mg tablet 600 mg PO QPM 07/03/22 10/24/23 Unknown History nortriptyline 10 mg capsule 30 mg PO QPM 07/03/22 10/24/23 Unknown History nystatin 100,000 unit/gram topical 1 applic topical BID 07/03/22 10/24/23 Unknown History powder (Nyamyc) tizanidine 4 mg tablet 8 mg PO QPM 07/03/22 10/24/23 Unknown History honey 100 % topical paste 1 applic topical DAILY #103 mL 07/17/22 10/24/23 Unknown Rx (MediHoney (honey)) zinc oxide 5 % topical cream 1 applic topical .2 times day 07/17/22 10/24/23 Unknown Rx #177.4 mL E0635 is a patient lift, #1 ea 07/19/22 10/24/23 Unknown Rx electric, with seat or sling. Saccharomyces boulardii 250 mg 250 mg PO BID #60 caps 10/27/22 10/24/23 Unknown Rx capsule (Florastor) ascorbate calcium (vitamin C) 500 500 mg PO BID #180 tabs 10/27/22 10/24/23 Unknown Rx mg tablet Vitamin C 1,500mg, D 5,000IU, Zinc See Rx Instructions .Route 11/27/22 10/24/23 Unknown Rx 40mg .COMPLEX #60 tabs docusate sodium 100 mg capsule 100 mg PO BID #180 caps 09/26/23 10/24/23 Unknown Rx (Colace) levothyroxine 100 mcg tablet See Rx Instructions PO .COMPLEX 09/26/23 10/24/23 Unknown Rx #100 tabs lisinopril 2.5 mg tablet 2.5 mg PO .at 2pm #90 tabs 09/26/23 10/24/23 Unknown Rx methenamine hippurate 1 gram tablet 1 g PO Q12H #180 tabs 09/26/23 10/24/23 Unknown Rx tramadol 50 mg tablet 100 mg (2 x 50 mg) PO BID #360 tabs 09/26/23 10/24/23 Unknown Rx Allergies Allergy/AdvReac Type Severity Reaction Status Date / Time naproxen [From Aleve] AdvReac Severe Kidney Verified 10/24/23 09:45 PFSH Acute 2 PFSH: Medical History (Updated 11/15/23 @ 19:00 by Papito Castillo MD) Encephalopathy acute Acute pancreatitis Acute kidney injury Sepsis Hypothermia Bradycardia Acute hypotension Spinal stenosis Lives in assisted living facility Chronic UTI (urinary tract infection) Hypothyroid Essential hypertension Neuropathic pain Multiple sclerosis Dr. Jc Metz in [place], [place] Wheelchair dependent Wears dentures Surgical History History of lumbar fusion History of bilateral tubal ligation History of hysterectomy History of cholecystectomy Family History Mother Cancer Bladder Diabetes Sister Hypertension Congestive heart failure (CHF) Social History Smoking and tobacco/nicotine status: former use of tobacco/nicotine Second hand smoke exposure: No Caregiver/support person: Yes Lives independently: No (SV) Household members: other Housing: Assisted Living Facility Current occupational status: retired and disabled Current occupational exposures/hazards: No Pets and animals: No Do you think of yourself as: Straight/Heterosexual Current gender identity: Female Vitals/I&O/Wt Last Vital Signs Temp 98.2 F 11/15/23 06:10 Pulse 83 11/15/23 09:05 Resp 12 11/15/23 09:05 BP 146/82 11/15/23 09:05 Pulse Ox 99 11/15/23 09:05 11/14/23 11/15/23 11/15/23 22:59 06:59 14:59 Intake Total 500 / 500 Balance 500 / 500 Weight last 48 hrs Weight 68.039 kg Physical Exam 2 Narrative: General: Patient is awake and alert. Head: Normocephalic. Atraumatic. EOM intact. Neck: No JVD. Cardiovascular: RRR. No gallops. No murmurs. No peripheral edema. Lungs: Clear to auscultation, no use of accessory muscles, no crackles or wheezes. Skin: No jaundice. No rashes. Abdomen: Normal bowel sounds, abdomen soft and nontender. Genito Urinary: Genital exam not performed since complaints not related. Rectal: Rectal exam not performed since no symptoms indicated blood loss. Extremities: No cyanosis or clubbing. Musculoskeletal: No swollen or erythematous joints. Neurological: Moves all 4 extremities. No myoclonus. Data 11/15/23 06:20 11/15/23 06:20 Micro: Microbiology 11/15/23 09:26 Blood Culture - Preliminary Blood SPECIMEN COLLECTED 11/15/23 09:25 Blood Culture - Preliminary Blood SPECIMEN COLLECTED A&P Assessment and plan (1) Encephalopathy acute: Mentation is improving Suspect acute metabolic and toxic encephalopathy given UTI and benzodiazepine exposure Treat underlying infection Avoid further sedating medications Supportive care (2) Pseudomonas urinary tract infection: Follow urine culture Start Zosyn (3) Neuropathic pain: Continue home TCA Continue home gabapentin Continue home muscle relaxers (4) Hypothyroid: Continue home Synthroid Qualifiers: Hypothyroidism type: other Qualified Code(s): E03.8 - Other specified hypothyroidism (5) Essential hypertension: Continue home EMILIE inhibitor Hydralazine if needed Plan DVT prophylaxis: Lovenox Attestations 2 Medical Necessity Statement*: Patient presents with altered mental status, found to have urinary tract infection with history of Pseudomonas UTIs with expected hospitalization not to cross 2 midnights for monitoring of mental status, IV antibiotics, and supportive care. Coding Level of Care Code Acute Code for [facility] Fwd Diagnoses Encephalopathy acute G93.40 Pseudomonas urinary tract infection N39.0; B96.5 Neuropathic pain M79.2 Other specified hypothyroidism E03.8 Hypothyroidism type: other Essential hypertension I10
--- NOTE | 2023-11-15 12:22 | ECG_ITS ---
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
[2023-11-15] MEDS: D5-NS 0.45% + KCL 20 mEq 20 MEQ/1,000 ML BAG 100 MEQ IV (12:45)
[2023-11-15 13:35] LABS: Troponin 5 6HR 52.01 ng/L (0-10)
[2023-11-15 13:42] LABS: Troponin 5 6HR Delta -7.99 ng/L (0-12)
[2023-11-15] MEDS: nystatin powder 15 gm Btl 1 APPLIC TOPICAL (18:08)
--- NOTE | 2023-11-15 18:32 | PC.NURSE ---
Patient has bilateral bruising lower extremities. Patient stated the bruisng is from wheel chair.
[2023-11-15] MEDS: lisinopril 2.5 mg Tablet PO (19:53)
[2023-11-15] MEDS: tizanidine 4 mg Tablet 8 MG PO (20:03)
[2023-11-15] MEDS: gabapentin 300 mg Capsule 600 MG PO (20:03)
[2023-11-15] MEDS: nortriptyline 10 mg Capsule 30 MG PO (20:03)
[2023-11-15] MEDS: enoxaparin 40 mg/0.4 mL Syringe SUBCUT (20:03)
[2023-11-16] VITALS (8 sets, daily range): BP systolic 136–163; BP diastolic 71–83; PULSE 91–106; RESP 15–17; TEMP 36.4–36.9; O2SAT 94–96
[2023-11-16] MEDS: piperacillin-tazobactam 3.375 GM in sodium chloride 0.9% (plus) 50 ML IV ×4 (00:02→23:50)
[2023-11-16] MEDS: lisinopril 2.5 mg Tablet PO (08:41)
[2023-11-16] MEDS: oxybutynin 5 mg Tablet PO ×2 (08:44→18:54)
[2023-11-16] MEDS: nystatin powder 15 gm Btl 1 APPLIC TOPICAL ×2 (08:45→18:54)
[2023-11-16] MEDS: TRAMadol 50 mg Tablet 100 MG PO ×2 (13:51→21:26)
--- NOTE | 2023-11-16 13:58 | PC.NURSE ---
Pt refused pain medication in am 11/15 approved giving medication at 1350
--- NOTE | 2023-11-16 15:26 | P.PN_ITS ---
Subjective 2 Subjective: Patient is awake. She denies any acute complaints. Discussed with patient's primary nurse. Patient has very poor oral intake. She currently does not have her dentures or glasses here which may be contributing. She has a history of MS and is wheelchair-bound at baseline. She has severe debility at baseline. She does require assistance feeding as her upper extremities have minimal function. I discussed her prior urine culture results showing fluoroquinolone resistant Pseudomonas aeruginosa in multiple cultures this year. She seems unsure how they were treated. It is unclear whether or not she received IV antibiotics for these prior infections. I did discuss her current urine culture showing multiple organisms in the setting of 2 prior cultures earlier this year showing Pseudomonas aeruginosa's resistant to all oral antibiotics. Medications: Reviewed: Yes Vitals/I&O/Wt Last Vital Signs Temp 98.3 F 11/16/23 15:21 Pulse 100 11/16/23 15:21 Resp 17 11/16/23 15:21 BP 163/83 11/16/23 15:21 Pulse Ox 95 11/16/23 15:21 O2 Del Method Room Air 11/16/23 15:21 11/16/23 11/16/23 11/16/23 06:59 14:59 22:59 Intake Total 50 / 2900 420 / 420 Balance 50 / 2900 420 / 420 Weight last 48 hrs Weight 70.398 kg Weight 68.039 kg Weight 68.039 kg Physical Exam 2 Narrative: General: Patient is awake and alert. Head: Normocephalic. Atraumatic. EOM intact. Masked facies. Neck: No JVD. Cardiovascular: RRR. No gallops. No murmurs. No peripheral edema. Lungs: Clear to auscultation, no use of accessory muscles, no crackles or wheezes. Skin: No jaundice. Fungal appearing rash underlying pannus and in groin folds. Abdomen: Normal bowel sounds, abdomen soft and nontender. Extremities: No cyanosis or clubbing. Musculoskeletal: No swollen or erythematous joints. Neurological: No myoclonus. Limited movement in all extremities. RUE extremities able to tap call button when positioned correctly. Data 11/15/23 06:20 11/15/23 06:20 Micro: Microbiology 11/15/23 06:35 Urine Culture - Final Urine,Clean Catch 11/15/23 09:26 Blood Culture - Preliminary Blood NEGATIVE TO DATE 11/15/23 09:25 Blood Culture - Preliminary Blood NEGATIVE TO DATE A&P Assessment and plan (1) Encephalopathy acute: Mentation has improved, suspect it is at baseline Continue treating underlying infection Start gentle IV fluids due to very poor oral intake Supportive care (2) Pseudomonas urinary tract infection: Current urinalysis consistent with UTI Urine culture showing multiple organisms 2 prior urine cultures this year showing fluoroquinolone resistant Pseudomonas, unclear if she received appropriate treatment with these UTIs She has a history of chronic bladder pain Continue Zosyn Consider continued IV outpatient antibiotics versus infectious disease consultation if available (3) Neuropathic pain: Continue home TCA Continue home gabapentin Continue home muscle relaxers (4) Hypothyroid: Continue home Synthroid Qualifiers: Hypothyroidism type: other Qualified Code(s): E03.8 - Other specified hypothyroidism (5) Essential hypertension: Continue home EMILIE inhibitor Hydralazine if needed (6) Wheelchair dependent: Multiple sclerosis, wheelchair-bound at baseline (7) Rosemarie infection of flexural skin: Continue nystatin powder Plan DVT prophylaxis: Lovenox Attestations 2 Medical Necessity Statement*: Patient requires ongoing hospitalization for IV antibiotics due to history of fluoroquinolone resistant Pseudomonas aeruginosis, IV fluids, and supportive care. Coding Level of Care Code Acute Code for [facility] Fwd Diagnoses Encephalopathy acute G93.40 Pseudomonas urinary tract infection N39.0; B96.5 Neuropathic pain M79.2 Other specified hypothyroidism E03.8 Hypothyroidism type: other Essential hypertension I10 Wheelchair dependent Z99.3 Rosemarie infection of flexural skin B37.2
--- NOTE | 2023-11-16 19:19 | PC.NURSE ---
Tramadol given late today. Dr. Castillo approved to give late due to patient refusing this am. Will give tramadol at 900 pm instead of 1800. Night nurse will give.
[2023-11-16] MEDS: tizanidine 4 mg Tablet 8 MG PO (21:26)
[2023-11-16] MEDS: nortriptyline 10 mg Capsule 30 MG PO (21:26)
[2023-11-16] MEDS: enoxaparin 40 mg/0.4 mL Syringe SUBCUT (21:27)
[2023-11-16] MEDS: gabapentin 300 mg Capsule 600 MG PO (21:27)
[2023-11-16] MEDS: D5-NS 0.45% + KCL 20 mEq 20 MEQ/1,000 ML BAG 50 MEQ IV (21:42)
[2023-11-17 00:21] LABS: Glucose Point of Care 129 mg/dL (70-110)
--- OUTSIDE RECORDS SUMMARY | 2023-11-17 03:04 | XMS_ITS | Patient Health Record ---
Author Name Unknown Organization [facility] Address [address] [place] [address] Care Team Providers Care Catalogue Compiler Name Role Phone Makayla Galvez APRN Primary Care Provider Unav Tino Benavidez Unavailable [phone] Reason For Referral No Information Problems Problem Type SNOMED Code ICD Code Onset Dates Problem Status W/U Status Risk Notes Problem [id number] UTI (urinary tra ct infection), uncomplicated (N39.0) Active confirmed Plan Of Treatment No Information Insurance Providers Payer Name Payer Address Payer Phone Subscriber Number Group Number Insured Name Patient Relationship to Insured Coverage Start Date Coverage End Date [place] [address] [address] [place] [phone] [id number] Valery Triana Self - patient is the insured
--- OUTSIDE RECORDS SUMMARY | 2023-11-17 03:04 | XMS_ITS ---
Author Name Unknown Organization [facility] Address [address] [place] [address] Care Team Providers Care Piggyback Clerk Name Role Phone Makayla Galvez APRN Primary Care Provider Unav Tino Benavidez Unavailable [phone] REASON FOR VISIT UTI Encounters Encounter Location Date Provider Diagnosis [facility] [address] [place] [address] 08/02/2022 Tino Almaguer Plan Of Treatment No Information Progress Notes * Valery TRIANA LDOB:1950 ( 72 yo F)Acc No.[id number]:08/02/2022 Patient:?Valery Triana :1950???Age:72 Y???Sex:Female Address:[place] [address] * true * Date:? Generated for Reinaldo phillips/Sole/eTransmitting on:?11/17/2023 03:04 AM CDT
[2023-11-17 04:00] VITALS: BP 135/65; PULSE 106; RESP 18; TEMP 37; O2SAT 93
[2023-11-17 07:45] VITALS: BP 155/81; PULSE 116; RESP 18; TEMP 37.6; O2SAT 92
[2023-11-17] MEDS: piperacillin-tazobactam 3.375 GM in sodium chloride 0.9% (plus) 50 ML IV ×2 (08:10→16:35)
--- NOTE | 2023-11-17 10:03 | PC.CHAP ---
Pastoral Care Encounter/Spiritual Assessment Type of Contact [] Declined battery plate assembler visit [] Patient/Family/Request visit [] Outpatient visit [] Follow-up visit [] Physician referral [] Code/Alert [x] Routine visit [] Staff referral [] Actively dying [] Patient sleeping [] Family support [] [] Out of room [] Palliative care [] [] Receiving care in room [] Pre-surgical visit [] Trauma [] Long length of stay [] ICU visit [] Other: Relational/Emotional Strength [] Patient feels connected with others/family/visitors/staff [] Distress [] Loneliness/isolation [] Abandonment Spirituality of Patient [] Person of Geno [] Attends Shinto of their Geno [] Believes in Prayer [] Reads Bible or Spiritism materials [] There are Spiritual issues to be addressed Home Demonstration Agent Interventions [x] Prayer [] Active listening [] Non-anxious presence [] Spiritual/emotional support [] Crisis/trauma care [] Spiritual counseling [] Bereavement support [] Provided bereavement packet [] Provided Bible/devotional materials [] Provided toy/stuffed animal, coloring book to patient or family member [] Provided Communion [] Anointing/Groom [] Salvation [] Completed spiritual assessment [] Other: Impact on Illness or Injury [] Angry [] Fearful [] Anxious [] Often cries [] Exhaustion [] Unable to work [] Unable to attend anabaptist [] Unable to walk/stand [] Unable to read [] Unable to drive [] Unable to eat/drink [] Unable to sleep [] Unable to be with family [] Patient intubated [] Other: Summary Time spent with patient
[2023-11-17 10:40] LABS: Basophils # 0.1 10^3/uL (0.0-0.1); Basophils % 0.5 %; Eosinophils % 0.1 %; Hematocrit 34.4 % (36-47); Lymphocytes # 1.2 10^3/uL (0.8-4.8); Lymphocytes % 11.2 %; Mean Corpuscular HGB Conc 32.3 g/dL (30-55); Mean Corpuscular Hemoglobin 30.1 pg (27-33); Mean Corpuscular Volume 93.2 fl (85-98); Mean Platelet Volume 9.5 fL (7.4-10.4); Monocytes # 1.1 10^3/uL (0.2-0.9); Monocytes % 10.2 %; Neutrophils # 8.57 10^3/uL (1.8-7.7); Neutrophils % 77.7 %; Nucleated Red Blood Cells % 0 %; Platelet Count 400 10^3/cmm (157-399); Red Blood Count 3.69 10^6/uL (3.85-5.65); Red Cell Distribution Width 12.8 % (12.1-15.1); White Blood Count 11.01 10^3/uL (3.29-11.43)
[2023-11-17 11:00] LABS: Anion Gap 12.9 (5-19); Blood Urea Nitrogen 12 mg/dL (8-23); Carbon Dioxide 28 mmol/L (22-29); Chloride 106 mmol/L (98-107); Creatinine Clr Calc Pharmacy 68.4503; Glucose 145 mg/dL (65-115); Osmolality Calculated 298 mOsm/kg (285-295); Potassium 3.9 mmol/L (3.5-5.1); Sodium 143 mmol/L (136-145)
--- NOTE | 2023-11-17 11:02 | PC.NURSE ---
The pt has been experiencing hallucinations this morning. When this nurse attempted to administer AM meds, she stated she could not take them because they would hurt and let the people take her. When asked who she was referring to she stated the people that are watching her. Medications returned to pyis and hospitalist notified.
--- NOTE | 2023-11-17 11:51 | PM.PN ---
Subjective Subjective: Seen this morning. Patient is confused. She states that there is 1979 and thinks she is at [facility]. She appears quite paranoid at this time. She states they are coming to get her. She also states you are not supposed to be here and you need to hide. Patient is having active hallucinations. Vitals/I&O/Wt Last Vital Signs Temp 99.6 F 11/17/23 07:45 Pulse 116 H 11/17/23 07:45 Resp 18 11/17/23 07:45 BP 155/81 11/17/23 07:45 Pulse Ox 92 11/17/23 07:45 O2 Del Method Room Air 11/17/23 07:45 11/16/23 11/17/23 11/17/23 22:59 06:59 14:59 Intake Total 530 / 1000 110 / 1110 240 / 240 Balance 530 / 1000 110 / 1110 240 / 240 Weight last 48 hrs Weight 72.212 kg Weight 70.398 kg Physical Exam Narrative: General: Patient is awake and alert. Head: Normocephalic. Atraumatic. EOM intact. Masked facies. Cardiovascular: RRR. No gallops. No murmurs. No peripheral edema. Lungs: Clear to auscultation, no use of accessory muscles, no crackles or wheezes. Skin: No jaundice. Fungal appearing rash underlying pannus and in groin folds. Abdomen: Normal bowel sounds, abdomen soft and nontender. Extremities: No cyanosis or clubbing. Musculoskeletal: No swollen or erythematous joints. Neurological: No myoclonus. Limited movement in all extremities. Data 11/17/23 10:29 11/17/23 10:29 Micro: Microbiology 11/15/23 06:35 Urine Culture - Final Urine,Clean Catch 11/15/23 09:26 Blood Culture - Preliminary Blood NEGATIVE TO DATE 11/15/23 09:25 Blood Culture - Preliminary Blood NEGATIVE TO DATE A&P Assessment and plan (1) Encephalopathy acute: Mentation has improved, suspect it is at baseline Continue treating underlying infection Start gentle IV fluids due to very poor oral intake Supportive care (2) Pseudomonas urinary tract infection: Current urinalysis consistent with UTI Urine culture showing multiple organisms 2 prior urine cultures this year showing fluoroquinolone resistant Pseudomonas, unclear if she received appropriate treatment with these UTIs She has a history of chronic bladder pain Continue Zosyn Consider continued IV outpatient antibiotics versus infectious disease consultation if available (3) Neuropathic pain: Continue home TCA Continue home gabapentin Continue home muscle relaxers (4) Hypothyroid: Continue home Synthroid Qualifiers: Hypothyroidism type: other Qualified Code(s): E03.8 - Other specified hypothyroidism (5) Essential hypertension: Continue home EMILIE inhibitor Hydralazine if needed (6) Wheelchair dependent: Multiple sclerosis, wheelchair-bound at baseline (7) Rosemarie infection of flexural skin: Continue nystatin powder Plan DVT prophylaxis: Lovenox 11/16 Continue to continue to treat for UTI. Continue Zosyn Await urine cultures Continue IV fluids Nystatin powder for skin folds and pannus area Patient currently confused and hallucinating. Most likely metabolic encephalopathy secondary to above. Will continue to monitor for now. I will hold off on adding any antipsychotics. Await blood cultures Attestations Medical Necessity Statement*: Requires continued hospitalization for metabolic encephalopathy and UTI. Diagnoses Encephalopathy acute G93.40 Pseudomonas urinary tract infection N39.0; B96.5 Neuropathic pain M79.2 Other specified hypothyroidism E03.8 Hypothyroidism type: other Essential hypertension I10 Wheelchair dependent Z99.3 Rosemarie infection of flexural skin B37.2
[2023-11-17 12:38] VITALS: BP 145/72; PULSE 121; RESP 20; TEMP 38.1; O2SAT 93
--- NOTE | 2023-11-17 15:09 | PC.SOCIAL ---
IMM UPDATED IMM dated and initialed, Copy given to patient and copy placed in chart.
[2023-11-17 16:29] VITALS: BP 142/83; PULSE 108; RESP 19; TEMP 36.9; O2SAT 94
[2023-11-17] MEDS: nystatin powder 15 gm Btl 1 APPLIC TOPICAL (17:59)
[2023-11-17] MEDS: D5-NS 0.45% + KCL 20 mEq 20 MEQ/1,000 ML BAG 50 MEQ IV (17:59)
[2023-11-17] MEDS: TRAMadol 50 mg Tablet 100 MG PO (18:00)
[2023-11-17] MEDS: oxybutynin 5 mg Tablet PO (18:00)
[2023-11-17 19:53] VITALS: BP 164/78; PULSE 92; RESP 18; TEMP 36.6; O2SAT 95
[2023-11-17] MEDS: tizanidine 4 mg Tablet 8 MG PO (21:13)
[2023-11-17] MEDS: enoxaparin 40 mg/0.4 mL Syringe SUBCUT (21:13)
[2023-11-17] MEDS: gabapentin 300 mg Capsule 600 MG PO (21:13)
[2023-11-17] MEDS: nortriptyline 10 mg Capsule 30 MG PO (21:14)
[2023-11-18] VITALS: BP 165/88; PULSE 91; RESP 17; TEMP 37; O2SAT 100
[2023-11-18 04:00] VITALS: BP 155/96; PULSE 102; RESP 18; TEMP 36.7; O2SAT 100
[2023-11-18 04:34] LABS: Basophils % 0.4 %; Eosinophils % 0.4 %; Lymphocytes % 18.3 %; Mean Corpuscular HGB Conc 32.2 g/dL (30-55); Mean Corpuscular Hemoglobin 30.5 pg (27-33); Mean Corpuscular Volume 94.9 fl (85-98); Mean Platelet Volume 9.7 fL (7.4-10.4); Monocytes # 1.4 10^3/uL (0.2-0.9); Monocytes % 13.2 %; Neutrophils # 7.21 10^3/uL (1.8-7.7); Neutrophils % 67.2 %; Nucleated Red Blood Cells % 0 %; Platelet Count 397 10^3/cmm (157-399); Red Cell Distribution Width 12.9 % (12.1-15.1); White Blood Count 10.72 10^3/uL (3.29-11.43)
[2023-11-18 04:53] LABS: Anion Gap 14.6 (5-19); Blood Urea Nitrogen 10 mg/dL (8-23); Calcium 8.8 mg/dL (8.5-10.5); Carbon Dioxide 27 mmol/L (22-29); Chloride 105 mmol/L (98-107); Creatinine Clr Calc Pharmacy 68.4503; Glucose 129 mg/dL (65-115); Magnesium 1.8 mg/dL (1.7-2.3); Osmolality Calculated 297 mOsm/kg (285-295); Potassium 3.6 mmol/L (3.5-5.1); Sodium 143 mmol/L (136-145)
[2023-11-18 07:04] VITALS: BP 129/86; PULSE 105; RESP 16; TEMP 36.6; O2SAT 95
[2023-11-18] MEDS: TRAMadol 50 mg Tablet 100 MG PO ×2 (08:17→18:46)
[2023-11-18] MEDS: lisinopril 2.5 mg Tablet PO (08:18)
[2023-11-18] MEDS: piperacillin-tazobactam 3.375 GM in sodium chloride 0.9% (plus) 50 ML IV ×4 (08:18→23:00)
[2023-11-18] MEDS: oxybutynin 5 mg Tablet PO ×2 (08:18→18:46)
[2023-11-18] MEDS: nystatin powder 15 gm Btl 1 APPLIC TOPICAL ×2 (08:19→18:47)
[2023-11-18 11:09] VITALS: BP 116/80; PULSE 109; RESP 16; TEMP 37.1; O2SAT 94
--- NOTE | 2023-11-18 13:11 | P.PN_ITS ---
Subjective 2 Subjective: seen today knows it 2023 knows her name and date of Vitals/I&O/Wt Last Vital Signs Temp 98.8 F 11/18/23 11:09 Pulse 109 H 11/18/23 11:09 Resp 16 11/18/23 11:09 BP 116/80 11/18/23 11:09 Pulse Ox 94 11/18/23 11:09 O2 Del Method Room Air 11/18/23 11:09 11/17/23 11/18/23 11/18/23 22:59 06:59 14:59 Intake Total 1130 / 1420 110 / 1530 Balance 1130 / 1420 110 / 1530 Weight last 48 hrs Weight 70.987 kg Weight 72.212 kg Physical Exam 2 Narrative: General: Patient is awake and alert. Head: Normocephalic. Atraumatic. EOM intact. Masked facies. Cardiovascular: RRR. No gallops. No murmurs. No peripheral edema. Lungs: Clear to auscultation, no use of accessory muscles, no crackles or wheezes. Skin: No jaundice. Fungal appearing rash underlying pannus and in groin folds. Abdomen: Normal bowel sounds, abdomen soft and nontender. Extremities: No cyanosis or clubbing. Musculoskeletal: No swollen or erythematous joints. Neurological: No myoclonus. Limited movement in all extremities. Data 11/18/23 03:59 11/18/23 03:59 Micro: Microbiology 11/17/23 14:51 Urine Culture - Preliminary Urine Catheterized Yeast A&P Assessment and plan (1) Encephalopathy acute: Mentation has improved, suspect it is at baseline Continue treating underlying infection Start gentle IV fluids due to very poor oral intake Supportive care (2) Pseudomonas urinary tract infection: Current urinalysis consistent with UTI Urine culture showing multiple organisms 2 prior urine cultures this year showing fluoroquinolone resistant Pseudomonas, unclear if she received appropriate treatment with these UTIs She has a history of chronic bladder pain Continue Zosyn Consider continued IV outpatient antibiotics versus infectious disease consultation if available (3) Neuropathic pain: Continue home TCA Continue home gabapentin Continue home muscle relaxers (4) Hypothyroid: Continue home Synthroid Qualifiers: Hypothyroidism type: other Qualified Code(s): E03.8 - Other specified hypothyroidism (5) Essential hypertension: Continue home EMILIE inhibitor Hydralazine if needed (6) Wheelchair dependent: Multiple sclerosis, wheelchair-bound at baseline (7) Rosemarie infection of flexural skin: Continue nystatin powder Plan DVT prophylaxis: Lovenox 11/17 Continue to continue to treat for UTI. Continue Zosyn Await urine cultures Continue IV fluids Nystatin powder for skin folds and pannus area Patient currently confused and hallucinating. Most likely metabolic encephalopathy secondary to above. Will continue to monitor for now. I will hold off on adding any antipsychotics. Await blood cultures mental status improved Attestations 2 Medical Necessity Statement*: Requires continued hospitalization for metabolic encephalopathy and UTI. Diagnoses Encephalopathy acute G93.40 Pseudomonas urinary tract infection N39.0; B96.5 Neuropathic pain M79.2 Other specified hypothyroidism E03.8 Hypothyroidism type: other Essential hypertension I10 Wheelchair dependent Z99.3 Rosemarie infection of flexural skin B37.2
[2023-11-18 15:16] VITALS: BP 110/74; PULSE 112; RESP 17; TEMP 37.1; O2SAT 94
--- NOTE | 2023-11-18 18:52 | PC.NURSE ---
Patient has been seeing people in her room all day. She has appeared anxious a few times. Patient is usually able to be calmed by talking. Patient also stated there was water all over the floor.
[2023-11-18 19:51] VITALS: BP 117/78; PULSE 109; RESP 17; TEMP 37.1; O2SAT 94
[2023-11-18] MEDS: nortriptyline 10 mg Capsule 30 MG PO (20:09)
[2023-11-18] MEDS: gabapentin 300 mg Capsule 600 MG PO (20:09)
[2023-11-18] MEDS: enoxaparin 40 mg/0.4 mL Syringe SUBCUT (20:09)
[2023-11-18] MEDS: tizanidine 4 mg Tablet 8 MG PO (20:09)
[2023-11-19] VITALS: BP 115/74; PULSE 105; RESP 18; TEMP 37.8; O2SAT 94
[2023-11-19] MEDS: lanolin oint 7 gm 1 APPLIC TOPICAL (02:19)
[2023-11-19 04:00] VITALS: BP 105/68; PULSE 98; RESP 18; TEMP 37.2; O2SAT 93
[2023-11-19 05:11] LABS: Basophils % 0.3 %; Eosinophils % 0.4 %; Hematocrit 34.7 % (36-47); Lymphocytes # 2.3 10^3/uL (0.8-4.8); Lymphocytes % 23.6 %; Mean Corpuscular HGB Conc 31.4 g/dL (30-55); Mean Corpuscular Hemoglobin 29.9 pg (27-33); Mean Corpuscular Volume 95.1 fl (85-98); Mean Platelet Volume 9.4 fL (7.4-10.4); Monocytes # 1.2 10^3/uL (0.2-0.9); Monocytes % 12.7 %; Neutrophils # 6.08 10^3/uL (1.8-7.7); Neutrophils % 62.6 %; Nucleated Red Blood Cells % 0 %; Platelet Count 358 10^3/cmm (157-399); Red Blood Count 3.65 10^6/uL (3.85-5.65); Red Cell Distribution Width 13.1 % (12.1-15.1); White Blood Count 9.71 10^3/uL (3.29-11.43)
[2023-11-19 05:35] LABS: Anion Gap 14.7 (5-19); Blood Urea Nitrogen 15 mg/dL (8-23); Calcium 8.8 mg/dL (8.5-10.5); Carbon Dioxide 27 mmol/L (22-29); Chloride 108 mmol/L (98-107); Creatinine Clr Calc Pharmacy 67.9513; Glucose 117 mg/dL (65-115); Osmolality Calculated 304 mOsm/kg (285-295); Potassium 3.7 mmol/L (3.5-5.1); Sodium 146 mmol/L (136-145)
[2023-11-19 07:43] VITALS: BP 98/61; PULSE 93; RESP 17; TEMP 36.6; O2SAT 94
[2023-11-19] MEDS: TRAMadol 50 mg Tablet 100 MG PO ×2 (08:12→17:13)
[2023-11-19] MEDS: nystatin powder 15 gm Btl 1 APPLIC TOPICAL (08:13)
[2023-11-19] MEDS: oxybutynin 5 mg Tablet PO ×2 (08:13→17:13)
[2023-11-19] MEDS: piperacillin-tazobactam 3.375 GM in sodium chloride 0.9% (plus) 50 ML IV ×2 (08:13→17:13)
[2023-11-19] MEDS: lisinopril 2.5 mg Tablet PO (08:13)
--- NOTE | 2023-11-19 09:48 | PC.SOCIAL ---
IMM Updated IMM dated and initialed, copy placed in chart and given to patient.
[2023-11-19] MEDS: fluconazole 100 mg Tablet PO (10:31)
[2023-11-19 11:18] VITALS: BP 99/61; PULSE 93; RESP 16; TEMP 37.1; O2SAT 93
--- NOTE | 2023-11-19 11:34 | P.PN_ITS ---
Subjective 2 Subjective: Seen this morning. Patient believes she is at [place]. She is otherwise feeling better. Alert oriented to time knows this year 2023. She is feeling better. Urine culture positive for yeast. Vitals/I&O/Wt Last Vital Signs Temp 98.7 F 11/19/23 11:18 Pulse 93 11/19/23 11:18 Resp 16 11/19/23 11:18 BP 99/61 11/19/23 11:18 Pulse Ox 93 11/19/23 11:18 O2 Del Method Room Air 11/19/23 11:18 11/18/23 11/19/23 11/19/23 22:59 06:59 14:59 Intake Total 1280 / 1320 110 / 1430 120 / 120 Balance 1280 / 1320 110 / 1430 120 / 120 Weight last 48 hrs Weight 69.037 kg Weight 70.987 kg Physical Exam 2 Narrative: General: Patient is awake and alert. Head: Normocephalic. Atraumatic. EOM intact. Masked facies. Cardiovascular: RRR. No gallops. No murmurs. No peripheral edema. Lungs: Clear to auscultation, no use of accessory muscles, no crackles or wheezes. Abdomen: Normal bowel sounds, abdomen soft and nontender. Extremities: No cyanosis or clubbing. Musculoskeletal: No swollen or erythematous joints. Neurological: No myoclonus. Limited movement in all extremities. Data 11/19/23 05:04 11/19/23 05:04 Micro: Microbiology 11/17/23 14:51 Urine Culture - Preliminary Urine Catheterized Yeast A&P Assessment and plan (1) Encephalopathy acute: Mentation has improved, suspect it is at baseline Continue treating underlying infection Start gentle IV fluids due to very poor oral intake Supportive care (2) Pseudomonas urinary tract infection: Current urinalysis consistent with UTI Urine culture showing multiple organisms 2 prior urine cultures this year showing fluoroquinolone resistant Pseudomonas, unclear if she received appropriate treatment with these UTIs She has a history of chronic bladder pain Continue Zosyn Consider continued IV outpatient antibiotics versus infectious disease consultation if available (3) Neuropathic pain: Continue home TCA Continue home gabapentin Continue home muscle relaxers (4) Hypothyroid: Continue home Synthroid Qualifiers: Hypothyroidism type: other Qualified Code(s): E03.8 - Other specified hypothyroidism (5) Essential hypertension: Continue home EMILIE inhibitor Hydralazine if needed (6) Wheelchair dependent: Multiple sclerosis, wheelchair-bound at baseline (7) Rosemarie infection of flexural skin: Continue nystatin powder Plan DVT prophylaxis: Lovenox 11/18 Continue to continue to treat for UTI. Continue Zosyn to complete 5 days total. Await urine cultures Continue IV fluids Nystatin powder for skin folds and pannus area Feeling better today. I believe mental status is back to her baseline. Await blood cultures?negative to date mental status improved Urine culture positive for yeast. Will await final speciation. Will start on fluconazole 100 mg oral daily. Will empirically complete 7-day course total. Once urine culture is finalized patient may go back to her assisted living facility. Attestations 2 Medical Necessity Statement*: Requires continued hospitalization for metabolic encephalopathy and UTI. Diagnoses Encephalopathy acute G93.40 Pseudomonas urinary tract infection N39.0; B96.5 Neuropathic pain M79.2 Other specified hypothyroidism E03.8 Hypothyroidism type: other Essential hypertension I10 Wheelchair dependent Z99.3 Rosemarie infection of flexural skin B37.2
[2023-11-19 15:30] VITALS: BP 103/66; PULSE 87; RESP 16; TEMP 37.2; O2SAT 95
[2023-11-19 20:00] VITALS: BP 104/64; PULSE 97; RESP 17; TEMP 37.4; O2SAT 94
[2023-11-19] MEDS: gabapentin 300 mg Capsule 600 MG PO (20:27)
[2023-11-19] MEDS: nortriptyline 10 mg Capsule 30 MG PO (20:27)
[2023-11-19] MEDS: tizanidine 4 mg Tablet 8 MG PO (20:28)
[2023-11-19] MEDS: enoxaparin 40 mg/0.4 mL Syringe SUBCUT (20:29)
[2023-11-20] VITALS: BP 92/58; PULSE 83; RESP 17; TEMP 37.3; O2SAT 95
[2023-11-20] MEDS: piperacillin-tazobactam 3.375 GM in sodium chloride 0.9% (plus) 50 ML IV ×2 (00:16→09:41)
[2023-11-20 04:00] VITALS: BP 100/59; PULSE 89; RESP 16; TEMP 37.2; O2SAT 93
[2023-11-20 05:25] LABS: Anion Gap 12.5 (5-19); Blood Urea Nitrogen 18 mg/dL (8-23); Calcium 8.7 mg/dL (8.5-10.5); Carbon Dioxide 29 mmol/L (22-29); Chloride 109 mmol/L (98-107); Creatinine Clr Calc Pharmacy 67.5241; Glucose 97 mg/dL (65-115); Osmolality Calculated 306 mOsm/kg (285-295); Potassium 3.5 mmol/L (3.5-5.1); Sodium 147 mmol/L (136-145)
[2023-11-20 08:00] VITALS: BP 103/67; PULSE 83; RESP 18; TEMP 36.8; O2SAT 93
[2023-11-20] MEDS: oxybutynin 5 mg Tablet PO ×2 (09:42→17:34)
[2023-11-20] MEDS: fluconazole 100 mg Tablet PO (09:42)
[2023-11-20] MEDS: nystatin powder 15 gm Btl 1 APPLIC TOPICAL ×2 (09:42→17:34)
[2023-11-20] MEDS: lisinopril 2.5 mg Tablet PO (09:42)
[2023-11-20 12:00] VITALS: BP 107/65; PULSE 88; RESP 17; TEMP 36.6; O2SAT 93
--- NOTE | 2023-11-20 13:37 | PC.NURSE ---
This RN speaks with [facility] who states that pt is able to feed self, alert and oriented x4 and sharp as a tack . They also state that she uses a w/c to get around, and transfers with a 1-[address] Baldwin.
--- NOTE | 2023-11-20 14:06 | PM.PN ---
Subjective Subjective: Seen this morning. Patient laying in bed appears somewhat confused. She states everyone keeps telling me I am in the hospital so I guess I am. She also says it is 1924 and then corrected herself by saying no its 024. She has been hallucinating intermittently. Called assisted living facility and we have been told she is very sharp and requires assistance from moving from bed to wheelchair. She interacts with people and talks. She has a good memory as well. She is able to feed herself. How patient is doing today is definitely not her baseline. Call patient's son over the phone. He states he lives in [place] and has not seen her since last Easter however does talk to her a couple times a week on the phone. He states that she has been paranoid lately. She over the last month has thought that someone has been out to get her and she is going to get arrested. She has been paranoid. She has also been under a lot of stress by her younger son mentally and monetarily. Her son believes that she has been very stressed out in the last few weeks. She has even got to the point where she called her doctor in [place] and canceled her appointments that were coming up. He says she gets an infusion possibly every month for her multiple sclerosis and lately has skipped that as well. He is unsure of particular details. She tells me her neurologist is Dr. Diaz in [facility]. Nursing staff reports patient is completely flaccid at this time. Unable to feed herself and is requiring assistance. She is able to swallow. However for the last 4 days that I have examined this patient she has been in the same state. As per progress note by Dr. Castillo it seems that upper extremities have minimal movement at baseline however halfway and patient's son state otherwise. Vitals/I&O/Wt Last Vital Signs Temp 98.2 F 11/20/23 08:00 Pulse 83 11/20/23 08:00 Resp 18 11/20/23 08:00 BP 103/67 11/20/23 08:00 Pulse Ox 93 11/20/23 08:00 O2 Del Method Room Air 11/20/23 04:00 11/19/23 11/20/23 11/20/23 22:59 06:59 14:59 Intake Total 170 / 460 50 / 510 250 / 250 Balance 170 / 460 50 / 510 250 / 250 Weight last 48 hrs Weight 69.938 kg Weight 69.037 kg Physical Exam Narrative: General: Patient is awake and alert. Head: Normocephalic. Atraumatic. EOM intact. Masked facies. Cardiovascular: RRR. No gallops. No murmurs. No peripheral edema. Lungs: Clear to auscultation, no use of accessory muscles, no crackles or wheezes. Abdomen: Normal bowel sounds, abdomen soft and nontender. Extremities: No cyanosis or clubbing. Musculoskeletal: No swollen or erythematous joints. Neurological: No myoclonus. Limited movement in all extremities. Data 11/19/23 05:04 11/20/23 04:16 Micro: Microbiology 11/17/23 14:51 Urine Culture - Final Urine Catheterized Rosemarie kefyr 11/15/23 09:26 Blood Culture - Final Blood NO GROWTH AFTER 5 DAYS 11/15/23 09:25 Blood Culture - Final Blood NO GROWTH AFTER 5 DAYS A&P Assessment and plan (1) Encephalopathy acute: Mentation has improved, suspect it is at baseline Continue treating underlying infection Start gentle IV fluids due to very poor oral intake Supportive care (2) Pseudomonas urinary tract infection: Current urinalysis consistent with UTI Urine culture showing multiple organisms 2 prior urine cultures this year showing fluoroquinolone resistant Pseudomonas, unclear if she received appropriate treatment with these UTIs She has a history of chronic bladder pain Continue Zosyn Consider continued IV outpatient antibiotics versus infectious disease consultation if available (3) Neuropathic pain: Continue home TCA Continue home gabapentin Continue home muscle relaxers (4) Hypothyroid: Continue home Synthroid Qualifiers: Hypothyroidism type: other Qualified Code(s): E03.8 - Other specified hypothyroidism (5) Essential hypertension: Continue home EMILIE inhibitor Hydralazine if needed (6) Wheelchair dependent: Multiple sclerosis, wheelchair-bound at baseline (7) Rosemarie infection of flexural skin: Continue nystatin powder (8) Multiple sclerosis exacerbation: (9) Multiple sclerosis: (10) Lives in assisted living facility: (11) Acute flaccid paralysis: (12) Hallucination: Plan DVT prophylaxis: Lovenox 11/19 ?Will order CT head without contrast stat to rule out acute pathology. May even consider MRI of the brain after reviewing the CT. ? Consult neurology. -This is possibly multiple sclerosis flare. Urine culture has been negative for bacteria. However we will treat with Zosyn x 5 days total. ? Second urine culture obtained from urinary catheter has been positive for yeast. Rosemarie Fear. Will await sensitivities however will start on fluconazole 100 daily. Will treat for total 7 days. ? Will order Solu-Medrol 1 g daily x 3 days total. Await neurology evaluation. ? Call patient's primary care doctor to obtain medical records. ? Continue on D5 water 70 cc/h today for total of 500 cc. Sodium is 147. ? Continue to assist with feeding. ? Continue nystatin powder for skin peeled and pannus area. ? We did believe that this was her baseline mental status but it is not. ? Patient's hallucinations, recent paranoia and possible new onset depression may be contributing to her current state. ? Will consider antipsychotic medication. May try 12.5 mg Seroquel at nighttime. With high-dose steroids she may develop psychosis. ? Blood cultures negative to date ? Patient will most likely require continued hospitalization for another 72 hours to complete Solu-Medrol course. -Called patient's RN several times and discussed with son over the phone in detail. Discussed with neurology at length as well. Full code Attestations Medical Necessity Statement*: Requires continued hospitalization for management of possible multiple sclerosis exacerbation. Patient will need IV steroids. Diagnoses Encephalopathy acute G93.40 Pseudomonas urinary tract infection N39.0; B96.5 Neuropathic pain M79.2 Other specified hypothyroidism E03.8 Hypothyroidism type: other Essential hypertension I10 Wheelchair dependent Z99.3 Rosemarie infection of flexural skin B37.2 Multiple sclerosis exacerbation G35 Multiple sclerosis G35 Lives in assisted living facility Z59.3 Acute flaccid paralysis G83.89 Hallucination R44.3
--- NOTE | 2023-11-20 14:15 | CTR_ITS ---
PROCEDURE INFORMATION: Exam: CT Head Without Contrast Exam date and time: 11/20/2023 3:17 PM Age: 73 years old Clinical indication: Altered mental status/memory loss TECHNIQUE: Imaging protocol: Computed tomography of the head without contrast. Radiation optimization: All CT scans at this facility use at least one of these dose optimization techniques: automated exposure control; mA and/or kV adjustment per patient size (includes targeted exams where dose is matched to clinical indication); or iterative reconstruction. COMPARISON: CT head wo con* [id number] 07/08/2022 6:57 PM RADIATION DOSE METRICS: Total DLP (mGy-cm): 730 FINDINGS: Brain: Mild nonspecific white matter low attenuation which may be related to microvascular ischemic changes. Stable areas of deep white matter focal low attenuation in the bilateral frontal lobes. No acute confluent lobar ischemic infarct. No acute intracranial hemorrhage. No intracranial mass effect. Cerebral ventricles: The ventricles and sulci are normal in size and shape for the patient's stated age. Pituitary gland and sella: Empty versus partially empty sella. Paranasal sinuses: Visualized sinuses are unremarkable. No fluid levels. Mastoid air cells: Visualized mastoid air cells are well aerated. Bones: No acute calvarial fracture. Soft tissues: Visualized soft tissues are unremarkable. CT/CT head wo con* [id number] IMPRESSION: No acute intracranial abnormality. If symptoms persist, consider further evaluation with MRI, if MRI is clinically safe to obtain.
[2023-11-20] MEDS: methylPREDNISolone sod succ 1,000 MG in sodium chloride 0.9% 250 ML 258 MG IV (14:53)
[2023-11-20] MEDS: dextrose 5% 1,000 ML 75 ML IV (15:02)
[2023-11-20 16:00] VITALS: BP 101/57; PULSE 77; RESP 17; TEMP 36.9; O2SAT 93
--- NOTE | 2023-11-20 16:44 | P.CONIM_ITS ---
Providers/Reason For Consult 2 Consulting Physician/Specialty*: Dr. Wanda Baldwin Reason for Consult*: Altered mental status Attending Physician: Wanda Baldwin MD Primary Care Provider: CAMMY Jimenez History of Present Illness History of Present Illness 73 year old woman who resides at [facility]. Her son Constantin says that she calls every few weeks. She was making sense most of the time, although when he visited her in June 2022 she called him rony. I am unable to reach anyone at [facility]. Constantin indicates that as far as he knows, Valery has been going steadily downhill with her multiple sclerosis but she was not hallucinating and confused up until very recently. She was brought to the emergency room by EMS 11/16/2023 with anxiety. On arrival she was sedated after Ativan that she received and route and she was moaning in response to noxious stimuli but otherwise unresponsive. Over her course of stay in the emergency room she became a little more responsive. She had a dirty urine showing significant number of leukocytes. Dr. Castillo said that she was awake and alert when he examined her late in the evening of 11/14. The following day she required help to feed herself because her arms were weak. She was able to press the call button and she was awake and alert. When she was seen by Dr. Baldwin 11/16 she was confused, did not know the year and thought that she was at home. She was actively hallucinating. 11/17 she knew the year and was awake and alert but she was a little more confused today. Dr. Baldwin requested a stat neurologic consult and discussed the case earlier with me today. I have never seen this patient. There are notes on the chart that would indicate that she received neurologic care through Dr. Jc Metz in [place]. She has reportedly began getting monthly infusions, presumably natulizamab. Dr. Nicolasa Muñoz talk to someone at the halfway who said that she has been under a lot of stress from a financial situation. Normally she is able to feed herself but she has been requiring a Emmanuel lift for transfers for several years. Dr. Baldwin started her on 5-day course of steroids today. She is on Zosyn for her urinary tract infection. Review of Systems 2 Narrative: I tried multiple times to call [facility]. Earlier there was no answer and now there is a busy signal. She was complaining of shortness of breath when she arrived. Medications/Allergies Home Medications Medication Instructions Recorded Confirmed Last Taken Type acetaminophen 500 mg tablet 500 - 1,000 mg PO Q6H PRN Pain 05/01/22 11/16/23 Unknown History oxybutynin chloride 5 mg tablet 5 mg PO BID #60 tabs 05/30/22 11/16/23 11/14/23 22:00 Rx baclofen 20 mg tablet 20 mg PO TID PRN Pain 07/03/22 11/16/23 11/14/23 History gabapentin 600 mg tablet 600 mg PO QPM 07/03/22 11/16/23 11/14/23 22:00 History nortriptyline 10 mg capsule 30 mg PO QPM 07/03/22 11/16/23 11/14/23 22:00 History nystatin 100,000 unit/gram topical 1 applic topical BID 07/03/22 11/16/23 Unknown [place] [place] tizanidine 4 mg tablet 8 mg PO QPM 07/03/22 11/16/23 11/14/23 20:00 History honey 100 % topical paste 1 applic topical DAILY #103 mL 07/17/22 11/16/23 Unknown Rx (MediHoney (honey)) zinc oxide 5 % topical cream 1 applic topical .2 times day 07/17/22 11/16/23 Unknown Rx #177.4 mL [id number] is a patient lift, #1 ea 07/19/22 11/16/23 Unknown Rx electric, with seat or sling. Saccharomyces boulardii 250 mg 250 mg PO BID #60 caps 10/27/22 11/16/23 11/14/23 20:00 Rx capsule (Florastor) ascorbate calcium (vitamin C) 500 500 mg PO BID #180 tabs 10/27/22 11/16/23 11/14/23 20:00 Rx mg tablet Vitamin C 1,500mg, D 5,000IU, Zinc See Rx Instructions .Route 11/27/22 11/16/23 11/14/23 20:00 Rx 40mg .COMPLEX #60 tabs levothyroxine 100 mcg tablet See Rx Instructions PO .COMPLEX 09/26/23 11/16/23 11/14/23 06:00 Rx #100 tabs lisinopril 2.5 mg tablet 2.5 mg PO .at 2pm #90 tabs 09/26/23 11/16/23 11/14/23 14:00 Rx methenamine hippurate 1 gram tablet 1 g PO Q12H #180 tabs 09/26/23 11/16/23 11/14/23 20:00 Rx tramadol 50 mg tablet 100 mg (2 x 50 mg) PO BID #360 tabs 09/26/23 11/16/23 11/14/23 17:00 Rx docusate sodium 100 mg capsule 100 mg PO DAILY 11/16/23 11/16/23 11/14/23 08:00 History (Colace) multivitamin 2 tab PO DAILY 11/16/23 11/16/23 11/14/23 08:00 History Allergies Allergy/AdvReac Type Severity Reaction Status Date / Time naproxen [From Aleve] AdvReac Severe Kidney Verified 10/24/23 09:45 Current Medications Generic Name Dose Route Start Last Admin Trade Name Freq PRN Reason Stop Dose Admin Enoxaparin Sodium 40 mg 11/15/23 21:00 11/19/23 20:29 Enoxaparin 40 Mg/0.4 Ml Syringe SUBCUT 40 mg Q24H CHRIS Administration Fluconazole 100 mg 11/19/23 09:45 11/20/23 09:42 Fluconazole 100 Mg Tablet PO 100 mg DAILY CHRIS Administration Gabapentin 600 mg 11/15/23 21:00 11/19/23 20:27 Gabapentin 300 Mg Capsule PO 600 mg BEDTIME CHRIS Administration Methylprednisolone Sodium 258 mls @ 258 mls/hr 11/20/23 14:30 11/20/23 16:32 Succinate 1,000 mg/ Sodium IV 11/24/23 09:59 Infused Chloride DAILY CHRIS Infusion Dextrose 500 mls @ 70 mls/hr 11/20/23 15:15 11/20/23 15:31 D5w IV 11/20/23 22:23 70 mls/hr .Q7H9M ONE Administration Lanolin 1 applic 11/19/23 01:40 11/19/23 02:19 Lanolin Oint 7 Gm TOPICAL 1 applic PRN PRN Administration DRYNESS Lisinopril 2.5 mg 11/15/23 19:00 11/20/23 09:42 Lisinopril 2.5 Mg Tablet PO 2.5 mg DAILY CHRIS Administration Nortriptyline HCl 30 mg 11/15/23 21:00 11/19/23 20:27 Nortriptyline 10 Mg Capsule PO 30 mg BEDTIME CHRIS Administration Nystatin 1 applic 11/15/23 16:00 11/20/23 09:42 Nystatin Powder 15 Gm Btl TOPICAL 1 applic BID CHRIS Administration Oxybutynin Chloride 5 mg 11/16/23 09:00 11/20/23 09:42 Oxybutynin 5 Mg Tablet PO 5 mg BID CHRIS Administration Tizanidine HCl 8 mg 11/15/23 21:00 11/19/23 20:28 Tizanidine 4 Mg Tablet PO 8 mg BEDTIME CHRIS Administration PFSH Acute 2 PFSH: Medical History Encephalopathy acute Acute pancreatitis Acute kidney injury Sepsis Hypothermia Bradycardia Acute hypotension Spinal stenosis Lives in assisted living facility Chronic UTI (urinary tract infection) Hypothyroid Essential hypertension Neuropathic pain Multiple sclerosis Dr. Jc Metz in [place], [place] Wheelchair dependent Wears dentures Surgical History History of lumbar fusion History of bilateral tubal ligation History of hysterectomy History of cholecystectomy Family History Mother Cancer Bladder Diabetes Sister Hypertension Congestive heart failure (CHF) Social History Smoking and tobacco/nicotine status: former use of tobacco/nicotine Second hand smoke exposure: No Caregiver/support person: Yes Lives independently: No ([facility]) Household members: other Housing: Assisted Living Facility Current occupational status: retired and disabled Current occupational exposures/hazards: No Pets and animals: No Do you think of yourself as: Straight/Heterosexual Current gender identity: Female Vitals/I&O/Wt Last Vital Signs Temp 97.8 F 11/20/23 12:00 Pulse 88 11/20/23 12:00 Resp 17 11/20/23 12:00 BP 107/65 11/20/23 12:00 Pulse Ox 93 11/20/23 12:00 O2 Del Method Room Air 11/20/23 04:00 11/20/23 11/20/23 11/20/23 06:59 14:59 22:59 Intake Total 50 / 510 250 / 250 258 / 508 Balance 50 / 510 250 / 250 258 / 508 Weight last 48 hrs Weight 154 lb 3 oz Weight 152 lb 3.2 oz Physical Exam 2 Narrative: General: She has spastic quadriplegia with Juliana scale 3 tone in both upper extremities including the hands and arms. She has little bit of food around her mouth. Mental status exam: She made eye contact. When I asked who Constantin is she said my baby boy. I ask where he lives ([place]) and she said he lives down the road in [place]. She was able to tell me that she lives in [place]. She could not tell me the month or the year. She told me her birthday. She is babbling incoherently much of the time but she speaks very clearly to someone over to the left and wished her happy birthday. She wanted to know whether they were going to share some cake. There was another hallucination over my shoulder to the right that she communicated with more readily than she did with me. Cranial nerves: She responds to threat in both temporal vences. Eye movements spontaneously full. Facial movements symmetric. She is managing her tongue movements well. She is a dentulous with the dysarthria from being a dentulous. Motor: Spastic quadriplegia. Increased tone in both arms especially in the hands. She has wasting of the interossei. Sensory: She responds to being pinched by explaining ow. She did not respond to pin. Toes upgoing bilaterally. HEENT: She has a little bit of fluid around her mouth. She appears well- hydrated. Chest: Clear to auscultation. Cardiovascular: S1 and S2 normal without murmur or gallop. Data 11/19/23 05:04 11/20/23 04:16 Micro: Microbiology 11/17/23 14:51 Urine Culture - Final Urine Catheterized Rosemarie kefyr 11/15/23 09:26 Blood Culture - Final Blood NO GROWTH AFTER 5 DAYS 11/15/23 09:25 Blood Culture - Final Blood NO GROWTH AFTER 5 DAYS A&P Assessment and plan (1) Multiple sclerosis: (2) Multiple sclerosis exacerbation: Her CT scan head is negative. I would presume that this is a pseudo exacerbation triggered by antibiotic treatment and her urinary tract infection. I agree with current 3-day course of IV Solu-Medrol. I am not sure that they will be able to handle her at [facility]. I could not reach anyone there this evening to discuss her history or her care. I talked with her son Constantin and is sure to him I would let him know if I find anything that needs to be changed immediately. It would be a good idea to address her depression. Nortriptyline is not particularly effective so I would recommend starting her on citalopram 20 mg daily, and acutely on Zyprexa 5 mg at at bedtime to help with her psychosis. (3) Toxic metabolic encephalopathy: (4) Bilateral arm weakness: She has not been able to feed herself since she got here. The best indication I have of her baseline is that when she saw Makayla Galvez on 10/24/2023 Rubén said that the patient was using bar and rangel to move self in wheelchair indicating that she had some arm movements. Rubén indicated that she was weak in her arms and legs on exam. At this time the patient has increased tone that would indicate chronic spastic quadriplegia. It might be worth getting a CAT scan of the cervical spine to rule out acute pathology. She currently has profound toxic encephalopathy. That may be from antibiotics. This may be agitated depression as she has been upset over a family matter. I would advocate minimizing sedative medications, go ahead with a 5-day course of Solu-Medrol and treat her psychosis symptomatically with olanzapine and an antidepressant for now. I hope they will be able to take her back to the [facility] and it sounds like they probably will. Coding Level of Care Code Acute Code for Chg Fwd Diagnoses Multiple sclerosis G35 Multiple sclerosis exacerbation G35 Toxic metabolic encephalopathy G92.8 Bilateral arm weakness R29.898
[2023-11-20 20:00] VITALS: BP 117/75; PULSE 93; RESP 18; TEMP 37.4; O2SAT 91
[2023-11-20] MEDS: tizanidine 4 mg Tablet 8 MG PO (21:32)
[2023-11-20] MEDS: enoxaparin 40 mg/0.4 mL Syringe SUBCUT (21:32)
[2023-11-20] MEDS: gabapentin 300 mg Capsule 600 MG PO (21:32)
[2023-11-20] MEDS: OLANZapine 5 mg TABLET PO (21:32)
[2023-11-21] VITALS (7 sets, daily range): BP systolic 102–120; BP diastolic 66–75; PULSE 59–91; RESP 16–18; TEMP 36.3–38.5; O2SAT 93–96
[2023-11-21 04:43] LABS: Hematocrit 33.3 % (36-47); Lymphocytes % 15.8 %; Mean Corpuscular HGB Conc 31.2 g/dL (30-55); Mean Corpuscular Hemoglobin 30.1 pg (27-33); Mean Corpuscular Volume 96.2 fl (85-98); Mean Platelet Volume 10.3 fL (7.4-10.4); Monocytes # 0.1 10^3/uL (0.2-0.9); Monocytes % 1.5 %; Neutrophils # 4.97 10^3/uL (1.8-7.7); Nucleated Red Blood Cells % 0 %; Platelet Count 300 10^3/cmm (157-399); Red Blood Count 3.46 10^6/uL (3.85-5.65); Red Cell Distribution Width 13.3 % (12.1-15.1); White Blood Count 6.06 10^3/uL (3.29-11.43)
[2023-11-21 04:50] LABS: Glucose Point of Care 184 mg/dL (70-110)
--- NOTE | 2023-11-21 04:52 | ECG_ITS ---
[facility] Test Date: 2023-11-21 Pat Name: Valery Triana Department: Room: 254 Gender: Female Credit Advisor: : 1950 Requested By: Lars Mclaughlin Order Number: [id number] Selina MD: Sherri Cueto M.D. Measurements Intervals [place] Rate: 67 P: 59 CT: 130 QRS: 50 QRSD: 114 T: 125 QT: 491 QTc: 521 Interpretive Statements SINUS RHYTHM POSSIBLE LATERAL MYOCARDIAL INFARCTION , OF INDETERMINATE AGE [30 ms Q WAVE IN I/aVL/V5/V6] MARKED T-WAVE ABNORMALITY, CONSIDER ANTERIOR ISCHEMIA [-0.5+ mV T-WAVE IN V3/V4] Compared to ECG 11/15/2023 16:01:53 Myocardial infarct finding now present T-wave abnormality now present Possible ischemia now present Electronically Signed On 11-21-2023 16:49:17 CDT by Sherri Cueto M.D. [id number]
[2023-11-21 05:05] LABS: Anion Gap 13.9 (5-19); Blood Urea Nitrogen 23 mg/dL (8-23); Calcium 8.7 mg/dL (8.5-10.5); Carbon Dioxide 27 mmol/L (22-29); Chloride 110 mmol/L (98-107); Creatinine Clr Calc Pharmacy 67.5241; Glucose 200 mg/dL (65-115); Magnesium 2.2 mg/dL (1.7-2.3); Osmolality Calculated 313 mOsm/kg (285-295); Potassium 3.9 mmol/L (3.5-5.1); Sodium 147 mmol/L (136-145)
[2023-11-21 05:05] LABS: ABG PCO2 38.7 mmHg (35-45); ABG PH Result 7.47 (7.35-7.45); Arterial Blood Gas Hematocrit 33.9 % (37-47); Base Excess ABG 4.2 mmol/L (-2.0-2.0); Blood Gas Allen Test Pos; Blood Gas Operator Identificat jlb; Blood Gas Sample Site Radial, right; Blood Gas Sample Type Arterial; HCO3 ABG 28.2 mmol/L (22-26); Oxygen Device ROOM AIR; PO2 ABG 65.3 mmHg (80.0-100.0); PO2 FiO2 Ratio Arterial Blood 310
--- NOTE | 2023-11-21 05:18 | PM.CCNAC ---
Critical Care Event Note The high probability of a clinically significant, sudden or life threatening deterioration of the patient's [] system(s) required my full and direct attention, intervention and personal management. The critical care time is as shown. This time is in addition to time spent performing any reported procedures but includes the following: [x] Data and vital sign review and interpretation [x] Patient assessment, examination and intervention [x] Documentation [x] Medication orders and management Critical Care Time Code activated: No Critical Care Time (min): 35 Additional information about critical care time: - I received a call from nursing staff at about at 5am Valery has become unresponsive, having spastic/rigid complexion -According to nursing staff daughter was able to answer questions throughout the night, could follow commands, now she is unresponsive, she is rigid, not answering questions, blood pressure was 84/60, she saturating well on room air, no significant tachycardia, no fevers -Upon evaluation, patient was placed in Trendelenburg, order was given for 1 L normal saline, without fluids, patient's blood pressures have significant improved to 120/70, she is saturating 96% on room air, respiratory rate is 15 -Blood sugars 180 -She responds to sternal rubs opens her eyes and withdraws from pain, she says a few nonsensical words, -No mottling of lower extremities -She tends to look upwards, withdraws from light, but pupils are equal round reactive to light -She does not have any known history of seizures, possible seizure-like episode, now postictal, order was given for 1 g of IV Keppra -She has received Zyprexa, gabapentin, Celexa ? CT head ordered ? Keep n.p.o. # Neurochecks, seizure precautions, nih stroke scale # Ordered CBC, BMP, ammonia level, TSH, troponin series, EKG series, prolactin, MRI brain, EEG -Patient was seen after giving a liter of fluid, loading dose of Keppra -Her mentation has significantly improved, she is alert and awake, follows commands, still encephalopathic at times but has movement of upper and lower extremities bilaterally but does have generalized weakness, she complains of a headache -Still waiting on CT head results -Her troponin was 200, EKG showing ST depressions inverted T waves which is new in anterior leads, denies any chest pain, cardiovascular S1, S2, regular rate and rhythm, lungs clear to auscultation bilaterally ? Once head CT is read within normal limits, no intracranial bleed will start patient on a heparin drip for NSTEMI Coding Level of Care Code Acute Code for Chg Fwd
[2023-11-21 05:21] LABS: Troponin(5th) Baseline 200 ng/L (0-10)
--- NOTE | 2023-11-21 05:22 | CTR_ITS ---
PROCEDURE INFORMATION: Exam: CT Head Without Contrast Exam date and time: 11/21/2023 5:08 AM Age: 73 years old Clinical indication: Altered mental status/memory loss; Additional info: AMS TECHNIQUE: Imaging protocol: Computed tomography of the head without contrast. Radiation optimization: All CT scans at this facility use at least one of these dose optimization techniques: automated exposure control; mA and/or kV adjustment per patient size (includes targeted exams where dose is matched to clinical indication); or iterative reconstruction. COMPARISON: CT head wo con* [id number] 11/20/2023 3:17 PM RADIATION DOSE METRICS: Total DLP (mGy-cm): 1201.65 FINDINGS: Brain: Stable areas of low attenuation are identified in the frontal lobes. There is no evidence of acute hemorrhage. Cerebral ventricles: No ventriculomegaly. Paranasal sinuses: Visualized sinuses are unremarkable. No fluid levels. Mastoid air cells: Visualized mastoid air cells are well aerated. Bones: Unremarkable. No acute fracture. Soft tissues: Unremarkable. CT/CT head wo con* [id number] IMPRESSION: Stable areas of low attenuation in the frontal lobes likely due to chronic microvascular ischemic change. Otherwise no evidence of acute intracranial process.
--- NOTE | 2023-11-21 05:25 | USCV_ITS ---
Valery Triana Age: 73 Gender: F : 1950 Exam Date: 11/21/2023 16:46 Ordering Phys: Lars Mclaughlin MD Technologist: AURA [place] [facility] [place]: nstemi BP: 108 / 66 HR: 79 Rhythm: Sinus Technical Quality: Adequate MEASUREMENTS (Male / Female) Normal Values 2D ECHO LV Diastolic Diameter PLAX 5.9 cm 4.2 - 5.9 / 3.9 - 5.3 cm IVS Diastolic Thickness 0.8 cm 0.6 - 1.0 / 0.6 - 0.9 cm IVS Systolic Thickness 0.8 cm LVPW Diastolic Thickness 1.5 cm 0.6 - 1.0 / 0.6 - 0.9 cm LVPW Systolic Thickness 1.6 cm LVOT Diameter 2.0 cm LV Ejection Fraction 2D Teich 36.7 % LV Ejection Fraction MOD 4C 38.4 % LV Ejection Fraction MOD 2C 42.3 % LV Ejection Fraction 2C AL 46.0 % LA Diameter 3.3 cm RA Systolic Volume 4C AL 31.4 ml RA Systolic Volume 4C MOD 31.5 ml LA Sys Volume AL 43.5 cm cubed LA Sys Volume Index AL 23.6 cm cubed/m squared Aorta at Sinotubular Diameter 2.7 cm IVC Diameter 1.7 cm M-MODE LA Ao Ratio MM 1.2 AV Cusp Separation MM 2.3 cm DOPPLER AV Peak Velocity 106.0 cm/s LVOT Peak Velocity 104.0 cm/s AV Area Cont Eq vti 2.8 cm squared AV Area Cont Eq pk 3.2 cm squared MV Peak Velocity 127.0 cm/s MV Area PHT 5.0 cm squared Mitral E to A Ratio 0.9 TV Peak Velocity 228.0 cm/s TR Peak Velocity 302.0 cm/s TR Peak Gradient 36.5 mmHg TR Mean Velocity 228.0 cm/s TR Mean Gradient 22.5 mmHg TR Velocity Time Integral 82.5 cm PV Peak Velocity 101.0 cm/s FINDINGS Left Ventricle Left ventricle is normal in size. LV systolic function is severely reduced with EF of 30-35%. Severe hypokinesis to akinesis of apical wall. Severe hypokinesis of basal mid to apical inferolateral, inferoseptal. anteroseptal and anterolateral shearer. Grade 1 diastolic dysfunction. Right Ventricle Normal in size and function. Right Atrium Normal in size Left Atrium Normal in size Mitral Valve Structurally normal mitral valve. Mild mitral regurgitation. Aortic Valve Aortic valve is thickened. No significant stenosis. Tricuspid Valve Mild tricuspid regurgitation. Pulmonic Valve Not well-visualized Pericardium Normal Aorta Normal in size IVC Appears to be normal CONCLUSIONS LV systolic function is severely reduced with EF of 30-35%. Above mentioned regional wall motion abnormalities. Grade 1 diastolic dysfunction Mild mitral regurgitation Mild tricuspid regurgitation Compared to prior echocardiogram from 2022, patient now has significant decrease in LV systolic function. Rush Maciel MD (Electronically Signed) Final Date: 22 November 2023 10:19 S
[2023-11-21] MEDS: levETIRAcetam 1,000 MG/100 ML PREMIX 400 MG IV (05:27)
--- NOTE | 2023-11-21 05:29 | XRR_ITS ---
PROCEDURE INFORMATION: Exam: XR Chest Exam date and time: 11/21/2023 7:38 AM Age: 73 years old Clinical indication: Fever TECHNIQUE: Imaging protocol: Radiologic exam of the chest. Views: 1 view. COMPARISON: CR (CHEST, ) 11/15/2023 6:26 AM FINDINGS: Lungs: Unremarkable. No consolidation. Pleural spaces: Unremarkable. No pleural effusion. No pneumothorax. Heart/Mediastinum: The heart is slightly enlarged. There is calcified plaque involving the aorta. Bones/joints: Unremarkable. XR/XR chest 1V portable [id number] IMPRESSION: 1. Mild cardiomegaly.
[2023-11-21 05:39] LABS: Erythrocyte Sedimentation Rate 46 mm/hr (0-15)
[2023-11-21 05:47] LABS: Alanine Aminotransferase 22 U/L (0-33); Albumin Level 3.3 g/dL (3.5-5.2); Alkaline Phosphatase 96 U/L (35-105); Anion Gap 14.9 (5-19); Aspartate Amino Transferase 22 U/L (0-32); Blood Urea Nitrogen 23 mg/dL (8-23); C Reactive Protein 14.1 mg/L (0.0-4.9); Calcium 8.7 mg/dL (8.5-10.5); Carbon Dioxide 27 mmol/L (22-29); Chloride 111 mmol/L (98-107); Creatine Phosphokinase 46 U/L (26-192); Creatinine Clr Calc Pharmacy 67.8935; Globulin 2.7 g/dL (1.3-4.6); Glucose 183 mg/dL (65-115); Osmolality Calculated 316 mOsm/kg (285-295); Potassium 3.9 mmol/L (3.5-5.1); Sodium 149 mmol/L (136-145); Total Bilirubin 0.3 mg/dL (0.15-1.2)
[2023-11-21] MEDS: sodium chloride 0.9% 500 ML 999 ML IV (05:47)
[2023-11-21 05:50] LABS: Ammonia 37 umol/L (11-51)
[2023-11-21 05:53] LABS: Procalcitonin 0.18 ng/mL (0-0.5)
[2023-11-21 05:58] LABS: Prolactin 13.53 ng/mL (4.8-23.3); Thyroid Stimulating Hormone 0.28 uIU/mL (0.27-4.20)
[2023-11-21 06:48] LABS: Add Urine Microscopic? YES; Bacteria Urine 2+ /hpf; Bilirubin Urine Negative (Negative); Blood Urine 2+ (Negative); Glucose Urine UA Negative (Normal); Hyaline Casts Urine 5.22 /lpf; Ketones Urine Negative (Negative); Leukocyte Esterase Urine 3+ (Negative); Nitrate Urine Negative (Negative); Protein Urine 2+ (Negative); RBC Urine 21-50 /hpf (0-2); Specific Gravity, Urine 1.018 (1.005-1.030); Urine Appearance Error (CLEAR); Urine Color Yellow (Yellow); WBC Urine >100 /hpf (0-5); pH Urine 5.5 (5-7)
--- NOTE | 2023-11-21 06:52 | ECG_ITS ---
[facility] Test Date: 2023-11-21 Pat Name: Valery Triana Department: Room: 254 Gender: Female Neuroscience Specialist: : 1950 Requested By: Lars Mclaughlin Order Number: [id number] Selina MD: Sherri Cueto M.D. Measurements Intervals [place] Rate: 65 P: 66 NE: 135 QRS: 52 QRSD: 113 T: 187 QT: 484 QTc: 504 Interpretive Statements SINUS RHYTHM MODERATE INTRAVENTRICULAR CONDUCTION DELAY [110+ ms QRS DURATION] MARKED T-WAVE ABNORMALITY, CONSIDER ANTEROLATERAL ISCHEMIA [-0.5+ mV T-WAVE IN I/aVL/V3-V6] Generalized ST elevation, consider pericarditis Compared to ECG 11/21/2023 05:26:21 Intraventricular conduction delay now present Myocardial infarct finding no longer present T-wave abnormality still present Possible ischemia still present Electronically Signed On 11-21-2023 16:53:44 CDT by Sherri Cueto M.D. [id number]
[2023-11-21 06:59] LABS: Covid PCR NEGATIVE (Negative); Influenza A NEGATIVE (Negative); Influenza B NEGATIVE (Negative); Respiratory Syncytial Virus Ce NEGATIVE (Negative)
[2023-11-21 07:21] LABS: Add Urine Culture? Yes; UA Slide Review UA Slide Review Perf
--- NOTE | 2023-11-21 07:25 | PC.NURSE ---
at approximately 0500 this nurse was coming out of a neighboring patients room when another nurse stopped me and asked me to come take a look at the patient. She asked me if the pts appearance was normal for her. When I walked into the room the patient had a fixed gaze with her eyes wide open, completely rigid/stuff posture, and would not respond to sternal stimulation. I went out to the nurses station and called Dr Mclaughlin who was the hospitalist business banking relationship manager for sanitary landfill supervisor. Explained the situation and what I was observing with the patient and asked if he would come and take a look at the patient. After he got up here he advised to get a head ct, labs with trops, keppra and a bolus.
[2023-11-21 07:27] LABS: Troponin 5 2HR Delta -21.6 ABS# (0-10)
[2023-11-21 07:29] LABS: Troponin 5 2HR 178.4 ng/L (0-10)
[2023-11-21 07:48] LABS: Partial Thromboplastin Time 29.3 SECONDS (23.9-36.7)
--- NOTE | 2023-11-21 07:58 | CT_ITS ---
WS: [id number] CT NECK TECHNIQUE: Contrast-enhanced CT of the neck with coronal and sagittal reformatted images. CLINICAL INFORMATION: rule out cervical pathology COMPARISON: None. DLP: 140.[address] scans at [facility] use at least one of these dose optimization techniques: automated e xposure control; mA and/or kV adjustment per patient size (includes targeted exams where dose is matc hed to clinical indication); or iterative reconstruction. FINDINGS: Fibrosis in the lung apices. Mild carotid bulb atheromatous disease. Parotid glands are normal. Subm andibular glands are normal. No evidence of supraglottic or glottic mass. Normal subglottic airway. N o cervical lymphadenopathy. Partially visualized paranasal sinuses are well aerated. Moderate spondyl itic changes. Straightening the normal cervical lordosis. CT/CT neck w con* [id number] IMPRESSION: 1. Moderate spondylitic changes cervical spine with mild central canal stenosi s C3-C4 C4-C5 and C5-C6 due to disc osteophyte complexes. 2. No cervical lymphadenopathy. 3. Normal salivary glands.
[2023-11-21] MEDS: fluconazole 100 mg Tablet PO (08:26)
[2023-11-21] MEDS: aspirin 81 mg EC Tablet PO (08:26)
[2023-11-21] MEDS: citalopram 20 mg Tablet PO (08:26)
[2023-11-21] MEDS: nystatin powder 15 gm Btl 1 APPLIC TOPICAL ×2 (08:26→17:34)
[2023-11-21] MEDS: oxybutynin 5 mg Tablet PO ×2 (08:26→17:34)
[2023-11-21] MEDS: heparin 5,000 unit/mL INJ 1 mL IVP (08:27)
[2023-11-21] MEDS: heparin drip 25,000 UNIT/500 ML PREMIX 20 UNIT IV (08:33)
[2023-11-21] MEDS: iohexol 350 mg/mL 500 mL Btl (per mL) IV (09:26)
--- NOTE | 2023-11-21 10:07 | PC.SOCIAL ---
IMM Update Pg 2. of IMM updated and provided at bedside.
[2023-11-21 10:39] LABS: Troponin 5 6HR Delta -27.3 ng/L (0-12)
[2023-11-21 10:40] LABS: Troponin 5 6HR 172.7 ng/L (0-10)
--- NOTE | 2023-11-21 11:31 | XR_ITS ---
WS: [id number] XR chest 1V portable [id number] REASON FOR EXAM: Post PICC insertion FINDINGS: Right arm PICC line placement with the tip in the distal superior vena cava in proper position for us e. The remainder of the chest is stable compared to 0746a.m. this same day. Position of the PICC line was discussed with the manufacturing technologist over the phone who relayed th e information to the PICC line nurse. 12:18 p.m. XR/XR chest 1V portable [id number] IMPRESSION: PICC line placement as above.
--- NOTE | 2023-11-21 11:46 | P.PN_ITS ---
Subjective 2 Subjective: Overnight events noted. Patient had an episode of unresponsiveness. Possibly a seizure? She was given loading dose of Keppra. Troponin was also ordered baseline 200, 172 at 6 hours with a delta of -21. C-reactive protein 14.1, procalcitonin normal. TSH 0.28. UA obtained positive for greater than 100 WBCs, bacteria 2+. EKG did show gross T wave inversions in anterior leads. Patient was started on a heparin drip. Given one-time aspirin dose as well. Seen this morning. She apparently looks a little better than yesterday. She was able to move her right arm for me and bring it close to her shoulder. Mental status vidal she was also better. Not confused like the last 2 days. She was able to have meaningful conversation today. Patient also underwent MRI this morning however due to a lot of motion artifact will need to go back down for another 7 minutes to complete the study. She states that she is normally able to feed herself however lately has not been. Records have arrived I will be referring them today. Patient has difficult IV access and only has 1 IV at this time. PICC line will be placed today. Neurology consultation appreciated. Vitals/I&O/Wt Last Vital Signs Temp 98.3 F 11/21/23 08:00 Pulse 69 11/21/23 08:00 Resp 18 11/21/23 08:00 BP 108/66 11/21/23 08:00 Pulse Ox 94 11/21/23 08:00 O2 Del Method Room Air 11/21/23 04:00 11/20/23 11/21/23 11/21/23 22:59 06:59 14:59 Intake Total 998 / 1248 1600 / 2848 Balance 998 / 1248 1600 / 2848 Weight last 48 hrs Weight 70.845 kg Weight 69.938 kg Physical Exam 2 Narrative: General: Patient is awake and alert. Head: Normocephalic. Atraumatic. EOM intact. Masked facies. Cardiovascular: RRR. No gallops. No murmurs. No peripheral edema. Lungs: Clear to auscultation, no use of accessory muscles, no crackles or wheezes. Abdomen: Normal bowel sounds, abdomen soft and nontender. Extremities: No cyanosis or clubbing. Musculoskeletal: No swollen or erythematous joints. Neurological: No myoclonus. Limited movement in all extremities. Spastic quadriplegia. Data 11/21/23 04:29 11/21/23 04:57 Micro: Microbiology 11/21/23 06:46 Blood Culture - Preliminary Blood SPECIMEN COLLECTED 11/21/23 06:54 Blood Culture - Preliminary Blood SPECIMEN COLLECTED 11/17/23 14:51 Urine Culture - Final Urine Catheterized Rosemarie kefyr 11/15/23 09:26 Blood Culture - Final Blood NO GROWTH AFTER 5 DAYS 11/15/23 09:25 Blood Culture - Final Blood NO GROWTH AFTER 5 DAYS A&P Assessment and plan (1) Encephalopathy acute: Mentation has improved, suspect it is at baseline Continue treating underlying infection Start gentle IV fluids due to very poor oral intake Supportive care (2) Pseudomonas urinary tract infection: Current urinalysis consistent with UTI Urine culture showing multiple organisms 2 prior urine cultures this year showing fluoroquinolone resistant Pseudomonas, unclear if she received appropriate treatment with these UTIs She has a history of chronic bladder pain Continue Zosyn Consider continued IV outpatient antibiotics versus infectious disease consultation if available (3) Neuropathic pain: Continue home TCA Continue home gabapentin Continue home muscle relaxers (4) Hypothyroid: Continue home Synthroid Qualifiers: Hypothyroidism type: other Qualified Code(s): E03.8 - Other specified hypothyroidism (5) Essential hypertension: Continue home EMILIE inhibitor Hydralazine if needed (6) Wheelchair dependent: Multiple sclerosis, wheelchair-bound at baseline (7) Rosemarie infection of flexural skin: Continue nystatin powder (8) Multiple sclerosis exacerbation: (9) Multiple sclerosis: (10) Lives in assisted living facility: (11) Acute flaccid paralysis: (12) Hallucination: Plan DVT prophylaxis: Lovenox 11/20 ?CT head without contrast negative for acute pathology or bleed. CT neck has been ordered Multiple sclerosis pseudoexacerbation?continue Solu-Medrol 1 g daily x 5 days total. Today is day 2. Neurology consultation appreciated Continue on Zyprexa and citalopram as per neurorecommendations Amitriptyline has been stopped Continue nystatin powder for pannus and skin folds. Continue fluconazole 100 daily x 7 days total. Will review patient's records. Patient was possibly natalizumab but has missed few doses lately as per son. Will verify this. There may be possibility of PML? Discussed with neurology. Unsure if able to successfully complete an MRI. However based on today's assessment it seems that possibly patient is having a multiple sclerosis flare and hopefully will improve back to her baseline? Will assess her daily. UA positive for greater than [address] on meropenem at this time. Cardiology consulted. Currently patient is on heparin drip. Did have T wave inversions in anterior leads. She did have a hypotensive episode last night and was dehydrated. Was given a bolus of fluids. Her troponin elevation and EKG changes may be possibly secondary to demand ischemia. Will await recommendations from cardiology for further workup regarding this. Patient denies any chest pain or shortness of breath as of this morning. Full code Attestations 2 Medical Necessity Statement*: Continue to hospitalist at this time for IV steroids to treat for multiple sclerosis with exacerbation and UTI treatment. Diagnoses Encephalopathy acute G93.40 Pseudomonas urinary tract infection N39.0; B96.5 Neuropathic pain M79.2 Other specified hypothyroidism E03.8 Hypothyroidism type: other Essential hypertension I10 Wheelchair dependent Z99.3 Rosemarie infection of flexural skin B37.2 Multiple sclerosis exacerbation G35 Multiple sclerosis G35 Lives in assisted living facility Z59.3 Acute flaccid paralysis G83.89 Hallucination R44.3
[2023-11-21] MEDS: dextrose 5%-sod chloride 0.45% 1,000 ML 125 ML IV (12:24)
[2023-11-21] MEDS: MEROPENEM 2,000 MG in sodium chloride 0.9% (plus) 50 ML 100 MG IV ×2 (12:24→20:30)
--- NOTE | 2023-11-21 12:39 | PICC.NOTE ---
Double lumen PICC placed to right basilic vein. Referred to vascular access nurse for PICC placement due to poor access and heparin gtt. Risks and benefits discussed and informed consent obtained from pt son, Constantin, via phone. Right arm assessed with basilic vein measuring 3.3 mm, straight, and apparent best choice for placement. Using sterile technique and MST, right basilic vein accessed x 1 stick. Mid-arm circumference measured 10 cm from right AC 29 cm. Trimmed cath 45 cm with 1 cm external length noted. CXR shows tip in distal SVC, in good position for use per radiologist. Line secured with stat-lock. Insertion site covered with Biopatch and TSM. Report given to bedside nurse, CHRISTINA Mcqueen.
[2023-11-21] MEDS: methylPREDNISolone sod succ 1,000 MG in sodium chloride 0.9% 250 ML 258 MG IV (13:10)
[2023-11-21] MEDS: LORazepam 2 mg/mL INJ 1 mL 1 MG IVP (13:12)
[2023-11-21 15:43] LABS: Partial Thromboplastin Time 75.7 SECONDS (23.9-36.7)
--- NOTE | 2023-11-21 16:11 | P.CONIM_ITS ---
Providers/Reason For Consult 2 Consulting Physician/Specialty*: Rush Maciel MD/ Cardiology Reason for Consult*: Troponin elevation Requesting Physician: Dr Baldwin Attending Physician: Wanda Baldwin MD Primary Care Provider: CAMMY Jimenez History of Present Illness History of Present Illness Valery Triana is a 73 year old female with past medical history of multiple sclerosis who was admitted to hospital with shortness of breath, altered mental status and was found to have UTI. Earlier today she had unresponsive episode. Blood pressure dropped. Troponin was checked which was 200 and then has trended down. EKG is showing ST-T wave changes concerning for ischemia in anterior leads. Echocardiogram is pending. Patient has altered mental status at this time and not giving any meaningful history. Review of Systems 2 General: Reports: ROS unobtainable due to mental status Medications/Allergies Home Medications Medication Instructions Recorded Confirmed Last Taken Type acetaminophen 500 mg tablet 500 - 1,000 mg PO Q6H PRN Pain 05/01/22 11/16/23 Unknown History oxybutynin chloride 5 mg tablet 5 mg PO BID #60 tabs 05/30/22 11/16/23 11/14/23 22:00 Rx baclofen 20 mg tablet 20 mg PO TID PRN Pain 07/03/22 11/16/23 11/14/23 History gabapentin 600 mg tablet 600 mg PO QPM 07/03/22 11/16/23 11/14/23 22:00 History nortriptyline 10 mg capsule 30 mg PO QPM 07/03/22 11/16/23 11/14/23 22:00 History nystatin 100,000 unit/gram topical 1 applic topical BID 07/03/22 11/16/23 Unknown History powder (Nyamyc) tizanidine 4 mg tablet 8 mg PO QPM 07/03/22 11/16/23 11/14/23 20:00 History honey 100 % topical paste 1 applic topical DAILY #103 mL 07/17/22 11/16/23 Unknown Rx ([facility] (honey)) zinc oxide 5 % topical cream 1 applic topical .2 times day 07/17/22 11/16/23 Unknown Rx #177.4 mL [id number] is a patient lift, #1 ea 07/19/22 11/16/23 Unknown Rx electric, with seat or sling. Saccharomyces boulardii 250 mg 250 mg PO BID #60 caps 10/27/22 11/16/23 11/14/23 20:00 Rx capsule (Florastor) ascorbate calcium (vitamin C) 500 500 mg PO BID #180 tabs 10/27/22 11/16/23 11/14/23 20:00 Rx mg tablet Vitamin C 1,500mg, D 5,000IU, Zinc See Rx Instructions .Route 11/27/22 11/16/23 11/14/23 20:00 Rx 40mg .COMPLEX #60 tabs levothyroxine 100 mcg tablet See Rx Instructions PO .COMPLEX 09/26/23 11/16/23 11/14/23 06:00 Rx #100 tabs lisinopril 2.5 mg tablet 2.5 mg PO .at 2pm #90 tabs 09/26/23 11/16/23 11/14/23 14:00 Rx methenamine hippurate 1 gram tablet 1 g PO Q12H #180 tabs 09/26/23 11/16/23 11/14/23 20:00 Rx tramadol 50 mg tablet 100 mg (2 x 50 mg) PO BID #360 tabs 09/26/23 11/16/23 11/14/23 17:00 Rx docusate sodium 100 mg capsule 100 mg PO DAILY 11/16/23 11/16/23 11/14/23 08:00 History (Colace) multivitamin 2 tab PO DAILY 11/16/23 11/16/23 11/14/23 08:00 History Allergies Allergy/AdvReac Type Severity Reaction Status Date / Time naproxen [From Aleve] AdvReac Severe Kidney Verified 10/24/23 09:45 Current Medications Generic Name Dose Route Start Last Admin Trade Name Freq PRN Reason Stop Dose Admin Citalopram Hydrobromide 20 mg 11/21/23 09:00 11/21/23 08:26 Citalopram 20 Mg Tablet PO 20 mg DAILY CHRIS Administration Fluconazole 100 mg 11/19/23 09:45 11/21/23 08:26 Fluconazole 100 Mg Tablet PO 100 mg DAILY CHRIS Administration Gabapentin 600 mg 11/15/23 21:00 11/20/23 21:32 Gabapentin 300 Mg Capsule PO 600 mg BEDTIME CHRIS Administration Methylprednisolone Sodium 258 mls @ 258 mls/hr 11/20/23 14:30 11/21/23 14:36 Succinate 1,000 mg/ Sodium IV 11/24/23 09:59 Infused Chloride DAILY CHRIS Infusion Heparin Sodium/Sodium Chloride 25,000 unit in 500 mls @ 0 mls/hr 11/21/23 06:45 11/21/23 08:33 Heparin Drip IV 14.12 unit/kg/hr CONT CHRIS 20 mls/hr Administration Protocol Per Protocol Dextrose/Sodium Chloride 1,000 mls @ 125 mls/hr 11/21/23 08:30 11/21/23 12:24 Dextrose 5%-Sod Chloride 0.45% IV 125 mls/hr .Q8H CHRIS Administration Meropenem 2,000 mg/ Sodium 50 mls @ 100 mls/hr 11/21/23 08:30 11/21/23 12:55 Chloride IV Infused Q8H CHRIS Infusion Protocol Lanolin 1 applic 11/19/23 01:40 11/19/23 02:19 Lanolin Oint 7 Gm TOPICAL 1 applic PRN PRN Administration DRYNESS Lisinopril 2.5 mg 11/15/23 19:00 11/20/23 09:42 Lisinopril 2.5 Mg Tablet PO 2.5 mg DAILY CHRIS Administration Lorazepam 1 mg 11/21/23 05:10 11/21/23 13:12 Lorazepam 2 Mg/Ml Inj 1 Ml IVP 1 mg Q4H PRN Administration ANXIETY Nystatin 1 applic 11/15/23 16:00 11/21/23 08:26 Nystatin Powder 15 Gm Btl TOPICAL 1 applic BID CHRIS Administration Olanzapine 5 mg 11/20/23 21:00 11/20/23 21:32 Olanzapine 5 Mg Tablet PO 5 mg BEDTIME CHRIS Administration Oxybutynin Chloride 5 mg 11/16/23 09:00 11/21/23 08:26 Oxybutynin 5 Mg Tablet PO 5 mg BID CHRIS Administration Tizanidine HCl 8 mg 11/15/23 21:00 11/20/23 21:32 Tizanidine 4 Mg Tablet PO 8 mg BEDTIME CHRIS Administration PFSH Acute 2 PFSH: Medical History Encephalopathy acute Acute pancreatitis Acute kidney injury Sepsis Hypothermia Bradycardia Acute hypotension Spinal stenosis Lives in assisted living facility Chronic UTI (urinary tract infection) Hypothyroid Essential hypertension Neuropathic pain Multiple sclerosis Dr. Jc Metz in [place], [place] Wheelchair dependent Wears dentures Surgical History History of lumbar fusion History of bilateral tubal ligation History of hysterectomy History of cholecystectomy Family History Mother Cancer Bladder Diabetes Sister Hypertension Congestive heart failure (CHF) Social History Smoking and tobacco/nicotine status: former use of tobacco/nicotine Second hand smoke exposure: No Caregiver/support person: Yes Lives independently: No (SV) Household members: other Housing: Assisted Living Facility Current occupational status: retired and disabled Current occupational exposures/hazards: No Pets and animals: No Do you think of yourself as: Straight/Heterosexual Current gender identity: Female Vitals/I&O/Wt Last Vital Signs Temp 98.3 F 11/21/23 08:00 Pulse 76 11/21/23 15:31 Resp 18 11/21/23 08:00 BP 108/66 11/21/23 08:00 Pulse Ox 94 11/21/23 08:00 O2 Del Method Room Air 11/21/23 04:00 11/21/23 11/21/23 11/21/23 06:59 14:59 22:59 Intake Total 1600 / 2848 308 / 308 Balance 1600 / 2848 308 / 308 Weight last 48 hrs Weight 156 lb 3 oz Weight 154 lb 3 oz Physical Exam 2 Narrative: GENERAL: Patient is confused NECK: No jugular vein distension. [] HEENT: No cyanosis. No icterus. No pallor. [] HEART: Regular S1 and S2. Grade 2/6 systolic murmur[] LUNGS: Diminished air entry CENTRAL NERVOUS SYSTEM: Grossly nonfocal. [] EXTREMITIES: Lower extremities with 1+ edema bilaterally. Data 11/22/23 04:38 11/22/23 04:38 Micro: Microbiology 11/21/23 06:46 Blood Culture - Preliminary Blood SPECIMEN COLLECTED 11/21/23 06:54 Blood Culture - Preliminary Blood SPECIMEN COLLECTED 11/17/23 14:51 Urine Culture - Final Urine Catheterized Rosemarie [facility] A&P Assessment and plan (1) Multiple sclerosis: (2) Troponin level elevated: (3) Essential hypertension: Plan Patient has significant troponin elevation however has not trended up. Continue anticoagulation. Echocardiogram is pending. EKG is concerning for ischemia in anterior leads. Patient does not give any meaningful history. At this time continue medical therapy. Further recommendations based on echocardiogram Thank you for involving us with care of this patient. We will continue to follow. Please call with questions. Consult Attestations 2 Medical Necessity Statement: Care expected to cross 2 midnights. Coding Level of Care Code Acute Code for [facility] Diagnoses Multiple sclerosis G35 Troponin level elevated R79.89 Essential hypertension I10
[2023-11-21] MEDS: levETIRAcetam 500 MG/100 ML PREMIX 400 MG IV (17:33)
[2023-11-21] MEDS: tizanidine 4 mg Tablet 8 MG PO (20:31)
[2023-11-21] MEDS: OLANZapine 5 mg TABLET PO (20:31)
[2023-11-21] MEDS: gabapentin 300 mg Capsule 600 MG PO (20:31)
[2023-11-21 22:57] LABS: Partial Thromboplastin Time 75.6 SECONDS (23.9-36.7)
[2023-11-22] VITALS (8 sets, daily range): BP systolic 98–116; BP diastolic 62–72; PULSE 52–65; RESP 16–19; TEMP 36.3–37.6; O2SAT 90–97
[2023-11-22] MEDS: dextrose 5%-sod chloride 0.45% 1,000 ML 125 ML IV ×3 (01:34→19:25)
[2023-11-22] MEDS: MEROPENEM 2,000 MG in sodium chloride 0.9% (plus) 50 ML 100 MG IV ×3 (04:36→20:35)
[2023-11-22 04:49] LABS: Basophils % 0.1 %; Hematocrit 28.7 % (36-47); Lymphocytes # 1.5 10^3/uL (0.8-4.8); Lymphocytes % 17.3 %; Mean Corpuscular HGB Conc 30.3 g/dL (30-55); Mean Corpuscular Hemoglobin 29.6 pg (27-33); Mean Corpuscular Volume 97.6 fl (85-98); Mean Platelet Volume 10.8 fL (7.4-10.4); Monocytes # 0.4 10^3/uL (0.2-0.9); Monocytes % 4.5 %; Neutrophils # 6.54 10^3/uL (1.8-7.7); Neutrophils % 76.8 %; Nucleated Red Blood Cells % 0 %; Platelet Count 282 10^3/cmm (157-399); Red Blood Count 2.94 10^6/uL (3.85-5.65); Red Cell Distribution Width 13.5 % (12.1-15.1); White Blood Count 8.51 10^3/uL (3.29-11.43)
[2023-11-22 05:12] LABS: Partial Thromboplastin Time 81.6 SECONDS (23.9-36.7)
[2023-11-22 05:13] LABS: Anion Gap 14.3 (5-19); Blood Urea Nitrogen 29 mg/dL (8-23); Calcium 8.1 mg/dL (8.5-10.5); Carbon Dioxide 24 mmol/L (22-29); Chloride 108 mmol/L (98-107); Creatinine Clr Calc Pharmacy 68.5427; Glucose 254 mg/dL (65-115); Magnesium 2.2 mg/dL (1.7-2.3); Osmolality Calculated 310 mOsm/kg (285-295); Potassium 3.3 mmol/L (3.5-5.1); Sodium 143 mmol/L (136-145)
[2023-11-22] MEDS: levETIRAcetam 500 MG/100 ML PREMIX 400 MG IV ×2 (05:23→17:09)
[2023-11-22] MEDS: fluconazole 100 mg Tablet PO (08:16)
[2023-11-22] MEDS: oxybutynin 5 mg Tablet PO ×2 (08:16→17:09)
[2023-11-22] MEDS: citalopram 20 mg Tablet PO (08:16)
[2023-11-22] MEDS: acetaminophen 325 mg Tablet 650 MG PO (08:18)
[2023-11-22] MEDS: nystatin powder 15 gm Btl 1 APPLIC TOPICAL ×2 (09:37→17:09)
[2023-11-22] MEDS: methylPREDNISolone sod succ 1,000 MG in sodium chloride 0.9% 250 ML 258 MG IV (09:44)
--- NOTE | 2023-11-22 13:01 | P.PN_ITS ---
Subjective 2 Subjective: Seen this morning. She is somewhat confused. Did have Ativan yesterday in attempt for sedation for MRI. However despite taking down for MRI 2 times she could not tolerated. Study had to be aborted. Will try again. Echo shows regional wall motion abnormalities. Patient is currently on heparin drip. Awaiting cardiology consult. Hemoglobin 8.7. Vitals/I&O/Wt Last Vital Signs Temp 97.3 F L 11/22/23 12:00 Pulse 60 11/22/23 12:00 Resp 17 11/22/23 07:45 BP 104/63 11/22/23 12:00 Pulse Ox 96 11/22/23 12:00 O2 Del Method Room Air 11/22/23 12:00 11/21/23 11/22/23 11/22/23 22:59 06:59 14:59 Intake Total 1470 / 1898 263.4 / 2161.4 1668 / 1668 Balance 1470 / 1898 263.4 / 2161.4 1668 / 1668 Weight last 48 hrs Weight 72.439 kg Weight 70.845 kg Physical Exam 2 Narrative: General: Patient is awake and alert. Head: Normocephalic. Atraumatic. EOM intact. Masked facies. Cardiovascular: RRR. No gallops. No murmurs. No peripheral edema. Lungs: Clear to auscultation, no use of accessory muscles, no crackles or wheezes. Abdomen: Normal bowel sounds, abdomen soft and nontender. Extremities: No cyanosis or clubbing. Musculoskeletal: No swollen or erythematous joints. Neurological: No myoclonus. Limited movement in all extremities. Spastic quadriplegia. Data 11/22/23 04:38 11/22/23 04:38 Micro: Microbiology 11/21/23 06:46 Blood Culture - Preliminary Blood NEGATIVE TO DATE 11/21/23 06:54 Blood Culture - Preliminary Blood NEGATIVE TO DATE A&P Assessment and plan (1) Encephalopathy acute: Mentation has improved, suspect it is at baseline Continue treating underlying infection Start gentle IV fluids due to very poor oral intake Supportive care (2) Pseudomonas urinary tract infection: Current urinalysis consistent with UTI Urine culture showing multiple organisms 2 prior urine cultures this year showing fluoroquinolone resistant Pseudomonas, unclear if she received appropriate treatment with these UTIs She has a history of chronic bladder pain Continue Zosyn Consider continued IV outpatient antibiotics versus infectious disease consultation if available (3) Neuropathic pain: Continue home TCA Continue home gabapentin Continue home muscle relaxers (4) Hypothyroid: Continue home Synthroid Qualifiers: Hypothyroidism type: other Qualified Code(s): E03.8 - Other specified hypothyroidism (5) Essential hypertension: Continue home EMILIE inhibitor Hydralazine if needed (6) Wheelchair dependent: Multiple sclerosis, wheelchair-bound at baseline (7) Rosemarie infection of flexural skin: Continue nystatin powder (8) Multiple sclerosis exacerbation: (9) Multiple sclerosis: (10) Lives in assisted living facility: (11) Acute flaccid paralysis: (12) Hallucination: Plan DVT prophylaxis: Lovenox 11/20 ?CT head without contrast negative for acute pathology or bleed. CT neck has been ordered Multiple sclerosis pseudoexacerbation?continue Solu-Medrol 1 g daily x 5 days total. Today is day 2. Neurology consultation appreciated Continue on Zyprexa and citalopram as per neurorecommendations Amitriptyline has been stopped Continue nystatin powder for pannus and skin folds. Continue fluconazole 100 daily x 7 days total. Will review patient's records. Patient was possibly natalizumab but has missed few doses lately as per son. Will verify this. There may be possibility of PML? Discussed with neurology. Unsure if able to successfully complete an MRI. However based on today's assessment it seems that possibly patient is having a multiple sclerosis flare and hopefully will improve back to her baseline? Will assess her daily. UA positive for greater than [address] on meropenem at this time. Cardiology consulted. Currently patient is on heparin drip. Did have T wave inversions in anterior leads. She did have a hypotensive episode last night and was dehydrated. Was given a bolus of fluids. Her troponin elevation and EKG changes may be possibly secondary to demand ischemia. Will await recommendations from cardiology for further workup regarding this. Patient denies any chest pain or shortness of breath as of this morning. 11/21 NSTEMI: Elevated troponin. Currently on heparin drip. Echo shows regional wall motion abnormalities Cardiology consult pending Urine culture positive for Rosemarie cefdinir. Continue fluconazole total 7 days. Continue Zyprexa, citalopram Continue Solu-Medrol x 5 days total. Today is day 3. CT neck shows moderate spondylitic changes cervical spine with central canal stenosis. No cervical lymphadenopathy. MRI head could not be completed. Possible suspicion of PML?. Will review patient's previous medical records today. Will call son to update. Full code Attestations 2 Medical Necessity Statement*: Continue to hospitalist at this time for IV steroids to treat for multiple sclerosis with exacerbation and UTI treatment. Diagnoses Encephalopathy acute G93.40 Pseudomonas urinary tract infection N39.0; B96.5 Neuropathic pain M79.2 Other specified hypothyroidism E03.8 Hypothyroidism type: other Essential hypertension I10 Wheelchair dependent Z99.3 Rosemarie infection of flexural skin B37.2 Multiple sclerosis exacerbation G35 Multiple sclerosis G35 Lives in assisted living facility Z59.3 Acute flaccid paralysis G83.89 Hallucination R44.3
[2023-11-22] MEDS: heparin drip 25,000 UNIT/500 ML PREMIX 17 UNIT IV (13:46)
--- NOTE | 2023-11-22 13:59 | P.PN_ITS ---
Subjective 2 Subjective: The patient is more awake and alert today. Denies chest pain. Echo showed severely reduced LV systolic function with wall motion abnormalities consistent with stress cardiomyopathy versus LAD disease. Vitals/I&O/Wt Last Vital Signs Temp 97.3 F L 11/22/23 12:00 Pulse 60 11/22/23 12:00 Resp 17 11/22/23 07:45 BP 104/63 11/22/23 12:00 Pulse Ox 96 11/22/23 12:00 O2 Del Method Room Air 11/22/23 12:00 11/21/23 11/22/23 11/22/23 22:59 06:59 14:59 Intake Total 1470 / 1898 263.4 / 2161.4 1812.217 / 1812.217 Balance 1470 / 1898 263.4 / 2161.4 1812.217 / 1812.217 Weight last 48 hrs Weight 159 lb 11.2 oz Weight 156 lb 3 oz Physical Exam 2 Narrative: GENERAL: Patient is awake and alert NECK: No jugular vein distension. [] HEENT: No cyanosis. No icterus. No pallor. [] HEART: Regular S1 and S2. Grade 2/6 systolic murmur[] LUNGS: Diminished air entry CENTRAL NERVOUS SYSTEM: Grossly nonfocal. [] EXTREMITIES: Lower extremities with 1+ edema bilaterally. Data 11/23/23 06:34 11/23/23 06:34 Micro: Microbiology 11/21/23 06:46 Blood Culture - Preliminary Blood NEGATIVE TO DATE 11/21/23 06:54 Blood Culture - Preliminary Blood NEGATIVE TO DATE A&P Assessment and plan (1) Multiple sclerosis: (2) Troponin level elevated: (3) Essential hypertension: (4) LV dysfunction: Plan Patient has regional wall motion abnormalities consistent with Takotsubo cardiomyopathy versus possible LAD disease. Patient is chest pain free. Today she is more awake and alert. Wants to continue medical therapy at this time. Will start aspirin. Will continue heparin gtt for 48 hours. Thank you for involving us with care of this patient. We will continue to follow. Please call with questions. Attestations 2 Medical Necessity Statement*: Care expected to cross 2 midnights. Coding Level of Care Code Acute Code for [facility] Diagnoses Multiple sclerosis G35 Troponin level elevated R79.89 Essential hypertension I10 LV dysfunction I51.9
[2023-11-22] MEDS: aspirin 81 mg Chew Tablet PO (14:35)
--- NOTE | 2023-11-22 16:00 | P.MISC_ITS ---
Miscellaneous Note Note: Records reviewed from neurology. She follows up with Dr. Metz at [facility] neurology clinic. Patient was last seen by neurology in July 2023 at that time she was not due for her Ocrevus infusion. She has been on that infusion for her multiple sclerosis. She did says she was having increasing symptoms and requested a Medrol Dosepak which was given to her. Thereafter she has not gone back and see neurology. I does not indicate to me from the notes how long patient has been on the Ocrevus infusion. After her visit in July 2023 she was asked to follow-up again with neurology in 4 months or sooner. Her very last MRI was done in July 2022 which did not show any evidence of acute hemorrhage ischemia or mass. Stable white matter changes likely related to demyelination without acute demyelination or enhancement.
[2023-11-22 18:13] LABS: Partial Thromboplastin Time 68.8 SECONDS (23.9-36.7)
[2023-11-22] MEDS: tizanidine 4 mg Tablet 8 MG PO (20:35)
[2023-11-22] MEDS: gabapentin 300 mg Capsule 600 MG PO (20:35)
[2023-11-22] MEDS: OLANZapine 5 mg TABLET PO (20:35)
[2023-11-23] VITALS (8 sets, daily range): BP systolic 96–139; BP diastolic 57–80; PULSE 49–70; RESP 15–18; TEMP 36.4; O2SAT 93–98
[2023-11-23 01:38] LABS: Partial Thromboplastin Time 64.1 SECONDS (23.9-36.7)
[2023-11-23] MEDS: dextrose 5%-sod chloride 0.45% 1,000 ML 125 ML IV ×2 (03:18→11:43)
[2023-11-23] MEDS: MEROPENEM 2,000 MG in sodium chloride 0.9% (plus) 50 ML 100 MG IV ×3 (05:01→20:55)
[2023-11-23] MEDS: levETIRAcetam 500 MG/100 ML PREMIX 400 MG IV ×2 (05:27→17:37)
[2023-11-23 06:45] LABS: Basophils % 0.2 %; Hematocrit 28.6 % (36-47); Lymphocytes % 15.4 %; Mean Corpuscular HGB Conc 31.1 g/dL (30-55); Mean Corpuscular Hemoglobin 30.7 pg (27-33); Mean Corpuscular Volume 98.6 fl (85-98); Mean Platelet Volume 11.1 fL (7.4-10.4); Monocytes # 0.3 10^3/uL (0.2-0.9); Monocytes % 5.1 %; Neutrophils # 4.85 10^3/uL (1.8-7.7); Nucleated Red Blood Cells % 0 %; Platelet Count 295 10^3/cmm (157-399); Red Cell Distribution Width 13.4 % (12.1-15.1); White Blood Count 6.22 10^3/uL (3.29-11.43)
[2023-11-23 07:03] LABS: Anion Gap 13.4 (5-19); Blood Urea Nitrogen 28 mg/dL (8-23); Calcium 7.8 mg/dL (8.5-10.5); Carbon Dioxide 22 mmol/L (22-29); Chloride 106 mmol/L (98-107); Creatinine Clr Calc Pharmacy 69.2445; Glucose 242 mg/dL (65-115); Osmolality Calculated 299 mOsm/kg (285-295); Potassium 3.4 mmol/L (3.5-5.1); Sodium 138 mmol/L (136-145)
[2023-11-23 07:17] LABS: Partial Thromboplastin Time 82.2 SECONDS (23.9-36.7)
[2023-11-23] MEDS: heparin drip 25,000 UNIT/500 ML PREMIX 15.59 UNIT IV (07:30)
[2023-11-23] MEDS: oxybutynin 5 mg Tablet PO ×2 (07:40→17:27)
[2023-11-23] MEDS: fluconazole 100 mg Tablet PO (07:40)
[2023-11-23] MEDS: citalopram 20 mg Tablet PO (07:41)
[2023-11-23] MEDS: nystatin powder 15 gm Btl 1 APPLIC TOPICAL ×2 (07:41→17:27)
[2023-11-23] MEDS: aspirin 81 mg Chew Tablet PO (07:41)
[2023-11-23] MEDS: methylPREDNISolone sod succ 1,000 MG in sodium chloride 0.9% 250 ML 258 MG IV (11:36)
--- NOTE | 2023-11-23 11:43 | ECG_ITS ---
[facility] Test Date: 2023-11-23 Pat Name: Valery Triana Department: Room: 254 Gender: Female Physician Office Rep: : [id number] Requested By: Rush Maciel Order Number: [id number] Selina MD: Rush Maciel M.D. Measurements Intervals [place] Rate: 51 P: 61 CA: 138 QRS: 46 QRSD: 114 T: 193 QT: 559 QTc: 517 Interpretive Statements SINUS BRADYCARDIA POSSIBLE LATERAL MYOCARDIAL INFARCTION , OF INDETERMINATE AGE [30 ms Q WAVE IN I/aVL/V5/V6] MODERATE T-WAVE ABNORMALITY, CONSIDER ANTERIOR ISCHEMIA [-0.1+ mV T-WAVE IN V3/V4] MODERATE T-WAVE ABNORMALITY, CONSIDER INFERIOR ISCHEMIA [-0.1+ mV T-WAVE IN II/aVF] PROLONGED QT INTERVAL Compared to ECG 11/21/2023 06:33:13 Myocardial infarct finding now present Intraventricular conduction delay no longer present ST (T wave) deviation no longer present T-wave abnormality still present Possible ischemia still present Electronically Signed On 11-23-2023 17:44:33 CDT by Rush Maciel M.D. [email or web address]
--- NOTE | 2023-11-23 11:45 | PM.PN ---
Subjective Subjective: Patient is doing well. More alert today. Denies chest pain. Wants medical therapy at this time. Vitals/I&O/Wt Last Vital Signs Temp 97.5 F L 11/23/23 04:00 Pulse 50 L 11/23/23 07:43 Resp 18 11/23/23 04:00 BP 102/66 11/23/23 07:43 Pulse Ox 94 11/23/23 07:43 O2 Del Method Room Air 11/23/23 07:43 11/22/23 11/23/23 11/23/23 22:59 06:59 14:59 Intake Total 1348.767 / 3160.984 1413.700 / 4574.684 1246.013 / 1246.013 Balance 1348.767 / 3160.984 1413.700 / 4574.684 1246.013 / 1246.013 Weight last 48 hrs Weight 163 lb 8 oz Weight 159 lb 11.2 oz Physical Exam Narrative: GENERAL: Patient is awake and alert NECK: No jugular vein distension. [] HEENT: No cyanosis. No icterus. No pallor. [] HEART: Regular S1 and S2. Grade 2/6 systolic murmur[] LUNGS: Diminished air entry CENTRAL NERVOUS SYSTEM: Grossly nonfocal. [] EXTREMITIES: Lower extremities with 1+ edema bilaterally. Data 11/23/23 06:34 11/23/23 06:34 Micro: Microbiology 11/21/23 06:46 Blood Culture - Preliminary Blood NEGATIVE TO DATE 11/21/23 06:54 Blood Culture - Preliminary Blood NEGATIVE TO DATE A&P Assessment and plan (1) Multiple sclerosis: (2) Troponin level elevated: (3) Essential hypertension: (4) LV dysfunction: Plan Patient has regional wall motion abnormalities consistent with Takotsubo cardiomyopathy versus possible LAD disease. Patient is chest pain free. Now she is more awake and alert. Had a detailed discussion about the findings. She is on heparin. She wants medical therapy only. At this time it is appropriate given neuro status. Troponins were downtrending. Thank you for involving us with care of this patient. We will continue to follow. Please call with questions. Attestations Medical Necessity Statement*: Care expected to cross 2 midnights. Coding Level of Care Code Acute Code for [facility] Diagnoses Multiple sclerosis G35 Troponin level elevated R79.89 Essential hypertension I10 LV dysfunction I51.9
--- NOTE | 2023-11-23 12:20 | P.PN_ITS ---
Subjective 2 Subjective: Patient much more appropriate mentally this morning. She was able to have conversation with me. She states she would like to be treated medically at this time. Is not interested in invasive cardiac procedures. Denies any chest pain or shortness of breath. States she was on MS infusions every 6 months. Unsure why she did not go last time. I was told by her son that she canceled her appointment last time. She states she has been under a lot of stress lately. She is interested in restarting her infusion if possible. Currently on heparin drip. Hemoglobin stable 8.9. Vitals/I&O/Wt Last Vital Signs Temp 97.5 F L 11/23/23 04:00 Pulse 50 L 11/23/23 07:43 Resp 18 11/23/23 04:00 BP 102/66 11/23/23 07:43 Pulse Ox 94 11/23/23 07:43 O2 Del Method Room Air 11/23/23 07:43 11/22/23 11/23/23 11/23/23 22:59 06:59 14:59 Intake Total 1348.767 / 3160.984 1413.700 / 4574.684 1246.013 / 1246.013 Balance 1348.767 / 3160.984 1413.700 / 4574.684 1246.013 / 1246.013 Weight last 48 hrs Weight 74.162 kg Weight 72.439 kg Physical Exam 2 Narrative: General: Patient is awake and alert and oriented Head: Normocephalic. Atraumatic. EOM intact. Masked facies. Cardiovascular: RRR. No gallops. No murmurs. No peripheral edema. Lungs: Clear to auscultation, no use of accessory muscles, no crackles or wheezes. Abdomen: Normal bowel sounds, abdomen soft and nontender. Extremities: No cyanosis or clubbing. Musculoskeletal: No swollen or erythematous joints. Neurological: No myoclonus. Limited movement in all extremities. Spastic quadriplegia. Data 11/23/23 06:34 11/23/23 06:34 A&P Assessment and plan (1) Encephalopathy acute: Mentation has improved, suspect it is at baseline Continue treating underlying infection Start gentle IV fluids due to very poor oral intake Supportive care (2) Pseudomonas urinary tract infection: Current urinalysis consistent with UTI Urine culture showing multiple organisms 2 prior urine cultures this year showing fluoroquinolone resistant Pseudomonas, unclear if she received appropriate treatment with these UTIs She has a history of chronic bladder pain Continue Zosyn Consider continued IV outpatient antibiotics versus infectious disease consultation if available (3) Neuropathic pain: Continue home TCA Continue home gabapentin Continue home muscle relaxers (4) Hypothyroid: Continue home Synthroid Qualifiers: Hypothyroidism type: other Qualified Code(s): E03.8 - Other specified hypothyroidism (5) Essential hypertension: Continue home EMILIE inhibitor Hydralazine if needed (6) Wheelchair dependent: Multiple sclerosis, wheelchair-bound at baseline (7) Rosemarie infection of flexural skin: Continue nystatin powder (8) Multiple sclerosis exacerbation: (9) Multiple sclerosis: (10) Lives in assisted living facility: (11) Acute flaccid paralysis: (12) Hallucination: Plan DVT prophylaxis: Lovenox 11/20 ?CT head without contrast negative for acute pathology or bleed. CT neck has been ordered Multiple sclerosis pseudoexacerbation?continue Solu-Medrol 1 g daily x 5 days total. Today is day 2. Neurology consultation appreciated Continue on Zyprexa and citalopram as per neurorecommendations Amitriptyline has been stopped Continue nystatin powder for pannus and skin folds. Continue fluconazole 100 daily x 7 days total. Will review patient's records. Patient was possibly natalizumab but has missed few doses lately as per son. Will verify this. There may be possibility of PML? Discussed with neurology. Unsure if able to successfully complete an MRI. However based on today's assessment it seems that possibly patient is having a multiple sclerosis flare and hopefully will improve back to her baseline? Will assess her daily. UA positive for greater than [address] on meropenem at this time. Cardiology consulted. Currently patient is on heparin drip. Did have T wave inversions in anterior leads. She did have a hypotensive episode last night and was dehydrated. Was given a bolus of fluids. Her troponin elevation and EKG changes may be possibly secondary to demand ischemia. Will await recommendations from cardiology for further workup regarding this. Patient denies any chest pain or shortness of breath as of this morning. 11/21 NSTEMI: Elevated troponin. Currently on heparin drip. Echo shows regional wall motion abnormalities Cardiology consult pending Urine culture positive for Rosemarie cefdinir. Continue fluconazole total 7 days. Continue Zyprexa, citalopram Continue Solu-Medrol x 5 days total. Today is day 3. CT neck shows moderate spondylitic changes cervical spine with central canal stenosis. No cervical lymphadenopathy. MRI head could not be completed. Possible suspicion of PML?. Will review patient's previous medical records today. Will call son to update. 11/22 NSTEMI: Takotsubo cardiomyopathy versus LAD disease. Cardiology recommendations appreciated. Stop heparin drip today at completion of 48-hour alexia. Patient would like to continue medical therapy. Complete 7 days of fluconazole for UTI Continue Zyprexa, citalopram Continue Solu-Medrol 1 g x 5 days total. Today is day 4. Last dose tomorrow. Patient mental status has improved significantly however she is still unable to move upper extremities back to her previous baseline. She is unable to feed herself. Will discuss with neurology. Patient was on Ocrevus infusion in the past. Reviewed records however will need to speak to her neurologist on Friday morning. Does have a nonblanchable pressure sore on sacral area. That is being addressed at this time. Offloading mattress ordered as well. Discussed with nursing to have frequent turning every 2 hours. MRI unable to be completed secondary to patient cooperation. Full code Attestations 2 Medical Necessity Statement*: Continue to hospitalist at this time for IV steroids to treat for multiple sclerosis with exacerbation and UTI treatment. Diagnoses Encephalopathy acute G93.40 Pseudomonas urinary tract infection N39.0; B96.5 Neuropathic pain M79.2 Other specified hypothyroidism E03.8 Hypothyroidism type: other Essential hypertension I10 Wheelchair dependent Z99.3 Rosemarie infection of flexural skin B37.2 Multiple sclerosis exacerbation G35 Multiple sclerosis G35 Lives in assisted living facility Z59.3 Acute flaccid paralysis G83.89 Hallucination R44.3
[2023-11-23 14:16] LABS: Partial Thromboplastin Time 65.7 SECONDS (23.9-36.7)
[2023-11-23] MEDS: acetaminophen 325 mg Tablet 650 MG PO (16:12)
--- NOTE | 2023-11-23 20:34 | PC.NURSE ---
This nurse spoke with Dr. Castillo about evening medications and patient's vital signs. Patient has been bradycardic the last two nights, and today, staying between 40-50 bpm, asymptomatic. Patient currently has a heart rate of 54 and alert, due to recieve gabapentin, zanaflex, and zyprexa. Physician was agreeable to hold both the zyprexa and zanaflex tonight and proceed with the gabapentin to see how the patient tolerates. Plan of care ongoing.
[2023-11-23] MEDS: gabapentin 300 mg Capsule 600 MG PO (20:55)
[2023-11-24] VITALS (9 sets, daily range): BP systolic 125–166; BP diastolic 69–89; PULSE 44–70; RESP 16–20; TEMP 36.3–37; O2SAT 94–98; BMI 24.7
[2023-11-24] MEDS: MEROPENEM 2,000 MG in sodium chloride 0.9% (plus) 50 ML 100 MG IV ×2 (05:04→11:54)
[2023-11-24] MEDS: levETIRAcetam 500 MG/100 ML PREMIX 400 MG IV (05:05)
[2023-11-24 05:56] LABS: Blood Urea Nitrogen 24 mg/dL (8-23); Calcium 8.4 mg/dL (8.5-10.5); Carbon Dioxide 21 mmol/L (22-29); Chloride 106 mmol/L (98-107); Creatinine Clr Calc Pharmacy 70.1499; Glucose 158 mg/dL (65-115); Magnesium 2.1 mg/dL (1.7-2.3); Osmolality Calculated 297 mOsm/kg (285-295); Sodium 140 mmol/L (136-145)
[2023-11-24 05:57] LABS: Anion Gap 16.4 (5-19); Potassium 3.4 mmol/L (3.5-5.1)
[2023-11-24 06:38] LABS: Basophils % 0.1 %; Hematocrit 30.9 % (36-47); Lymphocytes # 0.9 10^3/uL (0.8-4.8); Lymphocytes % 11.6 %; Mean Corpuscular HGB Conc 31.7 g/dL (30-55); Mean Corpuscular Hemoglobin 30.6 pg (27-33); Mean Corpuscular Volume 96.6 fl (85-98); Mean Platelet Volume 11.2 fL (7.4-10.4); Monocytes # 0.4 10^3/uL (0.2-0.9); Monocytes % 5.6 %; Neutrophils # 6.03 10^3/uL (1.8-7.7); Nucleated Red Blood Cells % 0 %; Platelet Count 325 10^3/cmm (157-399); Red Cell Distribution Width 13.3 % (12.1-15.1); White Blood Count 7.35 10^3/uL (3.29-11.43)
[2023-11-24] MEDS: aspirin 81 mg Chew Tablet PO (08:19)
[2023-11-24] MEDS: oxybutynin 5 mg Tablet PO ×2 (08:20→17:36)
[2023-11-24] MEDS: citalopram 20 mg Tablet PO (08:20)
[2023-11-24] MEDS: nystatin powder 15 gm Btl 1 APPLIC TOPICAL ×2 (08:21→17:36)
[2023-11-24] MEDS: fluconazole 100 mg Tablet PO (08:22)
[2023-11-24] MEDS: methylPREDNISolone sod succ 1,000 MG in sodium chloride 0.9% 250 ML 258 MG IV (10:51)
--- NOTE | 2023-11-24 11:22 | P.PN_ITS ---
Subjective 2 Subjective: Patient denies any complaint including chest pain appear to be stable from a vital perspective. Medications: Reviewed: Yes Vitals/I&O/Wt Last Vital Signs Temp 97.6 F 11/24/23 08:00 Pulse 52 L 11/24/23 08:00 Resp 18 11/24/23 08:00 BP 125/69 11/24/23 08:00 Pulse Ox 95 11/24/23 08:00 O2 Del Method Room Air 11/24/23 08:00 11/23/23 11/24/23 11/24/23 22:59 06:59 14:59 Intake Total 1283.75 / 3294.702 150 / 3444.702 240 / 240 Balance 1283.75 / 3294.702 150 / 3444.702 240 / 240 Weight last 48 hrs Weight 168 lb 6.4 oz Weight 163 lb 8 oz Physical Exam 2 Const: OTHER: GENERAL: Patient is alert, awake and oriented x3. Laying in the bed comfortably HEART: Regular S1 and S2. No murmur, rub or gallop. LUNGS: Clear to auscultate bilaterally. ABDOMEN: Soft, nontender and nondistended. Positive bowel sounds. No guarding, rebound or tenderness. CENTRAL NERVOUS SYSTEM: Grossly nonfocal. EXTREMITIES: Lower extremities without edema bilaterally. Data 11/24/23 06:28 11/24/23 05:23 Micro: Microbiology 11/21/23 06:20 Urine Culture - Preliminary Urine,Clean Catch Yeast A&P Assessment and plan (1) Multiple sclerosis: (2) Troponin level elevated: (3) Essential hypertension: (4) LV dysfunction: Plan New onset of severe LV dysfunction with regional wall motion abnormality in the patient who is improving denies chest pain had troponin in the range of non-ST elevation NH agree with diagnosis of stress-induced cardiomyopathy Takotsubo versus coronary artery disease involving LAD. Ideally we should be proceeding with left heart catheterization before discharge however patient at this point would like to think about it. Due to bradycardia has not initiated beta- veda, continue aspirin and statin EMILIE inhibitor has been added will add isosorbide mononitrate. Will continue heparin and monitor hemoglobin. Will add Plavix to the regimen as well. Further plan will be devised as per progress the patient Attestations 2 Medical Necessity Statement*: Patient require continuation hospitalization for above defined care. Coding Level of Care Code Acute Code for [facility] Diagnoses Multiple sclerosis G35 Troponin level elevated R79.89 Essential hypertension I10 LV dysfunction I51.9
[2023-11-24] MEDS: acetaminophen 325 mg Tablet 650 MG PO (11:54)
[2023-11-24] MEDS: clopidogrel 75 mg Tablet PO (11:55)
[2023-11-24 13:57] LABS: Estmated Average Glucose 120; Hemoglobin A1C 5.8 % (4.0-6.0)
[2023-11-24 14:03] LABS: Iron 177 ug/dL (37-145)
[2023-11-24] MEDS: levothyroxine 100 mcg Tablet PO (14:15)
[2023-11-24] MEDS: levothyroxine 50 mcg Tablet PO (14:15)
[2023-11-24 14:18] LABS: Unsaturated Iron Binding < 17 ug/dL (112-347)
[2023-11-24 14:19] LABS: Percent Saturation 91.2 % (20-50); Total Iron Binding Capacity 194 mcg/dl; Vitamin B12 585 pg/mL (232-1245)
--- NOTE | 2023-11-24 14:30 | P.PN_ITS ---
Subjective 2 Subjective: Hospital course, labs appreciated. On examination patient laying comfortably in bed. Awake and alert. Denies any nausea counting, headache. She states she has been living in assisted living and they have been helping her with her feeding and daily needs for now. Denies any difficulty in breathing. Remains on room air. Vitals/I&O/Wt Last Vital Signs Temp 97.6 F 11/24/23 12:00 Pulse 54 L 11/24/23 12:00 Resp 16 11/24/23 12:00 BP 128/72 11/24/23 12:00 Pulse Ox 94 11/24/23 12:00 O2 Del Method Room Air 11/24/23 12:00 11/23/23 11/24/23 11/24/23 22:59 06:59 14:59 Intake Total 1283.75 / 3294.702 150 / 3444.702 618 / 618 Balance 1283.75 / 3294.702 150 / 3444.702 618 / 618 Weight last 48 hrs Weight 76.385 kg Weight 74.162 kg Physical Exam 2 Narrative: General: AOx3, no acute distress, on room air Head: Normocephalic. Atraumatic. EOM intact. Masked facies. Cardiovascular: RRR. No gallops. No murmurs. No peripheral edema. Lungs: Clear to auscultation, no use of accessory muscles, no crackles or wheezes. Abdomen: Normal bowel sounds, abdomen soft and nontender. Extremities: No cyanosis or clubbing. Musculoskeletal: No swollen or erythematous joints. Neurological: No myoclonus. Limited movement in all extremities. Spastic quadriplegia. Data 11/24/23 06:28 11/24/23 05:23 Micro: Microbiology 11/21/23 06:20 Urine Culture - Preliminary Urine,Clean Catch Yeast A&P Assessment and plan (1) Encephalopathy acute: Patient back to baseline. AO x 3. Most likely in setting of UTI along with flare of multiple sclerosis on admission. Continue to monitor. Supportive care. Fall precaution. Continue with home dose of baclofen as needed, new citalopram and Zyprexa as needed. Holding off on Seroquel as per neurology recommendations. Less likely seizure disorder as per neurology. Okay with discontinuing Keppra. (2) Pseudomonas urinary tract infection: Current urinalysis consistent with UTI. History of Pseudomonas UTI in the past. Appreciate sensitivities. Urine culture so far negative. Patient has received appropriate IV antibiotics for around 7 days now. She was admitted on IV Zosyn which was switched to meropenem on 11/20. Will hold off any further antibiotics. Continue with home dose of oxybutynin, tizanidine. (3) Takotsubo cardiomyopathy: Echocardiogram shows new EF of 30 to 45% with concerns for Takotsubo, grade 1 diastolic function. Appreciate cardiology recommendations. Patient would benefit for cardiac angiogram to does not want any invasive procedure and would want to hold off. Continue with aspirin, Plavix. Check A1c, lipid panel. Add atorvastatin 40 mg oral daily. Finish 72 hours of heparin drip. Switch to prophylactic dose. Currently bradycardic so we will hold off on adding beta-veda. Blood pressure occasionally soft so we will hold off on adding EMILIE/ARB. (4) Multiple sclerosis exacerbation: Follows up with neurology at [place]. Appreciate neurology recommendations. Mild concerns for PML. Will retry MRI of the head today. If needed can dose with Haldol 1 mg IM every 4 hours as needed. Patient has finished 5-day course of high-dose IV steroid on 11/23. Hold off on any further steroids. Continue with Celexa and Zyprexa. (5) Neuropathic pain: Continue home TCA Continue home gabapentin Continue home muscle relaxers (6) Hypothyroid: Appreciate TSH. Restart home dose of levothyroxine. Qualifiers: Hypothyroidism type: other Qualified Code(s): E03.8 - Other specified hypothyroidism (7) Essential hypertension: Goal blood pressure less than 140/90 MAG. Episode of hypotension during hospitalization. Holding off on home dose of lisinopril. (8) Hallucination: (9) Rosemarie infection of flexural skin: Continue nystatin powder (10) Wheelchair dependent: Multiple sclerosis, wheelchair-bound at baseline (11) Lives in assisted living facility: (12) Multiple sclerosis: Plan CODE STATUS: Discussed in detail with the patient. Son will be the DPOA. Patient would want to remain full code so that family can visit her prior to discontinuation of care. Does not want to remain on life support for long. Continue with dysphagia level 5 diet. Start on heparin 5000 Q12 hourly for DVT prophylaxis Attestations 2 Medical Necessity Statement*: Requires further hospitalization for management of resolving metabolic encephalopathy in setting of MS flare while PML is ruled out, Takotsubo cardiomyopathy, UTI Diagnoses Encephalopathy acute G93.40 Pseudomonas urinary tract infection N39.0; B96.5 Takotsubo cardiomyopathy I51.81 Multiple sclerosis exacerbation G35 Neuropathic pain M79.2 Other specified hypothyroidism E03.8 Hypothyroidism type: other Essential hypertension I10 Hallucination R44.3 Rosemarie infection of flexural skin B37.2 Wheelchair dependent Z99.3 Lives in assisted living facility Z59.3 Multiple sclerosis G35
--- NOTE | 2023-11-24 14:30 | PC.SOCIAL ---
IMM Updated Updated pt on IMM. No questions voiced. Provided pt a copy. Initialed, dated, & timed copy in chart.
[2023-11-24] MEDS: heparin 5,000 unit/mL INJ 1 mL 5000 UNIT SUBCUT (16:51)
[2023-11-24] MEDS: atorvastatin 40 mg Tablet PO (21:42)
[2023-11-24] MEDS: gabapentin 300 mg Capsule 600 MG PO (21:42)
[2023-11-24] MEDS: tizanidine 4 mg Tablet 8 MG PO (21:43)
[2023-11-24] MEDS: OLANZapine 5 mg TABLET PO (21:43)
[2023-11-25] VITALS (9 sets, daily range): BP systolic 102–132; BP diastolic 50–79; PULSE 43–60; RESP 16–18; TEMP 36.4–37; O2SAT 92–98
[2023-11-25] MEDS: heparin 5,000 unit/mL INJ 1 mL 5000 UNIT SUBCUT ×2 (02:56→14:43)
--- NOTE | 2023-11-25 08:55 | ECG_ITS ---
[facility] Test Date: 2023-11-25 Pat Name: Valery Triana Department: Room: 254 Gender: Female [employer]: : [id number] Requested By: Baljinder Santoyo Order Number: [id number] Selina MD: Rush Maciel M.D. Measurements Intervals [place] Rate: 43 P: 69 NM: 133 QRS: 50 QRSD: 98 T: 200 QT: 670 QTc: 572 Interpretive Statements SINUS BRADYCARDIA MARKED T-WAVE ABNORMALITY, CONSIDER ANTEROLATERAL ISCHEMIA [-0.5+ mV T-WAVE IN I/aVL/V3-V6] MODERATE T-WAVE ABNORMALITY, CONSIDER INFERIOR ISCHEMIA [-0.1+ mV T-WAVE IN II/aVF] PROLONGED QT INTERVAL Compared to ECG 11/23/2023 13:06:20 Myocardial infarct finding no longer present T-wave abnormality still present Possible ischemia still present Electronically Signed On 11-25-2023 11:14:54 CDT by Rush Maciel M.D. [id number]
[2023-11-25] MEDS: clopidogrel 75 mg Tablet PO (09:18)
[2023-11-25] MEDS: aspirin 81 mg Chew Tablet PO (09:18)
[2023-11-25] MEDS: levothyroxine 100 mcg Tablet PO (09:18)
[2023-11-25] MEDS: fluconazole 100 mg Tablet PO (09:19)
[2023-11-25] MEDS: oxybutynin 5 mg Tablet PO (09:19)
[2023-11-25] MEDS: citalopram 20 mg Tablet PO (09:19)
[2023-11-25] MEDS: acetaminophen 325 mg Tablet 650 MG PO (09:20)
[2023-11-25] MEDS: nystatin powder 15 gm Btl 1 APPLIC TOPICAL ×2 (09:21→17:02)
--- NOTE | 2023-11-25 09:30 | MR_ITS ---
WS: [id number] MRI HEAD WITH CONTRAST TECHNIQUE: Sagittal T1, T2 axial, T2 axial FLAIR, axial susceptibility weighted imaging, axial diffus ion weighted images, and coronal T2 images were obtained. Pre and post-T1 axial and post T1 coronal i mages. ADC and FSPGR images. CLINICAL INFORMATION: Concerns for MS flare/ pml COMPARISON: CT head 11/21/2023 FINDINGS: No evidence of restricted diffusion to suggest acute ischemia. Ventricular system and basal cisterns are patent. Moderate patchy supra and infratentorial white matter changes compatible with history of demyelinating disease and likely superimposed small vessel changes in a patient this age. Mild parenc hymal volume loss. No enhancing lesions to indicate active disease. Mild T1 hypointense lesion load. Additional patchy lesions partially visualized at the cervical medullary junction and upper cervical cord with additional patchy lesions in the midbrain and yasir. Normal vascular flow voids at the skull base. No extra-axial fluid collections. Paranasal sinuses and mastoid air cells are well aerated. No hemosiderin on the susceptibly weighted images. Suspected tiny trace of layering subdural blood proximal along the LEFT falx with increased FLAIR and T1 signal. MR/MR head wo/w con [id number] IMPRESSION: 1. No evidence of restricted diffusion to suggest acute ischemia. 2. Moderate patchy supra and infratentorial white matter changes compatible wi th history of demyelinating disease and likely superimposed small vessel change s in a patient of this age. 3. No enhancing lesions to indicate active disease. 4. Suspected tiny trace of subdural blood products along the LEFT falx with in creased FLAIR and T1 signal. 5. Additional partially visualized demyelinating lesions within the midbrain p ons cervical medullary junction and upper cervical cord. This can be followed u p with MRI without and with gadolinium on an elective basis. No prior cervical spine MRI for comparison 6. Mild parenchymal volume loss. 7. No significant atrophy of the corpus callosum. 8. No hemosiderin on susceptibly weighted images. Notified Baljinder Santoyo MD at 11/26/2023 9:20 AM.
--- NOTE | 2023-11-25 14:25 | P.PN_ITS ---
Subjective 2 Subjective: No acute events overnight. Today morning on examination patient blinked effective. Awake and alert. Able to complete conversation. States she has been having occasional episodes of confusion. She states earlier in the day she thought she was back at the assisted living but later after few minutes realized that she is still at the hospital. Denies any chest pain, chest heaviness, headache, dizziness, difficulty in breathing. Medications: Reviewed: Yes Vitals/I&O/Wt Last Vital Signs Temp 97.7 F 11/25/23 11:31 Pulse 51 L 11/25/23 11:31 Resp 17 11/25/23 11:31 BP 118/72 11/25/23 11:31 Pulse Ox 95 11/25/23 11:31 O2 Del Method Room Air 11/25/23 11:31 11/24/23 11/25/23 11/25/23 22:59 06:59 14:59 Intake Total 230 / 848 60 / 908 480 / 480 Balance 230 / 848 60 / 908 480 / 480 Weight last 48 hrs Weight 74.344 kg Weight 73.964 kg Weight 76.385 kg Physical Exam 2 Narrative: General: AOx3, no acute distress, on room air Head: Normocephalic. Atraumatic. EOM intact. Masked facies. Cardiovascular: RRR. No gallops. No murmurs. No peripheral edema. Lungs: Clear to auscultation, no use of accessory muscles, no crackles or wheezes. Abdomen: Normal bowel sounds, abdomen soft and nontender. Extremities: No cyanosis or clubbing. Musculoskeletal: No swollen or erythematous joints. Neurological: No myoclonus. Limited movement in all extremities. Spastic quadriplegia. Data 11/24/23 06:28 11/24/23 05:23 Micro: Microbiology 11/21/23 06:20 Urine Culture - Preliminary Urine,Clean Catch Yeast A&P Assessment and plan (1) Encephalopathy acute: Patient back to baseline. AO x 3. Most likely in setting of UTI along with flare of multiple sclerosis on admission. Continue to monitor. Supportive care. Fall precaution. Resolved. Continue with home dose of baclofen as needed, new citalopram. Zyprexa discontinued given concerns for prolonged QT. Holding off on Seroquel as per neurology recommendations. Less likely seizure disorder as per neurology. Keppra discontinued on 11/23 (2) Takotsubo cardiomyopathy: Echocardiogram shows new EF of 30 to 45% with concerns for Takotsubo, grade 1 diastolic function. Appreciate cardiology recommendations. Patient denies any chest pain. Today having bradycardia. On further discussion patient is okay with cardiac angiogram if needed today. Will discuss further with cardiology. Will discuss further with patient's DPOA/son. Patient does have significantly poor quality of life because of worsening multiple sclerosis. Continue with aspirin, Plavix, statin. Appreciate A1c, lipid panel. Finish 72 hours of heparin drip. Continue heparin at prophylactic dose. Currently bradycardic so we will hold off on adding beta-veda. Blood pressure occasionally soft so we will hold off on adding EMILIE/ARB. (3) Multiple sclerosis exacerbation: Follows up with neurology at [facility]. Appreciate neurology recommendations. Mild concerns for PML. Will retry MRI of the head today. If needed can dose with Haldol 1 mg IM every 4 hours as needed. Patient has finished 5-day course of high-dose IV steroid on 11/23. Hold off on any further steroids. Continue with Celexa and Zyprexa. (4) Bradycardia: Persistent bradycardia. Heart rate overnight while sleeping dipping down to high 30s. Patient complaining of occasional confusion though difficult to say if it is because of bradycardia. Awake and alert otherwise. Not on beta-veda. Will hold oxybutynin as it can cause prolonged QT. EKG today shows prolongation of QT interval. Will also stop fluconazole and olanzapine as together with citalopram that can cause prolonged QT. Continue with telemetry. Appreciate cardiology recommendations. (5) Pseudomonas urinary tract infection: Current urinalysis consistent with UTI. History of Pseudomonas UTI in the past. Appreciate sensitivities. Urine culture so far negative. Patient has received appropriate IV antibiotics for around 7 days now. She was admitted on IV Zosyn which was switched to meropenem on 11/20. Will hold off any further antibiotics. Continue with home dose of oxybutynin, tizanidine. (6) Long QT interval: Discontinued fluconazole, Zyprexa as together with citalopram it can cause prolonged QT. Also discontinue oxybutynin. Daily EKGs to monitor for QT prolongation. Telemetry. (7) Hypothyroid: Appreciate TSH. Restart home dose of levothyroxine. Qualifiers: Hypothyroidism type: other Qualified Code(s): E03.8 - Other specified hypothyroidism (8) Neuropathic pain: Continue home TCA Continue home gabapentin Continue home muscle relaxers (9) Essential hypertension: Goal blood pressure less than 140/90 MAG. Episode of hypotension during hospitalization. Holding off on home dose of lisinopril. (10) Hallucination: (11) Rosemarie infection of flexural skin: Continue nystatin powder (12) Wheelchair dependent: Multiple sclerosis, wheelchair-bound at baseline (13) Lives in assisted living facility: (14) Multiple sclerosis: Plan CODE STATUS: Discussed in detail with the patient. Son will be the DPOA. Patient would want to remain full code so that family can visit her prior to discontinuation of care. Does not want to remain on life support for long. Continue with dysphagia level 5 diet. Start on heparin 5000 Q12 hourly for DVT prophylaxis Patient's care discussed in detail with son over the phone. All the questions were answered. Attestations 2 Medical Necessity Statement*: Requires further hospitalization for management of significant bradycardia with concerns for long QT and the patient was admitted for encephalopathy in setting of MS exacerbation, Takotsubo cardiomyopathy with new EF of 35% Diagnoses Encephalopathy acute G93.40 Takotsubo cardiomyopathy I51.81 Multiple sclerosis exacerbation G35 Bradycardia R00.1 Pseudomonas urinary tract infection N39.0; B96.5 Long QT interval R94.31 Other specified hypothyroidism E03.8 Hypothyroidism type: other Neuropathic pain M79.2 Essential hypertension I10 Hallucination R44.3 Rosemarie infection of flexural skin B37.2 Wheelchair dependent Z99.3 Lives in assisted living facility Z59.3 Multiple sclerosis G35
[2023-11-25] MEDS: gadobenate dimeglumine 20 mL vial 16 ML IV (18:34)
[2023-11-25] MEDS: tizanidine 4 mg Tablet 8 MG PO (23:07)
[2023-11-25] MEDS: atorvastatin 40 mg Tablet PO (23:07)
[2023-11-25] MEDS: gabapentin 300 mg Capsule 600 MG PO (23:07)
[2023-11-26] VITALS (13 sets, daily range): BP systolic 102–152; BP diastolic 62–80; PULSE 41–65; RESP 16–18; TEMP 36.6–36.9; O2SAT 92–96
[2023-11-26] MEDS: heparin 5,000 unit/mL INJ 1 mL 5000 UNIT SUBCUT (04:15)
[2023-11-26 05:17] LABS: Basophils % 0.1 %; Eosinophils % 0.1 %; Hematocrit 29.7 % (36-47); Lymphocytes # 1.1 10^3/uL (0.8-4.8); Lymphocytes % 12.7 %; Mean Corpuscular HGB Conc 31.6 g/dL (30-55); Mean Corpuscular Hemoglobin 30.4 pg (27-33); Mean Corpuscular Volume 96.1 fl (85-98); Mean Platelet Volume 11.1 fL (7.4-10.4); Monocytes # 0.6 10^3/uL (0.2-0.9); Monocytes % 6.6 %; Neutrophils # 7.04 10^3/uL (1.8-7.7); Neutrophils % 79.9 %; Nucleated Red Blood Cells % 0 %; Platelet Count 297 10^3/cmm (157-399); Red Blood Count 3.09 10^6/uL (3.85-5.65); Red Cell Distribution Width 13.8 % (12.1-15.1); White Blood Count 8.81 10^3/uL (3.29-11.43)
[2023-11-26 05:34] LABS: Magnesium 2.3 mg/dL (1.7-2.3)
[2023-11-26 05:35] LABS: Alanine Aminotransferase 19 U/L (0-33); Albumin Level 2.8 g/dL (3.5-5.2); Alkaline Phosphatase 63 U/L (35-105); Anion Gap 10.8 (5-19); Aspartate Amino Transferase 11 U/L (0-32); Blood Urea Nitrogen 27 mg/dL (8-23); Calcium 8.1 mg/dL (8.5-10.5); Carbon Dioxide 26 mmol/L (22-29); Chloride 109 mmol/L (98-107); Creatinine Clr Calc Pharmacy 69.7617; Globulin 1.7 g/dL (1.3-4.6); Glucose 125 mg/dL (65-115); Osmolality Calculated 301 mOsm/kg (285-295); Potassium 3.8 mmol/L (3.5-5.1); Sodium 142 mmol/L (136-145); Total Bilirubin 0.3 mg/dL (0.15-1.2); Total Protein 4.5 g/dL (6.6-8.7)
--- NOTE | 2023-11-26 06:22 | PC.NURSE ---
Notified Dr. Mclaughlin of change in patient's QT interval.
--- NOTE | 2023-11-26 06:36 | ECG_ITS ---
[facility] Test Date: 2023-11-26 Pat Name: Valery Triana Department: Room: 254 Gender: Female Rn Concurrent Review: : 1950 Requested By: Lars Mclaughlin Order Number: [id number] Selina MD: Sherri Cueto M.D. Measurements Intervals [place] Rate: 48 P: 75 [place]: 140 QRS: 58 QRSD: 100 T: 186 QT: 582 QTc: 520 Interpretive Statements SINUS BRADYCARDIA LOW QRS VOLTAGE IN PRECORDIAL LEADS [QRS DEFLECTION < 1.0 mV IN CHEST LEADS] MODERATE T-WAVE ABNORMALITY, CONSIDER ANTEROLATERAL ISCHEMIA [-0.1+ mV T-WAVE IN V3-V6].MODERATE T-WAVE ABNORMALITY, CONSIDER INFERIOR ISCHEMIA [-0.1+ mV T-WAVE IN II/aVF] PROLONGED QT INTERVAL CRITICAL TEST RESULT Compared to ECG 11/25/2023 10:24:57 Low QRS voltage now present T-wave abnormality still present Possible ischemia still present Electronically Signed On 11-27-2023 22:41:44 CDT by Sherri Cueto M.D. [id number]
--- NOTE | 2023-11-26 07:39 | P.PN_ITS ---
Subjective 2 Subjective: Please note that this note is for yesterday which i forgot to enter Patient had bradycardiac episode heart rate into high thirties to forties She denies chest pain, feeling fatigue 12 lead ekg showed anterolateral T wave inversion and sinus bradycardia Medications: Reviewed: Yes Vitals/I&O/Wt Last Vital Signs Temp 97.9 F 11/26/23 04:00 Pulse 48 L 11/26/23 06:42 Resp 16 11/26/23 04:00 BP 103/64 11/26/23 04:00 Pulse Ox 95 11/26/23 04:00 O2 Del Method Room Air 11/25/23 16:00 11/25/23 11/26/23 11/26/23 22:59 06:59 14:59 Intake Total 240 / 720 0 / 720 Balance 240 / 720 0 / 720 Weight last 48 hrs Weight 166 lb 4.8 oz Weight 163 lb 14.4 oz Weight 163 lb 1 oz Physical Exam 2 Const: OTHER: GENERAL: Patient is fatigue, awake but oriented x3. HEART: Regular S1 and S2. No murmur, rub or gallop. LUNGS: Clear to auscultate bilaterally. CENTRAL NERVOUS SYSTEM: Grossly nonfocal. EXTREMITIES: Lower extremities without edema bilaterally. Data 11/26/23 04:53 11/26/23 04:53 Micro: Microbiology 11/21/23 06:46 Blood Culture - Final Blood NO GROWTH AFTER 5 DAYS 11/21/23 06:54 Blood Culture - Final Blood NO GROWTH AFTER 5 DAYS 11/21/23 06:20 Urine Culture - Preliminary Urine,Clean Catch Yeast A&P Assessment and plan (1) Multiple sclerosis: (2) Troponin level elevated: NSTEMI with question stress induced vs CAD, pt refuses [facility] will treat medically (3) Essential hypertension: Stable (4) LV dysfunction: Stress induced cardiomyopathy vs CAD,I have detail discussuion with patient she is not interested in pursuing invasive strategy and would not like to go for left heart cath, i asked if i can discuss with her son , she said for now she will discuss with him by herself . Beta veda was discontinued due to bradycardia, we will try low dose enteresto however her blood pressure is on the lower side, will closely monitor her for that (5) Bradycardia: continue to monitor for now patient is stable Attestations 2 Medical Necessity Statement*: Patient requires continuation of admission for above defined treatment Coding Level of Care Code Acute Code for Chg Fwd Diagnoses Multiple sclerosis G35 Troponin level elevated R79.89 Essential hypertension I10 LV dysfunction I51.9 Bradycardia R00.1
[2023-11-26] MEDS: nystatin powder 15 gm Btl 1 APPLIC TOPICAL ×2 (08:30→17:54)
[2023-11-26] MEDS: levothyroxine 100 mcg Tablet PO (08:30)
[2023-11-26] MEDS: clopidogrel 75 mg Tablet PO (08:30)
[2023-11-26] MEDS: aspirin 81 mg Chew Tablet PO (08:30)
--- NOTE | 2023-11-26 09:12 | ECG_ITS ---
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 Measurements Intervals [place] Rate: 43 P: 70 [place]: 146 QRS: 55 QRSD: 95 T: 187 QT: 578 QTc: 489 Interpretive Statements SINUS BRADYCARDIA LOW QRS VOLTAGE IN PRECORDIAL LEADS [QRS DEFLECTION < 1.0 mV IN CHEST LEADS] MODERATE T-WAVE ABNORMALITY, CONSIDER ANTEROLATERAL ISCHEMIA [-0.1+ mV T-WAVE IN V3-V6] MODERATE T-WAVE ABNORMALITY, CONSIDER INFERIOR ISCHEMIA [-0.1+ mV T-WAVE IN II/aVF] PROLONGED QT INTERVAL CRITICAL TEST RESULT Compared to ECG 11/26/2023 06:36:41 No significant changes Electronically Signed On 11-27-2023 22:41:24 CDT by Sherri Cueto M.D. [id number]
--- NOTE | 2023-11-26 11:19 | PC.NURSE ---
Called Kaleigh Chery at [facility] in [place], [place] to give pt update following [facility].
--- NOTE | 2023-11-26 13:34 | PC.SOCIAL ---
IMM Updated Updated pt on IMM. No questions voiced. Provided pt a copy. Initialed, dated, & timed copy in chart.
--- NOTE | 2023-11-26 15:01 | P.PN_ITS ---
Subjective 2 Subjective: No acute events overnight. Today morning patient awake and alert laying comfortably in bed. Slightly slow to respond. As per nursing staff has been tearful earlier today morning. As per patient she did not have a good night and was not able to sleep. Denies any nausea, vomiting, headache. Medications: Reviewed: Yes Vitals/I&O/Wt Last Vital Signs Temp 98.1 F 11/26/23 11:59 Pulse 58 L 11/26/23 11:59 Resp 17 11/26/23 11:59 BP 125/65 11/26/23 11:59 Pulse Ox 93 11/26/23 11:59 O2 Del Method Room Air 11/26/23 11:59 11/26/23 11/26/23 11/26/23 06:59 14:59 22:59 Intake Total 0 / 720 0 / 0 Balance 0 / 720 0 / 0 Weight last 48 hrs Weight 75.432 kg Weight 74.344 kg Weight 73.964 kg Physical Exam 2 Narrative: General: AOx3, no acute distress, on room air Head: Normocephalic. Atraumatic. EOM intact. Masked facies. Cardiovascular: RRR. No gallops. No murmurs. No peripheral edema. Lungs: Clear to auscultation, no use of accessory muscles, no crackles or wheezes. Abdomen: Normal bowel sounds, abdomen soft and nontender. Extremities: No cyanosis or clubbing. Musculoskeletal: No swollen or erythematous joints. Neurological: No myoclonus. Limited movement in all extremities. Spastic quadriplegia. Data 11/26/23 04:53 11/26/23 04:53 Micro: Microbiology 11/21/23 06:46 Blood Culture - Final Blood NO GROWTH AFTER 5 DAYS 11/21/23 06:54 Blood Culture - Final Blood NO GROWTH AFTER 5 DAYS 11/21/23 06:20 Urine Culture - Preliminary Urine,Clean Catch Yeast A&P Assessment and plan (1) Bradycardia: Most likely in setting of prolonged QT. Persistent bradycardia. Heart rate overnight while sleeping dipping down to high 30s. Patient complaining of occasional confusion though difficult to say if it is because of bradycardia. Awake and alert otherwise. Not on beta-veda. Holding off on fluconazole, olanzapine, oxybutynin which together can cause prolonged QT in setting of citalopram. Monitor EKG daily. This is slightly improved today. Holding off on Celexa for 1 more day. Will restart Celexa in next 24 hours at a lower dose of 10 mg daily. Continue with telemetry. Appreciate cardiology recommendations. (2) Long QT interval: Discontinued fluconazole, Zyprexa and oxybutynin as together with citalopram it can cause prolonged QT. Daily EKGs to monitor for QT prolongation. Baseline QTc of around 462 on admission. Down to 49 today. Telemetry. (3) Encephalopathy acute: Patient back to baseline. AO x 3. Most likely in setting of UTI along with flare of multiple sclerosis on admission. Continue to monitor. Supportive care. Fall precaution. Resolved. Continue with home dose of baclofen as needed. Holding off on Zyprexa and nortriptyline for now given concerns for QT prolongation. Hold off on Celexa for today. Monitor QTc. Most likely will restart Celexa in next 24 hours at a lower dose of 10 mg daily. Less likely seizure disorder as per neurology. Keppra discontinued on 11/23. (4) Takotsubo cardiomyopathy: Echocardiogram shows new EF of 30 to 45% with concerns for Takotsubo, grade 1 diastolic function. Appreciate cardiology recommendations. Patient denies any chest pain. Today having bradycardia. On further discussion patient is okay with cardiac angiogram if needed today. Will discuss further with cardiology. Will discuss further with patient's DPOA/son. Patient does have significantly poor quality of life because of worsening multiple sclerosis. Continue with aspirin,, statin. Hold off on Plavix given small subdural hematoma seen on MRI. Appreciate A1c, lipid panel. Hold off on prophylactic dose of heparin. Currently bradycardic so we will hold off on adding beta-veda. Blood pressure occasionally soft so we will hold off on adding EMILIE/ARB. (5) Multiple sclerosis exacerbation: Follows up with neurology at [facility]. Appreciate neurology recommendations. Mild concerns for PML. Appreciate MRI head results with changes concerning for demyelinating disorders, trace subdural hematoma and left flaks, possible edema at any lesion in cervical medullary junction and upper cervical cord. Patient has finished 5-day course of high-dose IV steroid on 11/23. Hold off on any further steroids. Celexa as above. (6) Pseudomonas urinary tract infection: Current urinalysis consistent with UTI. History of Pseudomonas UTI in the past. Appreciate sensitivities. Urine culture so far negative. Patient has received appropriate IV antibiotics for around 7 days now. She was admitted on IV Zosyn which was switched to meropenem on 11/20. Will hold off any further antibiotics. Continue with home dose of oxybutynin, tizanidine. (7) Hypothyroid: Appreciate TSH. Restart home dose of levothyroxine. Qualifiers: Hypothyroidism type: other Qualified Code(s): E03.8 - Other specified hypothyroidism (8) Neuropathic pain: Continue home TCA Continue home gabapentin Continue home muscle relaxers (9) Essential hypertension: Goal blood pressure less than 140/90 mmHg. Episode of hypotension during hospitalization. Blood pressure slightly improved today. Holding off on home dose of lisinopril. (10) Hallucination: (11) Rosemarie infection of flexural skin: Continue nystatin powder (12) Wheelchair dependent: Multiple sclerosis, wheelchair-bound at baseline (13) Lives in assisted living facility: (14) Multiple sclerosis: (15) Subdural hematoma: Minimal subdural hematoma and left Flanax seen on MRI. Discussed in detail with the neurologist. Hold off on any further heparin. Will repeat CT head if concerns for change in mentation. Plan CODE STATUS: Discussed in detail with the patient. Son will be the DPOA. Patient would want to remain full code so that family can visit her prior to discontinuation of care. Does not want to remain on life support for long. Continue with dysphagia level 5 diet. Heparin stopped in setting of very mild small subdural hematoma. SCDs. Patient's care discussed in detail with son over the phone. All the questions were answered. Attestations 2 Medical Necessity Statement*: Requires further hospitalization for management of significant bradycardia in setting of prolonged QT while medications are adjusted and a patient was admitted for flare of multiple sclerosis, Pseudomonas UTI, small subdural hematoma on MRI Diagnoses Bradycardia R00.1 Long QT interval R94.31 Encephalopathy acute G93.40 Takotsubo cardiomyopathy I51.81 Multiple sclerosis exacerbation G35 Pseudomonas urinary tract infection N39.0; B96.5 Other specified hypothyroidism E03.8 Hypothyroidism type: other Neuropathic pain M79.2 Essential hypertension I10 Hallucination R44.3 Rosemarie infection of flexural skin B37.2 Wheelchair dependent Z99.3 Lives in assisted living facility Z59.3 Multiple sclerosis G35 Subdural hematoma S06.5XAA
[2023-11-26] MEDS: atorvastatin 40 mg Tablet PO (21:03)
[2023-11-26] MEDS: tizanidine 4 mg Tablet 8 MG PO (21:03)
[2023-11-26] MEDS: gabapentin 300 mg Capsule 600 MG PO (21:03)
--- NOTE | 2023-11-26 22:14 | P.PN_ITS ---
Subjective 2 Subjective: Remains bradycardic however denies any complaint denies chest pain. Medications: Reviewed: Yes Vitals/I&O/Wt Last Vital Signs Temp 98.4 F 11/26/23 20:00 Pulse 65 11/26/23 20:00 Resp 16 11/26/23 20:00 BP 149/75 11/26/23 20:00 Pulse Ox 96 11/26/23 20:00 O2 Del Method Room Air 11/26/23 16:00 11/26/23 11/26/23 11/26/23 06:59 14:59 22:59 Intake Total 0 / 720 0 / 0 360 / 360 Balance 0 / 720 0 / 0 360 / 360 Weight last 48 hrs Weight 166 lb 4.8 oz Weight 163 lb 14.4 oz Physical Exam 2 Const: OTHER: GENERAL: Patient is fatigue, awake but oriented x3. HEART: Regular S1 and S2. No murmur, rub or gallop. LUNGS: Clear to auscultate bilaterally. CENTRAL NERVOUS SYSTEM: Grossly nonfocal. EXTREMITIES: Lower extremities without edema bilaterally. Data 11/26/23 04:53 11/26/23 04:53 Micro: Microbiology 11/21/23 06:46 Blood Culture - Final Blood NO GROWTH AFTER 5 DAYS 11/21/23 06:54 Blood Culture - Final Blood NO GROWTH AFTER 5 DAYS A&P Assessment and plan (1) Multiple sclerosis: (2) Troponin level elevated: NSTEMI with question stress induced vs CAD, pt refuses [facility] will treat medically Will manage medical (3) Essential hypertension: In general is well-controlled (4) LV dysfunction: Stress induced cardiomyopathy vs CAD,I have detail discussuion with patient she is not interested in pursuing invasive strategy and would not like to go for left heart cath, i asked if i can discuss with her son , she said for now she will discuss with him by herself . Beta veda was discontinued due to bradycardia, we will try low dose enteresto however her blood pressure is on the lower side, will closely monitor her for that Blood pressure has improved we will try to add Entresto from tomorrow (5) Bradycardia: Continue to monitor, QTC is within normal limit, most likely QT prolongation is secondary to bradycardia however Dr Willingham's thought about anti depressant antipsychotic medicine holding may need to be considered Attestations 2 Medical Necessity Statement*: Patient require continuation hospitalization for above defined care Coding Level of Care Code Acute Code for Chg Fwd Diagnoses Multiple sclerosis G35 Troponin level elevated R79.89 Essential hypertension I10 LV dysfunction I51.9 Bradycardia R00.1
[2023-11-27] VITALS (7 sets, daily range): BP systolic 101–168; BP diastolic 61–91; PULSE 41–74; RESP 15–18; TEMP 36.4–36.8; O2SAT 94–98
[2023-11-27 03:16] LABS: Basophils % 0.1 %; Eosinophils # 0.1 10^3/uL (0.0-0.8); Eosinophils % 1.1 %; Hematocrit 30.4 % (36-47); Lymphocytes # 1.6 10^3/uL (0.8-4.8); Lymphocytes % 15.4 %; Mean Corpuscular HGB Conc 31.6 g/dL (30-55); Mean Corpuscular Hemoglobin 30.8 pg (27-33); Mean Corpuscular Volume 97.4 fl (85-98); Mean Platelet Volume 10.8 fL (7.4-10.4); Monocytes # 0.6 10^3/uL (0.2-0.9); Monocytes % 5.6 %; Neutrophils # 8.13 10^3/uL (1.8-7.7); Neutrophils % 77.3 %; Nucleated Red Blood Cells % 0 %; Platelet Count 286 10^3/cmm (157-399); Red Blood Count 3.12 10^6/uL (3.85-5.65); Red Cell Distribution Width 13.9 % (12.1-15.1); White Blood Count 10.52 10^3/uL (3.29-11.43)
[2023-11-27 03:56] LABS: Magnesium 2.4 mg/dL (1.7-2.3)
[2023-11-27 03:57] LABS: Alanine Aminotransferase 18 U/L (0-33); Albumin Level 2.8 g/dL (3.5-5.2); Alkaline Phosphatase 68 U/L (35-105); Blood Urea Nitrogen 18 mg/dL (8-23); Calcium 7.9 mg/dL (8.5-10.5); Carbon Dioxide 27 mmol/L (22-29); Chloride 109 mmol/L (98-107); Creatinine Clr Calc Pharmacy 69.7617; Globulin 1.9 g/dL (1.3-4.6); Glucose 110 mg/dL (65-115); Osmolality Calculated 301 mOsm/kg (285-295); Sodium 144 mmol/L (136-145); Total Bilirubin 0.3 mg/dL (0.15-1.2); Total Protein 4.7 g/dL (6.6-8.7)
[2023-11-27 04:01] LABS: Anion Gap 12.4 (5-19); Aspartate Amino Transferase 14 U/L (0-32); Potassium 4.4 mmol/L (3.5-5.1)
--- NOTE | 2023-11-27 08:00 | ECG_ITS ---
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 Measurements Intervals [place] Rate: 52 P: 68 [place]: 148 QRS: 61 QRSD: 99 T: 125 QT: 520 QTc: 488 Interpretive Statements SINUS BRADYCARDIA MODERATE T-WAVE ABNORMALITY, CONSIDER ANTEROLATERAL ISCHEMIA [-0.1+ mV T-WAVE IN V3-V6] Compared to ECG 11/26/2023 09:12:08 Prolonged QT interval no longer present T-wave abnormality still present Possible ischemia still present Electronically Signed On 11-27-2023 22:27:17 CDT by Sherri Cueto M.D. [id number]
[2023-11-27] MEDS: levothyroxine 100 mcg Tablet PO (08:36)
[2023-11-27] MEDS: nystatin powder 15 gm Btl 1 APPLIC TOPICAL ×2 (08:36→17:03)
[2023-11-27] MEDS: citalopram 20 mg Tablet 10 MG PO (08:36)
[2023-11-27] MEDS: clopidogrel 75 mg Tablet PO (08:36)
[2023-11-27] MEDS: aspirin 81 mg Chew Tablet PO (08:36)
--- NOTE | 2023-11-27 13:11 | P.PN_ITS ---
Subjective 2 Subjective: No acute vents overnight. Patient has remained stable with bradycardia on telemetry overnight. Heart rate in between improving up to 60s. Patient at baseline mentation. Awake and alert. Denies any nausea, vomiting, headache. Complaining of back pain. Denies any chest pain. Blood pressure slightly elevated. Remains on room air. Medications: Reviewed: Yes Vitals/I&O/Wt Last Vital Signs Temp 98.2 F 11/27/23 12:23 Pulse 65 11/27/23 12:23 Resp 16 11/27/23 12:23 BP 168/80 11/27/23 12:23 Pulse Ox 97 11/27/23 12:23 O2 Del Method Room Air 11/27/23 12:23 11/26/23 11/27/23 11/27/23 22:59 06:59 14:59 Intake Total 360 / 360 0 / 360 20 / 20 Balance 360 / 360 0 / 360 20 / 20 Weight last 48 hrs Weight 74.435 kg Weight 75.432 kg Physical Exam 2 Narrative: General: AOx3, no acute distress, on room air Head: Normocephalic. Atraumatic. EOM intact. Masked facies. Cardiovascular: RRR. No gallops. No murmurs. No peripheral edema. Lungs: Clear to auscultation, no use of accessory muscles, no crackles or wheezes. Abdomen: Normal bowel sounds, abdomen soft and nontender. Extremities: No cyanosis or clubbing. Musculoskeletal: No swollen or erythematous joints. Neurological: No myoclonus. Limited movement in all extremities. Spastic quadriplegia. Data 11/27/23 03:00 11/27/23 03:00 A&P Assessment and plan (1) Bradycardia: Most likely in setting of prolonged QT. Persistent bradycardia. Heart rate overnight while sleeping dipping down to high 30s. Patient complaining of occasional confusion though difficult to say if it is because of bradycardia. Awake and alert otherwise. Not on beta-veda. Holding off on fluconazole, olanzapine, oxybutynin which together can cause prolonged QT in setting of citalopram. Monitor EKG daily. This is slightly improved today. Holding off on Celexa for 1 more day. Will restart Celexa in next 24 hours at a lower dose of 10 mg daily. Continue with telemetry. Appreciate cardiology recommendations. (2) Long QT interval: Discontinued fluconazole, Zyprexa and oxybutynin as together with citalopram it can cause prolonged QT. Daily EKGs to monitor for QT prolongation. Baseline QTc of around 462 on admission. Down to 49 today. Telemetry. (3) Encephalopathy acute: Patient back to baseline. AO x 3. Most likely in setting of UTI along with flare of multiple sclerosis on admission. Continue to monitor. Supportive care. Fall precaution. Resolved. Continue with home dose of baclofen as needed. Holding off on Zyprexa and nortriptyline for now given concerns for QT prolongation. Hold off on Celexa for today. Monitor QTc. Most likely will restart Celexa in next 24 hours at a lower dose of 10 mg daily. Less likely seizure disorder as per neurology. Keppra discontinued on 11/23. (4) Takotsubo cardiomyopathy: Echocardiogram shows new EF of 30 to 45% with concerns for Takotsubo, grade 1 diastolic function. Appreciate cardiology recommendations. Patient denies any chest pain. Today having bradycardia. On further discussion patient is okay with cardiac angiogram if needed today. Will discuss further with cardiology. Will discuss further with patient's DPOA/son. Patient does have significantly poor quality of life because of worsening multiple sclerosis. Continue with aspirin,, statin. Hold off on Plavix given small subdural hematoma seen on MRI. Appreciate A1c, lipid panel. Hold off on prophylactic dose of heparin. Currently bradycardic so we will hold off on adding beta-veda. Blood pressure occasionally soft so we will hold off on adding EMILIE/ARB. (5) Multiple sclerosis exacerbation: Follows up with neurology at [place]. Appreciate neurology recommendations. Mild concerns for PML. Appreciate MRI head results with changes concerning for demyelinating disorders, trace subdural hematoma and left flaks, possible edema at any lesion in cervical medullary junction and upper cervical cord. Patient has finished 5-day course of high-dose IV steroid on 11/23. Hold off on any further steroids. Celexa as above. (6) Pseudomonas urinary tract infection: Current urinalysis consistent with UTI. History of Pseudomonas UTI in the past. Appreciate sensitivities. Urine culture so far negative. Patient has received appropriate IV antibiotics for around 7 days now. She was admitted on IV Zosyn which was switched to meropenem on 11/20. Will hold off any further antibiotics. Continue with home dose of oxybutynin, tizanidine. (7) Hypothyroid: Appreciate TSH. Restart home dose of levothyroxine. Qualifiers: Hypothyroidism type: other Qualified Code(s): E03.8 - Other specified hypothyroidism (8) Neuropathic pain: Continue home TCA Continue home gabapentin Continue home muscle relaxers (9) Essential hypertension: Goal blood pressure less than 140/90 mmHg. Episode of hypotension during hospitalization. Blood pressure slightly improved today. Holding off on home dose of lisinopril. (10) Hallucination: (11) Rosemarie infection of flexural skin: Continue nystatin powder (12) Wheelchair dependent: Multiple sclerosis, wheelchair-bound at baseline (13) Lives in assisted living facility: (14) Multiple sclerosis: (15) Subdural hematoma: Minimal subdural hematoma and left Flanax seen on MRI. Discussed in detail with the neurologist. Hold off on any further heparin. Will repeat CT head if concerns for change in mentation. Plan CODE STATUS: Discussed in detail with the patient. Son will be the DPOA. Patient would want to remain full code so that family can visit her prior to discontinuation of care. Does not want to remain on life support for long. Continue with dysphagia level 5 diet. Heparin stopped in setting of very mild small subdural hematoma. SCDs. Plan for the day: Continue with telemetry monitoring. Monitor QTc daily. Improved to almost at baseline at 488 today. Continue with monitoring for medications for QTc prolongation. Restarting Celexa at a low dose of 10 mg daily today. Monitor electrolytes. Plan to keep potassium around 4, magnesium more than 2. Discussed in detail with cardiology. Patient had reported to cardiology that would not want any kind of invasive procedure. As per discussions and given her goals of care, baseline comorbidities patient would not benefit from event monitor as she would not be a candidate for pacemaker implantation without chronotropic study which unfortunately cannot be done on the patient as she is bedbound. Plan for now to continue monitoring QTc and heart rate for 24 more hours and if patient remains stable for possible discharge to SNF in a.m. tomorrow. Patient's care discussed in detail with son over the phone. All the questions were answered. Attestations 2 Medical Necessity Statement*: Requires further hospitalization for management of bradycardia in setting of prolonged QT in a patient admitted for altered mental status in setting of flare of multiple sclerosis and UTI, new diagnosis of Takotsubo cardiomyopathy Diagnoses Bradycardia R00.1 Long QT interval R94.31 Encephalopathy acute G93.40 Takotsubo cardiomyopathy I51.81 Multiple sclerosis exacerbation G35 Pseudomonas urinary tract infection N39.0; B96.5 Other specified hypothyroidism E03.8 Hypothyroidism type: other Neuropathic pain M79.2 Essential hypertension I10 Hallucination R44.3 Rosemarie infection of flexural skin B37.2 Wheelchair dependent Z99.3 Lives in assisted living facility Z59.3 Multiple sclerosis G35 Subdural hematoma S06.5XAA
--- NOTE | 2023-11-27 16:47 | USR_ITS ---
PROCEDURE INFORMATION: Exam: US Pelvis Transabdominal, Complete, and US Pelvis Transvaginal, Non-obstetric Exam date and time: 11/27/2023 5:10 PM Age: 73 years old Clinical indication: Menstruation abnormalities; Postmenopausal bleeding; Prior surgery; Surgery date: 6+ months; Surgery type: Partial hysterectomy; Additional info: Vaginal bleeding with clots TECHNIQUE: Imaging protocol: Real-time complete transabdominal and transvaginal pelvic ultrasound (non-obstetric) with image documentation. Transvaginal imaging was used for better evaluation of the endometrium, adnexa, and/or cervix. COMPARISON: CT kidney stone [id number] 07/03/2022 1:40 PM FINDINGS: Uterus: Status post hysterectomy. Right ovary/adnexa: The right ovary is not visualized. No adnexal masses are seen. Left ovary/adnexa: The left ovary is not visualized. No adnexal masses are seen. Intraperitoneal space: No intraperitoneal fluid. Urinary bladder: Large complex mass within the bladder measuring approximately 8.5 x 7.0 x 6.7 cm. There is apparent vascularity within the bladder mass. Portions of the mass may represent hematoma. US/US pelv w/transvag [id number] IMPRESSION: Large complex mass within the bladder measuring approximately 8.5 x 7.0 x 6.7 cm. Recommend urological consultation.
--- NOTE | 2023-11-27 16:58 | PC.NURSE ---
Upon rounding on pt at 1630, pt was found to have vaginal bleeding and had passed a large blood clot. Clot obtained in specimen cup and Dr. Fritz notified via voalte from [facility], [employer] at 1646. New orders placed for transvaginal U/S and a consult with Dr. Obando.
--- NOTE | 2023-11-27 17:01 | PC.NURSE ---
This nurse assumed care of pt at 1700.
[2023-11-27] MEDS: gabapentin 300 mg Capsule 600 MG PO (21:04)
[2023-11-27] MEDS: TRAMadol 50 mg Tablet PO (21:04)
[2023-11-27] MEDS: tizanidine 4 mg Tablet 8 MG PO (21:05)
[2023-11-27] MEDS: atorvastatin 40 mg Tablet PO (21:05)
--- NOTE | 2023-11-27 22:35 | P.PN_ITS ---
Subjective 2 Subjective: He denies any complaint Continues to have bradycardia heart rate in 40s to 50s no significant heart block Medications: Reviewed: Yes Vitals/I&O/Wt Last Vital Signs Temp 98.3 F 11/27/23 19:35 Pulse 56 L 11/27/23 22:32 Resp 18 11/27/23 19:35 BP 144/79 11/27/23 19:35 Pulse Ox 98 11/27/23 19:35 O2 Del Method Room Air 11/27/23 16:00 11/27/23 11/27/23 11/27/23 06:59 14:59 22:59 Intake Total 0 / 360 40 Balance 0 / 360 Weight last 48 hrs Weight 164 lb 1.6 oz Weight 166 lb 4.8 oz Physical Exam 2 Const: OTHER: GENERAL: Patient is fatigue, awake but oriented x3. HEART: Regular S1 and S2. No murmur, rub or gallop. LUNGS: Clear to auscultate bilaterally. CENTRAL NERVOUS SYSTEM: Grossly nonfocal. EXTREMITIES: Lower extremities without edema bilaterally. Data 11/27/23 03:00 11/27/23 03:00 Micro: Microbiology 11/21/23 06:20 Urine Culture - Final Urine,Clean Catch Yeast A&P Assessment and plan (1) Multiple sclerosis: (2) Troponin level elevated: NSTEMI with question stress induced vs CAD, pt refuses [facility] will treat medically Patient would like to be treated medically continue medical management (3) Essential hypertension: Controlled (4) LV dysfunction: Stress induced cardiomyopathy vs CAD,I have detail discussuion with patient she is not interested in pursuing invasive strategy and would not like to go for left heart cath, i asked if i can discuss with her son , she said for now she will discuss with him by herself . Beta veda was discontinued due to bradycardia, we will try low dose enteresto however her blood pressure is on the lower side, will closely monitor her for that Blood pressure has improved we will try to add Entresto from tomorrow Patient blood pressure remained on the lower side therefore were not able to initiate Entresto (5) Bradycardia: Continue to monitor, QTC is within normal limit, most likely QT prolongation is secondary to bradycardia however Dr Willingham's thought about anti depressant antipsychotic medicine holding may need to be considered Continue to monitor Attestations 2 Medical Necessity Statement*: As per medicine Coding Level of Care Code Acute Code for Chg Fwd Diagnoses Multiple sclerosis G35 Troponin level elevated R79.89 Essential hypertension I10 LV dysfunction I51.9 Bradycardia R00.1
[2023-11-28] VITALS (13 sets, daily range): BP systolic 58–156; BP diastolic 38–84; PULSE 44–67; RESP 15–18; TEMP 36.2–36.8; O2SAT 95–99
[2023-11-28 01:03] LABS: Basophils % 0.1 %; Eosinophils # 0.2 10^3/uL (0.0-0.8); Eosinophils % 1.5 %; Hematocrit 33.1 % (36-47); Lymphocytes # 1.4 10^3/uL (0.8-4.8); Lymphocytes % 9.1 %; Mean Corpuscular HGB Conc 31.7 g/dL (30-55); Mean Corpuscular Hemoglobin 30.7 pg (27-33); Mean Corpuscular Volume 96.8 fl (85-98); Mean Platelet Volume 10.9 fL (7.4-10.4); Monocytes # 0.7 10^3/uL (0.2-0.9); Monocytes % 4.9 %; Neutrophils # 12.59 10^3/uL (1.8-7.7); Neutrophils % 83.9 %; Nucleated Red Blood Cells % 0 %; Platelet Count 361 10^3/cmm (157-399); Red Blood Count 3.42 10^6/uL (3.85-5.65); Red Cell Distribution Width 13.9 % (12.1-15.1)
[2023-11-28] MEDS: sodium chloride 0.9% 1,000 ML 999 ML IV (01:03)
[2023-11-28 01:18] LABS: INR 1.08 (0.8-1.2)
[2023-11-28 01:23] LABS: Alanine Aminotransferase 19 U/L (0-33); Albumin Level 2.8 g/dL (3.5-5.2); Alkaline Phosphatase 80 U/L (35-105); Aspartate Amino Transferase 16 U/L (0-32); Blood Urea Nitrogen 13 mg/dL (8-23); Calcium 8.1 mg/dL (8.5-10.5); Carbon Dioxide 26 mmol/L (22-29); Chloride 106 mmol/L (98-107); Creatinine Clr Calc Pharmacy 69.3557; Glucose 123 mg/dL (65-115); Magnesium 2.3 mg/dL (1.7-2.3); Osmolality Calculated 291 mOsm/kg (285-295); Sodium 140 mmol/L (136-145); Total Bilirubin 0.3 mg/dL (0.15-1.2); Total Protein 4.8 g/dL (6.6-8.7)
[2023-11-28 01:24] LABS: Anion Gap 11.8 (5-19); Potassium 3.8 mmol/L (3.5-5.1)
[2023-11-28 01:34] LABS: Lactate (Lactic Acid level) 0.8 mmol/L (0.5-2.2)
--- NOTE | 2023-11-28 08:00 | ECG_ITS ---
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 Measurements Intervals [place] Rate: 64 P: 56 MT: 139 QRS: 60 QRSD: 100 T: 239 QT: 522 QTc: 542 Interpretive Statements SINUS RHYTHM MARKED T-WAVE ABNORMALITY, CONSIDER ANTEROLATERAL ISCHEMIA [-0.5+ mV T-WAVE IN I/aVL/V3-V6] MODERATE T-WAVE ABNORMALITY, CONSIDER INFERIOR ISCHEMIA [-0.1+ mV T-WAVE IN II/aVF] Compared to ECG 11/27/2023 08:26:06 Sinus bradycardia no longer present T-wave abnormality still present Possible ischemia still present Electronically Signed On 11-28-2023 10:34:09 CDT by Rush Maciel M.D. [id number]
[2023-11-28] MEDS: aspirin 81 mg Chew Tablet PO (08:57)
[2023-11-28] MEDS: clopidogrel 75 mg Tablet PO (08:57)
[2023-11-28] MEDS: citalopram 20 mg Tablet 10 MG PO (08:57)
[2023-11-28] MEDS: levothyroxine 100 mcg Tablet PO (08:57)
[2023-11-28] MEDS: TRAMadol 50 mg Tablet PO (09:02)
--- NOTE | 2023-11-28 09:36 | CT_ITS ---
WS: [id number] CT ABDOMEN AND PELVIS WITH CONTRAST HISTORY: possible bladder mass TECHNIQUE: Imaging performed of the abdomen and pelvis with IV contrast. Single phase imaging of the abdomen. Coronal and sagittal reformats are submitted. All CT scans at [facility] use at [address] one of these dose optimization techniques: automated exposure control; mA and/or kV adjustment per patient size (includes targeted exams where dose is matched to clinical indication); or iterative re construction. IV CONTRAST: Omnipaque 350; 100 mL IV. Oral contrast: No DLP: 1194.31 mGy.cm COMPARISON: Ultrasound 11/27/2023, CT 07/03/2022 Lower thorax: Small bilateral layering pleural effusions. Breathing motion artifact. Heart is normal size. No hiatal hernia. Liver/biliary system: Normal size. Focal fatty sparing along the falciform ligament. Normal portal ve in. Gallbladder: Prior cholecystectomy. Pancreas: Normal size pancreas and pancreatic duct. No adjacent inflammation. Spleen: Normal size spleen. No mass or infarct. Adrenal glands: Very tiny nodule in the LEFT adrenal gland. Negative RIGHT adrenal gland. Right kidney: Normal size kidney. Development of mild RIGHT hydronephrosis since the prior study with dilated ureter to the bladder. Left kidney: Normal size. Interval development of mild hydronephrosis with dilated ureter to the blad rajiv. Aorta: Mild atherosclerosis with no aneurysm. Moderate stenosis celiac axis. SMA is patent. Lymphadenopathy: None. Free fluid: None. GI tract: Mildly distended stomach with fluid. No small bowel obstruction. Diffuse moderate constipat ion. Appendix is visualized and normal size. No adjacent inflammation. Abdominal wall: Hazy fat stranding RIGHT abdominal wall is probably an injection site. No abscess. Pelvis: Urinary bladder is markedly distended. There is mild asymmetric bladder wall thickening great est on the RIGHT. There is an irregular soft tissue density in the dependent portion of the urinary b ladder measuring 2.1 x 6.5 x 4.9 cm. Irregular shaped in the dependent portion. The ureters are ident ified which are dilated to the urinary bladder. Bones: Posterior lumbar fusion at L4-5. Mild degenerative scoliosis. Prior hysterectomy. Diffuse sarcopenia. CT/CT abdomen pelvis w con* [id number] IMPRESSION: 1. Small bilateral pleural effusions. 2. Irregular soft tissue in the dependent portion of the urinary bladder measu res 2.1 x 6.[address] exam was not obtained with and without contrast ther efore cannot evaluate enhancement of the irregular soft tissue in the bladder. This could be a bladder neoplasm or evolving blood products in the urinary blad rajiv. 3. Development of mild hydroureteronephrosis since 07/03/2022. Ureters are dila jose to the urinary bladder. May be an obstructing neoplasm distally. Part of th e hydroureter may be due to an overly distended urinary bladder also. 4. Diffuse constipation. 5. Prior cholecystectomy. 6. Moderate stenosis
[2023-11-28] MEDS: iohexol 350 mg/mL 500 mL Btl (per mL) IV (10:23)
--- NOTE | 2023-11-28 13:47 | P.DS_ITS ---
Discharge Providers Date of Admission: 11/16/23 16:31 Date of Discharge: November 28, 2023 Attending Provider at Admission: Papito Castillo MD Attending Provider at Discharge: Baljinder Santoyo MD Primary Care Provider: CAMMY Jimenez Diagnoses at Discharge Discharge Diagnosis (1) Multiple sclerosis: Status: Acute Permanent problem details: Dr. Jc Metz in [place], [place] (2) Troponin level elevated: Status: Acute (3) Essential hypertension: Status: Chronic (4) LV dysfunction: Status: Acute (5) Bradycardia: Status: Acute Reason for Visit Reason for Visit: SOB Brief History: Valery Triana is a 73 year old female with a past medical history significant for recurrent urinary tract infections, hypothyroidism, and multiple other comorbidities who presented with anxiety and shortness of breath. She was reportedly given Ativan prior to her presentation to the ER by EMS. She was found to be significantly altered upon presentation. She was treated with IV fluids. Further workup revealed a urinary tract infection. Patient seen and evaluated on medical floor. She is now awake and alert. She reports some shortness of breath and anxiety earlier this morning at the nursing facility. Reports some mild abdominal discomfort. Exertion worsens symptoms. Rest improves Hospital Course Hospital Course Patient was open to the hospital for further evaluation and management of altered mental status /Hallucinations in setting of UTI with concerns for possible exacerbation of multiple sclerosis. She was started on broad-spectrum antibiotics, IV fluids and high-dose steroids after consultation from neurology. Her depression medications were changed from nortriptyline to citalopram and Zyprexa to avoid psychosis while being on high-dose steroids. Her hospitalization was complicated by her found to have elevated troponins for which echocardiogram was done which showed a new EF of 30 to 35% with changes concerning for Takotsubo. Cardiology was consulted and she was started on medication as per ACS protocol along with IV heparin drip. On high-dose steroids and changes in the psych medications patient mentation gradually improved and currently she is back to her baseline mentation for over a week. Patient is usually bedbound, needing help with ADLs and is AOx3 but soft and slow to respond. She has been having occasional episodes of confusion but is directable. Further goals of care discussion with demented with patient and patient's son/DPOA Mr. Killian over the phone. Patient did not want any kind of invasive procedures hence medical management for Takotsubo along with concerns for ACS were continued. Hospitalization was further complicated by her developing bradycardia in setting of prolonged QT for which multiple medications including fluconazole, oxybutynin, Zyprexa were discontinued and dose of Celexa was reduced. Patient was monitored on telemetry on which she remained stable. Patient also developed per vagina bleeding with clots for which further investigations were done with pelvic ultrasound and CT scan which were concerning for irregular soft tissue in urinary bladder at dependent part with concern for irregular thickening, mild hydroureteronephrosis along with dilatation urinary bladder with concerns for blockage distally at the urinary bladder site concerning for possible blood clot versus obstructive neoplasm. Further management with possible need of cystoscopy, biopsy and possible diagnosis of cancer were discussed in detail with patient and patient's son. Patient did not want any kind of invasive procedures and treatment. Given the the baseline comorbidities in setting of significant multiple sclerosis with involvement of the spine, baseline quality of life, new diagnosis of Takotsubo cardiomyopathy with EF 35% with possible bladder mass with possibility of malignancy goals of care discussions were done in detail with the patient and son over the phone. Patient did not want any kind of further invasive procedures. Both son and patient verbalized understanding and wants hospice to be set up for patient's comfort. With to discuss hospice would mean continuation of oral medications if and when patient is able to take along with antianxiety and pain medications when patient needs along with continuation of care at the facility if and when patient gets sick while nature takes its course. Son verbalized understanding and wants to go ahead with set up of hospice. She is discharged in hemodynamically stable condition after Mckeon catheter has been placed back to [facility] on hospice for management as per goals of care discussions. Physical Exam Narrative: General: AOx3, no acute distress, on room air Head: Normocephalic. Atraumatic. EOM intact. Masked facies. Cardiovascular: RRR. No gallops. No murmurs. No peripheral edema. Lungs: Clear to auscultation, no use of accessory muscles, no crackles or wheezes. Abdomen: Normal bowel sounds, abdomen soft and nontender. Extremities: No cyanosis or clubbing. Musculoskeletal: No swollen or erythematous joints. Neurological: No myoclonus. Limited movement in all extremities. Spastic quadriplegia. Discharge Data Studies Completed and Pending Completed Studies During Hospitalization Category Date Time Status CT abdomen pelvis w con* [id number] Routine Cat Scan 11/28/23 09:[address] head wo con* [id number] Stat Cat Scan 11/20/23 14:[address] head wo con* [id number] Stat Cat Scan 11/21/23 05:[address] neck w con* [id number] Urgent Cat Scan 11/21/23 07:58 Completed CXRP [XR chest 1V portable [id number]] Routine Exams 11/21/23 11:31 Completed XR chest 1V portable [id number] Routine Exams 11/21/23 05:29 Completed XR chest 1V portable [id number] Stat Exams 11/15/23 06:21 Completed MR head wo/w con [id number] Routine MRI 11/25/23 09:30 Completed CV. echo complete* [id number] Routine Ultrasound 11/21/23 05:25 Completed US pelv w/transvag [id number] Routine Ultrasound 11/27/23 16:47 Completed Pending at discharge Category Date Time Status EEG electroencephalogram Routine Exams 11/21/23 05:29 Ordered Fungal Culture not HR/SK/BL Routine Lab 11/27/23 13:58 Received Radiology Impressions Head CT 11/21/23 05:22 IMPRESSION: Stable areas of low attenuation in the frontal lobes likely due to chronic microvascular ischemic change. Otherwise no evidence of acute intracranial process. Neck CT 11/21/23 07:58 IMPRESSION: 1. Moderate spondylitic changes cervical spine with mild central canal stenosis C3-C4 C4-C5 and C5-C6 due to disc osteophyte complexes. 2. No cervical lymphadenopathy. 3. Normal salivary glands. Chest X-Ray 11/21/23 11:31 IMPRESSION: PICC line placement as above. Head MRI 11/25/23 09:30 IMPRESSION: 1. No evidence of restricted diffusion to suggest acute ischemia. 2. Moderate patchy supra and infratentorial white matter changes compatible with history of demyelinating disease and likely superimposed small vessel changes in a patient of this age. 3. No enhancing lesions to indicate active disease. 4. Suspected tiny trace of subdural blood products along the LEFT falx with increased FLAIR and T1 signal. 5. Additional partially visualized demyelinating lesions within the midbrain yasir cervical medullary junction and upper cervical cord. This can be followed up with MRI without and with gadolinium on an elective basis. No prior cervical spine MRI for comparison 6. Mild parenchymal volume loss. 7. No significant atrophy of the corpus callosum. 8. No hemosiderin on susceptibly weighted images. Notified Baljinder Santoyo MD at 11/26/2023 9:20 AM. Pelvic/Transvag US 11/27/23 16:47 IMPRESSION: Large complex mass within the bladder measuring approximately 8.5 x 7.0 x 6.7 cm. Recommend urological consultation. Abdomen/Pelvis CT 11/28/23 09:36 IMPRESSION: 1. Small bilateral pleural effusions. 2. Irregular soft tissue in the dependent portion of the urinary bladder measures 2.1 x 6.[address] exam was not obtained with and without contrast therefore cannot evaluate enhancement of the irregular soft tissue in the bladder. This could be a bladder neoplasm or evolving blood products in the urinary bladder. 3. Development of mild hydroureteronephrosis since 07/03/2022. Ureters are dilated to the urinary bladder. May be an obstructing neoplasm distally. Part of the hydroureter may be due to an overly distended urinary bladder also. 4. Diffuse constipation. 5. Prior cholecystectomy. 6. Moderate stenosis Laboratory Results WBC 15.00 10^3/uL (3.29-11.43) H 11/28/23 00:44 Corrected WBC Cancelled 11/24/23 05:23 RBC 3.42 10^6/uL (3.85-5.65) L 11/28/23 00:44 Hgb 10.50 g/dL (11.27-16.99) L 11/28/23 00:44 Hct 33.1 % (36-47) L 11/28/23 00:44 MCV 96.8 fl (85-98) 11/28/23 00:44 MCH 30.7 pg (27-33) 11/28/23 00:44 MCHC 31.7 g/dL (30-55) 11/28/23 00:44 RDW 13.9 % (12.1-15.1) 11/28/23 00:44 Plt Count 361 10^3/cmm (157-399) 11/28/23 00:44 MPV 10.9 fL (7.4-10.4) H 11/28/23 00:44 Gran % Cancelled 11/24/23 05:23 Neut % (Auto) 83.9 % 11/28/23 00:44 Lymph % (Auto) 9.1 % 11/28/23 00:44 [place] % (Auto) 4.9 % 11/28/23 00:44 Eos % (Auto) 1.5 % 11/28/23 00:44 Baso % (Auto) 0.1 % 11/28/23 00:44 Neut # (Auto) 12.59 10^3/uL (1.8-7.7) H 11/28/23 00:44 Lymph # (Auto) 1.4 10^3/uL (0.8-4.8) 11/28/23 00:44 [place] # (Auto) 0.7 10^3/uL (0.2-0.9) 11/28/23 00:44 Eos # (Auto) 0.2 10^3/uL (0.0-0.8) 11/28/23 00:44 Baso # (Auto) 0.0 10^3/uL (0.0-0.1) 11/28/23 00:44 Absolute Gran (auto) Cancelled 11/24/23 05:23 Nucleated RBC % (auto) 0 % 11/28/23 00:44 Nucleated RBCs # 0.0 /100WBC 11/28/23 00:44 ESR 46 mm/hr (0-15) H 11/21/23 04:29 PT 14.30 SECONDS (12.1-14.9) 11/28/23 00:44 INR 1.08 (0.8-1.2) 11/28/23 00:44 APTT 65.7 SECONDS (23.9-36.7) H 11/23/23 13:40 Specimen Type Arterial 11/21/23 04:59 Sample Site Radial, right 11/21/23 04:59 ABG pH 7.47 (7.35-7.45) H 11/21/23 04:59 ABG pCO2 38.7 mmHg (35-45) 11/21/23 04:59 ABG pO2 65.3 mmHg (80.0-100.0) L 11/21/23 04:59 ABG PO2/FiO2 Ratio 310 11/21/23 04:59 ABG HCO3 28.2 mmol/L (22-26) H 11/21/23 04:59 ABG Base Excess 4.2 mmol/L (-2.0-2.0) H 11/21/23 04:59 Rudy Test Pos 11/21/23 04:59 Hematocrit 33.9 % (37-47) L 11/21/23 04:59 O2 Delivery Device Room air 11/21/23 04:59 FiO2 21.0 % 11/21/23 04:59 Side Hemmer ID jlb 11/21/23 04:59 Sodium 140 mmol/L (136-145) 11/28/23 00:44 Potassium 3.8 mmol/L (3.5-5.1) 11/28/23 00:44 Chloride 106 mmol/L (98-107) 11/28/23 00:44 Carbon Dioxide 26 mmol/L (22-29) 11/28/23 00:44 Anion Gap 11.8 (5-19) 11/28/23 00:44 BUN 13 mg/dL (8-23) 11/28/23 00:44 Creatinine 0.4 mg/dL (0.5-0.9) L 11/28/23 00:44 GFR Calculation Not Reportable 11/28/23 00:44 Glucose 123 mg/dL (65-115) H 11/28/23 00:44 POC Glucose 184 mg/dL (70-110) H 11/21/23 04:48 Estimat Average Glucose 120 11/24/23 06:28 Hemoglobin A1c 5.8 % (4.0-6.0) 11/24/23 06:28 Calculated Osmolality 291 mOsm/kg (285-295) 11/28/23 00:44 Lactic Acid 1.0 mmol/L (0.5-2.2) 11/21/23 04:57 Lactate 0.8 mmol/L (0.5-2.2) 11/28/23 00:44 Calcium 8.1 mg/dL (8.5-10.5) L 11/28/23 00:44 Magnesium 2.3 mg/dL (1.7-2.3) 11/28/23 00:44 Iron 177 ug/dL (37-145) H 11/23/23 06:34 TIBC 194 mcg/dl 11/23/23 06:34 % Saturation 91.2 % (20-50) H 11/23/23 06:34 Unsat Iron Binding < 17 ug/dL (112-347) L 11/23/23 06:34 Total Bilirubin 0.3 mg/dL (0.15-1.2) 11/28/23 00:44 AST 16 U/L (0-32) 11/28/23 00:44 ALT 19 U/L (0-33) 11/28/23 00:44 Alkaline Phosphatase 80 U/L (35-105) 11/28/23 00:44 Ammonia 37 umol/L (11-51) 11/21/23 04:57 Creatine Kinase 46 U/L (26-192) 11/21/23 04:57 Troponin T Baseline 200 ng/L (0-10) H* 11/21/23 04:29 Troponin T 120 Minute 178.4 ng/L (0-10) H 11/21/23 06:54 Delta Troponin T -21.6 ABS# (0-10) L 11/21/23 06:54 Troponin T Hi Sens 6Hr 172.7 ng/L (0-10) H 11/21/23 10:07 Troponin T Hi Sens 6Hr Delta -27.3 ng/L (0-12) L 11/21/23 10:07 C-Reactive Protein 14.1 mg/L (0.0-4.9) H 11/21/23 04:57 Total Protein 4.8 g/dL (6.6-8.7) L 11/28/23 00:44 Albumin 2.8 g/dL (3.5-5.2) L 11/28/23 00:44 Globulin 2.0 g/dL (1.3-4.6) 11/28/23 00:44 Vitamin B12 585 pg/mL (232-1245) 11/23/23 06:34 Procalcitonin 0.18 ng/mL (0-0.5) 11/21/23 04:57 TSH 0.28 uIU/mL (0.27-4.20) 11/21/23 04:51 Prolactin 13.53 ng/mL (4.8-23.3) 11/21/23 04:51 Urine Color Yellow (Yellow) 11/21/23 06:20 Urine Appearance Error (CLEAR) A 11/21/23 06:20 Urine pH 5.5 (5-7) 11/21/23 06:20 Ur Specific [place] 1.018 (1.005-1.030) 11/21/23 06:20 Urine Protein 2+ (Negative) A 11/21/23 06:20 Urine Glucose (UA) Negative (Normal) 11/21/23 06:20 Urine Ketones Negative (Negative) 11/21/23 06:20 Urine Blood 2+ (Negative) A 11/21/23 06:20 Urine Nitrate Negative (Negative) 11/21/23 06:20 Urine Bilirubin Negative (Negative) 11/21/23 06:20 Urine Urobilinogen 1.0 mg/dL (Negative) 11/21/23 06:20 Ur Leukocyte Esterase 3+ (Negative) A 11/21/23 06:20 Urine RBC 21-50 /hpf (0-2) H 11/21/23 06:20 Urine WBC >100 /hpf (0-5) H 11/21/23 06:20 Ur Squamous Epith Cells 11-20 /hpf (0-5) 11/21/23 06:20 Amorphous Sediment Not Reportable 11/21/23 06:20 Urine Bacteria 2+ /hpf (NONE) H 11/21/23 06:20 Hyaline Casts 5.22 /lpf 11/21/23 06:20 Urine Yeast 1+ /hpf H 11/15/23 06:35 Coronavirus (PCR) Negative (Negative) 11/21/23 06:04 Influenza A (PCR) Negative (Negative) 11/21/23 06:04 Influenza Type B (PCR) Negative (Negative) 11/21/23 06:04 RSV (PCR) Negative (Negative) 11/21/23 06:04 Blood Type A Positive 11/28/23 00:44 Rho(D) Type Rh positive 11/28/23 00:44 Antibody Screen Negative 11/28/23 00:44 Vitals Last Vital Signs Temp 98.2 F 11/28/23 11:45 Pulse 65 11/28/23 11:45 Resp 16 11/28/23 11:45 BP 146/73 11/28/23 11:45 Pulse Ox 96 11/28/23 11:45 O2 Del Method Room Air 11/28/23 11:45 Discharge Plan Discharge Patient Disposition: Hospice - Medical Facility Condition: Stable Prescriptions: New atorvastatin 40 mg Tablet 40 mg PO BEDTIME Qty: 30 0RF citalopram 20 mg Tablet 10 mg PO DAILY Qty: 30 0RF aspirin 81 mg Tablet,Chewable 81 mg PO DAILY Qty: 30 0RF Continued MediHoney (honey) 100 % paste 1 applic topical DAILY Qty: 103 0RF zinc oxide 5 % cream 1 applic topical .2 times day Qty: 177.4 0RF (DME) [id number] is a patient lift, electric, with seat or sling. See Rx Instructions .Route .MEDSUPPLY Qty: 1 0RF Rx Instructions: As directed levothyroxine 100 mcg tablet See Rx Instructions PO .COMPLEX Qty: 100 1RF Rx Instructions: 150mcg 1 day week 100mcg 6 days orally; lisinopril 2.5 mg tablet 2.5 mg PO .at 2pm Qty: 90 1RF methenamine hippurate 1 gram tablet 1 g PO Q12H Qty: 180 1RF Rx Instructions: take with vitamin C tramadol 50 mg tablet 100 mg PO BID Qty: 360 1RF Saccharomyces boulardii [Florastor] 250 mg capsule 250 mg PO BID Qty: 60 0RF ascorbate calcium (vitamin C) 500 mg tablet 500 mg PO BID Qty: 180 1RF Rx Instructions: take with methenamine Vitamin C 1,500mg, D 5,000IU, Zinc 40mg See Rx Instructions .ROUTE .COMPLEX Qty: 60 0RF Rx Instructions: One tab by mouth, two times daily acetaminophen 500 mg Tablet 500 - 1,000 mg PO Q6H PRN (Reason: Pain) nystatin [Nyamyc] 100,000 unit/gram Powder 1 applic TOPICAL BID gabapentin 600 mg tablet 600 mg PO QPM Rx Instructions: Neurology writing tizanidine 4 mg tablet 8 mg PO QPM Rx Instructions: neurology writing baclofen 20 mg tablet 20 mg PO TID PRN (Reason: Pain) Colace 100 mg capsule 100 mg PO DAILY multivitamin Tablet 2 tab PO DAILY Discontinued oxybutynin chloride 5 mg tablet 5 mg PO BID Qty: 60 0RF Rx Instructions: neurology writing nortriptyline 10 mg Capsule 30 mg PO QPM Discharge Orders: Discharge Order (Routine); Ordered 11/28/23 Ordered By: Baljinder Santoyo Referrals: Makayla Galvez, [employer] [Primary Care Provider] - Discharge Diet: As Directed Discharge Activity: Resume usual activity and Increase activity as tolerated Patient Instructions: Opioid Safety Activity Restrictions/Additional Instructions: Dysphagia level 5 diet Discharge Attestations Time Spent in Discharge Care*: greater than 30 min Specific Discharge Activities: educating patient, educating and/or supporting family/caregiver, discussing with pcp/other providers, discussing with nurse case management/social workers/dc planners, documenting/other paperwork and evaluating patient/reviewing data Status at Discharge: Cognitive status at discharge: cognitively intact , Behavioral status at discharge: cooperative , Functional status at discharge: bed bound , Overall status at discharge: patient is not back to baseline Quality Metrics Clinical Quality Measures [ No reported AMI, CVA or VTE this stay] Coding Level of Care Code 84380 Total time (in minutes) for Discharge: 60 Diagnoses Multiple sclerosis G35 Troponin level elevated R79.89 Essential hypertension I10 LV dysfunction I51.9 Bradycardia R00.1
--- NOTE | 2023-11-28 14:50 | PC.SOCIAL ---
IMM Updated Updated pt's son on IMM. No questions voiced. Provided pt a copy. Initialed, dated, & timed copy in chart.
--- NOTE | 2023-11-28 20:15 | PC.NURSE ---
Called [facility] for ETA for transport. Spoke to Lorne who stated they were running E calls first, but they had not forgotten transport for the patient.
[2023-11-28] MEDS: atorvastatin 40 mg Tablet PO (20:21)
[2023-11-28] MEDS: tizanidine 4 mg Tablet 8 MG PO (20:21)
[2023-11-28] MEDS: gabapentin 300 mg Capsule 600 MG PO (20:21)
[2023-11-28] MEDS: nystatin powder 15 gm Btl 1 APPLIC TOPICAL (20:21)
--- NOTE | 2023-11-28 22:43 | PC.NURSE ---
EMS here to transport pt to [facility], when taking VS pt is found to be hypotensive 58/38. Dr. Mclaughlin called and came to see pt. Pt does not want to d/c back to facility, and does not want to be on hospice. NO received and noted to 1) start IV 2) Midodrine 10mg PO x 1 dose now. Pt to remain in hospital tonight.
--- NOTE | 2023-11-28 23:10 | P.PNCC_ITS ---
Critical Care Event Note The high probability of a clinically significant, sudden or life threatening deterioration of the patient's [] system(s) required my full and direct attention, intervention and personal management. The critical care time is as shown. This time is in addition to time spent performing any reported procedures but includes the following: [x] Data and vital sign review and interpretation [x] Patient assessment, examination and intervention [x] Documentation [x] Medication orders and management Critical Care Time Code activated: No Critical Care Time (min): 35 Additional information about critical care time: Patient was examined as she had a systolic blood pressure of 54/30 -Patient was examined she is alert oriented x 3, following all commands has no complaints -Placed in Trendelenburg -She does not have an IV -Transport is at bedside awaiting to pick her up -She remains a full code -We discussed goals of care she tells me that she wants to talk to her family m melita about hospice at the long-term care facility but she is not ready to commit to hospice right now she wants to remain a full code -Patient is concerned about being transported back to facility with such a low blood pressure she will be sent right back -Currently denies any headache, no blurry vision, no nausea, no vomiting no chest pain, no shortness of breath -We discussed monitoring her overnight and possibly reattempting transfer tomorrow -I think likely her low blood pressures a combination of the muscle relaxant and the gabapentin that she received she also has autonomic dysfunction with her multiple sclerosis, she also has a bladder mass for which she develops acute anemia, and her EF is 30% -Discussed with nursing staff keep her in Trendelenburg for at least 15 minutes, repeat blood pressure in 15 minutes -Obtain an IV -Will give her 10 mg p.o. midodrine -Monitor her closely once we obtain an IV, will consider getting blood work and further fluid therapy based on clinical progress ? No bloody or black stools, no bloody vaginal bleeding, -If her blood pressures are stable, will consider transporting her in the morning back to the facility -After discussing the risk and benefits, she voiced understanding, all questions answered, agreed to proceed Coding Level of Care Code Acute Code for Augie Weeks
[2023-11-28] MEDS: midodrine 5 mg TABLET 10 MG PO (23:21)
--- NOTE | 2023-11-28 23:22 | PC.NURSE ---
Notified Herman from [facility] of patient being held overnight, as well as Anthony at [facility]. Midodrine administered per orders. Dr. Mclaughlin updated on b/p status, and IV access being obtained.
--- NOTE | 2023-11-28 23:46 | P.PN_ITS ---
Subjective 2 Subjective: Please note that patient was seen in the morning around Alfonso Stubbs MD Appear to be resting, continues to have bradycardia, QTc is prolonged Medications: Reviewed: Yes Vitals/I&O/Wt Last Vital Signs Temp 98.1 F 11/28/23 23:38 Pulse 50 L 11/28/23 23:38 Resp 16 11/28/23 23:38 BP 66/38 11/28/23 23:18 Pulse Ox 95 11/28/23 23:38 O2 Del Method Room Air 11/28/23 23:38 11/28/23 11/28/23 11/29/23 14:59 22:59 06:59 Intake Total 118 / 118 120 / 238 Output Total 500 / 500 Balance 118 / 118 -380 / -262 Weight last 48 hrs Weight 160 lb 4.8 oz Weight 164 lb 1.6 oz Physical Exam 2 Const: OTHER: GENERAL: Patient is fatigue, awake but oriented x3. HEART: Regular S1 and S2. No murmur, rub or gallop. LUNGS: Clear to auscultate bilaterally. CENTRAL NERVOUS SYSTEM: Grossly nonfocal. EXTREMITIES: Lower extremities without edema bilaterally. Urinary Catheter Management: Mckeon: Cath Placed During This Visit: yes Reason for Continuing Indwelling Catheter: Hospice/Comfort/Palliative Care Urinary Catheter Date of Insertion: 11/28/23 Urinary Catheter Time of Insertion: 16:45 Data 11/28/23 00:44 11/28/23 00:44 A&P Assessment and plan (1) Multiple sclerosis: (2) Troponin level elevated: NSTEMI with question stress induced vs CAD, pt refuses [facility] will treat medically Patient would like to be treated medically continue medical management Patient continues to be treated conservatively without any intervention will continue current regimen (3) Essential hypertension: Controlled (4) LV dysfunction: Stress induced cardiomyopathy vs CAD,I have detail discussuion with patient she is not interested in pursuing invasive strategy and would not like to go for left heart cath, i asked if i can discuss with her son , she said for now she will discuss with him by herself . Beta veda was discontinued due to bradycardia, we will try low dose enteresto however her blood pressure is on the lower side, will closely monitor her for that Blood pressure has improved we will try to add Entresto from tomorrow Patient blood pressure remained on the lower side therefore were not able to initiate Entresto Patient is not interested in any further treatment (5) Bradycardia: Continue to monitor, QTC is within normal limit, most likely QT prolongation is secondary to bradycardia however Dr Willingham's thought about anti depressant antipsychotic medicine holding may need to be considered Continue to monitor may consider dopamine if patient willing to do so (6) Long QT interval: Patient has prolonged QT and QTc underlying possibility ischemia bradycardia electrolyte imbalance, patient since not interested in any further invasive or advanced medical therapy however may add magnesium oxide and avoid QT prolongation medication which was already stopped Attestations 2 Medical Necessity Statement*: As per medicine Coding Level of Care Code Acute Code for Chg Fwd Diagnoses Multiple sclerosis G35 Troponin level elevated R79.89 Essential hypertension I10 LV dysfunction I51.9 Bradycardia R00.1 Long QT interval R94.31
[2023-11-29] MEDS: sodium chloride 0.9% 250 ML 999 ML IV (00:31)
[2023-11-29 00:52] VITALS: BP 90/60
[2023-11-29] MEDS: magnesium lactate 84 mg Tablet PO ×2 (01:13→11:55)
[2023-11-29 04:00] VITALS: BP 130/72; PULSE 51; RESP 16; TEMP 36.6; O2SAT 97
[2023-11-29 05:05] VITALS: PULSE 41
[2023-11-29 07:36] VITALS: BP 148/74; PULSE 55; RESP 16; TEMP 36.9; O2SAT 96
[2023-11-29] MEDS: aspirin 81 mg Chew Tablet PO (08:40)
[2023-11-29] MEDS: levothyroxine 100 mcg Tablet PO (08:40)
[2023-11-29] MEDS: citalopram 20 mg Tablet 10 MG PO (08:40)
[2023-11-29] MEDS: TRAMadol 50 mg Tablet PO (08:44)
[2023-11-29] MEDS: ondansetron 2 mg/ML SDV 2 mL 4 MG IVP (11:23)
[2023-11-29 11:25] VITALS: BP 155/83; PULSE 69; RESP 16; TEMP 36.9; O2SAT 99
[2023-11-29 13:44] VITALS: BP 155/83; PULSE 69; RESP 16; TEMP 36.9; O2SAT 99
--- NOTE | 2023-11-29 15:57 | P.PN_ITS ---
Subjective 2 Subjective: Patient was discharged yesterday but could not leave because of transportation issues till 11 PM. At that time she had episode of hypotension which was thought to be in setting of polypharmacy due to autonomic dysfunction with multiple sclerosis. Since then her blood pressures have remained stable. Patient denies any new complaints. Denies any nausea, ting, headache. Laying comfortably in bed. Awake and alert. Did have mild episode of nausea and vomiting earlier today morning but tolerated her breakfast. Blood pressures have remained stable with last blood pressure of 155 over 80 mmHg Medications: Reviewed: Yes Vitals/I&O/Wt Last Vital Signs Temp 98.4 F 11/29/23 13:44 Pulse 69 11/29/23 13:44 Resp 16 11/29/23 13:44 BP 155/83 11/29/23 13:44 Pulse Ox 99 11/29/23 13:44 O2 Del Method Room Air 11/29/23 11:25 11/29/23 11/29/23 11/29/23 06:59 14:59 22:59 Intake Total 250 / 488 170 / 170 Output Total 475 / 975 1050 / 1050 Balance -225 / -487 -880 / -880 Weight last 48 hrs Weight 68.991 kg Weight 72.711 kg Physical Exam 2 Narrative: General: AOx3, no acute distress, on room air Head: Normocephalic. Atraumatic. EOM intact. Masked facies. Cardiovascular: RRR. No gallops. No murmurs. No peripheral edema. Lungs: Clear to auscultation, no use of accessory muscles, no crackles or wheezes. Abdomen: Normal bowel sounds, abdomen soft and nontender. Extremities: No cyanosis or clubbing. Musculoskeletal: No swollen or erythematous joints. Neurological: No myoclonus. Limited movement in all extremities. Spastic quadriplegia. Urinary Catheter Management: Mckeon: Cath Placed During This Visit: yes Reason for Continuing Indwelling Catheter: Assist Healing of Perineal & Sacral Wounds- Incontinent Patients Urinary Catheter Date of Insertion: 11/28/23 Urinary Catheter Time of Insertion: 16:45 Data 11/28/23 00:44 11/28/23 00:44 A&P Assessment and plan (1) Essential hypertension: Goal blood pressure less than 140/90 mmHg. Episode of hypotension during hospitalization. Blood pressure slightly improved today. Holding off on home dose of lisinopril. (2) Bradycardia: Most likely in setting of prolonged QT. Persistent bradycardia. Heart rate overnight while sleeping dipping down to high 30s. Patient complaining of occasional confusion though difficult to say if it is because of bradycardia. Awake and alert otherwise. Not on beta-veda. Holding off on fluconazole, olanzapine, oxybutynin which together can cause prolonged QT in setting of citalopram. Monitor EKG daily. This is slightly improved today. Holding off on Celexa for 1 more day. Will restart Celexa in next 24 hours at a lower dose of 10 mg daily. Continue with telemetry. Appreciate cardiology recommendations. (3) Long QT interval: Discontinued fluconazole, Zyprexa and oxybutynin as together with citalopram it can cause prolonged QT. Daily EKGs to monitor for QT prolongation. Baseline QTc of around 462 on admission. Down to 49 today. Telemetry. (4) Encephalopathy acute: Patient back to baseline. AO x 3. Most likely in setting of UTI along with flare of multiple sclerosis on admission. Continue to monitor. Supportive care. Fall precaution. Resolved. Continue with home dose of baclofen as needed. Holding off on Zyprexa and nortriptyline for now given concerns for QT prolongation. Hold off on Celexa for today. Monitor QTc. Most likely will restart Celexa in next 24 hours at a lower dose of 10 mg daily. Less likely seizure disorder as per neurology. Keppra discontinued on 11/23. (5) Takotsubo cardiomyopathy: Echocardiogram shows new EF of 30 to 45% with concerns for Takotsubo, grade 1 diastolic function. Appreciate cardiology recommendations. Patient denies any chest pain. Today having bradycardia. On further discussion patient is okay with cardiac angiogram if needed today. Will discuss further with cardiology. Will discuss further with patient's DPOA/son. Patient does have significantly poor quality of life because of worsening multiple sclerosis. Continue with aspirin,, statin. Hold off on Plavix given small subdural hematoma seen on MRI. Appreciate A1c, lipid panel. Hold off on prophylactic dose of heparin. Currently bradycardic so we will hold off on adding beta-veda. Blood pressure occasionally soft so we will hold off on adding EMILIE/ARB. (6) Multiple sclerosis exacerbation: Follows up with neurology at [facility]. Appreciate neurology recommendations. Mild concerns for PML. Appreciate MRI head results with changes concerning for demyelinating disorders, trace subdural hematoma and left flaks, possible edema at any lesion in cervical medullary junction and upper cervical cord. Patient has finished 5-day course of high-dose IV steroid on 11/23. Hold off on any further steroids. Celexa as above. (7) Pseudomonas urinary tract infection: Current urinalysis consistent with UTI. History of Pseudomonas UTI in the past. Appreciate sensitivities. Urine culture so far negative. Patient has received appropriate IV antibiotics for around 7 days now. She was admitted on IV Zosyn which was switched to meropenem on 11/20. Will hold off any further antibiotics. Continue with home dose of oxybutynin, tizanidine. (8) Hypothyroid: Appreciate TSH. Restart home dose of levothyroxine. Qualifiers: Hypothyroidism type: other Qualified Code(s): E03.8 - Other specified hypothyroidism (9) Neuropathic pain: Continue home TCA Continue home gabapentin Continue home muscle relaxers (10) Hallucination: (11) Rosemarie infection of flexural skin: Continue nystatin powder (12) Wheelchair dependent: Multiple sclerosis, wheelchair-bound at baseline (13) Lives in assisted living facility: (14) Subdural hematoma: Minimal subdural hematoma and left Flanax seen on MRI. Discussed in detail with the neurologist. Hold off on any further heparin. Will repeat CT head if concerns for change in mentation. Plan CODE STATUS: Discussed in detail with the patient. Son will be the DPOA. Patient would want to remain full code so that family can visit her prior to discontinuation of care. Does not want to remain on life support for long. Continue with dysphagia level 5 diet. Heparin stopped in setting of very mild small subdural hematoma. SCDs. Plan for the day: Plans for discharge patient with hospice yesterday back to [facility] but could not go because of delay transportation and hypotension during the time of discharge which was thought to be in setting of autonomic dysfunction in setting of multiple sclerosis due to polypharmacy including medications like gabapentin and baclofen. Patient denies any chest pain, dizziness, headache, tolerated her breakfast though did have some nausea earlier today morning. Blood pressures have remained stable. Change gabapentin to 100 mg twice daily to avoid withdrawal symptoms. Continue with baclofen as needed. Midodrine 5 mg twice daily as needed for systolic blood pressure of less than 110 mmHg. Patient's heart rate and blood pressures have remained stable. Again discussed in detail with the patient regarding goals of care. For now she is agreeable with hospice care as she would like to further discuss with her son back at [facility]. We did discuss that in case if she decides to pursue the diagnosis and further workup for bladder mass she can follow-up with urologist. She would possibly need a cystoscopy for further evaluation and management with possible biopsy. Referral has been sent. Date of discharge 11/28 Patient's care discussed in detail with son over the phone. All the questions were answered. Attestations 2 Medical Necessity Statement*: Plans to discharge back to [facility] with hospice inpatient with severe multiple sclerosis, new diagnosis of Takotsubo cardiomyopathy with EF of 30%, long QT, bladder mass with hematuria as patient is declining any further invasive procedure and wants to transition over to hospice care Diagnoses Essential hypertension I10 Bradycardia R00.1 Long QT interval R94.31 Encephalopathy acute G93.40 Takotsubo cardiomyopathy I51.81 Multiple sclerosis exacerbation G35 Pseudomonas urinary tract infection N39.0; B96.5 Other specified hypothyroidism E03.8 Hypothyroidism type: other Neuropathic pain M79.2 Hallucination R44.3 Rosemarie infection of flexural skin B37.2 Wheelchair dependent Z99.3 Lives in assisted living facility Z59.3 Subdural hematoma S06.5XAA
== END 2023-11-29 13:45 | disposition hospice, inpatient (51) | DRG 91 ==
LOC: ER 07:53 → MEDSURG 11:10
PROVIDERS: Family Medicine; Internal Medicine; Admitting Provider Internal Medicine; Emergency Provider Family Medicine; PCP Nurse Practitioner; Visit Provider Student in an Organized Health Care Education/Training Program
DX: G92.8 Other toxic encephalopathy (principal); I21.4 Non-ST elevation (NSTEMI) myocardial infarction; I62.00 Nontraumatic subdural hemorrhage, unspecified; I51.81 Takotsubo syndrome; N39.0 Urinary tract infection, site not specified; B96.5 Pseudomonas (aeruginosa) (mallei) (pseudomallei) as the cause of diseases classified elsewhere; M79.2 Neuralgia and neuritis, unspecified; E03.8 Other specified hypothyroidism; I10 Essential (primary) hypertension; E03.9 Hypothyroidism, unspecified; G35 Multiple sclerosis; B37.2 Candidiasis of skin and nail; G83.89 Other specified paralytic syndromes; R00.1 Bradycardia, unspecified; I95.2 Hypotension due to drugs; T42.6X5A Adverse effect of other antiepileptic and sedative-hypnotic drugs, initial encounter; T42.8X5A Adverse effect of antiparkinsonism drugs and other central muscle-tone depressants, initial encounter; F41.9 Anxiety disorder, unspecified; N93.9 Abnormal uterine and vaginal bleeding, unspecified; Z74.01 Bed confinement status; N32.9 Bladder disorder, unspecified; Z79.890 Hormone replacement therapy; Z79.899 Other long term (current) drug therapy; Z99.3 Dependence on wheelchair; Z98.1 Arthrodesis status; Z87.891 Personal history of nicotine dependence; Z88.8 Allergy status to other drugs, medicaments and biological substances; Z90.710 Acquired absence of both cervix and uterus; Z90.49 Acquired absence of other specified parts of digestive tract
CPT/HCPCS: 0241U; 36415; 36416; 36573; 36592; 51702; 70450; 70491; 70553; 71045; 74177; 76830; 76856; 80048; 80053; 81001; 81003; 81015; 82140; 82550; 82607; 82803; 82962; 83036; 83540; 83550; 83605; 83735; 84145; 84146; 84443; 84484; 85025; 85610; 85651; 85730; 86140; 86850; 86900; 87040; 87086; 87102; 87106; 87206; 93005; 93306; 96365; 96372; 99285; A9577; G0378; J1644; J1650; J1953; J2060; J2185; J2405; J2543; J2919; J7030; J7040; J7050; J7070; J7799

== ENCOUNTER 2024-02-25 14:22 | Emergency (ER) | payer MEDICARE, SELFPAY ==
[2024-02-25] VITALS (34 sets, daily range): BP systolic 87–135; BP diastolic 58–82; PULSE 85–107; RESP 4–18; TEMP 36.4–37.1; O2SAT 92–100
--- NOTE | 2024-02-25 14:34 | XR_ITS ---
WS: [id number] Portable AP semiupright chest, 02/25/2024 Clinical Data: weakness Comparison: Portable chest, 11/21/2023 Findings: No nodules, masses or effusions are seen. The heart is normal. The pulmonary vascularity is not increased. No pneumonia or pneumothorax is seen. The aortic arch and descending thoracic aorta s how tortuosity. Monitor leads are on the chest wall. There are cholecystectomy clips in the right upp er quadrant. XR/XR chest 1V portable [id number] Impression: Atherosclerosis.
--- NOTE | 2024-02-25 14:34 | CTR_ITS ---
PROCEDURE INFORMATION: Exam: CT Abdomen And Pelvis With Contrast Exam date and time: 02/25/2024 4:09 PM Age: 73 years old Clinical indication: Other: Rectal bleeding TECHNIQUE: Imaging protocol: Computed tomography of the abdomen and pelvis with contrast. Radiation optimization: All CT scans at this facility use at least one of these dose optimization techniques: automated exposure control; mA and/or kV adjustment per patient size (includes targeted exams where dose is matched to clinical indication); or iterative reconstruction. Contrast material: OMNIPAQUE 350; Contrast volume: 100 ml; Contrast route: INTRAVENOUS (IV); COMPARISON: CT abdomen pelvis w con* [id number] 11/28/2023 10:11 AM RADIATION DOSE METRICS: Total DLP (mGy-cm): 695.19 FINDINGS: Lungs: Trace left-sided pleural effusion. Diaphragm: No evidence of diaphragmatic defect. Liver: Hepatic steatosis. No evidence of focal hepatic lesion. Note that the hepatic dome is mostly outside the field of view. Gallbladder and biliary ducts: Status post cholecystectomy. No evidence of intrahepatic or extrahepatic biliary dilatation. Pancreas: Unremarkable. Spleen: Multiple splenic calcifications compatible with sequela of a remote granulomatous process. Otherwise grossly unremarkable. Adrenal glands: Unremarkable. Kidneys and ureters: Bilateral renal parenchymal scarring. There is mild patchy parenchymal hypoenhancement of both kidneys, [id number] suspicious for pyelonephritis. No hydronephrosis or ureteral stone. Stomach and bowel: There is dense material within the rectum compatible with active extravasation of contrast and active GI bleed in the proper clinical setting. No evidence of bowel obstruction or perienteric inflammatory changes. Appendix: Normal appendix. Intraperitoneal space: No evidence of free air or fluid collection. Vasculature: Moderate aortobiiliac atherosclerosis without aneurysmal dilatation or dissection. The celiac trunk, SMA and KATYA are grossly patent. Moderate narrowing of the origin of the celiac trunk secondary to atherosclerotic plaque. Consider follow-up outpatient vascular evaluatiion. No evidence of IVC thrombus. The portal vein, SMV and splenic veins are grossly patent. Lymph nodes: No adenopathy. Urinary bladder: Mckeon catheter in place. Reproductive: Prior hysterectomy. There is air and fluid in the vaginal cuff. Mottled fluid and air is noted in the perineum concerning for infection. Bones/joints: Sacral decubitus ulcer with underlying erosive change of the lower sacrum compatible with osteomyelitis (for example, image 30 of series 6). L4-L5 posterior instrumented fusion. Posterior decompression from L1-L2 through L5-S1. Moderate-severe foraminal stenosis at L2-L3 and L3-L4. Soft tissues: Sacral decubitus ulcer. No evidence of fluid collection or hematoma in the superficial soft tissues. CT/CT abdomen pelvis w con* [id number] IMPRESSION: 1. Findings suggestive of active rectal GI bleed in the proper clinical setting. GI evaluation is recommended. 2. Bilateral pyelonephritis. Correlation with laboratory findings and urinalysis is recommended. 3. Mottled fluid/air in the perineum concerning for infection. 4. Osteomyelitis of the lower sacrum.
--- NOTE | 2024-02-25 14:35 | ECG_ITS ---
[employer] Apportable Test Date: 2024-02-25 Pat Name: Valery Triana Department: Room: Gender: Female Eap Specialist: : [id number] Requested By: aGl [place] Order Number: [id number] Selina MD: Sherri Cueto M.D. Measurements Intervals [place] Rate: 106 P: 64 WA: 147 QRS: 67 QRSD: 91 T: 0 QT: 313 QTc: 417 Interpretive Statements SINUS TACH[address] DEVIATION AND MODERATE T-WAVE ABNORMALITY, CONSIDER LATERAL ISCHEMIA [-0.1+ mV T-WAVE IN I/aVL/V5/V6] ST DEVIATION AND MODERATE T-WAVE ABNORMALITY, CONSIDER INFERIOR ISCHEMIA [-0.1+ mV T-WAVE IN II/aVF] Compared to ECG 11/28/2023 08:40:44 Sinus rhythm no longer present T-wave abnormality still present Possible ischemia still present Electronically Signed On 02-25-2024 21:16:36 [employer]MENT MANAGER by Sherri Cueto M.D. [email or web address]
--- NOTE | 2024-02-25 14:45 | PC.PHAR ---
Pt is from [facility] [phone]
--- NOTE | 2024-02-25 14:57 | W.ED.GIBLEED ---
HPI - GI Bleed General: Chief complaint: GI Bleed Stated complaint: GI Bleed Time Seen by Provider: 02/25/24 14:27 Source: patient and EMS Mode of arrival: EMS Limitations: no limitations History of Present Illness: 73-year-old female with a history of multiple sclerosis she is at [facility] and is on hospice states that she started having large amounts of bright red blood per rectum today along with weakness. No known history of previous rectal bleeding in the past she is not on any blood thinners. She denies any pain initially was hypotensive with EMS blood pressure here is improved. Associated symptoms: Denies abdominal pain, chills, fever(s), headache(s), nausea, rash or vomiting Related Data Home Medications Medication Instructions Recorded Confirmed acetaminophen 500 mg tablet 500 - 1,000 mg PO Q6H PRN Pain 05/01/22 02/25/24 baclofen 20 mg tablet 20 mg PO TID PRN Pain 07/03/22 02/25/24 nystatin 100,000 unit/gram topical 1 applic topical BID 07/03/22 02/25/24 powder (Nyamyc) tizanidine 4 mg tablet 8 mg PO QPM 07/03/22 02/25/24 docusate sodium 100 mg capsule 100 mg PO DAILY 11/16/23 02/25/24 (Colace) multivitamin 2 tab PO DAILY 11/16/23 02/25/24 ascorbic acid (vitamin C) 500 mg See Rx Instructions .Route .COMPLEX 02/25/24 02/25/24 tablet (Vitamin C) levothyroxine 100 mcg tablet See Rx Instructions .Route .COMPLEX 02/25/24 02/25/24 lorazepam 2 mg/mL oral concentrate See Rx Instructions .Route .COMPLEX 02/25/24 02/25/24 metronidazole 250 mg tablet See Rx Instructions .Route .COMPLEX 02/25/24 02/25/24 morphine concentrate 100 mg/5 mL See Rx Instructions .Route .COMPLEX 02/25/24 02/25/24 (20 mg/mL) oral solution ondansetron 4 mg disintegrating 4 mg PO Q4H PRN Nausea And Vomiting 02/25/24 02/25/24 tablet promethazine 25 mg rectal 25 mg AL Q6H PRN Nausea And 02/25/24 02/25/24 suppository Vomiting zinc oxide 5 % topical cream 1 applic topical BID 02/25/24 02/25/24 Previous Rx's Medication Instructions Recorded E0635 is a patient lift, #1 ea 07/19/22 electric, with seat or sling. Saccharomyces boulardii 250 mg 250 mg PO BID #60 caps 10/27/22 capsule (Florastor) ascorbate calcium (vitamin C) 500 500 mg PO BID #180 tabs 10/27/22 mg tablet lisinopril 2.5 mg tablet 2.5 mg PO .at 2pm #90 tabs 09/26/23 methenamine hippurate 1 gram tablet 1 g PO Q12H #180 tabs 09/26/23 tramadol 50 mg tablet 100 mg (2 x 50 mg) PO BID #360 tabs 09/26/23 aspirin 81 mg chewable tablet 81 mg PO DAILY #30 tabs 11/28/23 atorvastatin 40 mg tablet 40 mg PO BEDTIME #30 tabs 11/28/23 citalopram 20 mg tablet 10 mg (1/2 x 20 mg) PO DAILY #30 11/28/23 tabs gabapentin 100 mg capsule 100 mg PO BID #60 caps 11/29/23 midodrine 5 mg tablet 2.5 mg (1/2 x 5 mg) PO BID PRN sbp 11/29/23 less than 110 mmhg #14 tabs Allergies Allergy/AdvReac Type Severity Reaction Status Date / Time naproxen [From Aleve] AdvReac Severe Kidney Verified 10/24/23 09:45 Review of Systems Const: Denies: fever(s), chills, body aches or change in appetite ENMT: Denies: throat pain or dental pain Card: Denies: chest pain Resp: Denies: dyspnea GI: Reports: hematochezia; Denies: abdominal pain, nausea, vomiting or diarrhea Musc: Denies: neck pain or back pain Skin/Breast: Denies: rash Neuro: Denies: headache(s) PFSH ED PFSH: Medical History Bradycardia Encephalopathy acute Acute pancreatitis Acute kidney injury Sepsis Hypothermia Acute hypotension Spinal stenosis Lives in assisted living facility Chronic UTI (urinary tract infection) Hypothyroid Essential hypertension Neuropathic pain Multiple sclerosis Dr. Jc Metz in [place], [place] Wheelchair dependent Wears dentures Surgical History History of lumbar fusion History of bilateral tubal ligation History of hysterectomy History of cholecystectomy Family History Mother Cancer Bladder Diabetes Sister Hypertension Congestive heart failure (CHF) Social History Smoking and tobacco/nicotine status: former use of tobacco/nicotine Second hand smoke exposure: No Caregiver/support person: Yes Lives independently: No (SV) Household members: other Housing: Assisted Living Facility Current occupational status: retired and disabled Current occupational exposures/hazards: No Pets and animals: No Do you think of yourself as: Straight/Heterosexual Current gender identity: Female Physical Exam Const: COMMON NORMALS: patient oriented x3 GENERAL APPEARANCE: ill appearing HENMT: COMMON NORMALS: normocephalic and atraumatic HEAD & SCALP: normocephalic and atraumatic Eye: COMMON NORMALS: Equal, round and reactive pupils present and EOMs intact bilaterally PUPIL: Yes Equal, round and reactive pupils present Neck/C-Spine: COMMON NORMALS: full ROM and supple Chest: COMMONS NORMALS: normal inspection of the chest Resp: COMMON NORMALS: normal respiratory effort and clear to auscultation bilaterally AUSCULTATION: clear to auscultation bilaterally Cardio: COMMON NORMALS: regular rate, regular rhythm and No murmurs present (Cardio) RATE: regular rate RHYTHM: regular rhythm GI: COMMON NORMALS: Normal to inspection, nondistended, normoactive bowel sounds present, Soft to palpation, non-tender and no masses PALPATION: Yes Soft to palpation OTHER: Large amount of bright red blood on rectal exam Extremity: COMMON NORMALS: normal to inspection and full ROM Neuro: COMMON NORMALS: patient oriented x3, moves all extremities and no focal motor deficits Psych: COMMON NORMALS: mental status grossly normal Skin: COMMON NORMALS: no rashes or lesions noted and no wounds GENERAL SKIN EXAM: no rashes or lesions noted Course Vital Signs: Vital signs: Vital Signs Temperature 98.7 F 02/25/24 14:24 Pulse Rate 96 02/25/24 17:20 Respiratory Rate 9 L 02/25/24 17:20 Blood Pressure 132/70 02/25/24 17:20 Pulse Oximetry 92 02/25/24 17:20 Oxygen Delivery Me thod Room Air 02/25/24 15:25 MDM - GI Bleed Medical Decision Making Patient presents here with lower GI bleed large amount did give her TXA and transfusing her blood pressure here is improved I did speak to my surgeon here recommended high labor care of GI due to massive GI bleed lower. Did speak to [facility] I spoke to GI physician there and hospitalist will transfer there. Medical Records I reviewed the patient's medical records. Lab Data I reviewed the patient's lab results. 02/25/24 15:12 02/25/24 15:12 Radiology Impressions Abdomen/Pelvis CT 02/25/24 14:34 IMPRESSION: 1. Findings suggestive of active rectal GI bleed in the proper clinical setting. GI evaluation is recommended. 2. Bilateral pyelonephritis. Correlation with laboratory findings and urinalysis is recommended. 3. Mottled fluid/air in the perineum concerning for infection. 4. Osteomyelitis of the lower sacrum. ADDENDUM: 02/25/24 [id number] The findings were verbally communicated by telephone with Dr. ZACARIAS at 4:48 PM DEPENDENCY DIRECTOR on 02/25/2024. Chest X-Ray 02/25/24 14:34 Impression: Atherosclerosis. Laboratory Results WBC 10.25 10^3/uL (3.29-11.43) 02/25/24 15:12 RBC 2.33 10^6/uL (3.85-5.65) L 02/25/24 15:12 Hgb 6.80 g/dL (11.27-16.99) L 02/25/24 15:12 Hct 23.9 % (36-47) L 02/25/24 15:12 MCV 102.6 fl (85-98) H 02/25/24 15:12 MCH 29.2 pg (27-33) 02/25/24 15:12 MCHC 28.5 g/dL (30-55) L 02/25/24 15:12 RDW 18.6 % (12.1-15.1) H 02/25/24 15:12 Plt Count 556 10^3/cmm (157-399) H 02/25/24 15:12 MPV 9.8 fL (7.4-10.4) 02/25/24 15:12 Neut % (Auto) 65.1 % 02/25/24 15:12 Lymph % (Auto) 22.3 % 02/25/24 15:12 Cass % (Auto) 8.7 % 02/25/24 15:12 Eos % (Auto) 2.1 % 02/25/24 15:12 Baso % (Auto) 1.0 % 02/25/24 15:12 Neut # (Auto) 6.67 10^3/uL (1.8-7.7) 02/25/24 15:12 Lymph # (Auto) 2.3 10^3/uL (0.8-4.8) 02/25/24 15:12 Cass # (Auto) 0.9 10^3/uL (0.2-0.9) 02/25/24 15:12 Eos # (Auto) 0.2 10^3/uL (0.0-0.8) 02/25/24 15:12 Baso # (Auto) 0.1 10^3/uL (0.0-0.1) 02/25/24 15:12 Nucleated RBC % (auto) 0 % 02/25/24 15:12 Nucleated RBCs # 0.0 /100WBC 02/25/24 15:12 PT 14.70 SECONDS (12.1-14.9) 02/25/24 15:12 INR 1.11 (0.8-1.2) 02/25/24 15:12 Sodium 138 mmol/L (136-145) 02/25/24 15:12 Potassium 3.8 mmol/L (3.5-5.1) 02/25/24 15:12 Chloride 105 mmol/L (98-107) 02/25/24 15:12 Carbon Dioxide 23 mmol/L (22-29) 02/25/24 15:12 Anion Gap 13.8 (5-19) 02/25/24 15:12 BUN 17 mg/dL (8-23) 02/25/24 15:12 Creatinine 0.3 mg/dL (0.5-0.9) L 02/25/24 15:12 GFR Calculation Not Reportable 02/25/24 15:12 Glucose 198 mg/dL (65-115) H 02/25/24 15:12 Calculated Osmolality 293 mOsm/kg (285-295) 02/25/24 15:12 Calcium 8.1 mg/dL (8.5-10.5) L 02/25/24 15:12 Total Bilirubin 0.2 mg/dL (0.15-1.2) 02/25/24 15:12 AST 12 U/L (0-32) 02/25/24 15:12 ALT 10 U/L (0-33) 02/25/24 15:12 Alkaline Phosphatase 88 U/L (35-105) 02/25/24 15:12 Total Protein 4.9 g/dL (6.6-8.7) L 02/25/24 15:12 Albumin 2.7 g/dL (3.5-5.2) L 02/25/24 15:12 Globulin 2.2 g/dL (1.3-4.6) 02/25/24 15:12 Lipase 46 U/L (13-60) 02/25/24 15:12 Blood Type A Positive 02/25/24 15:12 Rho(D) Type Rh positive 02/25/24 15:12 Antibody Screen Negative 02/25/24 15:12 Crossmatch See Detail 02/25/24 15:12 All radiology interpretation(s) finalized by discharge EKG Data EKG 1: I personally reviewed and interpreted this EKG as follows: EKG interpretation date: 02/25/24 EKG interpretation time: 14:44 Interpretation: sinus tach hr [address] elevation qrs 91 qtc 375 Critical Care Time Critical Care Time: Critical Care Time: Yes Total Critical Care Time: 50 Attestation: The high probability of a clinically significant, sudden or life threatening deterioration of the patient's gi system(s) required my full and direct attention, intervention and personal management. The critical care time is as shown. This time is in addition to time spent performing any reported procedures but includes the following: [x] Data and vital sign review and interpretation [x] Patient assessment, examination and intervention [x] Documentation [x] Medication orders and management Discharge Plan Discharge Patient Disposition: Xfer Short-Term Hosp Clinical Impression: Acute lower GI bleeding, Anemia Condition: Stable Prescriptions: No Action (DME) E0635 is a patient lift, electric, with seat or sling. See Rx Instructions .Route .MEDSUPPLY Qty: 1 0RF Rx Instructions: As directed lisinopril 2.5 mg tablet 2.5 mg PO .at 2pm Qty: 90 1RF methenamine hippurate 1 gram tablet 1 g PO Q12H Qty: 180 1RF Rx Instructions: take with vitamin C tramadol 50 mg tablet 100 mg PO BID Qty: 360 1RF Saccharomyces boulardii [Florastor] 250 mg capsule 250 mg PO BID Qty: 60 0RF ascorbate calcium (vitamin C) 500 mg tablet 500 mg PO BID Qty: 180 1RF Rx Instructions: take with methenamine acetaminophen 500 mg Tablet 500 - 1,000 mg PO Q6H PRN (Reason: Pain) nystatin [Nyamyc] 100,000 unit/gram Powder 1 applic TOPICAL BID tizanidine 4 mg tablet 8 mg PO QPM Rx Instructions: neurology writing baclofen 20 mg tablet 20 mg PO TID PRN (Reason: Pain) docusate sodium [Colace] 100 mg capsule 100 mg PO DAILY multivitamin Tablet 2 tab PO DAILY atorvastatin 40 mg Tablet 40 mg PO BEDTIME Qty: 30 0RF aspirin 81 mg Tablet,Chewable 81 mg PO DAILY Qty: 30 0RF citalopram 20 mg Tablet 10 mg PO DAILY Qty: 30 0RF gabapentin 100 mg capsule 100 mg PO BID Qty: 60 0RF midodrine 5 mg tablet 2.5 mg PO BID PRN (Reason: sbp less than 110 mmhg) Qty: 14 0RF Rx Instructions: do not give last dose of day after 6PM or within 4 hrs of bedtime morphine concentrate 100 mg/5 mL (20 mg/mL) solution See Rx Instructions .ROUTE .COMPLEX Rx Instructions: GIVE 0.25 TO 1 ML UNDER TONGUE EVERY 1 HOUR NEEDED FOR PAIN/AIR HUNGER. promethazine 25 mg suppository 25 mg AL Q6H PRN (Reason: Nausea And Vomiting) metronidazole 250 mg tablet See Rx Instructions .ROUTE .COMPLEX Rx Instructions: CLEANSE WOUND TO COCCYX WITH CLEANSER OF CHOICE, CRUSH TABLET AND PLACE ON WOUND DAILY, COVER WITH AN ABSORBENT DRESSING, PLACE COFFEE GROUNDS IN ROOM OR UNDER BED TO ASSIST WITH ODOR CONTROL ascorbic acid (vitamin C) [Vitamin C] 500 mg tablet See Rx Instructions .ROUTE .COMPLEX Rx Instructions: TAKE ONE TABLET BY MOUTH TWICE DAILY WITH METHENAMINE FOR SUPPLEMENT. ondansetron 4 mg tablet,disintegrating 4 mg PO Q4H PRN (Reason: Nausea And Vomiting) lorazepam 2 mg/mL concentrate See Rx Instructions .ROUTE .COMPLEX Rx Instructions: GIVE 0.25 TO 1 ML UNDER TONGUE EVERY 1 HOUR NEEDED FOR ANXIETY/RESTLESSNESS levothyroxine 100 mcg tablet See Rx Instructions .ROUTE .COMPLEX Rx Instructions: Take 1 tablet by mouth Friday through Friday and take 1.5 tablets on Friday. zinc oxide 5 % cream 1 applic topical BID Referrals: Makayla Galvez, [facility] [employer] [facility] [Primary Care Provider] - Coding Level of Care Code ED Brass[employer] C[employer] for Augie Weeks
[2024-02-25] MEDS: sodium chloride 0.9% 1,000 ML 999 ML IV ×2 (15:16→16:40)
[2024-02-25] MEDS: tranexamic acid 1,000 MG/100 ML PREMIX 600 MG IV ×2 (15:21→16:36)
[2024-02-25 15:29] LABS: Basophils # 0.1 10^3/uL (0.0-0.1); Eosinophils # 0.2 10^3/uL (0.0-0.8); Eosinophils % 2.1 %; Hematocrit 23.9 % (36-47); Lymphocytes # 2.3 10^3/uL (0.8-4.8); Lymphocytes % 22.3 %; Mean Corpuscular HGB Conc 28.5 g/dL (30-55); Mean Corpuscular Hemoglobin 29.2 pg (27-33); Mean Corpuscular Volume 102.6 fl (85-98); Mean Platelet Volume 9.8 fL (7.4-10.4); Monocytes # 0.9 10^3/uL (0.2-0.9); Monocytes % 8.7 %; Neutrophils # 6.67 10^3/uL (1.8-7.7); Neutrophils % 65.1 %; Nucleated Red Blood Cells % 0 %; Platelet Count 556 10^3/cmm (157-399); Red Blood Count 2.33 10^6/uL (3.85-5.65); Red Cell Distribution Width 18.6 % (12.1-15.1); White Blood Count 10.25 10^3/uL (3.29-11.43)
[2024-02-25 15:38] LABS: INR 1.11 (0.8-1.2)
[2024-02-25 15:46] LABS: Alanine Aminotransferase 10 U/L (0-33); Albumin Level 2.7 g/dL (3.5-5.2); Alkaline Phosphatase 88 U/L (35-105); Anion Gap 13.8 (5-19); Aspartate Amino Transferase 12 U/L (0-32); Blood Urea Nitrogen 17 mg/dL (8-23); Calcium 8.1 mg/dL (8.5-10.5); Carbon Dioxide 23 mmol/L (22-29); Chloride 105 mmol/L (98-107); Creatinine Clr Calc Pharmacy 68.5981; Globulin 2.2 g/dL (1.3-4.6); Glucose 198 mg/dL (65-115); Lipase 46 U/L (13-60); Osmolality Calculated 293 mOsm/kg (285-295); Potassium 3.8 mmol/L (3.5-5.1); Sodium 138 mmol/L (136-145); Total Bilirubin 0.2 mg/dL (0.15-1.2); Total Protein 4.9 g/dL (6.6-8.7)
[2024-02-25] MEDS: iohexol 350 mg/mL 500 mL Btl (per mL) IV (16:12)
[2024-02-25 16:14] LABS: Slide Review Slide Review Perform
--- NOTE | 2024-02-25 17:18 | P.CONIM_ITS ---
Providers/Reason For Consult 2 Consulting Physician/Specialty*: General Surgery Reason for Consult*: GI bleeding Primary Care Provider: CAMMY Jimenez History of Present Illness History of Present Illness Valery Triana is a 73 year old female On hospice who presents with 2 days of acute lower GI bleeding, patient is back with a large amounts of blood per rectum. 1% into the ED she was hypotensive hemoglobin was below 7 she got transfused with this she is now the stable. A CT scan done in the emergency department show evidence of possible rectal bleeding with the rectum full of blood products. Review of Systems 2 General: Reports: 10 or more systems reviewed and unremarkable except in HPI and below Medications/Allergies Home Medications Medication Instructions Recorded Confirmed Last Taken Type acetaminophen 500 mg tablet 500 - 1,000 mg PO Q6H PRN Pain 05/01/22 02/25/24 Unknown History baclofen 20 mg tablet 20 mg PO TID PRN Pain 07/03/22 02/25/24 11/14/23 History nystatin 100,000 unit/gram topical 1 applic topical BID 07/03/22 02/25/24 02/24/24 History powder (Nyamyc) tizanidine 4 mg tablet 8 mg PO QPM 07/03/22 02/25/24 02/24/24 History E0635 is a patient lift, #1 ea 07/19/22 02/25/24 Unknown Rx electric, with seat or sling. Saccharomyces boulardii 250 mg 250 mg PO BID #60 caps 10/27/22 02/25/24 02/25/24 Rx capsule (Florastor) ascorbate calcium (vitamin C) 500 500 mg PO BID #180 tabs 10/27/22 02/25/24 02/25/24 Rx mg tablet lisinopril 2.5 mg tablet 2.5 mg PO .at 2pm #90 tabs 09/26/23 02/25/24 02/24/24 Rx methenamine hippurate 1 gram tablet 1 g PO Q12H #180 tabs 09/26/23 02/25/24 02/25/24 Rx tramadol 50 mg tablet 100 mg (2 x 50 mg) PO BID #360 tabs 09/26/23 02/25/24 02/25/24 Rx docusate sodium 100 mg capsule 100 mg PO DAILY 11/16/23 02/25/2424 History (Colace) multivitamin 2 tab PO DAILY 11/16/23 02/25/24 02/25/24 History aspirin 81 mg chewable tablet 81 mg PO DAILY #30 tabs 11/28/23 02/25/24 02/25/24 Rx atorvastatin 40 mg tablet 40 mg PO BEDTIME #30 tabs 11/28/23 02/25/24 02/24/24 Rx citalopram 20 mg tablet 10 mg (1/2 x 20 mg) PO DAILY #30 11/28/23 02/25/24 02/25/24 Rx tabs gabapentin 100 mg capsule 100 mg PO BID #60 caps 11/29/23 02/25/24 02/25/24 Rx midodrine 5 mg tablet 2.5 mg (1/2 x 5 mg) PO BID PRN sbp 11/29/23 02/25/24 Unknown Rx less than 110 mmhg #14 tabs ascorbic acid (vitamin C) 500 mg See Rx Instructions .Route .COMPLEX 02/25/24 02/25/24 02/25/24 History tablet (Vitamin C) levothyroxine 100 mcg tablet See Rx Instructions .Route .COMPLEX 02/25/24 02/25/24 02/25/24 History lorazepam 2 mg/mL oral concentrate See Rx Instructions .Route .COMPLEX 02/25/24 02/25/24 Unknown History metronidazole 250 mg tablet See Rx Instructions .Route .COMPLEX 02/25/24 02/25/24 02/25/24 History morphine concentrate 100 mg/5 mL See Rx Instructions .Route .COMPLEX 02/25/24 02/25/24 Unknown History (20 mg/mL) oral solution ondansetron 4 mg disintegrating 4 mg PO Q4H PRN Nausea And Vomiting 02/25/24 02/25/24 Unknown History tablet promethazine 25 mg rectal 25 mg CA Q6H PRN Nausea And 02/25/24 02/25/24 Unknown History suppository Vomiting zinc oxide 5 % topical cream 1 applic topical BID 02/25/24 02/25/24 Unknown History Allergies Allergy/AdvReac Type Severity Reaction Status Date / Time naproxen [From Aleve] AdvReac Severe Kidney Verified 10/24/23 09:45 PFSH Acute 2 PFSH: Medical History Bradycardia Encephalopathy acute Acute pancreatitis Acute kidney injury Sepsis Hypothermia Acute hypotension Spinal stenosis Lives in assisted living facility Chronic UTI (urinary tract infection) Hypothyroid Essential hypertension Neuropathic pain Multiple sclerosis Dr. Jc Metz in [place], [place] Wheelchair dependent Wears dentures Surgical History History of lumbar fusion History of bilateral tubal ligation History of hysterectomy History of cholecystectomy Family History Mother Cancer Bladder Diabetes Sister Hypertension Congestive heart failure (CHF) Social History Smoking and tobacco/nicotine status: former use of tobacco/nicotine Second hand smoke exposure: No Caregiver/support person: Yes Lives independently: No (SV) Household members: other Housing: Assisted Living Facility Current occupational status: retired and disabled Current occupational exposures/hazards: No Pets and animals: No Do you think of yourself as: Straight/Heterosexual Current gender identity: Female Vitals/I&O/Wt Last Vital Signs Temp 98.7 F 02/25/24 14:24 Pulse 107 H 02/25/24 14:24 Resp 18 02/25/24 14:24 BP 132/68 02/25/24 16:40 Pulse Ox 97 02/25/24 15:25 O2 Del Method Room Air 02/25/24 15:25 02/25/24 02/25/24 02/25/24 06:59 14:59 22:59 Intake Total 700 / 700 1200 / 1900 Balance 700 / 700 1200 / 1900 Weight last 48 hrs Weight 160 lb Physical Exam 2 Narrative: Patient is laying in bed comfortable, stable vital signs at the moment of my evaluation. Abdomen is soft there is some tenderness in the pelvis other than that none tender. There is christina blood on rectal examination. Data 02/25/24 15:12 02/25/24 15:12 A&P Assessment and plan (1) Lower GI bleed: Plan Patient presenting with large volume lower GI bleeding. I was consulted for evaluation for possible management with endoscopy. After my evaluation the following are my recommendations. The GI bleeding appears to be coming from the upper rectum, on imaging you can see some contrast at that level with blood products retained in the rectal vault. Patient will require emergent or endoscopy with possible bleeding control, it will require additional expertise and probable large volume evacuation of blood which we cannot do with our current equipment, in addition patient should be transferred to high-level care as in the case of failed endoscopic intervention she will require immediate IR embolization to control the bleeding. Patient shows understanding about the treatment plan and is agreeable with transfer to higher level of care. She is stable from the general surgery standpoint at this time for transfer. I have discussed the case with Dr. Moctezuma in the emergency department. Coding Level of Care Code Acute Code for [facility] Fwd Diagnoses Lower GI bleed K92.2
[2024-02-25 17:51] LABS: Lactic Sepsis W/Reflex 1.2 mmol/L (0.5-2.2)
[2024-02-25] MEDS: piperacillin-tazobactam 3.375 GM in sodium chloride 0.9% (plus) 50 ML IV (18:54)
--- NOTE | 2024-02-25 19:34 | PC.NURSE ---
SECOND UNIT OF BLOOD ORDERED FOR PT. [facility] ARRIVED BEFORE SECOND UNIT WAS STARTED. [facility] STAFF REQUESTED TO START SECOND UNIT OF BLOOD IN FLIGHT D/T THEM HAVING DIFFERENT IV TUBING. SECOND UNIT VERIFIED BY CHRISTINA MARINELLI AND CHRISTINA DIAS AND GIVEN TO [facility] STAFF.
== END 2024-02-25 19:15 | disposition short-term general hospital (02) ==
PROVIDERS: Emergency Provider Emergency Medicine; PCP Nurse Practitioner
DX: K92.2 Gastrointestinal hemorrhage, unspecified (principal); D64.9 Anemia, unspecified; Z79.82 Long term (current) use of aspirin; Z87.891 Personal history of nicotine dependence; I10 Essential (primary) hypertension
CPT/HCPCS: 36415; 36430; 71045; 74177; 80053; 83605; 83690; 85025; 85610; 86850; 86900; 86920; 93005; 96365; 96375; 99285; 99291; J2543; J7030; P9016